=== PATIENT | female | born 1950 | race Caucasian/White ===

== ENCOUNTER 2017-11-21 21:30 | Emergency (ER) | payer MEDICARE ==
[2017-11-21 23:00] LABS: Basophils % (Auto) 0.5 % (0.0-1.8); Eosinophils # (Auto) 0.2 K/mm3 (0.0-0.4); Eosinophils % (Auto) 2.6 % (0.0-4.3); Hematocrit 40.3 % (30.3-42.9); Hemoglobin 13.1 gm/dl (10.1-14.3); Lymphocytes # (Auto) 1.8 K/mm3 (1.2-5.4); Lymphocytes % (Auto) 21.6 % (13.4-35.0); Mean Corpuscular HGB Conc 33 % (30-34); Mean Corpuscular Hemoglobin 31 pg (28-32); Mean Corpuscular Volume 96 fl (79-97); Monocytes % (Auto) 11.8 % (0.0-7.3); Platelet Count 179 K/mm3 (140-440); Red Blood Count 4.19 M/mm3 (3.65-5.03); Red Cell Distribution Width 13.3 % (13.2-15.2)
[2017-11-21 23:36] LABS: BUN/Creatinine Ratio 13; Blood Urea Nitrogen 12 mg/dL (7-17); Calcium 9.2 mg/dL (8.4-10.2); Hemolysis Index 2
[2017-11-21] MEDS ORDERED: MORPHINE IV ONE (23:55)
[2017-11-21] MEDS ORDERED: ZOFRAN IV ONE (23:55)
[2017-11-21] MEDS ORDERED: NITRO-BID 2% TP ONE (23:55)
[2017-11-22] MEDS ORDERED: ASPIRIN PO ONE (00:04)
--- NOTE | 2017-11-22 00:04 | Emergency Department Report ---
HPI - General Chief Complaint: Chest Pain Time Seen by Provider: 11/21/17 23:42 - HPI HPI: Room 17 The patient is a 66-year-old female presented with a chief complaint of chest heaviness. The patient states yesterday she began developing pain in the left upper arm is dull and constant in nature. The patient states she then developed intermittent chest heaviness. The patient states she took her inhaler but it did not help. Patient denies shortness of breath, nausea/ vomiting or diaphoresis with chest heaviness. The patient currently does her heaviness a score of 7/10. The patient states her last stress occurred approximately one year ago but she has never had a cardiac catheterization Location: [See above] Duration: [See above] Quality: Heaviness Severity: 7/10 Modifying factors: [see above] Context: [see above] Mode of transportation: [not driving] ED Past Medical Hx - Past Medical History Hx Hypertension: Yes Hx COPD: Yes - Surgical History Hx Cholecystectomy: Yes Hx Appendectomy: Yes Additional Surgical History: hysterectomy - Family History Family history: no significant - Social History Smoking Status: Never Smoker Substance Use Type: None (denies illicit drug use), Alcohol (frequently) - Medications Home Medications: Home Medications Medication Instructions Recorded Confirmed Last Taken Type Lisinopril [Zestril] 40 mg PO DAILY 07/26/16 07/26/16 Unknown History Simvastatin [Zocor TAB] 40 mg PO QHS 07/26/16 07/26/16 Unknown History Tiotropium [Spiriva] 18 mcg IH QDAY 07/26/16 07/26/16 Unknown History metFORMIN [Glucophage] 500 mg PO QDAY 07/26/16 07/26/16 Unknown History Albuterol Sulfate [Ventolin HFA] 2 puff IH Q4H PRN #1 pump 07/28/16 Unknown Rx Hydralazine HCl [Apresoline TAB] 50 mg PO Q8HR #90 tab 07/28/16 Unknown Rx Prednisone [predniSONE 5 mg (6-Day 5 mg PO .TAPER #1 tab.ds.pk 07/28/16 Unknown Rx Pack, 21 Tabs)] levoFLOXacin [Levaquin] 750 mg PO QDAY #5 tablet 07/28/16 Unknown Rx ED Review of Systems ROS: Stated complaint: CHEST PAIN Other details as noted in HPI Constitutional: denies: diaphoresis Eyes: denies: eye pain ENT: denies: throat pain Respiratory: denies: shortness of breath Cardiovascular: chest pain Endocrine: no symptoms reported Gastrointestinal: denies: nausea, vomiting Genitourinary: denies: dysuria Musculoskeletal: myalgia Neurological: denies: headache Physical Exam - Physical Exam Vital Signs: Vital Signs 11/21/17 22:14 Temperature 98.6 F Pulse Rate 88 Respiratory 16 Rate Blood Pressure 172/78 [Left] O2 Sat by Pulse 99 Oximetry Physical Exam: GENERAL: The patient is well-developed well-nourished []. [] HEENT: Normocephalic. Atraumatic. Extraocular motions are intact. Patient has moist mucous membranes. NECK: Supple. Trachea midline CHEST/LUNGS: Clear to auscultation. There is no respiratory distress noted. HEART/CARDIOVASCULAR: Regular. There is no tachycardia. There is no gallop rub or murmur. ABDOMEN: Abdomen is soft, nontender. Patient has normal bowel sounds. There is no abdominal distention. SKIN: There is no rash. There is no diaphoresis. NEURO: The patient is awake, alert, and oriented. The patient is cooperative. The patient has normal speech MUSCULOSKELETAL: There is no evidence of acute injury. ED Course Vital Signs 11/21/17 22:14 Temperature 98.6 F Pulse Rate 88 Respiratory 16 Rate Blood Pressure 172/78 [Left] O2 Sat by Pulse 99 Oximetry ED Medical Decision Making - Lab Data Result diagrams: 11/21/17 22:48 11/21/17 22:48 Laboratory Tests 11/21/17 11/21/17 22:48 22:48 WBC 8.3 RBC 4.19 Hgb 13.1 Hct 40.3 MCV 96 MCH 31 MCHC 33 RDW 13.3 Plt Count 179 Lymph % (Auto) 21.6 [place] % (Auto) 11.8 H Eos % (Auto) 2.6 Baso % (Auto) 0.5 Lymph # 1.8 Hernando # 1.0 H Eos # 0.2 Baso # 0.0 Seg Neutrophils % 63.5 Seg Neutrophils # 5.3 Sodium 139 Potassium 4.8 Chloride 103.5 Carbon Dioxide 27 Anion Gap 13 BUN 12 Creatinine 0.9 Estimated GFR > 60 BUN/Creatinine Ratio 13 Glucose 128 H Calcium 9.2 Troponin T < 0.010 - EKG Data -: EKG Interpreted by Me EKG shows normal: sinus rhythm Rate: normal - EKG Data When compared to previous EKG there are: no significant change Interpretation: nonspecific ST-T wave darrin (T-wave inversion in lead V2) - Radiology Data Radiology results: image reviewed (chest x-ray) interpreted by me: Chest x-ray-no focal infiltrates, no pneumothorax - Differential Diagnosis ACS, pericarditis, GERD Critical care attestation.: If time is entered above; I have spent that time in minutes in the direct care of this critically ill patient, excluding procedure time. ED Disposition Clinical Impression: Chest heaviness Disposition: OP ADMIT IP TO THIS HOSP Is pt being admited?: Yes Does the pt Need Aspirin: Yes Condition: Fair Referrals: PRIMARY CARE,MD [Primary Care Provider] - 3-5 Days Time of Disposition: 00:57 (hospitalist paged (Dr Zavala))
--- NOTE | 2017-11-22 01:02 | XRay Report ---
FINAL REPORT EXAM: XR CHEST 1V AP HISTORY: chest pain COMPARISON: Chest CT from July 2016. FINDINGS: Frontal view(s) of the chest obtained. Stable mild cardiac enlargement. Shallow inspiration.. No gross consolidation or effusion. No pneumothorax. IMPRESSION: No grossly acute findings. Stable mild cardiac enlargement.
[2017-11-22 02:38] VITALS: BP 172/78
== END 2017-11-22 02:37 | disposition admitted as inpatient to this hospital (09) ==
LOC: ED 21:30
DX: R07.89 Other chest pain (principal); I10 Essential (primary) hypertension; J44.9 Chronic obstructive pulmonary disease, unspecified; Z90.49 Acquired absence of other specified parts of digestive tract; Z90.89 Acquired absence of other organs; Z90.710 Acquired absence of both cervix and uterus
CPT/HCPCS: 36415; 71045; 80048; 84484; 85025; 93005; 93010; 96374; 96375; 99285; J2270; J2405

== ENCOUNTER 2020-10-23 16:02 | Inpatient (IN) | payer MEDICARE ==
--- NOTE | 2020-10-23 16:22 | Emergency Department Report ---
ED Shortness of Breath HPI - General Chief Complaint: Dyspnea/Respdistress Stated Complaint: AUNDREA Time Seen by Provider: 10/23/20 16:14 - History of Present Illness Initial Comments: Patient present by ambulance secondary to difficulty breathing. She had been having trouble breathing and a cough for the last several days. She actually had addressed this with her physician. Her doctor called in a prescription for Zithromax without seeing her without doing any testing. She reported cough and congestion. Cough is producing a yellowish to greenish phlegm. She did report having subjective fevers and worsening shortness of breath. Ultimately, her symptoms did not improve. She got worse today and an ambulance was called. She has no new pedal edema. She has had no new fevers or chills. She has not been vaccinated against coronavirus. She has had no known coronavirus exposure. Patient has difficulty breathing and states that she has used inhalers before. She does not know if she needs another one. She does have a history of COPD. - Related Data Home Medications Medication Instructions Recorded Confirmed Last Taken Lisinopril [Zestril] 40 mg PO DAILY 07/26/16 07/26/16 Unknown Simvastatin (NF) [Zocor TAB] 40 mg PO QHS 07/26/16 07/26/16 Unknown Tiotropium [Spiriva] 18 mcg IH QDAY 07/26/16 07/26/16 Unknown metFORMIN [Glucophage] 500 mg PO QDAY 07/26/16 07/26/16 Unknown Previous Rx's Medication Instructions Recorded Last Taken Type Albuterol Sulfate [Ventolin HFA] 2 puff IH Q4H PRN #1 pump 07/28/16 Unknown Rx Hydralazine HCl [Apresoline TAB] 50 mg PO Q8HR #90 tab 07/28/16 Unknown Rx Prednisone [predniSONE 5 mg (6-Day 5 mg PO .TAPER #1 tab.ds.pk 07/28/16 Unknown Rx Pack, 21 Tabs)] levoFLOXacin [Levaquin] 750 mg PO QDAY #5 tablet 07/28/16 Unknown Rx Allergies Allergy/AdvReac Type Severity Reaction Status Date / Time No Known Allergies Allergy Verified 10/23/20 19:34 ED Review of Systems ROS: Stated complaint: AUNDREA Other details as noted in HPI Comment: All other systems reviewed and negative Constitutional: chills, fever Eyes: denies: vision change ENT: denies: ear pain Respiratory: no symptoms reported, cough Cardiovascular: denies: chest pain Endocrine: denies: increased thirst, increased urine Gastrointestinal: denies: abdominal pain Genitourinary: denies: dysuria Musculoskeletal: denies: back pain Skin: rash (Patient has noticed a rash under both breasts with a purulent drainage.) Neurological: denies: headache Psychiatric: denies: suicidal thoughts Hematological/Lymphatic: denies: easy bruising ED Past Medical Hx - Past Medical History Hx Hypertension: Yes Hx Congestive Heart Failure: No Hx Diabetes: No Hx Asthma: No Hx COPD: Yes - Surgical History Hx Cholecystectomy: Yes Hx Appendectomy: Yes Additional Surgical History: hysterectomy - Family History Family history: lung disease - Social History Smoking Status: Never Smoker Substance Use Type: None (denies illicit drug use), Alcohol (frequently) - Medications Home Medications: Home Medications Medication Instructions Recorded Confirmed Last Taken Type Lisinopril [Zestril] 40 mg PO DAILY 07/26/16 07/26/16 Unknown History Simvastatin (NF) [Zocor TAB] 40 mg PO QHS 07/26/16 07/26/16 Unknown History Tiotropium [Spiriva] 18 mcg IH QDAY 07/26/16 07/26/16 Unknown History metFORMIN [Glucophage] 500 mg PO QDAY 07/26/16 07/26/16 Unknown History Albuterol Sulfate [Ventolin HFA] 2 puff IH Q4H PRN #1 pump 07/28/16 Unknown Rx Hydralazine HCl [Apresoline TAB] 50 mg PO Q8HR #90 tab 07/28/16 Unknown Rx Prednisone [predniSONE 5 mg (6-Day 5 mg PO .TAPER #1 tab.ds.pk 07/28/16 Unknown Rx Pack, 21 Tabs)] levoFLOXacin [Levaquin] 750 mg PO QDAY #5 tablet 07/28/16 Unknown Rx ED Physical Exam - General General appearance: alert, in distress - Head Head exam: Present: atraumatic, normocephalic - Eye Eye exam: Present: normal appearance, PERRL, EOMI - ENT ENT exam: Present: normal exam, normal orophraynx - Neck Neck exam: Present: full ROM - Respiratory Respiratory exam: Present: respiratory distress, decreased breath sounds - Cardiovascular Cardiovascular Exam: Present: normal rhythm, tachycardia - GI/Abdominal GI/Abdominal exam: Present: soft. Absent: tenderness (Obese) - Extremities Exam Extremities exam: Present: pedal edema (2+ bilateral). Absent: tenderness - Back Exam Back exam: Absent: CVA tenderness (R), CVA tenderness (L) - Neurological Exam Neurological exam: Present: alert, oriented X3, reflexes normal - Psychiatric Psychiatric exam: Present: normal affect, normal mood - Skin Skin exam: Present: warm, dry (Patient has evidence of cutaneous candidiasis under both breasts.) ED Course Vital Signs 10/23/20 10/23/20 10/23/20 16:20 16:28 16:38 Temperature 98.2 F 98.2 F Pulse Rate Pulse Rate [ 94 H Anterior Bilateral Throughout] Respiratory Rate Respiratory 26 H Rate [Anterior Bilateral Throughout] Blood Pressure Blood Pressure 196/82 [Left] O2 Sat by Pulse 96 Oximetry 10/23/20 10/23/20 10/23/20 17:11 17:34 17:36 Temperature Pulse Rate 88 93 H 91 H Pulse Rate [ Anterior Bilateral Throughout] Respiratory 34 H 41 H 40 H Rate Respiratory Rate [Anterior Bilateral Throughout] Blood Pressure Blood Pressure [Left] O2 Sat by Pulse 97 97 97 Oximetry 10/23/20 10/23/20 10/23/20 17:38 17:40 17:42 Temperature Pulse Rate 88 88 88 Pulse Rate [ Anterior Bilateral Throughout] Respiratory 35 H 31 H 30 H Rate Respiratory Rate [Anterior Bilateral Throughout] Blood Pressure Blood Pressure [Left] O2 Sat by Pulse 97 99 98 Oximetry 10/23/20 10/23/20 10/23/20 17:44 17:46 17:48 Temperature Pulse Rate 88 87 93 H Pulse Rate [ Anterior Bilateral Throughout] Respiratory 34 H 33 H 39 H Rate Respiratory Rate [Anterior Bilateral Throughout] Blood Pressure Blood Pressure [Left] O2 Sat by Pulse 99 99 98 Oximetry 10/23/20 10/23/20 10/23/20 17:50 17:52 17:54 Temperature Pulse Rate 89 106 H 89 Pulse Rate [ Anterior Bilateral Throughout] Respiratory 33 H 30 H 38 H Rate Respiratory Rate [Anterior Bilateral Throughout] Blood Pressure Blood Pressure [Left] O2 Sat by Pulse 98 97 97 Oximetry 10/23/20 10/23/20 10/23/20 17:56 17:58 18:00 Temperature Pulse Rate 91 H 88 99 H Pulse Rate [ Anterior Bilateral Throughout] Respiratory 38 H 40 H 37 H Rate Respiratory Rate [Anterior Bilateral Throughout] Blood Pressure Blood Pressure [Left] O2 Sat by Pulse 98 98 92 Oximetry 10/23/20 10/23/20 10/23/20 18:02 18:04 18:06 Temperature Pulse Rate 98 H 93 H 91 H Pulse Rate [ Anterior Bilateral Throughout] Respiratory 14 28 H 38 H Rate Respiratory Rate [Anterior Bilateral Throughout] Blood Pressure Blood Pressure [Left] O2 Sat by Pulse 82 L 95 97 Oximetry 10/23/20 10/23/20 10/23/20 18:08 18:10 18:12 Temperature Pulse Rate 89 93 H 89 Pulse Rate [ Anterior Bilateral Throughout] Respiratory 37 H 43 H 32 H Rate Respiratory Rate [Anterior Bilateral Throughout] Blood Pressure Blood Pressure [Left] O2 Sat by Pulse 98 94 98 Oximetry 10/23/20 10/23/20 10/23/20 18:14 18:16 18:18 Temperature Pulse Rate 90 90 90 Pulse Rate [ Anterior Bilateral Throughout] Respiratory 31 H 32 H 35 H Rate Respiratory Rate [Anterior Bilateral Throughout] Blood Pressure Blood Pressure [Left] O2 Sat by Pulse 97 97 98 Oximetry 10/23/20 10/23/20 10/23/20 18:20 18:22 18:24 Temperature Pulse Rate 88 87 87 Pulse Rate [ Anterior Bilateral Throughout] Respiratory 33 H 34 H 34 H Rate Respiratory Rate [Anterior Bilateral Throughout] Blood Pressure Blood Pressure [Left] O2 Sat by Pulse 97 98 97 Oximetry 10/23/20 10/23/20 10/23/20 18:26 18:28 18:30 Temperature Pulse Rate 91 H 90 102 H Pulse Rate [ Anterior Bilateral Throughout] Respiratory 33 H 21 29 H Rate Respiratory Rate [Anterior Bilateral Throughout] Blood Pressure Blood Pressure [Left] O2 Sat by Pulse 97 79 L 80 L Oximetry 10/23/20 10/23/20 10/23/20 18:32 18:34 18:36 Temperature Pulse Rate 104 H 117 H 93 H Pulse Rate [ Anterior Bilateral Throughout] Respiratory 20 17 21 Rate Respiratory Rate [Anterior Bilateral Throughout] Blood Pressure Blood Pressure [Left] O2 Sat by Pulse 79 L 70 L 85 Oximetry 10/23/20 10/23/20 10/23/20 18:38 18:40 18:42 Temperature Pulse Rate 91 H 87 118 H Pulse Rate [ Anterior Bilateral Throughout] Respiratory 27 H 38 H 34 H Rate Respiratory Rate [Anterior Bilateral Throughout] Blood Pressure Blood Pressure [Left] O2 Sat by Pulse 89 90 83 L Oximetry 10/23/20 10/23/20 10/23/20 18:44 18:46 18:48 Temperature Pulse Rate 90 91 H 92 H Pulse Rate [ Anterior Bilateral Throughout] Respiratory 25 H 21 14 Rate Respiratory Rate [Anterior Bilateral Throughout] Blood Pressure Blood Pressure [Left] O2 Sat by Pulse 90 89 90 Oximetry 10/23/20 10/23/20 10/23/20 18:50 18:52 18:54 Temperature Pulse Rate 93 H 94 H 92 H Pulse Rate [ Anterior Bilateral Throughout] Respiratory 14 20 42 H Rate Respiratory Rate [Anterior Bilateral Throughout] Blood Pressure Blood Pressure [Left] O2 Sat by Pulse 92 94 89 Oximetry 10/23/20 10/23/20 10/23/20 18:56 18:58 19:00 Temperature Pulse Rate 90 90 90 Pulse Rate [ Anterior Bilateral Throughout] Respiratory 34 H 29 H 21 Rate Respiratory Rate [Anterior Bilateral Throughout] Blood Pressure Blood Pressure [Left] O2 Sat by Pulse 93 93 91 Oximetry 10/23/20 10/23/20 10/23/20 19:02 19:04 19:06 Temperature Pulse Rate 93 H 98 H 95 H Pulse Rate [ Anterior Bilateral Throughout] Respiratory 29 H 29 H 22 Rate Respiratory Rate [Anterior Bilateral Throughout] Blood Pressure Blood Pressure [Left] O2 Sat by Pulse 90 91 92 Oximetry 10/23/20 10/23/20 10/23/20 19:07 19:08 19:10 Temperature Pulse Rate 93 H 92 H 95 H Pulse Rate [ Anterior Bilateral Throughout] Respiratory 36 H 31 H 29 H Rate Respiratory Rate [Anterior Bilateral Throughout] Blood Pressure 178/62 168/64 175/76 Blood Pressure [Left] O2 Sat by Pulse 89 90 87 Oximetry - Reevaluation(s) Reevaluation #1: 10/23/20 16:22 EMS was met upon arrival. Patient was placed on our monitor. Labs and DuoNeb were ordered. X-ray was ordered. Coronavirus test was ordered. Patient has not been vaccinated. Reevaluation #2: 10/23/20 17:06 Chest x-ray was noted. Furosemide was ordered. Labs are pending. Reevaluation #3: 10/23/20 19:51 Labs have been noted. The hospitalist has been called back for the admission. ED Medical Decision Making - Lab Data Result diagrams: 10/23/20 17:31 10/23/20 17:31 - EKG Data -: EKG Interpreted by Me EKG shows normal: sinus rhythm, intervals, QRS complexes Rate: normal - EKG Data When compared to previous EKG there are: no significant change Interpretation: no acute changes 10/23/20 16:27 Artifact was noted. - Radiology Data Radiology results: report reviewed, image reviewed - Medical Decision Making Patient presented secondary to difficulty breathing. She was hypoxic. She clinically had evidence of congestive heart failure with dependent edema, crackles, and radiographic findings consistent with congestive heart failure. Patient was diuresed. There was no evidence of troponin leak. She did not have fever or leukocytosis. Coronavirus test was still sent. It is conceivable that it would be positive, although the patient has no known exposure. She failed to tolerate BiPAP. She would only tolerate a Venturi mask. We have done our best to diurese her, bronchodilator, and titrate her oxygen. She still refuses BiPAP. I do not believe she requires intubation at this time. Critical Care Time: Yes Critical care attestation.: If time is entered above; I have spent that time in minutes in the direct care o f this critically ill patient, excluding procedure time. Critical care time is based on hypoxia, respiratory failure, need for ongoing ventilatory support including BiPAP which the patient refuses and numerous conversations. ED Disposition Clinical Impression: CHF exacerbation, Hypoxia Disposition: 02 [facility]ORT TERM [facility]OS[facility] Is pt being admited?: Yes Does the pt Need Aspirin: Yes Condition: Serious
[2020-10-23] MEDS ORDERED: IPRATROPIUM/ALBUTEROL SULFATE 3 ML AMPUL.NEB IH ONE ×2 (16:32→16:34)
--- NOTE | 2020-10-23 17:04 | XRay Report ---
CHEST 1 VIEW 10/23/2020 4:52 PM INDICATION / CLINICAL INFORMATION: shortness of breath. COMPARISON: One view of the chest from 11/21/2017. FINDINGS: SUPPORT DEVICES: None. HEART / MEDIASTINUM: There is moderate enlargement of the cardiac silhouette without other significan t abnormalities. LUNGS / PLEURA: Benjamin bilateral interstitial opacities are present with air space opacities noted cecily ng the lung bases. No significant pleural effusion or pneumothorax. ADDITIONAL FINDINGS: The bones are unchanged. IMPRESSION: Suspected CHF exacerbation. Please correlate with the clinical findings. Signer Name: Jani Benson MD Signed: 10/23/2020 4:59 PM Workstation Name: [id number]
[2020-10-23] MEDS ORDERED: FUROSEMIDE 40 MG/4 ML INJ IV ONE (17:05)
[2020-10-23 18:08] LABS: Hemoglobin 13.4 gm/dl (10.1-14.3); Mean Corpuscular HGB Conc 33 % (30-34); Mean Corpuscular Volume 97 fl (79-97); Platelet Count 197 K/mm3 (140-440); Red Blood Count 4.24 M/mm3 (3.65-5.03); Red Cell Distribution Width 13.3 % (13.2-15.2)
--- NOTE | 2020-10-23 19:32 | History and Physical Report ---
History of Present Illness Chief complaint: I am having trouble breathing History of present illness: 69 YO Female with HTN, DM, COPD, Obesity Hypoventilation Syndrome presents to ED for evaluation. Patient reports "I am having trouble breathing". Patient states that she has experienced shortness of breath, productive cough with yellowish to greenish sputum, decreased exercise tolerance, fatigue, malaise, dyspnea on exertion, dyspnea at rest over the past 2 weeks with persistent and worsening symptoms over the same timeframe. Patient also acknowledges bilateral lower extremity edema, diminished sense of taste, as well as diminished sense of smell. Patient is not vaccinated against coronavirus. The patient was treated with outpatient oral antibiotic therapy as well as with increased use of bronchodilator therapy without improvement in symptoms. Patient is uncertain of coronavirus exposure. EMS was notified and upon arrival the patient was found to be in distress and subsequently transported to [facility] for further care and evaluation of the aforementioned symptoms. The patient was seen and evaluated in the emergency department. All lab and imaging studies reviewed. The patient was found to have a pulse oximetry of 79% on room air which is consistent with acute hypoxemic respiratory failure. The patient was found to have a respiratory rate in the 40s. The patient was using accessory muscles to breathe. Chest x-ray revealed bilateral pneumonia. Patient also found to have clinical symptoms consistent with CHF decompensation. The patient was admitted to medical floor and initiated on pneumonia protocol, CHF protocol, as well as coronavirus protocol. Patient denies fever, chest pain, palpitations, skin rash, recent ill contacts. Prior admission on 07/26/2016 reviewed. All medication listed at time of admission has been reconciled. Advanced care planning conducted in ED. Past History Past Medical History: COPD, diabetes, hypertension, other (See HPI) Past Surgical History: appendectomy, cholecystectomy, hysterectomy Social history: single. denies: smoking, alcohol abuse, prescription drug abuse Family history: diabetes, hypertension Medications and Allergies Allergies Allergy/AdvReac Type Severity Reaction Status Date / Time No Known Allergies Allergy Verified 10/23/20 19:34 Home Medications Medication Instructions Recorded Confirmed Last Taken Type Lisinopril [Zestril] 40 mg PO DAILY 07/26/16 07/26/16 Unknown History Simvastatin (NF) [Zocor TAB] 40 mg PO QHS 07/26/16 07/26/16 Unknown History Tiotropium [Spiriva] 18 mcg IH QDAY 07/26/16 07/26/16 Unknown History metFORMIN [Glucophage] 500 mg PO QDAY 07/26/16 07/26/16 Unknown History Albuterol Sulfate [Ventolin HFA] 2 puff IH Q4H PRN #1 pump 07/28/16 Unknown Rx Hydralazine HCl [Apresoline TAB] 50 mg PO Q8HR #90 tab 07/28/16 Unknown Rx Prednisone [predniSONE 5 mg (6-Day 5 mg PO .TAPER #1 tab.ds.pk 07/28/16 Unknown Rx Pack, 21 Tabs)] levoFLOXacin [Levaquin] 750 mg PO QDAY #5 tablet 07/28/16 Unknown Rx Review of Systems Constitutional: fatigue, weakness, malaise Ears, nose, mouth and throat: other (Diminished sense of smell, diminished sense of taste) Breasts: no change in shape, no swelling, no mass Cardiovascular: orthopnea, shortness of breath, dyspnea on exertion, paroxysmal nocturnal dyspnea, high blood pressure, decreased exercise tolerance, no chest pain Respiratory: cough, cough with sputum, shortness of breath, dyspnea on exertion Gastrointestinal: no nausea, no vomiting, no diarrhea, no constipation Rectal: no pain, no incontinence, no bleeding Musculoskeletal: no neck stiffness, no shooting arm pain, no arm numbness/tingling, no shooting leg pain Integumentary: no rash, no pruritis, no redness, no jaundice, no boils Neurological: no head injury, no paralysis, no weakness, no parathesias, no tingling, no syncope, no ataxia Psychiatric: no anxiety, no change in sleep habits, no change in appetite, no suicidal ideation Endocrine: no cold intolerance, no polyphagia, no polydipsia, no nocturia, no excessive sweating Hematologic/Lymphatic: no easy bruising Allergic/Immunologic: no allergic rhinitis, no wheezing, no persistent infections Exam - Constitutional Vitals: Temp Pulse Resp BP Pulse Ox 98.2 F 95 H 29 H 175/76 87 10/23/20 16:20 10/23/20 19:10 10/23/20 19:10 10/23/20 19:10 10/23/20 19:10 General appearance: Present: mild distress, obese - EENT Eyes: Present: PERRL ENT: hearing intact, clear oral mucosa - Neck Neck: Present: supple, normal ROM - Respiratory Respiratory effort: normal, labored, accessory muscle use Respiratory: bilateral: diminished, rhonchi - Cardiovascular Heart Sounds: Present: S1 & S2. Absent: rub, click - Extremities Extremities: pulses symmetrical Extremity abnormal: edema Peripheral Pulses: within normal limits - Abdominal General gastrointestinal: Present: soft, non-tender, non-distended, normal bowel sounds Female genitourinary: Present: normal - Integumentary Integumentary: Present: clear, warm, dry - Musculoskeletal Musculoskeletal: generalized weakness - Psychiatric Psychiatric: appropriate mood/affect, intact judgment & insight - Neurologic Neurologic: CNII-XII intact, moves all extremities Results - Labs CBC & Chem 7: 10/23/20 17:31 10/23/20 17:31 Assessment and Plan - Patient Problems (1) Acute hypoxemic respiratory failure Status: Acute Plan to address problem: Chest x-ray, supplemental oxygen, pulse oximetry, nebulizer therapy, noninvasive positive pressure ventilation as clinically indicated, arterial blood gas. (2) CHF (congestive heart failure) Status: Acute Qualifiers: Heart failure type: systolic Heart failure chronicity: acute Qualified Code(s): I50.21 - Acute systolic (congestive) heart failure Plan to address problem: Strict I's/O, monitor urine output every shift, daily weight, afterload reduction, blood pressure control, thyroid panel, magnesium level, echocardiogram ordered and is pending at time of admission. (3) Obesity hypoventilation syndrome Status: Acute Plan to address problem: Balanced diet, increase physical activity at discharge, outpatient pulmonary follow-up for sleep study, outpatient bariatric surgery follow-up. (4) Pneumonia Status: Acute Plan to address problem: Pneumonia protocol: Chest x-ray, CBC, CMP, supplemental oxygen, pulse oximetry, IV antibiotic therapy, blood culture. (5) Suspected 2019 novel coronavirus infection Status: Acute Plan to address problem: Coronavirus protocol: IV antibiotic therapy, IV steroid therapy, supplemental oxygen, pulse oximetry, nebulizer therapy, prone positioning while in bed, noninvasive positive pressure ventilation as clinically indicated, prophylactic anticoagulation. (6) Hypertension Status: Acute Qualifiers: Hypertension type: primary hypertension Qualified Code(s): I10 - Essential (primary) hypertension Plan to address problem: Monitor blood pressure every shift, resume prehospital antihypertensive therapy, blood pressure checks per routine, (7) Diabetes Status: Acute Plan to address problem: Consistent carbohydrate diet, Accu-Chek, insulin protocol, hypoglycemia protocol (8) DVT prophylaxis Status: Acute Plan to address problem: SCD to bilateral lower extremities while in bed, prophylactic anticoagulation (9) Advance care planning Status: Acute Plan to address problem: Disease education conducted, care plan discussed, diagnosis discussed, prognosis discussed, patient is full code, patient knowledges understanding and agreement with care plan, +30 minutes.
[2020-10-23 19:49] LABS: BUN/Creatinine Ratio 18; Blood Urea Nitrogen 14 mg/dL (7-17); Hemolysis Index 8
[2020-10-23] MEDS ORDERED: ALBUTEROL 2.5 MG/3 ML NEBU IH PRN (20:27)
[2020-10-23] MEDS ORDERED: HYDROmorphone 1 MG/1 ML INJ IV PRN (20:27)
[2020-10-23] MEDS ORDERED: ONDANSETRON 4 MG/2 ML INJ IV PRN (20:27)
[2020-10-23] MEDS: cefTRIAXone/NS 2 GM/100 ML 2 GM/100 ML BAG IV SCH (21:15)
[2020-10-23 21:47] LABS: C-Reactive Protein 11.5 mg/dL (0.00-1.30); C-Reactive Protein 11.7 mg/dL (0.00-1.30)
[2020-10-23] MEDS: ASCORBIC ACID 500 MG TAB PO SCH (22:21)
[2020-10-23] MEDS: ZINC SULFATE 220 MG CAP PO SCH (22:22)
[2020-10-23] MEDS: HEPARIN 5,000 UNIT/1 ML VIAL SUB-Q SCH (22:23)
[2020-10-23] MEDS: PRAVASTATIN 80 MG TAB PO SCH (22:25)
[2020-10-23] MEDS: methylPREDNISolone Sod Succinate 40 MG/1 ML INJ IV SCH (22:26)
[2020-10-23] MEDS: hydrALAZINE 25 MG TAB PO SCH (22:26)
[2020-10-23 23:37] LABS: Free T4 (Free Thyroxine) 1.17 ng/dL (0.76-1.46)
[2020-10-24] MEDS: methylPREDNISolone Sod Succinate 40 MG/1 ML INJ IV SCH ×3 (06:10→23:23)
[2020-10-24] MEDS: hydrALAZINE 25 MG TAB PO SCH ×2 (06:15→13:31)
[2020-10-24] MEDS: FUROSEMIDE 20 MG/2 ML INJ IV SCH ×2 (06:15→21:14)
[2020-10-24 08:55] LABS: Basophils % (Auto) 0.1 % (0.0-1.8); Hematocrit 40.1 % (30.3-42.9); Hemoglobin 13.8 gm/dl (10.1-14.3); Lymphocytes # (Auto) 0.6 K/mm3 (1.2-5.4); Lymphocytes % (Auto) 9.9 % (13.4-35.0); Mean Corpuscular HGB Conc 35 % (30-34); Mean Corpuscular Volume 94 fl (79-97); Monocytes # (Auto) 0.5 K/mm3 (0.0-0.8); Monocytes % (Auto) 7.9 % (0.0-7.3); Platelet Count 205 K/mm3 (140-440); Red Blood Count 4.26 M/mm3 (3.65-5.03); Red Cell Distribution Width 13.2 % (13.2-15.2)
[2020-10-24 08:58] LABS: BUN/Creatinine Ratio 21; Blood Urea Nitrogen 17 mg/dL (7-17); Calcium 8.9 mg/dL (8.4-10.2); Hemolysis Index 17
[2020-10-24] MEDS: HEPARIN 5,000 UNIT/1 ML VIAL SUB-Q SCH ×2 (13:21→23:23)
[2020-10-24] MEDS: CHOLECALCIFEROL (VIT D3) 1000 UNIT (25 mcg) TAB PO SCH (13:22)
[2020-10-24] MEDS: cefTRIAXone/NS 2 GM/100 ML 2 GM/100 ML BAG IV SCH (13:22)
[2020-10-24] MEDS: ZINC SULFATE 220 MG CAP PO SCH ×2 (13:22→23:23)
[2020-10-24] MEDS: ASCORBIC ACID 500 MG TAB PO SCH ×2 (13:22→23:23)
[2020-10-24] MEDS: TIOTROPIUM 18 MCG CAP INHALATION IH SCH (13:53)
[2020-10-24] MEDS: LISINOPRIL 40 MG TAB PO SCH (13:53)
--- NOTE | 2020-10-24 19:00 | Consultation ---
History of Present Illness Consult date: 10/24/20 Requesting physician: WAQAS SANCHEZ Consult reason: congestive heart failure History of present illness: Pt is a 69-year-old female, previously unknown to our practice, who presented with complaints of progressively worsening fatigue, SOB, and a cough productive of yellow-green sputum x 2 weeks. Pt also reports decreased sense of smell and taste. She was found to be COVID-positive, with radiographic evidence of PNA. BNP WNL. No prior cardiac workup available for review. Past History Past Medical History: COPD, diabetes, hypertension Past Surgical History: appendectomy, cholecystectomy, hysterectomy. denies: CABG, PTCA Social history: denies: smoking, alcohol abuse Family history: diabetes, hypertension Medications and Allergies Allergies Allergy/AdvReac Type Severity Reaction Status Date / Time No Known Allergies Allergy Verified 10/23/20 19:34 Home Medications Medication Instructions Recorded Confirmed Last Taken Type Lisinopril [Zestril] 40 mg PO DAILY 07/26/16 07/26/16 Unknown History Simvastatin (NF) [Zocor TAB] 40 mg PO QHS 07/26/16 07/26/16 Unknown History Tiotropium [Spiriva] 18 mcg IH QDAY 07/26/16 07/26/16 Unknown History metFORMIN [Glucophage] 500 mg PO QDAY 07/26/16 07/26/16 Unknown History Albuterol Sulfate [Ventolin HFA] 2 puff IH Q4H PRN #1 pump 07/28/16 Unknown Rx Hydralazine HCl [Apresoline TAB] 50 mg PO Q8HR #90 tab 07/28/16 Unknown Rx Prednisone [predniSONE 5 mg (6-Day 5 mg PO .TAPER #1 tab.ds.pk 07/28/16 Unknown Rx Pack, 21 Tabs)] levoFLOXacin [Levaquin] 750 mg PO QDAY #5 tablet 07/28/16 Unknown Rx Active Meds: Active Medications Acetaminophen (Acetaminophen 325 Mg Tab) 650 mg PO Q4H PRN PRN Reason: Pain MILD(1-3)/Fever >100.5/KAUFMAN Albuterol (Albuterol 2.5 Mg/3 Ml Nebu) 2.5 mg IH Q4HRT PRN PRN Reason: Shortness Of Breath Amlodipine Besylate (Amlodipine 5 Mg Tab) 5 mg PO QDAY GLENROY Ascorbic Acid (Ascorbic Acid 500 Mg Tab) 500 mg PO BID [facility] Last Admin: 10/24/20 13:22 Dose: 500 mg Documented by: Cholecalciferol (Cholecalciferol (Vit D3) 1000 Unit (25 Mcg) Tab) 1,000 unit PO QDAY [facility] Last Admin: 10/24/20 13:22 Dose: 1,000 unit Documented by: Furosemide (Furosemide 20 Mg/2 Ml Inj) 20 mg IV BID@0600,1800 [facility] Last Admin: 10/24/20 06:15 Dose: 20 mg Documented by: Heparin Sodium (Porcine) (Heparin 5,000 Unit/1 Ml Vial) 5,000 unit SUB-Q Q12HR [facility] Last Admin: 10/24/20 13:21 Dose: 5,000 unit Documented by: Hydralazine HCl (Hydralazine 25 Mg Tab) 50 mg PO Q8HR [facility] Last Admin: 10/24/20 13:31 Dose: 50 mg Documented by: Hydromorphone HCl (Hydromorphone 1 Mg/1 Ml Inj) 0.5 mg IV Q12H PRN PRN Reason: Pain , Severe (7-10) Ceftriaxone Sodium (Rocephin/Ns 2 Gm/100 Ml) 2 gm in 100 mls @ 200 mls/hr IV Q24HR [facility]; Protocol Last Admin: 10/24/20 13:22 Dose: 200 mls/hr Documented by: Lisinopril (Lisinopril 40 Mg Tab) 40 mg PO DAILY [facility] Last Admin: 10/24/20 13:53 Dose: 40 mg Documented by: Methylprednisolone Sodium Succinate (Methylprednisolone Sod Succinate 40 Mg/1 Ml Inj) 40 mg IV Q8HR [facility] Last Admin: 10/24/20 13:31 Dose: 40 mg Documented by: Ondansetron HCl (Ondansetron 4 Mg/2 Ml Inj) 4 mg IV Q8H PRN PRN Reason: Nausea And Vomiting Oxycodone/Acetaminophen (Oxycodone /Acetaminophen 5-325mg Tab) 1 tab PO Q12H PRN PRN Reason: Pain, Moderate (4-6) Pravastatin Sodium (Pravastatin 80 Mg Tab) 80 mg PO QHS [facility] Last Admin: 10/23/20 22:25 Dose: 80 mg Documented by: Sodium Chloride (Sodium Chloride 0.9% 10 Ml Flush Syringe) 10 ml IV BID [facility] Last Admin: 10/24/20 13:22 Dose: 10 ml Documented by: Sodium Chloride (Sodium Chloride 0.9% 10 Ml Flush Syringe) 10 ml IV PRN PRN PRN Reason: LINE FLUSH Tiotropium [place] (Tiotropium 18 Mcg Cap Inhalation) 1 puff IH QDAY [facility] Last Admin: 10/24/20 13:53 Dose: 1 puff Documented by: Zinc Sulfate (Zinc Sulfate 220 Mg Cap) 220 mg PO BID [facility] Last Admin: 10/24/20 13:22 Dose: 220 mg Documented by: Review of Systems Constitutional: no fever, no chills Cardiovascular: edema, shortness of breath, dyspnea on exertion, no chest pain, no orthopnea, no palpitations, no syncope Respiratory: cough with sputum, shortness of breath, dyspnea on exertion Gastrointestinal: no abdominal pain, no nausea, no vomiting Genitourinary Female: no pelvic pain, no flank pain, no dysuria Musculoskeletal: no neck stiffness, no neck pain Integumentary: no rash, no wounds Neurological: no head injury, no paralysis, no parathesias, no numbness, no tingling, no seizures, no syncope, no vertigo, no headaches Endocrine: no cold intolerance, no heat intolerance Hematologic/Lymphatic: no easy bruising, no easy bleeding Allergic/Immunologic: no anaphylaxis Physical Examination Last Vital Signs Temp 98.2 F 10/23/20 16:28 Pulse 82 10/24/20 10:01 Resp 28 H 10/24/20 10:01 BP 179/87 10/24/20 10:01 Pulse Ox 92 10/24/20 10:01 General appearance: no acute distress HEENT: Positive: Normocephaly Neck: Positive: neck supple, trachea midline Cardiac: Positive: Reg Rate and Rhythm Lungs: Positive: Rhonchi Neuro: Positive: Grossly Intact Abdomen: Positive: Soft. Negative: Tender Extremities: Present: edema (pedal) Results 10/24/20 08:07 10/24/20 08:07 Cardiac Enzymes 10/23/20 10/23/20 Range/Units 20:38 20:38 Lactate Dehydrogenase 606 H 643 H (91-180) units/L CBC 10/24/20 Range/Units 08:07 WBC 5.8 (4.5-11.0) K/mm3 RBC 4.26 (3.65-5.03) M/mm3 Hgb 13.8 (10.1-14.3) gm/dl Hct 40.1 (30.3-42.9) % Plt Count 205 (140-440) K/mm3 Lymph # (Auto) 0.6 L (1.2-5.4) K/mm3 [place] # (Auto) 0.5 (0.0-0.8) K/mm3 Eos # (Auto) 0.0 (0.0-0.4) K/mm3 Baso # (Auto) 0.0 (0.0-0.1) K/mm3 Comprehensive Metabolic Panel 10/23/20 10/24/20 Range/Units 17:31 08:07 Sodium 136 L 137 (137-145) mmol/L Potassium 3.8 4.9 D (3.6-5.0) mmol/L Chloride 98.9 100.2 (98-107) mmol/L Carbon Dioxide 23 24 (22-30) mmol/L BUN 14 17 (7-17) mg/dL Creatinine 0.8 0.8 (0.6-1.2) mg/dL Glucose 149 H 173 H (65-100) mg/dL Calcium 9.0 8.9 (8.4-10.2) mg/dL - Imaging and Cardiology Echo: pending Assessment and Plan Echo pending. Ok to continue gentle IV diuresis for now, though suspicion for HF is low. Consider confirmatory testing of PE vs DVT given elevated D-dimer and COVID- positive status. Will optimize antihypertensive regimen. Add Amlodipine 5mg daily. May increase as needed. Pt seen in conjunction with Dr. Manning, who agrees with the assessment and plan of care. - Patient Problems (1) Acute respiratory failure Current Visit: Yes Status: Acute (2) Pneumonia due to COVID-19 virus Current Visit: Yes Status: Acute (3) COPD (chronic obstructive pulmonary disease) Current Visit: Yes Status: Chronic (4) Hypertension Current Visit: Yes Status: Chronic Qualifiers: Hypertension type: primary hypertension Qualified Code(s): I10 - Essential (primary) hypertension (5) Diabetes mellitus Current Visit: Yes Status: Chronic (6) GERD (gastroesophageal reflux disease) Current Visit: Yes Status: Chronic (7) Obesity hypoventilation syndrome Current Visit: Yes Status: Chronic
[2020-10-24] MEDS: amLODIPine 5 MG TAB PO SCH (21:14)
[2020-10-25] MEDS: hydrALAZINE 25 MG TAB PO SCH ×4 (02:55→21:59)
[2020-10-25] MEDS: PRAVASTATIN 80 MG TAB PO SCH ×2 (02:55→22:00)
[2020-10-25] MEDS ORDERED: hydrALAZINE 20 MG/1 ML INJ IV PRN (05:04)
[2020-10-25] MEDS: FUROSEMIDE 20 MG/2 ML INJ IV SCH ×2 (07:10→17:38)
[2020-10-25] MEDS: methylPREDNISolone Sod Succinate 40 MG/1 ML INJ IV SCH ×3 (07:10→22:00)
[2020-10-25] MEDS: ZINC SULFATE 220 MG CAP PO SCH ×2 (10:00→22:00)
[2020-10-25] MEDS: amLODIPine 5 MG TAB PO SCH (10:00)
[2020-10-25] MEDS: CHOLECALCIFEROL (VIT D3) 1000 UNIT (25 mcg) TAB PO SCH (10:00)
[2020-10-25] MEDS: cefTRIAXone/NS 2 GM/100 ML 2 GM/100 ML BAG IV SCH (10:00)
[2020-10-25] MEDS: ASCORBIC ACID 500 MG TAB PO SCH ×2 (10:00→22:00)
[2020-10-25] MEDS: LISINOPRIL 40 MG TAB PO SCH (10:00)
[2020-10-25] MEDS: HEPARIN 5,000 UNIT/1 ML VIAL SUB-Q SCH ×2 (10:01→22:00)
--- NOTE | 2020-10-25 12:07 | Progress Note ---
Assessment and Plan - Patient Problems (1) Acute hypoxemic respiratory failure Current Visit: No Status: Acute Plan to address problem: Chest x-ray, supplemental oxygen, pulse oximetry, nebulizer therapy, noninvasive positive pressure ventilation as clinically indicated, arterial blood gas. (2) CHF (congestive heart failure) Current Visit: No Status: Acute Qualifiers: Heart failure type: systolic Heart failure chronicity: acute Qualified Code(s): I50.21 - Acute systolic (congestive) heart failure Plan to address problem: Strict I's/O, monitor urine output every shift, daily weight, afterload reduction, blood pressure control, thyroid panel, magnesium level, echo cardiogram ordered and is pending at time of admission. (3) Obesity hypoventilation syndrome Current Visit: Yes Status: Chronic Plan to address problem: Balanced diet, increase physical activity at discharge, outpatient pulmonary follow-up for sleep study, outpatient bariatric surgery follow-up. (4) Pneumonia Current Visit: No Status: Acute Plan to address problem: Pneumonia protocol: Chest x-ray, CBC, CMP, supplemental oxygen, pulse oximetry, IV antibiotic therapy, blood culture. (5) Suspected 2019 novel coronavirus infection Current Visit: No Status: Acute Plan to address problem: Coronavirus protocol: IV antibiotic therapy, IV steroid therapy, supplemental oxygen, pulse oximetry, nebulizer therapy, prone positioning while in bed, noninvasive positive pressure ventilation as clinically indicated, prophylactic anticoagulation. (6) Hypertension Current Visit: Yes Status: Chronic Qualifiers: Hypertension type: primary hypertension Qualified Code(s): I10 - Essential (primary) hypertension Plan to address problem: Monitor blood pressure every shift, resume prehospital antihypertensive therapy, blood pressure checks per routine, (7) Diabetes Current Visit: No Status: Acute Plan to address problem: Consistent carbohydrate diet, Accu-Chek, insulin protocol, hypoglycemia protocol (8) DVT prophylaxis Current Visit: No Status: Acute Plan to address problem: SCD to bilateral lower extremities while in bed, prophylactic anticoagulation (9) Advance care planning Current Visit: No Status: Acute Plan to address problem: Disease education conducted, care plan discussed, diagnosis discussed, prognosis discussed, patient is full code, patient knowledges understanding and agreement with care plan, +30 minutes. History Interval history: 69 YO Female HD #2 with Acute Hypoxemic Respiratory Failure, Pneumonia secondary to Coronavirus Infection, CHF, HTN, DM. No reported nursing events. Patient convalesced well overnight. No acute improvement in overall patient symptoms. Patient denies pain. Hospitalist Physical - Constitutional Vitals: Temp Pulse Resp BP Pulse Ox 97.7 F 98 H 22 146/69 91 10/24/20 21:31 10/25/20 10:00 10/25/20 06:01 10/25/20 10:00 10/25/20 08:15 General appearance: Present: no acute distress, obese - EENT Eyes: Present: PERRL, EOM intact - Neck Neck: Present: supple - Respiratory Respiratory effort: labored Respiratory: bilateral: diminished, rhonchi - Cardiovascular Rhythm: regular Heart Sounds: Present: S1 & S2 - Extremities Extremities: no ischemia Extremity abnormal: edema Peripheral Pulses: within normal limits - Abdominal General gastrointestinal: soft, non-tender, non-distended - Integumentary Integumentary: Present: clear, dry - Psychiatric Psychiatric: appropriate mood/affect, cooperative - Neurologic Neurologic: CNII-XII intact HEART Score - HEART Score Troponin: Troponin T < 0.010 ng/mL (0.00-0.029) 10/23/20 17:31 Results - Labs CBC & Chem 7: 10/24/20 08:07 10/24/20 08:07 Labs: Laboratory Last Values WBC 5.8 K/mm3 (4.5-11.0) 10/24/20 08:07 RBC 4.26 M/mm3 (3.65-5.03) 10/24/20 08:07 Hgb 13.8 gm/dl (10.1-14.3) 10/24/20 08:07 Hct 40.1 % (30.3-42.9) 10/24/20 08:07 MCV 94 fl (79-97) 10/24/20 08:07 MCH 33 pg (28-32) H 10/24/20 08:07 MCHC 35 % (30-34) H 10/24/20 08:07 RDW 13.2 % (13.2-15.2) 10/24/20 08:07 Plt Count 205 K/mm3 (140-440) 10/24/20 08:07 Lymph % (Auto) 9.9 % (13.4-35.0) L 10/24/20 08:07 [place] % (Auto) 7.9 % (0.0-7.3) H 10/24/20 08:07 Eos % (Auto) 0.0 % (0.0-4.3) 10/24/20 08:07 Baso % (Auto) 0.1 % (0.0-1.8) 10/24/20 08:07 Lymph # (Auto) 0.6 K/mm3 (1.2-5.4) L 10/24/20 08:07 [place] # (Auto) 0.5 K/mm3 (0.0-0.8) 10/24/20 08:07 Eos # (Auto) 0.0 K/mm3 (0.0-0.4) 10/24/20 08:07 Baso # (Auto) 0.0 K/mm3 (0.0-0.1) 10/24/20 08:07 Seg Neutrophils % 82.1 % (40.0-70.0) H 10/24/20 08:07 Seg Neutrophils # 4.7 K/mm3 (1.8-7.7) 10/24/20 08:07 D-Dimer 919.44 ng/mlDDU (0-234) H 10/23/20 20:38 Sodium 137 mmol/L (137-145) 10/24/20 08:07 Potassium 4.9 mmol/L (3.6-5.0) D 10/24/20 08:07 Chloride 100.2 mmol/L (98-107) 10/24/20 08:07 Carbon Dioxide 24 mmol/L (22-30) 10/24/20 08:07 Anion Gap 18 mmol/L 10/24/20 08:07 BUN 17 mg/dL (7-17) 10/24/20 08:07 Creatinine 0.8 mg/dL (0.6-1.2) 10/24/20 08:07 Estimated GFR > 60 ml/min 10/24/20 08:07 BUN/Creatinine Ratio 21 % 10/24/20 08:07 Glucose 173 mg/dL (65-100) H 10/24/20 08:07 Calcium 8.9 mg/dL (8.4-10.2) 10/24/20 08:07 Magnesium 1.80 mg/dL (1.7-2.3) 10/23/20 20:38 Lactate Dehydrogenase 606 units/L (91-180) H 10/23/20 20:38 Lactate Dehydrogenase 643 units/L (91-180) H 10/23/20 20:38 Troponin T < 0.010 ng/mL (0.00-0.029) 10/23/20 17:31 C-Reactive Protein 11.50 mg/dL (0.00-1.30) H 10/23/20 20:38 C-Reactive Protein 11.70 mg/dL (0.00-1.30) H 10/23/20 20:38 NT-Pro-B Natriuret Pep 162.0 pg/mL (0-900) 10/23/20 17:31 Procalcitonin 0.32 ng/mL (<0.15) 10/23/20 20:38 TSH 2.010 mlU/mL (0.270-4.200) 10/23/20 20:38 Free T4 1.17 ng/dL (0.76-1.46) 10/23/20 20:38 Coronavirus (PCR) Positive (Negative) A 10/24/20 08:00 Active Medications - Current Medications Current Medications: Generic Name Dose Route Start Last Admin Trade Name Freq PRN Reason Stop Dose Admin Acetaminophen 650 mg 10/23/20 20:27 Acetaminophen 325 Mg Tab PO Q4H PRN Pain MILD(1-3)/Fever >100.5/KAUFMAN Albuterol 2.5 mg 10/23/20 20:27 Albuterol 2.5 Mg/3 Ml Nebu IH Q4HRT PRN Shortness Of Breath Amlodipine Besylate 5 mg 10/24/20 16:00 10/25/20 10:00 Amlodipine 5 Mg Tab PO 5 mg QDAY GLENROY Administration Ascorbic Acid 500 mg 10/23/20 22:00 10/25/20 10:00 Ascorbic Acid 500 Mg Tab PO 500 mg BID GLENROY Administration Cholecalciferol 1,000 unit 10/24/20 10:00 10/25/20 10:00 Cholecalciferol (Vit D3) 1000 Unit (25 Mcg) Tab PO 1,000 unit QDAY GLENROY Administration Furosemide 20 mg 10/24/20 06:00 10/25/20 07:10 Furosemide 20 Mg/2 Ml Inj IV 20 mg BID@0600,1800 GLENROY Administration Heparin Sodium (Porcine) 5,000 unit 10/23/20 22:00 10/25/20 10:01 Heparin 5,000 Unit/1 Ml Vial SUB-Q 5,000 unit Q12HR GLENROY Administration Hydralazine HCl 50 mg 10/23/20 22:00 10/25/20 07:09 Hydralazine 25 Mg Tab PO Not Given Q8HR GLENROY Hydralazine HCl 10 mg 10/25/20 05:04 10/25/20 05:10 Hydralazine 20 Mg/1 Ml Inj IV 10/27/20 05:03 10 mg Q4HR PRN Administration Elevated BP Hydromorphone HCl 0.5 mg 10/23/20 20:27 Hydromorphone 1 Mg/1 Ml Inj IV Q12H PRN Pain , Severe (7-10) Ceftriaxone Sodium 2 gm in 100 mls @ 200 mls/hr 10/23/20 21:00 10/25/20 10:00 Rocephin/Ns 2 Gm/100 Ml IV 200 mls/hr Q24HR GLENROY Administration Protocol Lisinopril 40 mg 10/24/20 10:00 10/25/20 10:00 Lisinopril 40 Mg Tab PO 40 mg DAILY GLENROY Administration Methylprednisolone Sodium Succinate 40 mg 10/23/20 22:00 10/25/20 07:10 Methylprednisolone Sod Succinate 40 Mg/1 Ml Inj IV 40 mg Q8HR GLENROY Administration Ondansetron HCl 4 mg 10/23/20 20:27 Ondansetron 4 Mg/2 Ml Inj IV Q8H PRN Nausea And Vomiting Oxycodone/Acetaminophen 1 tab 10/23/20 20:27 Oxycodone /Acetaminophen 5-325mg Tab PO Q12H PRN Pain, Moderate (4-6) Pravastatin Sodium 80 mg 10/23/20 22:00 10/25/20 02:55 Pravastatin 80 Mg Tab PO Not Given QHS GLENROY Sodium Chloride 10 ml 10/23/20 22:00 10/25/20 10:00 Sodium Chloride 0.9% 10 Ml Flush Syringe IV 10 ml BID GLENROY Administration Sodium Chloride 10 ml 10/23/20 20:27 Sodium Chloride 0.9% 10 Ml Flush Syringe IV PRN PRN LINE FLUSH Tiotropium [place] 1 puff 10/24/20 10:00 10/24/20 13:53 Tiotropium 18 Mcg Cap Inhalation IH 1 puff QDAY GLENROY Administration Zinc Sulfate 220 mg 10/23/20 22:00 10/25/20 10:00 Zinc Sulfate 220 Mg Cap PO 220 mg BID GLENROY Administration
[2020-10-25] MEDS: TIOTROPIUM 18 MCG CAP INHALATION IH SCH (16:36)
[2020-10-25] MEDS ORDERED: amLODIPine 5 MG TAB PO ONE (17:00)
--- NOTE | 2020-10-25 19:07 | Progress Note ---
Assessment and Plan Echo reviewed - EF 65-70%, mild diastolic dysfxn. Consider confirmatory testing of PE vs DVT given elevated D-dimer and COVID- positive status. Will optimize antihypertensive regimen. Increase Amlodipine to 10mg daily. May titrate up PO Hydralazine as needed. Pt seen in conjunction with Dr. Manning, who agrees with the assessment and plan of care. - Patient Problems (1) Acute respiratory failure Current Visit: Yes Status: Acute (2) Pneumonia due to COVID-19 virus Current Visit: Yes Status: Acute (3) COPD (chronic obstructive pulmonary disease) Current Visit: Yes Status: Chronic (4) Hypertension Current Visit: Yes Status: Chronic Qualifiers: Hypertension type: primary hypertension Qualified Code(s): I10 - Essential (primary) hypertension (5) Diabetes mellitus Current Visit: Yes Status: Chronic (6) GERD (gastroesophageal reflux disease) Current Visit: Yes Status: Chronic (7) Obesity hypoventilation syndrome Current Visit: Yes Status: Chronic Subjective Date of service: 10/25/20 Principal diagnosis: COVID-19 PNA Interval history: No acute events overnight. Remains on 15L O2. No tele data available for review. Objective Last Vital Signs Temp 98.5 F 10/25/20 16:21 Pulse 96 H 10/25/20 16:35 Resp 26 H 10/25/20 16:21 BP 190/79 10/25/20 16:35 Pulse Ox 80 L 10/25/20 16:21 - Imaging and Cardiology EKG: report reviewed, image reviewed Echo: report reviewed - EKG Sinus rhythms and dysrhythmias: sinus rhythm
--- NOTE | 2020-10-25 19:35 | Progress Note ---
Assessment and Plan - Patient Problems (1) Acute hypoxemic respiratory failure Current Visit: No Status: Acute Plan to address problem: Chest x-ray, supplemental oxygen, pulse oximetry, nebulizer therapy, noninvasive positive pressure ventilation as clinically indicated, pulmonary toilet, incentive spirometry, out of bed to chair twice daily and as needed (2) CHF (congestive heart failure) Current Visit: No Status: Acute Qualifiers: Heart failure type: systolic Heart failure chronicity: acute Qualified Code(s): I50.21 - Acute systolic (congestive) heart failure Plan to address problem: Strict I's/O, monitor urine output every shift, daily weight, afterload reduc tion, blood pressure control, thyroid panel, magnesium level, echocardiogram ordered and is pending at time of admission. (3) Obesity hypoventilation syndrome Current Visit: Yes Status: Chronic Plan to address problem: Balanced diet, increase physical activity at discharge, outpatient pulmonary follow-up for sleep study, outpatient bariatric surgery follow-up. (4) Pneumonia Current Visit: No Status: Acute Plan to address problem: Pneumonia protocol: Chest x-ray, CBC, CMP, supplemental oxygen, pulse oximetry, IV antibiotic therapy, blood culture. (5) Suspected 2019 novel coronavirus infection Current Visit: No Status: Acute Plan to address problem: Coronavirus protocol: IV antibiotic therapy, IV steroid therapy, supplemental oxygen, pulse oximetry, nebulizer therapy, prone positioning while in bed, non invasive positive pressure ventilation as clinically indicated, prophylactic anticoagulation. (6) Hypertension Current Visit: Yes Status: Chronic Qualifiers: Hypertension type: primary hypertension Qualified Code(s): I10 - Essential (primary) hypertension Plan to address problem: Monitor blood pressure every shift, resume prehospital antihypertensive therapy, blood pressure checks per routine, (7) Diabetes Current Visit: No Status: Acute Plan to address problem: Consistent carbohydrate diet, Accu-Chek, insulin protocol, hypoglycemia protocol (8) DVT prophylaxis Current Visit: No Status: Acute Plan to address problem: SCD to bilateral lower extremities while in bed, prophylactic anticoagulation (9) Advance care planning Current Visit: No Status: Acute Plan to address problem: Disease education conducted, care plan discussed, diagnosis discussed, prognosis discussed, patient is full code, patient knowledges understanding and agreement with care plan, +30 minutes. History Interval history: 69 YO Female HD #3 with Acute Hypoxemic Respiratory Failure, Pneumonia secondary to Coronavirus Infection, CHF, HTN, DM. No reported nursing events. Patient convalesced well overnight. No acute improvement in overall patient symptoms. Patient denies pain. Patient acknowledges continued shortness of breath. Hospitalist Physical - Constitutional Vitals: Temp Pulse Resp BP Pulse Ox 98.5 F 96 H 26 H 190/79 80 L 10/25/20 16:21 10/25/20 16:35 10/25/20 16:21 10/25/20 16:35 10/25/20 16:21 General appearance: Present: no acute distress, obese - EENT Eyes: Present: PERRL, EOM intact - Neck Neck: Present: supple - Respiratory Respiratory effort: labored Respiratory: bilateral: diminished - Cardiovascular Rhythm: regular Heart Sounds: Present: S1 & S2 - Extremities Extremities: no ischemia Peripheral Pulses: within normal limits - Abdominal General gastrointestinal: soft, non-tender, non-distended - Integumentary Integumentary: Present: clear, dry - Psychiatric Psychiatric: appropriate mood/affect, cooperative - Neurologic Neurologic: CNII-XII intact HEART Score - HEART Score Troponin: Troponin T < 0.010 ng/mL (0.00-0.029) 10/23/20 17:31 Results - Labs CBC & Chem 7: 10/24/20 08:07 10/24/20 08:07 Labs: Laboratory Last Values WBC 5.8 K/mm3 (4.5-11.0) 10/24/20 08:07 RBC 4.26 M/mm3 (3.65-5.03) 10/24/20 08:07 Hgb 13.8 gm/dl (10.1-14.3) 10/24/20 08:07 Hct 40.1 % (30.3-42.9) 10/24/20 08:07 MCV 94 fl (79-97) 10/24/20 08:07 MCH 33 pg (28-32) H 10/24/20 08:07 MCHC 35 % (30-34) H 10/24/20 08:07 RDW 13.2 % (13.2-15.2) 10/24/20 08:07 Plt Count 205 K/mm3 (140-440) 10/24/20 08:07 Lymph % (Auto) 9.9 % (13.4-35.0) L 10/24/20 08:07 [place] % (Auto) 7.9 % (0.0-7.3) H 10/24/20 08:07 Eos % (Auto) 0.0 % (0.0-4.3) 10/24/20 08:07 Baso % (Auto) 0.1 % (0.0-1.8) 10/24/20 08:07 Lymph # (Auto) 0.6 K/mm3 (1.2-5.4) L 10/24/20 08:07 [place] # (Auto) 0.5 K/mm3 (0.0-0.8) 10/24/20 08:07 Eos # (Auto) 0.0 K/mm3 (0.0-0.4) 10/24/20 08:07 Baso # (Auto) 0.0 K/mm3 (0.0-0.1) 10/24/20 08:07 Seg Neutrophils % 82.1 % (40.0-70.0) H 10/24/20 08:07 Seg Neutrophils # 4.7 K/mm3 (1.8-7.7) 10/24/20 08:07 D-Dimer 919.44 ng/mlDDU (0-234) H 10/23/20 20:38 Sodium 137 mmol/L (137-145) 10/24/20 08:07 Potassium 4.9 mmol/L (3.6-5.0) D 10/24/20 08:07 Chloride 100.2 mmol/L (98-107) 10/24/20 08:07 Carbon Dioxide 24 mmol/L (22-30) 10/24/20 08:07 Anion Gap 18 mmol/L 10/24/20 08:07 BUN 17 mg/dL (7-17) 10/24/20 08:07 Creatinine 0.8 mg/dL (0.6-1.2) 10/24/20 08:07 Estimated GFR > 60 ml/min 10/24/20 08:07 BUN/Creatinine Ratio 21 % 10/24/20 08:07 Glucose 173 mg/dL (65-100) H 10/24/20 08:07 POC Glucose 180 mg/dL (70-105) H 10/25/20 16:13 Calcium 8.9 mg/dL (8.4-10.2) 10/24/20 08:07 Magnesium 1.80 mg/dL (1.7-2.3) 10/23/20 20:38 Lactate Dehydrogenase 606 units/L (91-180) H 10/23/20 20:38 Lactate Dehydrogenase 643 units/L (91-180) H 10/23/20 20:38 Troponin T < 0.010 ng/mL (0.00-0.029) 10/23/20 17:31 C-Reactive Protein 11.50 mg/dL (0.00-1.30) H 10/23/20 20:38 C-Reactive Protein 11.70 mg/dL (0.00-1.30) H 10/23/20 20:38 NT-Pro-B Natriuret Pep 162.0 pg/mL (0-900) 10/23/20 17:31 Procalcitonin 0.32 ng/mL (<0.15) 10/23/20 20:38 TSH 2.010 mlU/mL (0.270-4.200) 10/23/20 20:38 Free T4 1.17 ng/dL (0.76-1.46) 10/23/20 20:38 Coronavirus (PCR) Positive (Negative) A 10/24/20 08:00 [place]/IV: Voiding Method External Female Catheter Active Medications - Current Medications Current Medications: Generic Name Dose Route Start Last Admin Trade Name Freq PRN Reason Stop Dose Admin Acetaminophen 650 mg 10/23/20 20:27 Acetaminophen 325 Mg Tab PO Q4H PRN Pain MILD(1-3)/Fever >100.5/KAUFMAN Albuterol 2.5 mg 10/23/20 20:27 Albuterol 2.5 Mg/3 Ml Nebu IH Q4HRT PRN Shortness Of Breath Amlodipine Besylate 10 mg 10/26/20 10:00 Amlodipine 10 Mg Tab PO QDAY GLENROY Ascorbic Acid 500 mg 10/23/20 22:00 10/25/20 10:00 Ascorbic Acid 500 Mg Tab PO 500 mg BID GLENROY Administration Cholecalciferol 1,000 unit 10/24/20 10:00 10/25/20 10:00 Cholecalciferol (Vit D3) 1000 Unit (25 Mcg) Tab PO 1,000 unit QDAY GLENROY Administration Furosemide 20 mg 10/24/20 06:00 10/25/20 17:38 Furosemide 20 Mg/2 Ml Inj IV 20 mg BID@0600,1800 GLENROY Administration Heparin Sodium (Porcine) 5,000 unit 10/23/20 22:00 10/25/20 10:01 Heparin 5,000 Unit/1 Ml Vial SUB-Q 5,000 unit Q12HR GLENROY Administration Hydralazine HCl 50 mg 10/23/20 22:00 10/25/20 15:04 Hydralazine 25 Mg Tab PO 50 mg Q8HR GLENROY Administration Hydralazine HCl 10 mg 10/25/20 05:04 10/25/20 05:10 Hydralazine 20 Mg/1 Ml Inj IV 10/27/20 05:03 10 mg Q4HR PRN Administration Elevated BP Hydromorphone HCl 0.5 mg 10/23/20 20:27 Hydromorphone 1 Mg/1 Ml Inj IV Q12H PRN Pain , Severe (7-10) Ceftriaxone Sodium 2 gm in 100 mls @ 200 mls/hr 10/23/20 21:00 10/25/20 12:45 Rocephin/Ns 2 Gm/100 Ml IV Infused Q24HR [facility] Infusion Protocol Lisinopril 40 mg 10/24/20 10:00 10/25/20 10:00 Lisinopril 40 Mg Tab PO 40 mg DAILY [facility] Administration Methylprednisolone Sodium Succinate 40 mg 10/23/20 22:00 10/25/20 15:04 Methylprednisolone Sod Succinate 40 Mg/1 Ml Inj IV 40 mg Q8HR GLENROY Administration Ondansetron HCl 4 mg 10/23/20 20:27 Ondansetron 4 Mg/2 Ml Inj IV Q8H PRN Nausea And Vomiting Oxycodone/Acetaminophen 1 tab 10/23/20 20:27 Oxycodone /Acetaminophen 5-325mg Tab PO Q12H PRN Pain, Moderate (4-6) Pravastatin Sodium 80 mg 10/23/20 22:00 10/25/20 02:55 Pravastatin 80 Mg Tab PO Not Given QHS GLENROY Sodium Chloride 10 ml 10/23/20 22:00 10/25/20 10:00 Sodium Chloride 0.9% 10 Ml Flush Syringe IV 10 ml BID GLENROY Administration Sodium Chloride 10 ml 10/23/20 20:27 Sodium Chloride 0.9% 10 Ml Flush Syringe IV PRN PRN LINE FLUSH Tiotropium [place] 1 puff 10/24/20 10:00 10/25/20 16:36 Tiotropium 18 Mcg Cap Inhalation IH Not Given QDAY GLENROY Zinc Sulfate 220 mg 10/23/20 22:00 10/25/20 10:00 Zinc Sulfate 220 Mg Cap PO 220 mg BID GLENROY Administration
[2020-10-26] MEDS: ACETAMINOPHEN 325 MG TAB PO PRN (04:54)
[2020-10-26] MEDS ORDERED: ALPRAZolam 0.25 MG TAB PO ONE (05:21)
[2020-10-26] MEDS: methylPREDNISolone Sod Succinate 40 MG/1 ML INJ IV SCH (05:47)
[2020-10-26] MEDS: FUROSEMIDE 20 MG/2 ML INJ IV SCH (05:47)
[2020-10-26] MEDS: hydrALAZINE 25 MG TAB PO SCH ×3 (05:47→21:58)
[2020-10-26] MEDS: HEPARIN 5,000 UNIT/1 ML VIAL SUB-Q SCH ×2 (09:29→21:57)
[2020-10-26] MEDS: ASCORBIC ACID 500 MG TAB PO SCH ×2 (09:30→21:57)
[2020-10-26] MEDS: amLODIPine 10 MG TAB PO SCH (09:30)
[2020-10-26] MEDS: CHOLECALCIFEROL (VIT D3) 1000 UNIT (25 mcg) TAB PO SCH (09:30)
[2020-10-26] MEDS: LISINOPRIL 40 MG TAB PO SCH (09:30)
[2020-10-26] MEDS: ZINC SULFATE 220 MG CAP PO SCH ×2 (09:30→21:57)
[2020-10-26] MEDS: cefTRIAXone/NS 2 GM/100 ML 2 GM/100 ML BAG IV SCH (09:31)
[2020-10-26] MEDS: TIOTROPIUM 18 MCG CAP INHALATION IH SCH (10:31)
[2020-10-26] MEDS ORDERED: FUROSEMIDE 40 MG/4 ML INJ IV ONE (10:39)
--- NOTE | 2020-10-26 10:41 | Consultation ---
History of Present Illness Consult date: 10/26/20 Requesting physician: WAQAS SANCHEZ Reason for consult: hypoxemia, other (COVID) History of present illness: 69 y/o female admitted 3 days ago with Acute Respiratory failure, found to be COVID positive. Patient is not vaccinated. Past History Past Medical History: COPD, diabetes, hypertension Past Surgical History: appendectomy, cholecystectomy, hysterectomy. denies: CABG, PTCA Social history: denies: smoking, alcohol abuse Family history: diabetes, hypertension Medications and Allergies Allergies Allergy/AdvReac Type Severity Reaction Status Date / Time No Known Allergies Allergy Verified 10/23/20 19:34 Home Medications Medication Instructions Recorded Confirmed Last Taken Type Lisinopril [Zestril] 40 mg PO DAILY 07/26/16 10/26/20 Unknown History Simvastatin (NF) [Zocor TAB] 40 mg PO QHS 07/26/16 10/26/20 Unknown History Tiotropium [Spiriva] 18 mcg IH QDAY 07/26/16 10/26/20 Unknown History metFORMIN [Glucophage] 500 mg PO QDAY 07/26/16 10/26/20 Unknown History Albuterol Sulfate [Ventolin HFA] 2 puff IH Q4H PRN #1 pump 07/28/16 10/26/20 Unknown Rx Hydralazine HCl [Apresoline TAB] 50 mg PO Q8HR #90 tab 07/28/16 10/26/20 Unknown Rx Prednisone [predniSONE 5 mg (6-Day 5 mg PO .TAPER #1 tab.ds.pk 07/28/16 10/26/20 Unknown Rx Pack, 21 Tabs)] levoFLOXacin [Levaquin] 750 mg PO QDAY #5 tablet 07/28/16 10/26/20 Unknown Rx Active Meds: Active Medications Acetaminophen (Acetaminophen 325 Mg Tab) 650 mg PO Q4H PRN PRN Reason: Pain MILD(1-3)/Fever >100.5/KAUFMAN Last Admin: 10/26/20 04:54 Dose: 650 mg Documented by: Albuterol (Albuterol 2.5 Mg/3 Ml Nebu) 2.5 mg IH Q4HRT PRN PRN Reason: Shortness Of Breath Amlodipine Besylate (Amlodipine 10 Mg Tab) 10 mg PO QDAY GLENROY Last Admin: 10/26/20 09:30 Dose: 10 mg Documented by: Ascorbic Acid (Ascorbic Acid 500 Mg Tab) 500 mg PO BID [facility] Last Admin: 10/26/20 09:30 Dose: 500 mg Documented by: Cholecalciferol (Cholecalciferol (Vit D3) 1000 Unit (25 Mcg) Tab) 1,000 unit PO QDAY [facility] Last Admin: 10/26/20 09:30 Dose: 1,000 unit Documented by: Furosemide (Furosemide 20 Mg/2 Ml Inj) 20 mg IV BID@0600,1800 [facility] Last Admin: 10/26/20 05:47 Dose: 20 mg Documented by: Heparin Sodium (Porcine) (Heparin 5,000 Unit/1 Ml Vial) 5,000 unit SUB-Q Q12HR [facility] Last Admin: 10/26/20 09:29 Dose: 5,000 unit Documented by: Hydralazine HCl (Hydralazine 25 Mg Tab) 50 mg PO Q8HR [facility] Last Admin: 10/26/20 05:47 Dose: 50 mg Documented by: Hydralazine HCl (Hydralazine 20 Mg/1 Ml Inj) 10 mg IV Q4HR PRN PRN Reason: Elevated BP Stop: 10/27/20 05:03 Last Admin: 10/25/20 05:10 Dose: 10 mg Documented by: Hydromorphone HCl (Hydromorphone 1 Mg/1 Ml Inj) 0.5 mg IV Q12H PRN PRN Reason: Pain , Severe (7-10) Ceftriaxone Sodium (Rocephin/Ns 2 Gm/100 Ml) 2 gm in 100 mls @ 200 mls/hr IV Q24HR [facility]; Protocol Last Admin: 10/26/20 09:31 Dose: 200 mls/hr Documented by: Lisinopril (Lisinopril 40 Mg Tab) 40 mg PO DAILY [facility] Last Admin: 10/26/20 09:30 Dose: 40 mg Documented by: Methylprednisolone Sodium Succinate (Methylprednisolone Sod Succinate 40 Mg/1 Ml Inj) 125 mg IV Q8HR [facility] Ondansetron HCl (Ondansetron 4 Mg/2 Ml Inj) 4 mg IV Q8H PRN PRN Reason: Nausea And Vomiting Oxycodone/Acetaminophen (Oxycodone /Acetaminophen 5-325mg Tab) 1 tab PO Q12H PRN PRN Reason: Pain, Moderate (4-6) Pravastatin Sodium (Pravastatin 80 Mg Tab) 80 mg PO QHS [facility] Last Admin: 10/25/20 22:00 Dose: 80 mg Documented by: Sodium Chloride (Sodium Chloride 0.9% 10 Ml Flush Syringe) 10 ml IV BID [facility] Last Admin: 10/26/20 09:31 Dose: 10 ml Documented by: Sodium Chloride (Sodium Chloride 0.9% 10 Ml Flush Syringe) 10 ml IV PRN PRN PRN Reason: LINE FLUSH Tiotropium [place] (Tiotropium 18 Mcg Cap Inhalation) 1 puff IH QDAY [facility] Last Admin: 10/26/20 10:31 Dose: Not Given Documented by: Zinc Sulfate (Zinc Sulfate 220 Mg Cap) 220 mg PO BID [facility] Last Admin: 10/26/20 09:30 Dose: 220 mg Documented by: Physical Examination Vital signs: Vital Signs Temp BP Pulse Ox 98.2 F 196/82 96 10/23/20 16:20 10/23/20 16:20 10/23/20 16:20 Results - Laboratory Findings CBC and BMP: 10/24/20 08:07 10/24/20 08:07 PT/INR, D-dimer D-Dimer 919.44 ng/mlDDU (0-234) H 10/23/20 20:38 Abnormal lab findings: Abnormal Labs 10/23/20 10/23/20 10/23/20 17:31 20:38 20:38 MCH MCHC Lymph % (Auto) [place] % (Auto) Lymph # (Auto) Seg Neutrophils % D-Dimer 919.44 H Sodium 136 L Glucose 149 H POC Glucose Lactate Dehydrogenase 606 H C-Reactive Protein 11.50 H Coronavirus (PCR) 10/23/20 10/24/20 10/24/20 20:38 08:00 08:07 MCH 33 H MCHC 35 H Lymph % (Auto) 9.9 L [place] % (Auto) 7.9 H Lymph # (Auto) 0.6 L Seg Neutrophils % 82.1 H D-Dimer Sodium Glucose POC Glucose Lactate Dehydrogenase 643 H C-Reactive Protein 11.70 H Coronavirus (PCR) Positive A 10/24/20 10/25/20 08:07 16:13 MCH MCHC Lymph % (Auto) [place] % (Auto) Lymph # (Auto) Seg Neutrophils % D-Dimer Sodium Glucose 173 H POC Glucose 180 H Lactate Dehydrogenase C-Reactive Protein Coronavirus (PCR) - Diagnostic Findings Chest x-ray: image reviewed Assessment and Plan 69 y/o, obese female with acute respiratory failure secondary to COVID pneumonia. 1. Increased steroids to 125 TID 2. Increased lasix to 40 BID 3. Prone as tolerated and for as long as possible 4. Monitor fluid balance 5. BP control 6. Guarded prognosis given COVID and obesity with worsening respiratory failure.
[2020-10-26] MEDS: FUROSEMIDE 40 MG/4 ML INJ IV SCH ×2 (11:05→17:13)
[2020-10-26] MEDS: methylPREDNISolone Sod Succinate 125 MG/2 ML INJ IV SCH ×2 (14:01→21:58)
--- NOTE | 2020-10-26 14:10 | Electrocardiograph Report ---
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
--- NOTE | 2020-10-26 14:22 | Electrocardiograph Report ---
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
--- NOTE | 2020-10-26 16:17 | Progress Note ---
Assessment and Plan Echo reviewed - EF 65-70%, mild diastolic dysfxn. BP has improved on current regimen. May increase PO Hydralazine as needed. Consider confirmatory testing of PE vs DVT given elevated D-dimer and COVID- positive status. Otherwise continue present mgmt of COVID-19 infection as per Primary teams. Nothing further to add from a Cardiology standpoint at this time. Will see on an as-needed basis. Pt seen in conjunction with Dr. Manning, who agrees with the assessment and plan of care. - Patient Problems (1) Acute respiratory failure Current Visit: Yes Status: Acute (2) Pneumonia due to COVID-19 virus Current Visit: Yes Status: Acute (3) COPD (chronic obstructive pulmonary disease) Current Visit: Yes Status: Chronic (4) Hypertension Current Visit: Yes Status: Chronic Qualifiers: Hypertension type: primary hypertension Qualified Code(s): I10 - Essential (primary) hypertension (5) Diabetes mellitus Current Visit: Yes Status: Chronic (6) GERD (gastroesophageal reflux disease) Current Visit: Yes Status: Chronic (7) Obesity hypoventilation syndrome Current Visit: Yes Status: Chronic Subjective Date of service: 10/26/20 Principal diagnosis: COVID-19 PNA Interval history: No acute events overnight. On HFNC. Tele reviewed - SR 80s, no events. Objective Last Vital Signs Temp 98.3 F 10/26/20 11:56 Pulse 98 H 10/26/20 11:56 Resp 26 H 10/26/20 11:56 BP 158/78 10/26/20 11:56 Pulse Ox 91 10/26/20 11:56 - Imaging and Cardiology EKG: report reviewed, image reviewed Echo: report reviewed - Telemetry EKG Rhythm: Sinus Rhythm - EKG Sinus rhythms and dysrhythmias: sinus rhythm - Allied health notes Allied health notes reviewed: nursing
[2020-10-26] MEDS: PRAVASTATIN 80 MG TAB PO SCH (21:57)
[2020-10-27] MEDS: methylPREDNISolone Sod Succinate 125 MG/2 ML INJ IV SCH ×3 (06:01→22:37)
[2020-10-27] MEDS: hydrALAZINE 25 MG TAB PO SCH ×3 (06:01→22:36)
[2020-10-27] MEDS: FUROSEMIDE 40 MG/4 ML INJ IV SCH ×2 (06:02→17:38)
--- NOTE | 2020-10-27 08:31 | Progress Note ---
Assessment and Plan 69 y/o, obese female with acute respiratory failure secondary to COVID pneumonia. 10/27/20: Continue current plan from below. Guarded prognosis given COVID and obesity. Monitor renal function. 1. Increased steroids to 125 TID 2. Increased lasix to 40 BID 3. Prone as tolerated and for as long as possible 4. Monitor fluid balance 5. BP control 6. Guarded prognosis given COVID and obesity with worsening respiratory failure. Subjective Date of service: 10/27/20 Principal diagnosis: COVID-19 PNA Interval history: No changes clinically. Objective Vital Signs - 12hr 10/26/20 10/26/20 10/26/20 21:35 21:58 22:00 Temperature 98.0 F Pulse Rate 95 H 95 H Respiratory 20 Rate Blood Pressure 139/71 139/71 Blood Pressure [Left] O2 Sat by Pulse 78 L 92 Oximetry 10/27/20 10/27/20 10/27/20 03:02 06:00 06:01 Temperature 97.7 F Pulse Rate 93 H 90 Respiratory 20 Rate Blood Pressure 153/73 Blood Pressure 153/73 [Left] O2 Sat by Pulse 93 90 Oximetry 10/27/20 08:06 Temperature Pulse Rate Respiratory Rate Blood Pressure Blood Pressure [Left] O2 Sat by Pulse 92 Oximetry CBC and BMP: 10/24/20 08:07 10/24/20 08:07 ABG, PT/INR, D-dimer: PT/INR, D-dimer D-Dimer 919.44 ng/mlDDU (0-234) H 10/23/20 20:38 Abnormal lab findings: Abnormal Labs 10/23/20 10/23/20 10/23/20 17:31 20:38 20:38 MCH MCHC Lymph % (Auto) [place] % (Auto) Lymph # (Auto) Seg Neutrophils % D-Dimer 919.44 H Sodium 136 L Glucose 149 H POC Glucose Lactate Dehydrogenase 606 H C-Reactive Protein 11.50 H Coronavirus (PCR) 10/23/20 10/24/20 10/24/20 20:38 08:00 08:07 MCH 33 H MCHC 35 H Lymph % (Auto) 9.9 L [place] % (Auto) 7.9 H Lymph # (Auto) 0.6 L Seg Neutrophils % 82.1 H D-Dimer Sodium Glucose POC Glucose Lactate Dehydrogenase 643 H C-Reactive Protein 11.70 H Coronavirus (PCR) Positive A 10/24/20 10/25/20 10/26/20 08:07 16:13 21:32 MCH MCHC Lymph % (Auto) [place] % (Auto) Lymph # (Auto) Seg Neutrophils % D-Dimer Sodium Glucose 173 H POC Glucose 180 H 213 H Lactate Dehydrogenase C-Reactive Protein Coronavirus (PCR) 10/27/20 07:54 MCH MCHC Lymph % (Auto) [place] % (Auto) Lymph # (Auto) Seg Neutrophils % D-Dimer Sodium Glucose POC Glucose 305 H Lactate Dehydrogenase C-Reactive Protein Coronavirus (PCR) Allied health notes reviewed: nursing
[2020-10-27] MEDS: ZINC SULFATE 220 MG CAP PO SCH ×2 (09:23→22:37)
[2020-10-27] MEDS: ASCORBIC ACID 500 MG TAB PO SCH ×2 (09:23→22:37)
[2020-10-27] MEDS: LISINOPRIL 40 MG TAB PO SCH (09:23)
[2020-10-27] MEDS: amLODIPine 10 MG TAB PO SCH (09:23)
[2020-10-27] MEDS: cefTRIAXone/NS 2 GM/100 ML 2 GM/100 ML BAG IV SCH (09:24)
[2020-10-27] MEDS: CHOLECALCIFEROL (VIT D3) 1000 UNIT (25 mcg) TAB PO SCH (09:24)
[2020-10-27] MEDS: HEPARIN 5,000 UNIT/1 ML VIAL SUB-Q SCH ×2 (09:24→22:38)
--- NOTE | 2020-10-27 11:01 | Consultation ---
History of Present Illness - Reason for Consult Consult date: 10/27/20 - History of Present Illness 69-year-old female past medical history hypertension, diabetes, COPD, morbid obesity presented to hospital complaining shortness of breath. She also notes associated productive cough, fatigue, dyspnea. This began approximately 2 weeks prior to admission has been worsening since onset. She is on vaccinated against Covid. She was initially given outpatient antibiotics and increased broncho dilators, but this did not relieve her symptoms. He is known to be hypoxic on admission. Afebrile with a white count of 5.8.. Normal renal function. Procalcitonin 0.32, elevated inflammatory markers. Currently on high flow nasal cannula. She is currently receiving ceftriaxone, methylprednisolone. Imaging personally reviewed: Chest x-ray: CHF exacerbation versus pneumonia. Review of systems: Deferred to reduce to the risk of transmission of COVID-19 Past History Past Medical History: COPD, diabetes, hypertension Past Surgical History: appendectomy, cholecystectomy, hysterectomy. denies: CABG, PTCA Social history: denies: smoking, alcohol abuse Family history: diabetes, hypertension Medications and Allergies Allergies Allergy/AdvReac Type Severity Reaction Status Date / Time No Known Allergies Allergy Verified 10/23/20 19:34 Home Medications Medication Instructions Recorded Confirmed Last Taken Type Lisinopril [Zestril] 40 mg PO DAILY 07/26/16 10/26/20 Unknown History Simvastatin (NF) [Zocor TAB] 40 mg PO QHS 07/26/16 10/26/20 Unknown History Tiotropium [Spiriva] 18 mcg IH QDAY 07/26/16 10/26/20 Unknown History metFORMIN [Glucophage] 500 mg PO QDAY 07/26/16 10/26/20 Unknown History Albuterol Sulfate [Ventolin HFA] 2 puff IH Q4H PRN #1 pump 07/28/16 10/26/20 Unknown Rx Hydralazine HCl [Apresoline TAB] 50 mg PO Q8HR #90 tab 07/28/16 10/26/20 Unknown Rx Prednisone [predniSONE 5 mg (6-Day 5 mg PO .TAPER #1 tab.ds.pk 07/28/16 10/26/20 Unknown Rx Pack, 21 Tabs)] levoFLOXacin [Levaquin] 750 mg PO QDAY #5 tablet 07/28/16 10/26/20 Unknown Rx Active Meds: Active Medications Acetaminophen (Acetaminophen 325 Mg Tab) 650 mg PO Q4H PRN PRN Reason: Pain MILD(1-3)/Fever >100.5/KAUFMAN Last Admin: 10/26/20 04:54 Dose: 650 mg Documented by: Albuterol (Albuterol 2.5 Mg/3 Ml Nebu) 2.5 mg IH Q4HRT PRN PRN Reason: Shortness Of Breath Amlodipine Besylate (Amlodipine 10 Mg Tab) 10 mg PO QDAY [facility] Last Admin: 10/27/20 09:23 Dose: 10 mg Documented by: Ascorbic Acid (Ascorbic Acid 500 Mg Tab) 500 mg PO BID [facility] Last Admin: 10/27/20 09:23 Dose: 500 mg Documented by: Cholecalciferol (Cholecalciferol (Vit D3) 1000 Unit (25 Mcg) Tab) 1,000 unit PO QDAY [facility] Last Admin: 10/27/20 09:24 Dose: 1,000 unit Documented by: Furosemide (Furosemide 40 Mg/4 Ml Inj) 40 mg IV 0600,1800 [facility] Last Admin: 10/27/20 06:02 Dose: 40 mg Documented by: Heparin Sodium (Porcine) (Heparin 5,000 Unit/1 Ml Vial) 5,000 unit SUB-Q Q12HR [facility] Last Admin: 10/27/20 09:24 Dose: 5,000 unit Documented by: Hydralazine HCl (Hydralazine 25 Mg Tab) 50 mg PO Q8HR [facility] Last Admin: 10/27/20 06:01 Dose: 50 mg Documented by: Hydromorphone HCl (Hydromorphone 1 Mg/1 Ml Inj) 0.5 mg IV Q12H PRN PRN Reason: Pain , Severe (7-10) Ceftriaxone Sodium (Rocephin/Ns 2 Gm/100 Ml) 2 gm in 100 mls @ 200 mls/hr IV Q24HR [facility]; Protocol Stop: 10/28/20 20:59 Last Admin: 10/27/20 09:24 Dose: 200 mls/hr Documented by: Lisinopril (Lisinopril 40 Mg Tab) 40 mg PO DAILY [facility] Last Admin: 10/27/20 09:23 Dose: 40 mg Documented by: Methylprednisolone Sodium Succinate (Methylprednisolone Sod Succinate 125 Mg/2 Ml Inj) 125 mg IV Q8HR [facility] Last Admin: 10/27/20 06:01 Dose: 125 mg Documented by: Ondansetron HCl (Ondansetron 4 Mg/2 Ml Inj) 4 mg IV Q8H PRN PRN Reason: Nausea And Vomiting Oxycodone/Acetaminophen (Oxycodone /Acetaminophen 5-325mg Tab) 1 tab PO Q12H PRN PRN Reason: Pain, Moderate (4-6) Pravastatin Sodium (Pravastatin 80 Mg Tab) 80 mg PO QHS [facility] Last Admin: 10/26/20 21:57 Dose: 80 mg Documented by: Sodium Chloride (Sodium Chloride 0.9% 10 Ml Flush Syringe) 10 ml IV BID [facility] Last Admin: 10/27/20 09:24 Dose: 10 ml Documented by: Sodium Chloride (Sodium Chloride 0.9% 10 Ml Flush Syringe) 10 ml IV PRN PRN PRN Reason: LINE FLUSH Tiotropium [place] (Tiotropium 18 Mcg Cap Inhalation) 1 puff IH QDAY [facility] Last Admin: 10/26/20 10:31 Dose: Not Given Documented by: Zinc Sulfate (Zinc Sulfate 220 Mg Cap) 220 mg PO BID [facility] Last Admin: 10/27/20 09:23 Dose: 220 mg Documented by: Physical Examination - Physical Exam Narrative exam: Physical exam deferred to reduce risk of transmission of COVID-19. Please refer to primary team's note. - Constitutional Vitals: Vital Signs Temp Pulse Resp BP Pulse Ox 97.7 F 90 20 153/73 92 10/27/20 06:00 10/27/20 06:01 10/27/20 06:00 10/27/20 06:01 10/27/20 08:06 Temperature -Last 24 Hours Temperature 97.7 F Temperature 98.0 F Temperature 98.2 F Temperature 98.3 F Results - Labs CBC & Chem 7: 10/24/20 08:07 10/24/20 08:07 Labs: Abnormal lab results 10/26/20 10/27/20 Range/Units 21:32 07:54 POC Glucose 213 H 305 H (70-105) mg/dL Assessment and Plan Cultures: Covid PCR: Positive A/P: 69-year-old female past medical history hypertension, diabetes, COPD, morbid obesity admitted with COVID #COVID-19 pneumonia: Patient presented with a week of symptoms, chest x-ray with diffuse bilateral infiltrates, admission O2 sats 79% on room air. Inflammatory markers elevated #Acute hypoxemic respiratory failure: Likely secondary to COVID-19 infection. Currently on HFNC #CHF exacerbation #morbid obesity #DM2 Recs: -Steroids per pulmonary, recommend at least 10 days. -Started remdesivir, D1 of 5. Monitor liver function -Obtain q48-72h inflammatory markers - ferritin, Ddimer, CRP, LDH -Complete 5 days ceftriaxone -Anticoagulation per hospital protocol -Proning as able Thank you for the consult, we will continue to follow. Jose E Mccatrhy MD [facility] ([facility] O: [phone] F: [phone]
[2020-10-27] MEDS: INSULIN LISPRO 100 UNIT/ML SUB-Q SCH ×3 (11:30→22:41)
[2020-10-27] MEDS ORDERED: REMDESIVIR 200 MG in SODIUM CHLORIDE 0.9% 250ML 250 ML IV ONE (13:00)
[2020-10-27] MEDS: SODIUM CHLORIDE 0.9% 50 ML IVPB IV SCH (13:46)
[2020-10-27 14:41] LABS: Alanine Aminotransferase 170 units/L (7-56); Albumin 3.4 g/dL (3.9-5); BUN/Creatinine Ratio 42; Blood Urea Nitrogen 38 mg/dL (7-17); Calcium 9.6 mg/dL (8.4-10.2); Hemolysis Index 5
[2020-10-27] MEDS: TIOTROPIUM 18 MCG CAP INHALATION IH SCH (15:07)
[2020-10-27] MEDS: PRAVASTATIN 80 MG TAB PO SCH (22:36)
[2020-10-28] MEDS: methylPREDNISolone Sod Succinate 125 MG/2 ML INJ IV SCH ×3 (05:44→21:46)
[2020-10-28] MEDS: FUROSEMIDE 40 MG/4 ML INJ IV SCH ×2 (05:44→18:10)
[2020-10-28] MEDS: hydrALAZINE 25 MG TAB PO SCH ×3 (05:45→21:50)
[2020-10-28] MEDS: INSULIN LISPRO 100 UNIT/ML SUB-Q SCH ×4 (08:18→21:51)
[2020-10-28 08:46] LABS: Alanine Aminotransferase 182 units/L (7-56); Albumin 3.7 g/dL (3.9-5); BUN/Creatinine Ratio 46; Blood Urea Nitrogen 41 mg/dL (7-17); Calcium 9.6 mg/dL (8.4-10.2); Hemolysis Index 61
[2020-10-28] MEDS: amLODIPine 10 MG TAB PO SCH (09:29)
[2020-10-28] MEDS: LISINOPRIL 40 MG TAB PO SCH (09:29)
[2020-10-28] MEDS: CHOLECALCIFEROL (VIT D3) 1000 UNIT (25 mcg) TAB PO SCH (09:29)
[2020-10-28] MEDS: HEPARIN 5,000 UNIT/1 ML VIAL SUB-Q SCH ×2 (09:29→21:53)
[2020-10-28] MEDS: ASCORBIC ACID 500 MG TAB PO SCH ×2 (09:29→21:50)
[2020-10-28] MEDS: ZINC SULFATE 220 MG CAP PO SCH ×2 (09:29→21:58)
[2020-10-28] MEDS: cefTRIAXone/NS 2 GM/100 ML 2 GM/100 ML BAG IV SCH (09:29)
--- NOTE | 2020-10-28 11:57 | Progress Note ---
Assessment and Plan - Patient Problems (1) Acute hypoxemic respiratory failure Current Visit: No Status: Acute Plan to address problem: Chest x-ray, supplemental oxygen, pulse oximetry, nebulizer therapy, noninvasive positive pressure ventilation as clinically indicated, pulmonary toilet, incentive spirometry, out of bed to chair twice daily and as needed (2) CHF (congestive heart failure) Current Visit: No Status: Acute Qualifiers: Heart failure type: systolic Heart failure chronicity: acute Qualified Code(s): I50.21 - Acute systolic (congestive) heart failure Plan to address problem: Strict I's/O, monitor urine output every shift, daily weight, afterload reduc tion, blood pressure control, thyroid panel, magnesium level, echocardiogram ordered and is pending at time of admission. (3) Obesity hypoventilation syndrome Current Visit: Yes Status: Chronic Plan to address problem: Balanced diet, increase physical activity at discharge, outpatient pulmonary follow-up for sleep study, outpatient bariatric surgery follow-up. (4) Pneumonia Current Visit: No Status: Acute Plan to address problem: Pneumonia protocol: Chest x-ray, CBC, CMP, supplemental oxygen, pulse oximetry, IV antibiotic therapy, blood culture. (5) Suspected 2019 novel coronavirus infection Current Visit: No Status: Acute Plan to address problem: Coronavirus protocol: IV antibiotic therapy, IV steroid therapy, supplemental oxygen, pulse oximetry, nebulizer therapy, prone positioning while in bed, non invasive positive pressure ventilation as clinically indicated, prophylactic anticoagulation. (6) Hypertension Current Visit: Yes Status: Chronic Qualifiers: Hypertension type: primary hypertension Qualified Code(s): I10 - Essential (primary) hypertension Plan to address problem: Monitor blood pressure every shift, resume prehospital antihypertensive therapy, blood pressure checks per routine, (7) Diabetes Current Visit: No Status: Acute Plan to address problem: Consistent carbohydrate diet, Accu-Chek, insulin protocol, hypoglycemia protocol (8) DVT prophylaxis Current Visit: No Status: Acute Plan to address problem: SCD to bilateral lower extremities while in bed, prophylactic anticoagulation (9) Advance care planning Current Visit: No Status: Acute Plan to address problem: Disease education conducted, care plan discussed, diagnosis discussed, prognosis discussed, patient is full code, patient knowledges understanding and agreement with care plan, +30 minutes. History Interval history: 69 YO Female HD #4 with Acute Hypoxemic Respiratory Failure, Pneumonia secondary to Coronavirus Infection, CHF, HTN, DM. No reported nursing events. Patient convalesced well overnight. No acute improvement in overall patient symptoms. Patient denies pain. Patient acknowledges continued shortness of breath. Hospitalist Physical - Constitutional Vitals: Temp Pulse Resp BP Pulse Ox 98.7 F 84 20 142/76 91 10/28/20 04:27 10/28/20 09:29 10/28/20 04:27 10/28/20 09:29 10/28/20 08:31 General appearance: Present: no acute distress, obese - EENT Eyes: Present: PERRL ENT: hearing intact - Neck Neck: Present: supple - Respiratory Respiratory effort: labored Respiratory: bilateral: diminished, rhonchi - Cardiovascular Rhythm: regular Heart Sounds: Present: S1 & S2 - Extremities Extremity abnormal: edema Peripheral Pulses: within normal limits - Abdominal General gastrointestinal: soft, non-tender, non-distended - Integumentary Integumentary: Present: clear, erythema - Psychiatric Psychiatric: appropriate mood/affect, cooperative - Neurologic Neurologic: CNII-XII intact HEART Score - HEART Score Troponin: Troponin T < 0.010 ng/mL (0.00-0.029) 10/23/20 17:31 Results - Labs CBC & Chem 7: 10/24/20 08:07 10/28/20 07:24 Labs: Laboratory Last Values WBC 5.8 K/mm3 (4.5-11.0) 10/24/20 08:07 RBC 4.26 M/mm3 (3.65-5.03) 10/24/20 08:07 Hgb 13.8 gm/dl (10.1-14.3) 10/24/20 08:07 Hct 40.1 % (30.3-42.9) 10/24/20 08:07 MCV 94 fl (79-97) 10/24/20 08:07 MCH 33 pg (28-32) H 10/24/20 08:07 MCHC 35 % (30-34) H 10/24/20 08:07 RDW 13.2 % (13.2-15.2) 10/24/20 08:07 Plt Count 205 K/mm3 (140-440) 10/24/20 08:07 Lymph % (Auto) 9.9 % (13.4-35.0) L 10/24/20 08:07 [place] % (Auto) 7.9 % (0.0-7.3) H 10/24/20 08:07 Eos % (Auto) 0.0 % (0.0-4.3) 10/24/20 08:07 Baso % (Auto) 0.1 % (0.0-1.8) 10/24/20 08:07 Lymph # (Auto) 0.6 K/mm3 (1.2-5.4) L 10/24/20 08:07 [place] # (Auto) 0.5 K/mm3 (0.0-0.8) 10/24/20 08:07 Eos # (Auto) 0.0 K/mm3 (0.0-0.4) 10/24/20 08:07 Baso # (Auto) 0.0 K/mm3 (0.0-0.1) 10/24/20 08:07 Seg Neutrophils % 82.1 % (40.0-70.0) H 10/24/20 08:07 Seg Neutrophils # 4.7 K/mm3 (1.8-7.7) 10/24/20 08:07 D-Dimer 919.44 ng/mlDDU (0-234) H 10/23/20 20:38 Sodium 142 mmol/L (137-145) 10/28/20 07:24 Potassium 4.2 mmol/L (3.6-5.0) D 10/28/20 07:24 Chloride 99.8 mmol/L (98-107) 10/28/20 07:24 Carbon Dioxide 28 mmol/L (22-30) 10/28/20 07:24 Anion Gap 18 mmol/L 10/28/20 07:24 BUN 41 mg/dL (7-17) H 10/28/20 07:24 Creatinine 0.9 mg/dL (0.6-1.2) 10/28/20 07:24 Estimated GFR > 60 ml/min 10/28/20 07:24 BUN/Creatinine Ratio 46 % 10/28/20 07:24 Glucose 217 mg/dL (65-100) H 10/28/20 07:24 POC Glucose 207 mg/dL (70-105) H 10/28/20 07:40 Calcium 9.6 mg/dL (8.4-10.2) 10/28/20 07:24 Magnesium 1.80 mg/dL (1.7-2.3) 10/23/20 20:38 Total Bilirubin 0.60 mg/dL (0.1-1.2) 10/28/20 07:24 AST 116 units/L (5-40) H 10/28/20 07:24 ALT 182 units/L (7-56) H 10/28/20 07:24 Alkaline Phosphatase 72 units/L (35-129) 10/28/20 07:24 Lactate Dehydrogenase 606 units/L (91-180) H 10/23/20 20:38 Lactate Dehydrogenase 643 units/L (91-180) H 10/23/20 20:38 Troponin T < 0.010 ng/mL (0.00-0.029) 10/23/20 17:31 C-Reactive Protein 11.50 mg/dL (0.00-1.30) H 10/23/20 20:38 C-Reactive Protein 11.70 mg/dL (0.00-1.30) H 10/23/20 20:38 NT-Pro-B Natriuret Pep 162.0 pg/mL (0-900) 10/23/20 17:31 Total Protein 7.5 g/dL (6.3-8.2) 10/28/20 07:24 Albumin 3.7 g/dL (3.9-5) L 10/28/20 07:24 Albumin/Globulin Ratio 1.0 % 10/28/20 07:24 Procalcitonin 0.32 ng/mL (<0.15) 10/23/20 20:38 TSH 2.010 mlU/mL (0.270-4.200) 10/23/20 20:38 Free T4 1.17 ng/dL (0.76-1.46) 10/23/20 20:38 Coronavirus (PCR) Positive (Negative) A 10/24/20 08:00 [place]/IV: Voiding Method External Female Catheter Active Medications - Current Medications Current Medications: Generic Name Dose Route Start Last Admin Trade Name Freq PRN Reason Stop Dose Admin Acetaminophen 650 mg 10/23/20 20:27 10/26/20 04:54 Acetaminophen 325 Mg Tab PO 650 mg Q4H PRN Administration Pain MILD(1-3)/Fever >100.5/KAUFMAN Albuterol 2.5 mg 10/23/20 20:27 Albuterol 2.5 Mg/3 Ml Nebu IH Q4HRT PRN Shortness Of Breath Amlodipine Besylate 10 mg 10/26/20 10:00 10/28/20 09:29 Amlodipine 10 Mg Tab PO 10 mg QDAY GLENROY Administration Ascorbic Acid 500 mg 10/23/20 22:00 10/28/20 09:29 Ascorbic Acid 500 Mg Tab PO 500 mg BID GLENROY Administration Cholecalciferol 1,000 unit 10/24/20 10:00 10/28/20 09:29 Cholecalciferol (Vit D3) 1000 Unit (25 Mcg) Tab PO 1,000 unit QDAY [facility]ENROY Administration Furosemide 40 mg 10/26/20 11:00 10/28/20 05:44 Furosemide 40 Mg/4 Ml Inj IV 40 mg 0600,1800 GLENROY Administration Heparin Sodium (Porcine) 5,000 unit 10/23/20 22:00 10/28/20 09:29 Heparin 5,000 Unit/1 Ml Vial SUB-Q 5,000 unit Q12HR GLENROY Administration Hydralazine HCl 50 mg 10/23/20 22:00 10/28/20 05:45 Hydralazine 25 Mg Tab PO 50 mg Q8HR [facility]ENROY Administration Hydromorphone HCl 0.5 mg 10/23/20 20:27 Hydromorphone 1 Mg/1 Ml Inj IV Q12H PRN Pain , Severe (7-10) Ceftriaxone Sodium 2 gm in 100 mls @ 200 mls/hr 10/23/20 21:00 10/28/20 09:29 Rocephin/Ns 2 Gm/100 Ml IV 10/28/20 20:59 200 mls/hr Q24HR GLENROY Administration Protocol REMDESIVIR 100 mg/ Sodium 250 mls @ 500 mls/hr 10/28/20 21:00 Chloride IV 10/31/20 21:29 Q24HR@2100 GLENROY Insulin Human Lispro 0 unit 10/27/20 11:30 10/28/20 08:18 Insulin Lispro 100 Unit/Ml SUB-Q 4 unit ACHS GLENROY Administration Protocol Lisinopril 40 mg 10/24/20 10:00 10/28/20 09:29 Lisinopril 40 Mg Tab PO 40 mg DAILY [facility]ENROY Administration Methylprednisolone Sodium Succinate 125 mg 10/26/20 14:00 10/28/20 05:44 Methylprednisolone Sod Succinate 125 Mg/2 Ml Inj IV 125 mg Q8HR [facility]Y Administration Ondansetron HCl 4 mg 10/23/20 20:27 Ondansetron 4 Mg/2 Ml Inj IV Q8H PRN Nausea And Vomiting Oxycodone/Acetaminophen 1 tab 10/23/20 20:27 Oxycodone /Acetaminophen 5-325mg Tab PO Q12H PRN Pain, Moderate (4-6) Pravastatin Sodium 80 mg 10/23/20 22:00 10/27/20 22:36 Pravastatin 80 Mg Tab PO 80 mg QHS [facility]ENROY Administration Sodium Chloride 10 ml 10/23/20 22:00 10/28/20 09:29 Sodium Chloride 0.9% 10 Ml Flush Syringe IV 10 ml BID [facility]Y Administration Sodium Chloride 10 ml 10/23/20 20:27 Sodium Chloride 0.9% 10 Ml Flush Syringe IV PRN PRN LINE FLUSH Sodium Chloride 50 ml 10/27/20 13:00 10/27/20 13:46 Sodium Chloride 0.9% 50 Ml Ivpb IV 10/31/20 21:01 50 ml Q24HR@2100 GLENROY Administration Tiotropium [place] 1 puff 10/24/20 10:00 10/27/20 15:07 Tiotropium 18 Mcg Cap Inhalation IH Not Given QDAY [facility]ENROY Zinc Sulfate 220 mg 10/23/20 22:00 10/28/20 09:29 Zinc Sulfate 220 Mg Cap PO 220 mg BID GLENROY Administration Nutrition/Malnutrition Assess - Dietary Evaluation Nutrition/Malnutrition Findings: Nutrition Notes Start: 10/26/20 1 1:03 Freq: Status: Active Protocol: Document 10/26/20 11:03 CW (Rec: 10/26/20 11:13 CW [id number]) Nutrition Notes Need for Assessment generated from: MD Order,product safety tester,Education Initial or Follow up Assessment Current Diagnosis Diabetes,Hypertension,Heart Failure Other Pertinent Diagnosis Covid 19, GERD, pnue Current Diet Cardiac Consistent Carbohydrate diet Labs/Tests BG 173 Pertinent Medications Solumedrol Lasix Height 5 ft 6 in Weight 145.3 kg Jadwin Body Weight (kg) 59.09 BMI 51.7 Weight Status Morbidly Obese Subjective/Other Information RN consult for new onset DM. No hgbA1c available at this time. Elevated BG may be related to solumderol rx. Pt unavailable by phone x 2. MD order for ONS. PO itnake is approximately 25 - 50% of meals. RN screen for skin risk . Ruddy score of 15. No open wound present. Trauma Absent Food Allergy No Current % PO Poor (25-49%) Minimum of two criteria No physical signs of malnutrition #1 Nutrition Diagnosis Inadequate energy intake Etiology acute illness As Evidenced by Signs and Symptoms loss of appetite; PO intake of 25 - 50% of meals provided Is patient on ventilator? No Is Patient Ambulatory and/or Out of Bed No REE-([facility]-confined to bed) 2392.680 Kcal/Kg value to use for calculation 12 Approximate Energy Requirements Using 1744 kcal/Kg Calculation Used for Recommendations Kcal/kg Additional Notes protein needs:59 - 71g (1 - 1. 2g/kgIBW) fluid needs: 1 ml/kcal Nutrition Intervention Change Diet Order: [place] current diet as ordered Add Supplement/Snack (indicate name/kcal Glucerna BID /protein ) Provides kCal: 440 Provides Protein (gm) 20 Goal #1 Meet at least 70% of kcal adn protein needs via PO Anticipated Discharge Needs: Cardiac Consistent Carbohydrate diet Follow-Up By: 10/28/20 Additional Comments F/U ONS tolerance
--- NOTE | 2020-10-28 13:34 | Progress Note ---
Assessment and Plan Cultures: Covid PCR: Positive A/P: 69-year-old female past medical history hypertension, diabetes, COPD, morbid obesity admitted with COVID #COVID-19 pneumonia: Patient presented with a week of symptoms, chest x-ray with diffuse bilateral infiltrates, admission O2 sats 79% on room air. Inflammatory markers elevated #Acute hypoxemic respiratory failure: Likely secondary to COVID-19 infection. Currently on HFNC #CHF exacerbation #morbid obesity #DM2 Recs: -Steroids per pulmonary, recommend at least 10 days. -Started remdesivir, D2 of 5. Monitor liver function -Obtain q48-72h inflammatory markers - ferritin, Ddimer, CRP, LDH -Complete 5 days ceftriaxone -Anticoagulation per hospital protocol -Proning as able Thank you for the consult, we will continue to follow. Jose E Mccarthy MD [facility] ([facility] O: [phone] F: [phone] Subjective Date of service: 10/28/20 Principal diagnosis: COVID-19 PNA Interval history: Afebrile, currently on NRB. Objective - Exam Narrative Exam: Physical exam deferred to reduce risk of transmission of COVID-19. Please refer to primary team's note. - Constitutional Vitals: Vital Signs Temp Pulse Resp BP Pulse Ox 98.6 F 93 H 20 130/50 94 10/28/20 11:56 10/28/20 11:56 10/28/20 11:56 10/28/20 11:56 10/28/20 12:17 Temperature -Last 24 Hours Temperature 98.6 F Temperature 98.7 F Temperature 98.2 F Temperature 98.0 F - Labs CBC & Chem 7: 10/24/20 08:07 10/28/20 07:24 Labs: Abnormal lab results 10/27/20 10/27/20 10/27/20 Range/Units 13:47 15:49 21:36 Potassium 3.3 L D (3.6-5.0) mmol/L BUN 38 H (7-17) mg/dL Glucose 262 H (65-100) mg/dL POC Glucose 228 H 241 H (70-105) mg/dL AST 155 H (5-40) units/L ALT 170 H (7-56) units/L Albumin 3.4 L (3.9-5) g/dL 10/28/20 10/28/20 Range/Units 07:24 07:40 Potassium (3.6-5.0) mmol/L BUN 41 H (7-17) mg/dL Glucose 217 H (65-100) mg/dL POC Glucose 207 H (70-105) mg/dL AST 116 H (5-40) units/L ALT 182 H (7-56) units/L Albumin 3.7 L (3.9-5) g/dL
[2020-10-28] MEDS: TIOTROPIUM 18 MCG CAP INHALATION IH SCH (15:59)
--- NOTE | 2020-10-28 16:21 | Progress Note ---
Assessment and Plan 69 y/o, obese female with acute respiratory failure secondary to COVID pneumonia. 10/28/20: Continue current care. Monitor renal function and continue BID lasix. Need strict I/O 10/27/20: Continue current plan from below. Guarded prognosis given COVID and obesity. Monitor renal function. 1. Increased steroids to 125 TID 2. Increased lasix to 40 BID 3. Prone as tolerated and for as long as possible 4. Monitor fluid balance 5. BP control 6. Guarded prognosis given COVID and obesity with worsening respiratory failure. Subjective Date of service: 10/28/20 Principal diagnosis: COVID-19 PNA Interval history: No acute events. Objective Vital Signs - 12hr 10/28/20 10/28/20 10/28/20 04:27 05:45 08:31 Temperature 98.7 F Pulse Rate 84 84 Respiratory 20 Rate Blood Pressure 142/76 142/76 O2 Sat by Pulse 92 91 Oximetry 10/28/20 10/28/20 10/28/20 09:29 10:00 11:56 Temperature 98.6 F Pulse Rate 84 93 H Respiratory 20 Rate Blood Pressure 142/76 130/50 O2 Sat by Pulse 94 92 Oximetry 10/28/20 10/28/20 12:17 16:01 Temperature Pulse Rate 93 H Respiratory Rate Blood Pressure 130/50 O2 Sat by Pulse 94 Oximetry CBC and BMP: 10/24/20 08:07 10/28/20 07:24 ABG, PT/INR, D-dimer: PT/INR, D-dimer D-Dimer 919.44 ng/mlDDU (0-234) H 10/23/20 20:38 Abnormal lab findings: Abnormal Labs 10/23/20 10/23/20 10/23/20 17:31 20:38 20:38 MCH MCHC Lymph % (Auto) [place] % (Auto) Lymph # (Auto) Seg Neutrophils % D-Dimer 919.44 H Sodium 136 L Potassium BUN Glucose 149 H POC Glucose AST ALT Lactate Dehydrogenase 606 H C-Reactive Protein 11.50 H Albumin Coronavirus (PCR) 10/23/20 10/24/20 10/24/20 20:38 08:00 08:07 MCH 33 H MCHC 35 H Lymph % (Auto) 9.9 L [place] % (Auto) 7.9 H Lymph # (Auto) 0.6 L Seg Neutrophils % 82.1 H D-Dimer Sodium Potassium BUN Glucose POC Glucose AST ALT Lactate Dehydrogenase 643 H C-Reactive Protein 11.70 H Albumin Coronavirus (PCR) Positive A 10/24/20 10/25/20 10/26/20 08:07 16:13 21:32 MCH MCHC Lymph % (Auto) [place] % (Auto) Lymph # (Auto) Seg Neutrophils % D-Dimer Sodium Potassium BUN Glucose 173 H POC Glucose 180 H 213 H AST ALT Lactate Dehydrogenase C-Reactive Protein Albumin Coronavirus (PCR) 10/27/20 10/27/20 10/27/20 07:54 11:56 13:47 MCH MCHC Lymph % (Auto) [place] % (Auto) Lymph # (Auto) Seg Neutrophils % D-Dimer Sodium Potassium 3.3 L D BUN 38 H Glucose 262 H POC Glucose 305 H 289 H AST 155 H ALT 170 H Lactate Dehydrogenase C-Reactive Protein Albumin 3.4 L Coronavirus (PCR) 10/27/20 10/27/20 10/28/20 15:49 21:36 07:24 MCH MCHC Lymph % (Auto) [place] % (Auto) Lymph # (Auto) Seg Neutrophils % D-Dimer Sodium Potassium BUN 41 H Glucose 217 H POC Glucose 228 H 241 H AST 116 H ALT 182 H Lactate Dehydrogenase C-Reactive Protein Albumin 3.7 L Coronavirus (PCR) 10/28/20 10/28/20 07:40 16:08 MCH MCHC Lymph % (Auto) [place] % (Auto) Lymph # (Auto) Seg Neutrophils % D-Dimer Sodium Potassium BUN Glucose POC Glucose 207 H 227 H AST ALT Lactate Dehydrogenase C-Reactive Protein Albumin Coronavirus (PCR) Allied health notes reviewed: nursing
--- NOTE | 2020-10-28 17:34 | Progress Note ---
Assessment and Plan - Patient Problems (1) Acute hypoxemic respiratory failure Current Visit: No Status: Acute Plan to address problem: Chest x-ray, supplemental oxygen, pulse oximetry, nebulizer therapy, noninvasive positive pressure ventilation as clinically indicated, pulmonary toilet, incentive spirometry, out of bed to chair twice daily and as needed (2) CHF (congestive heart failure) Current Visit: No Status: Acute Qualifiers: Heart failure type: systolic Heart failure chronicity: acute Qualified Code(s): I50.21 - Acute systolic (congestive) heart failure Plan to address problem: Strict I's/O, monitor urine output every shift, daily weight, afterload reduc tion, blood pressure control, thyroid panel, magnesium level, echocardiogram ordered and is pending at time of admission. (3) Obesity hypoventilation syndrome Current Visit: Yes Status: Chronic Plan to address problem: Balanced diet, increase physical activity at discharge, outpatient pulmonary follow-up for sleep study, outpatient bariatric surgery follow-up. (4) Pneumonia Current Visit: No Status: Acute Plan to address problem: Pneumonia protocol: Chest x-ray, CBC, CMP, supplemental oxygen, pulse oximetry, IV antibiotic therapy, blood culture. (5) Suspected 2019 novel coronavirus infection Current Visit: No Status: Acute Plan to address problem: Coronavirus protocol: IV antibiotic therapy, IV steroid therapy, supplemental oxygen, pulse oximetry, nebulizer therapy, prone positioning while in bed, non invasive positive pressure ventilation as clinically indicated, prophylactic anticoagulation. (6) Hypertension Current Visit: Yes Status: Chronic Qualifiers: Hypertension type: primary hypertension Qualified Code(s): I10 - Essential (primary) hypertension Plan to address problem: Monitor blood pressure every shift, resume prehospital antihypertensive therapy, blood pressure checks per routine, (7) Diabetes Current Visit: No Status: Acute Plan to address problem: Consistent carbohydrate diet, Accu-Chek, insulin protocol, hypoglycemia protocol (8) DVT prophylaxis Current Visit: No Status: Acute Plan to address problem: SCD to bilateral lower extremities while in bed, prophylactic anticoagulation (9) Advance care planning Current Visit: No Status: Acute Plan to address problem: Disease education conducted, care plan discussed, diagnosis discussed, prognosis discussed, patient is full code, patient knowledges understanding and agreement with care plan, +30 minutes. History Interval history: 69 YO Female with Acute Hypoxemic Respiratory Failure, Pneumonia secondary to Coronavirus Infection, CHF, HTN, DM. No reported nursing events. Patient convalesced well overnight. No acute improvement in overall patient symptoms. Patient denies pain. Patient acknowledges continued shortness of breath on HFNC . Hospitalist Physical - Constitutional Vitals: Temp Pulse Resp BP Pulse Ox 98.6 F 93 H 20 130/50 94 10/28/20 11:56 10/28/20 16:01 10/28/20 11:56 10/28/20 16:01 10/28/20 12:17 General appearance: Present: no acute distress, obese - EENT Eyes: Present: PERRL, EOM intact - Neck Neck: Present: supple HEART Score - HEART Score Troponin: Troponin T < 0.010 ng/mL (0.00-0.029) 10/23/20 17:31 Results - Labs CBC & Chem 7: 10/24/20 08:07 10/30/20 07:46 Labs: Laboratory Last Values WBC 5.8 K/mm3 (4.5-11.0) 10/24/20 08:07 RBC 4.26 M/mm3 (3.65-5.03) 10/24/20 08:07 Hgb 13.8 gm/dl (10.1-14.3) 10/24/20 08:07 Hct 40.1 % (30.3-42.9) 10/24/20 08:07 MCV 94 fl (79-97) 10/24/20 08:07 MCH 33 pg (28-32) H 10/24/20 08:07 MCHC 35 % (30-34) H 10/24/20 08:07 RDW 13.2 % (13.2-15.2) 10/24/20 08:07 Plt Count 205 K/mm3 (140-440) 10/24/20 08:07 Lymph % (Auto) 9.9 % (13.4-35.0) L 10/24/20 08:07 [place] % (Auto) 7.9 % (0.0-7.3) H 10/24/20 08:07 Eos % (Auto) 0.0 % (0.0-4.3) 10/24/20 08:07 Baso % (Auto) 0.1 % (0.0-1.8) 10/24/20 08:07 Lymph # (Auto) 0.6 K/mm3 (1.2-5.4) L 10/24/20 08:07 [place] # (Auto) 0.5 K/mm3 (0.0-0.8) 10/24/20 08:07 Eos # (Auto) 0.0 K/mm3 (0.0-0.4) 10/24/20 08:07 Baso # (Auto) 0.0 K/mm3 (0.0-0.1) 10/24/20 08:07 Seg Neutrophils % 82.1 % (40.0-70.0) H 10/24/20 08:07 Seg Neutrophils # 4.7 K/mm3 (1.8-7.7) 10/24/20 08:07 D-Dimer 919.44 ng/mlDDU (0-234) H 10/23/20 20:38 Sodium 142 mmol/L (137-145) 10/28/20 07:24 Potassium 4.2 mmol/L (3.6-5.0) D 10/28/20 07:24 Chloride 99.8 mmol/L (98-107) 10/28/20 07:24 Carbon Dioxide 28 mmol/L (22-30) 10/28/20 07:24 Anion Gap 18 mmol/L 10/28/20 07:24 BUN 41 mg/dL (7-17) H 10/28/20 07:24 Creatinine 0.9 mg/dL (0.6-1.2) 10/28/20 07:24 Estimated GFR > 60 ml/min 10/28/20 07:24 BUN/Creatinine Ratio 46 % 10/28/20 07:24 Glucose 217 mg/dL (65-100) H 10/28/20 07:24 POC Glucose 227 mg/dL (70-105) H 10/28/20 16:08 Calcium 9.6 mg/dL (8.4-10.2) 10/28/20 07:24 Magnesium 1.80 mg/dL (1.7-2.3) 10/23/20 20:38 Total Bilirubin 0.60 mg/dL (0.1-1.2) 10/28/20 07:24 AST 116 units/L (5-40) H 10/28/20 07:24 ALT 182 units/L (7-56) H 10/28/20 07:24 Alkaline Phosphatase 72 units/L (35-129) 10/28/20 07:24 Lactate Dehydrogenase 606 units/L (91-180) H 10/23/20 20:38 Lactate Dehydrogenase 643 units/L (91-180) H 10/23/20 20:38 Troponin T < 0.010 ng/mL (0.00-0.029) 10/23/20 17:31 C-Reactive Protein 11.50 mg/dL (0.00-1.30) H 10/23/20 20:38 C-Reactive Protein 11.70 mg/dL (0.00-1.30) H 10/23/20 20:38 NT-Pro-B Natriuret Pep 162.0 pg/mL (0-900) 10/23/20 17:31 Total Protein 7.5 g/dL (6.3-8.2) 10/28/20 07:24 Albumin 3.7 g/dL (3.9-5) L 10/28/20 07:24 Albumin/Globulin Ratio 1.0 % 10/28/20 07:24 Procalcitonin 0.32 ng/mL (<0.15) 10/23/20 20:38 TSH 2.010 mlU/mL (0.270-4.200) 10/23/20 20:38 Free T4 1.17 ng/dL (0.76-1.46) 10/23/20 20:38 Coronavirus (PCR) Positive (Negative) A 10/24/20 08:00 [place]/IV: Voiding Method External Female Catheter Active Medications - Current Medications Current Medications: Generic Name Dose Route Start Last Admin Trade Name Freq PRN Reason Stop Dose Admin Acetaminophen 650 mg 10/23/20 20:27 10/26/20 04:54 Acetaminophen 325 Mg Tab PO 650 mg Q4H PRN Administration Pain MILD(1-3)/Fever >100.5/KAUFMAN Albuterol 2.5 mg 10/23/20 20:27 Albuterol 2.5 Mg/3 Ml Nebu IH Q4HRT PRN Shortness Of Breath Amlodipine Besylate 10 mg 10/26/20 10:00 10/28/20 09:29 Amlodipine 10 Mg Tab PO 10 mg QDAY GLENROY Administration Ascorbic Acid 500 mg 10/23/20 22:00 10/28/20 09:29 Ascorbic Acid 500 Mg Tab PO 500 mg BID GLENROY Administration Cholecalciferol 1,000 unit 10/24/20 10:00 10/28/20 09:29 Cholecalciferol (Vit D3) 1000 Unit (25 Mcg) Tab PO 1,000 unit QDAY GLENROY Administration Furosemide 40 mg 10/26/20 11:00 10/28/20 05:44 Furosemide 40 Mg/4 Ml Inj IV 40 mg 0600,1800 GLENROY Administration Heparin Sodium (Porcine) 5,000 unit 10/23/20 22:00 10/28/20 09:29 Heparin 5,000 Unit/1 Ml Vial SUB-Q 5,000 unit Q12HR GLENROY Administration Hydralazine HCl 50 mg 10/23/20 22:00 10/28/20 16:01 Hydralazine 25 Mg Tab PO 50 mg Q8HR GLENROY Administration Hydromorphone HCl 0.5 mg 10/23/20 20:27 Hydromorphone 1 Mg/1 Ml Inj IV Q12H PRN Pain , Severe (7-10) Ceftriaxone Sodium 2 gm in 100 mls @ 200 mls/hr 10/23/20 21:00 10/28/20 15:59 Rocephin/Ns 2 Gm/100 Ml IV 10/28/20 20:59 Infused Q24HR [facility] Infusion Protocol REMDESIVIR 100 mg/ Sodium 250 mls @ 500 mls/hr 10/28/20 21:00 Chloride IV 10/31/20 21:29 Q24HR@2100 [facility] Insulin Human Lispro 0 unit 10/27/20 11:30 10/28/20 17:09 Insulin Lispro 100 Unit/Ml SUB-Q 4 unit ACHS [facility] Administration Protocol Lisinopril 40 mg 10/24/20 10:00 10/28/20 09:29 Lisinopril 40 Mg Tab PO 40 mg DAILY GLENROY Administration Methylprednisolone Sodium Succinate 125 mg 10/26/20 14:00 10/28/20 16:01 Methylprednisolone Sod Succinate 125 Mg/2 Ml Inj IV 125 mg Q8HR [facility] Administration Ondansetron HCl 4 mg 10/23/20 20:27 Ondansetron 4 Mg/2 Ml Inj IV Q8H PRN Nausea And Vomiting Oxycodone/Acetaminophen 1 tab 10/23/20 20:27 Oxycodone /Acetaminophen 5-325mg Tab PO Q12H PRN Pain, Moderate (4-6) Pravastatin Sodium 80 mg 10/23/20 22:00 10/27/20 22:36 Pravastatin 80 Mg Tab PO 80 mg QHS GLENROY Administration Sodium Chloride 10 ml 10/23/20 22:00 10/28/20 09:29 Sodium Chloride 0.9% 10 Ml Flush Syringe IV 10 ml BID GLENROY Administration Sodium Chloride 10 ml 10/23/20 20:27 Sodium Chloride 0.9% 10 Ml Flush Syringe IV PRN PRN LINE FLUSH Sodium Chloride 50 ml 10/27/20 13:00 10/27/20 13:46 Sodium Chloride 0.9% 50 Ml Ivpb IV 10/31/20 21:01 50 ml Q24HR@2100 GL[facility] Administration Tiotropium [place] 1 puff 10/24/20 10:00 10/28/20 15:59 Tiotropium 18 Mcg Cap Inhalation IH Not Given QDAY GLENROY Zinc Sulfate 220 mg 10/23/20 22:00 10/28/20 09:29 Zinc Sulfate 220 Mg Cap PO 220 mg BID GLENROY Administration Nutrition/Malnutrition Assess - Dietary Evaluation Nutrition/Malnutrition Findings: Nutrition Notes Start: 10/26/20 11:03 Freq: Status: Active Protocol: Document 10/28/20 12:06 (Rec: 10/28/20 12:10 [id number]) Nutrition Notes Initial or Follow up Reassessment Current Diagnosis Diabetes,Hypertension,Heart Failure Other Pertinent Diagnosis Covid 19, GERD, pnue Current Diet Cardiac Consistent Carbohydrate diet Labs/Tests BG 217 Pertinent Medications Solumedrol Lasix Height 5 ft 6 in Weight 145.3 kg [place] Body Weight (kg) 59.09 BMI 51.7 Weight Status Morbidly Obese Subjective/Other Information Unable to speak with pt. Per tech, pt ate 100% of breakfast this AM. Per chart, pt eating an average of 58% of meals in last two days. Percent of energy/protein needs met: 51%/84% Burn Absent Trauma Absent Food Allergy No Current % PO Fair (50-74%) Minimum of two criteria No physical signs of malnutrition #1 Nutrition Diagnosis Inadequate energy intake As Evidenced by Signs and Symptoms pt eating an average of 58% of meals Diagnosis Progress(for reassessment Improved documentation) Is patient on ventilator? No Is Patient Ambulatory and/or Out of Bed No REE-(Crescent-St. Jeor-confined to bed) 2392.680 Kcal/Kg value to use for calculation 12 Approximate Energy Requirements Using 1744 kcal/Kg Calculation Used for Recommendations Kcal/kg Additional Notes protein needs:59 - 71g (1 - 1. 2g/kgIBW) fluid needs: 1 ml/kcal Nutrition Intervention Change Diet Order: [place] current diet as ordered Add Supplement/Snack (indicate name/kcal Glucerna BID /protein ) Provides kCal: 440 Provides Protein (gm) 20 Goal #1 Meet at least 75% of kcal and protein needs via PO Anticipated Discharge Needs: Cardiac Consistent Carbohydrate diet Follow-Up By: 10/30/20 Additional Comments F/U ONS tolerance
[2020-10-28] MEDS: REMDESIVIR 100 MG in SODIUM CHLORIDE 0.9% 250ML 250 ML IV SCH (21:46)
[2020-10-28] MEDS: SODIUM CHLORIDE 0.9% 50 ML IVPB IV SCH (21:46)
[2020-10-28] MEDS: PRAVASTATIN 80 MG TAB PO SCH (21:49)
[2020-10-29] MEDS: FUROSEMIDE 40 MG/4 ML INJ IV SCH ×2 (05:52→17:14)
[2020-10-29] MEDS: methylPREDNISolone Sod Succinate 125 MG/2 ML INJ IV SCH ×3 (05:52→21:24)
[2020-10-29] MEDS: hydrALAZINE 25 MG TAB PO SCH ×3 (06:48→22:58)
[2020-10-29 06:52] LABS: Albumin 3.1 g/dL (3.9-5); Calcium 8.9 mg/dL (8.4-10.2)
[2020-10-29] MEDS: INSULIN LISPRO 100 UNIT/ML SUB-Q SCH ×4 (08:40→23:00)
[2020-10-29] MEDS: HEPARIN 5,000 UNIT/1 ML VIAL SUB-Q SCH ×2 (11:25→21:23)
[2020-10-29] MEDS: amLODIPine 10 MG TAB PO SCH (11:25)
[2020-10-29] MEDS: ZINC SULFATE 220 MG CAP PO SCH ×2 (11:25→21:25)
[2020-10-29] MEDS: CHOLECALCIFEROL (VIT D3) 1000 UNIT (25 mcg) TAB PO SCH (11:25)
[2020-10-29] MEDS: LISINOPRIL 40 MG TAB PO SCH (11:25)
[2020-10-29] MEDS: ASCORBIC ACID 500 MG TAB PO SCH ×2 (11:26→21:02)
[2020-10-29] MEDS ORDERED: TOCILIZUMAB 800 MG in SODIUM CHLORIDE 0.9% 100 ML IV ONE (12:56)
--- NOTE | 2020-10-29 12:56 | Progress Note ---
Assessment and Plan Cultures: Covid PCR: Positive A/P: 69-year-old female past medical history hypertension, diabetes, COPD, morbid obesity admitted with COVID #COVID-19 pneumonia: Patient presented with a week of symptoms, chest x-ray with diffuse bilateral infiltrates, admission O2 sats 79% on room air. Inflammatory markers elevated #Acute hypoxemic respiratory failure: Likely secondary to COVID-19 infection. Currently on HFNC 40L #CHF exacerbation #morbid obesity #DM2 Recs: -Steroids per pulmonary, recommend at least 10 days. -Started remdesivir, D3 of 5. Monitor liver function -Obtain q48-72h inflammatory markers - ferritin, Ddimer, CRP, LDH -Complete 5 days ceftriaxone -Anticoagulation per hospital protocol -Proning as able -Given worsening HFNC requirements and high CRp ordered Actemra if available. Thank you for the consult, we will continue to follow. Jose E Mccarthy MD [facility] ([facility] O: [phone] F: [phone] Subjective Date of service: 10/29/20 Principal diagnosis: COVID-19 PNA Interval history: Afebrile, no acute change. Currently on high flow nasal cannula. Objective - Exam Narrative Exam: Physical exam deferred to reduce risk of transmission of COVID-19. Please refer to primary team's note. - Constitutional Vitals: Vital Signs Temp Pulse Resp BP Pulse Ox 97.8 F 89 22 142/69 91 10/29/20 11:11 10/29/20 11:11 10/29/20 11:11 10/29/20 11:11 10/29/20 11:11 Temperature -Last 24 Hours Temperature 97.8 F Temperature 97.5 F Temperature 98.4 F Temperature 98.4 F - Labs CBC & Chem 7: 10/24/20 08:07 10/29/20 05:12 Labs: Abnormal lab results 10/28/20 10/28/20 10/29/20 Range/Units 16:08 21:21 05:12 BUN 47 H (7-17) mg/dL Glucose 247 H (65-100) mg/dL POC Glucose 227 H 354 H (70-105) mg/dL AST 102 H (5-40) units/L ALT 183 H (7-56) units/L Albumin 3.1 L (3.9-5) g/dL 10/29/20 10/29/20 Range/Units 07:47 12:19 BUN (7-17) mg/dL Glucose (65-100) mg/dL POC Glucose 268 H 383 H (70-105) mg/dL AST (5-40) units/L ALT (7-56) units/L Albumin (3.9-5) g/dL
[2020-10-29] MEDS ORDERED: TOCILIZUMAB 810 MG in SODIUM CHLORIDE 0.9% 100 ML IV ONE (15:00)
[2020-10-29] MEDS: TIOTROPIUM 18 MCG CAP INHALATION IH SCH (15:36)
--- NOTE | 2020-10-29 15:55 | Progress Note ---
Assessment and Plan 69 y/o, obese female with acute respiratory failure secondary to COVID pneumonia. 10/29/20: COntinue lasix but I/O are not accurate. May need to increase dosing. Wean FiO2 as tolerated. Guarded prognosis. 10/28/20: Continue current care. Monitor renal function and continue BID lasix. Need strict I/O 10/27/20: Continue current plan from below. Guarded prognosis given COVID and obesity. Monitor renal function. 1. Increased steroids to 125 TID 2. Increased lasix to 40 BID 3. Prone as tolerated and for as long as possible 4. Monitor fluid balance 5. BP control 6. Guarded prognosis given COVID and obesity with worsening respiratory failure. Subjective Date of service: 10/29/20 Principal diagnosis: COVID-19 PNA Interval history: No acute events. Only on HFNC now. Objective Vital Signs - 12hr 10/29/20 10/29/20 10/29/20 06:48 06:50 08:50 Temperature 97.5 F L Pulse Rate 77 77 Respiratory 18 Rate Blood Pressure 144/69 Blood Pressure 144/69 [Left] O2 Sat by Pulse 96 94 Oximetry 10/29/20 10/29/20 10/29/20 09:25 10:47 11:11 Temperature 97.8 F Pulse Rate 89 Respiratory 22 Rate Blood Pressure 142/69 Blood Pressure [Left] O2 Sat by Pulse 91 97 91 Oximetry 10/29/20 14:44 Temperature Pulse Rate 89 Respiratory Rate Blood Pressure 142/69 Blood Pressure [Left] O2 Sat by Pulse Oximetry CBC and BMP: 10/24/20 08:07 10/29/20 05:12 ABG, PT/INR, D-dimer: PT/INR, D-dimer D-Dimer 919.44 ng/mlDDU (0-234) H 10/23/20 20:38 Abnormal lab findings: Abnormal Labs 10/23/20 10/23/20 10/23/20 17:31 20:38 20:38 MCH MCHC Lymph % (Auto) [place] % (Auto) Lymph # (Auto) Seg Neutrophils % D-Dimer 919.44 H Sodium 136 L Potassium BUN Glucose 149 H POC Glucose AST ALT Lactate Dehydrogenase 606 H C-Reactive Protein 11.50 H Albumin Coronavirus (PCR) 10/23/20 10/24/20 10/24/20 20:38 08:00 08:07 MCH 33 H MCHC 35 H Lymph % (Auto) 9.9 L [place] % (Auto) 7.9 H Lymph # (Auto) 0.6 L Seg Neutrophils % 82.1 H D-Dimer Sodium Potassium BUN Glucose POC Glucose AST ALT Lactate Dehydrogenase 643 H C-Reactive Protein 11.70 H Albumin Coronavirus (PCR) Positive A 10/24/20 10/25/20 10/26/20 08:07 16:13 21:32 MCH MCHC Lymph % (Auto) [place] % (Auto) Lymph # (Auto) Seg Neutrophils % D-Dimer Sodium Potassium BUN Glucose 173 H POC Glucose 180 H 213 H AST ALT Lactate Dehydrogenase C-Reactive Protein Albumin Coronavirus (PCR) 10/27/20 10/27/20 10/27/20 07:54 11:56 13:47 MCH MCHC Lymph % (Auto) [place] % (Auto) Lymph # (Auto) Seg Neutrophils % D-Dimer Sodium Potassium 3.3 L D BUN 38 H Glucose 262 H POC Glucose 305 H 289 H AST 155 H ALT 170 H Lactate Dehydrogenase C-Reactive Protein Albumin 3.4 L Coronavirus (PCR) 10/27/20 10/27/20 10/28/20 15:49 21:36 07:24 MCH MCHC Lymph % (Auto) [place] % (Auto) Lymph # (Auto) Seg Neutrophils % D-Dimer Sodium Potassium BUN 41 H Glucose 217 H POC Glucose 228 H 241 H AST 116 H ALT 182 H Lactate Dehydrogenase C-Reactive Protein Albumin 3.7 L Coronavirus (PCR) 10/28/20 10/28/20 10/28/20 07:40 16:08 21:21 MCH MCHC Lymph % (Auto) [place] % (Auto) Lymph # (Auto) Seg Neutrophils % D-Dimer Sodium Potassium BUN Glucose POC Glucose 207 H 227 H 354 H AST ALT Lactate Dehydrogenase C-Reactive Protein Albumin Coronavirus (PCR) 10/29/20 10/29/20 10/29/20 05:12 07:47 12:19 MCH MCHC Lymph % (Auto) [place] % (Auto) Lymph # (Auto) Seg Neutrophils % D-Dimer Sodium Potassium BUN 47 H Glucose 247 H POC Glucose 268 H 383 H AST 102 H ALT 183 H Lactate Dehydrogenase C-Reactive Protein Albumin 3.1 L Coronavirus (PCR) Allied health notes reviewed: nursing
[2020-10-29] MEDS: REMDESIVIR 100 MG in SODIUM CHLORIDE 0.9% 250ML 250 ML IV SCH (20:56)
[2020-10-29] MEDS: SODIUM CHLORIDE 0.9% 50 ML IVPB IV SCH (20:57)
[2020-10-29] MEDS: PRAVASTATIN 80 MG TAB PO SCH (21:02)
[2020-10-30] MEDS: methylPREDNISolone Sod Succinate 125 MG/2 ML INJ IV SCH ×3 (05:11→21:43)
[2020-10-30] MEDS: FUROSEMIDE 40 MG/4 ML INJ IV SCH ×2 (05:11→17:46)
[2020-10-30] MEDS: hydrALAZINE 25 MG TAB PO SCH ×3 (05:11→21:43)
[2020-10-30 08:40] LABS: Alanine Aminotransferase 164 units/L (7-56); Albumin 3.2 g/dL (3.9-5); BUN/Creatinine Ratio 56; Blood Urea Nitrogen 50 mg/dL (7-17); Calcium 9.2 mg/dL (8.4-10.2); Hemolysis Index 11
[2020-10-30] MEDS: INSULIN LISPRO 100 UNIT/ML SUB-Q SCH ×4 (08:43→21:48)
[2020-10-30] MEDS: amLODIPine 10 MG TAB PO SCH (09:29)
[2020-10-30] MEDS: ASCORBIC ACID 500 MG TAB PO SCH ×2 (09:29→21:43)
[2020-10-30] MEDS: LISINOPRIL 40 MG TAB PO SCH (09:30)
[2020-10-30] MEDS: HEPARIN 5,000 UNIT/1 ML VIAL SUB-Q SCH ×2 (09:30→21:43)
[2020-10-30] MEDS: CHOLECALCIFEROL (VIT D3) 1000 UNIT (25 mcg) TAB PO SCH (09:30)
[2020-10-30] MEDS: ZINC SULFATE 220 MG CAP PO SCH ×2 (09:30→21:50)
[2020-10-30] MEDS: TIOTROPIUM 18 MCG CAP INHALATION IH SCH (10:05)
--- NOTE | 2020-10-30 11:56 | Progress Note ---
Assessment and Plan Cultures: Covid PCR: Positive A/P: 69-year-old female past medical history hypertension, diabetes, COPD, morbid obesity admitted with COVID #COVID-19 pneumonia: Patient presented with a week of symptoms, chest x-ray with diffuse bilateral infiltrates, admission O2 sats 79% on room air. Inflammatory markers elevated #Acute hypoxemic respiratory failure: Likely secondary to COVID-19 infection. Currently on HFNC 40L #CHF exacerbation #morbid obesity #DM2 Recs: -Steroids per pulmonary, recommend at least 10 days. -Started remdesivir, D4 of 5. Monitor liver function -Obtain q48-72h inflammatory markers - ferritin, Ddimer, CRP, LDH -Completed 5 days ceftriaxone -Anticoagulation per hospital protocol -Proning as able -Actemra 10/29/2020 Thank you for the consult, we will continue to follow. Dr. Shepard covering this weekend. Jose E Mccarthy MD [facility] ([facility]) O: [phone] F: [phone] Subjective Date of service: 10/30/20 Principal diagnosis: COVID-19 PNA Interval history: Afebrile, no acute change. Currently on high flow nasal cannula. Objective - Exam Narrative Exam: Physical exam deferred to reduce risk of transmission of COVID-19. Please refer to primary team's note. - Constitutional Vitals: Vital Signs Temp Pulse Resp BP Pulse Ox 97.7 F 81 20 144/51 93 10/30/20 05:01 10/30/20 09:30 10/30/20 05:01 10/30/20 09:30 10/30/20 09:05 Temperature -Last 24 Hours Temperature 97.7 F Temperature 97.5 F Temperature 98.4 F - Labs CBC & Chem 7: 10/24/20 08:07 10/30/20 07:46 Labs: Abnormal lab results 10/29/20 10/29/20 10/29/20 Range/Units 12:19 16:34 22:07 D-Dimer (0-234) ng/mlDDU BUN (7-17) mg/dL Glucose (65-100) mg/dL POC Glucose 383 H 324 H 276 H (70-105) mg/dL Ferritin (10.0-200.0) ng/mL AST (5-40) units/L ALT (7-56) units/L Lactate Dehydrogenase (91-180) units/L Albumin (3.9-5) g/dL 10/30/20 10/30/20 10/30/20 Range/Units 07:46 07:46 07:46 D-Dimer 504.53 H (0-234) ng/mlDDU BUN 50 H (7-17) mg/dL Glucose 287 H (65-100) mg/dL POC Glucose (70-105) mg/dL Ferritin 1470.0 H (10.0-200.0) ng/mL AST 71 H (5-40) units/L ALT 164 H (7-56) units/L Lactate Dehydrogenase 392 H (91-180) units/L Albumin 3.2 L (3.9-5) g/dL 10/30/20 Range/Units 08:07 D-Dimer (0-234) ng/mlDDU BUN (7-17) mg/dL Glucose (65-100) mg/dL POC Glucose 267 H (70-105) mg/dL Ferritin (10.0-200.0) ng/mL AST (5-40) units/L ALT (7-56) units/L Lactate Dehydrogenase (91-180) units/L Albumin (3.9-5) g/dL
--- NOTE | 2020-10-30 13:28 | Progress Note ---
Assessment and Plan 69 y/o, obese female with acute respiratory failure secondary to COVID pneumonia. 10/30/20: No lasix. Prognosis remains guarded. 10/29/20: Continue lasix but I/O are not accurate. May need to increase dosing. Wean FiO2 as tolerated. Guarded prognosis. 10/28/20: Continue current care. Monitor renal function and continue BID lasix. Need strict I/O 10/27/20: Continue current plan from below. Guarded prognosis given COVID and obesity. Monitor renal function. 1. Increased steroids to 125 TID 2. Increased lasix to 40 BID 3. Prone as tolerated and for as long as possible 4. Monitor fluid balance 5. BP control 6. Guarded prognosis given COVID and obesity with worsening respiratory failure. Subjective Date of service: 10/30/20 Principal diagnosis: COVID-19 PNA Interval history: No new changes. Clinically unchanged. Objective Vital Signs - 12hr 10/30/20 10/30/20 10/30/20 04:00 05:01 05:11 Temperature 97.7 F Pulse Rate 81 81 Respiratory 20 Rate Blood Pressure 144/51 144/51 O2 Sat by Pulse 88 93 Oximetry 10/30/20 10/30/20 10/30/20 09:05 09:29 09:30 Temperature Pulse Rate 81 81 Respiratory Rate Blood Pressure 144/51 144/51 O2 Sat by Pulse 93 Oximetry 10/30/20 10:00 Temperature Pulse Rate Respiratory Rate Blood Pressure O2 Sat by Pulse 90 Oximetry CBC and BMP: 10/24/20 08:07 10/30/20 07:46 ABG, PT/INR, D-dimer: PT/INR, D-dimer D-Dimer 504.53 ng/mlDDU (0-234) H 10/30/20 07:46 Abnormal lab findings: Abnormal Labs 10/23/20 10/23/20 10/23/20 17:31 20:38 20:38 MCH MCHC Lymph % (Auto) [place] % (Auto) Lymph # (Auto) Seg Neutrophils % D-Dimer 919.44 H Sodium 136 L Potassium BUN Glucose 149 H POC Glucose Ferritin AST ALT Lactate Dehydrogenase 606 H C-Reactive Protein 11.50 H Albumin Coronavirus (PCR) 10/23/20 10/24/20 10/24/20 20:38 08:00 08:07 MCH 33 H MCHC 35 H Lymph % (Auto) 9.9 L [place] % (Auto) 7.9 H Lymph # (Auto) 0.6 L Seg Neutrophils % 82.1 H D-Dimer Sodium Potassium BUN Glucose POC Glucose Ferritin AST ALT Lactate Dehydrogenase 643 H C-Reactive Protein 11.70 H Albumin Coronavirus (PCR) Positive A 10/24/20 10/25/20 10/26/20 08:07 16:13 21:32 MCH MCHC Lymph % (Auto) [place] % (Auto) Lymph # (Auto) Seg Neutrophils % D-Dimer Sodium Potassium BUN Glucose 173 H POC Glucose 180 H 213 H Ferritin AST ALT Lactate Dehydrogenase C-Reactive Protein Albumin Coronavirus (PCR) 10/27/20 10/27/20 10/27/20 07:54 11:56 13:47 MCH MCHC Lymph % (Auto) [place] % (Auto) Lymph # (Auto) Seg Neutrophils % D-Dimer Sodium Potassium 3.3 L D BUN 38 H Glucose 262 H POC Glucose 305 H 289 H Ferritin AST 155 H ALT 170 H Lactate Dehydrogenase C-Reactive Protein Albumin 3.4 L Coronavirus (PCR) 10/27/20 10/27/20 10/28/20 15:49 21:36 07:24 MCH MCHC Lymph % (Auto) [place] % (Auto) Lymph # (Auto) Seg Neutrophils % D-Dimer Sodium Potassium BUN 41 H Glucose 217 H POC Glucose 228 H 241 H Ferritin AST 116 H ALT 182 H Lactate Dehydrogenase C-Reactive Protein Albumin 3.7 L Coronavirus (PCR) 10/28/20 10/28/20 10/28/20 07:40 16:08 21:21 MCH MCHC Lymph % (Auto) [place] % (Auto) Lymph # (Auto) Seg Neutrophils % D-Dimer Sodium Potassium BUN Glucose POC Glucose 207 H 227 H 354 H Ferritin AST ALT Lactate Dehydrogenase C-Reactive Protein Albumin Coronavirus (PCR) 10/29/20 10/29/20 10/29/20 05:12 07:47 12:19 MCH MCHC Lymph % (Auto) [place] % (Auto) Lymph # (Auto) Seg Neutrophils % D-Dimer Sodium Potassium BUN 47 H Glucose 247 H POC Glucose 268 H 383 H Ferritin AST 102 H ALT 183 H Lactate Dehydrogenase C-Reactive Protein Albumin 3.1 L Coronavirus (PCR) 10/29/20 10/29/20 10/30/20 16:34 22:07 07:46 MCH MCHC Lymph % (Auto) [place] % (Auto) Lymph # (Auto) Seg Neutrophils % D-Dimer Sodium Potassium BUN 50 H Glucose 287 H POC Glucose 324 H 276 H Ferritin AST 71 H ALT 164 H Lactate Dehydrogenase 392 H C-Reactive Protein Albumin 3.2 L Coronavirus (PCR) 10/30/20 10/30/20 10/30/20 07:46 07:46 08:07 MCH MCHC Lymph % (Auto) [place] % (Auto) Lymph # (Auto) Seg Neutrophils % D-Dimer 504.53 H Sodium Potassium BUN Glucose POC Glucose 267 H Ferritin 1470.0 H AST ALT Lactate Dehydrogenase C-Reactive Protein Albumin Coronavirus (PCR) 10/30/20 12:39 MCH MCHC Lymph % (Auto) [place] % (Auto) Lymph # (Auto) Seg Neutrophils % D-Dimer Sodium Potassium BUN Glucose POC Glucose 332 H Ferritin AST ALT Lactate Dehydrogenase C-Reactive Protein Albumin Coronavirus (PCR) Allied health notes reviewed: nursing
--- NOTE | 2020-10-30 16:03 | Progress Note ---
Assessment and Plan - Patient Problems (1) Acute hypoxemic respiratory failure Current Visit: No Status: Acute Plan to address problem: Chest x-ray, supplemental oxygen, pulse oximetry, nebulizer therapy, noninvasive positive pressure ventilation as clinically indicated, pulmonary toilet, incentive spirometry, out of bed to chair twice daily and as needed (2) CHF (congestive heart failure) Current Visit: No Status: Acute Qualifiers: Heart failure type: systolic Heart failure chronicity: acute Qualified Code(s): I50.21 - Acute systolic (congestive) heart failure Plan to address problem: Strict I's/O, monitor urine output every shift, daily weight, afterload reduc tion, blood pressure control, thyroid panel, magnesium level, echocardiogram ordered and is pending at time of admission. (3) Obesity hypoventilation syndrome Current Visit: Yes Status: Chronic Plan to address problem: Balanced diet, increase physical activity at discharge, outpatient pulmonary follow-up for sleep study, outpatient bariatric surgery follow-up. (4) Pneumonia Current Visit: No Status: Acute Plan to address problem: Pneumonia protocol: Chest x-ray, CBC, CMP, supplemental oxygen, pulse oximetry, IV antibiotic therapy, blood culture. (5) Suspected 2019 novel coronavirus infection Current Visit: No Status: Acute Plan to address problem: Coronavirus protocol: IV antibiotic therapy, IV steroid therapy, supplemental oxygen, pulse oximetry, nebulizer therapy, prone positioning while in bed, non invasive positive pressure ventilation as clinically indicated, prophylactic anticoagulation. (6) Hypertension Current Visit: Yes Status: Chronic Qualifiers: Hypertension type: primary hypertension Qualified Code(s): I10 - Essential (primary) hypertension Plan to address problem: Monitor blood pressure every shift, resume prehospital antihypertensive therapy, blood pressure checks per routine, (7) Diabetes Current Visit: No Status: Acute Plan to address problem: Consistent carbohydrate diet, Accu-Chek, insulin protocol, hypoglycemia protocol (8) DVT prophylaxis Current Visit: No Status: Acute Plan to address problem: SCD to bilateral lower extremities while in bed, prophylactic anticoagulation (9) Advance care planning Current Visit: No Status: Acute Plan to address problem: Disease education conducted, care plan discussed, diagnosis discussed, prognosis discussed, patient is full code, patient knowledges understanding and agreement with care plan, +30 minutes. History Interval history: 69 YO Female HD #7 with Acute Hypoxemic Respiratory Failure, Pneumonia secondary to Coronavirus Infection, CHF, HTN, DM. No reported nursing events. No acute improvement in overall patient symptoms. Patient denies pain. Patient acknowledges continued shortness of breath on HFNC. Hospitalist Physical - Constitutional Vitals: Temp Pulse Resp BP Pulse Ox 97.7 F 81 20 144/51 90 10/30/20 05:01 10/30/20 13:55 10/30/20 05:01 10/30/20 13:55 10/30/20 10:00 General appearance: Present: no acute distress, obese - EENT Eyes: Present: PERRL - Neck Neck: Present: supple - Respiratory Respiratory effort: labored Respiratory: bilateral: diminished - Cardiovascular Rhythm: regular Heart Sounds: Present: S1 & S2 - Extremities Extremities: no ischemia Peripheral Pulses: within normal limits - Abdominal General gastrointestinal: soft, non-tender, non-distended - Integumentary Integumentary: Present: clear, dry - Psychiatric Psychiatric: cooperative - Neurologic Neurologic: CNII-XII intact HEART Score - HEART Score Troponin: Troponin T < 0.010 ng/mL (0.00-0.029) 10/23/20 17:31 Results - Labs CBC & Chem 7: 10/24/20 08:07 10/30/20 07:46 Labs: Laboratory Last Values WBC 5.8 K/mm3 (4.5-11.0) 10/24/20 08:07 RBC 4.26 M/mm3 (3.65-5.03) 10/24/20 08:07 Hgb 13.8 gm/dl (10.1-14.3) 10/24/20 08:07 Hct 40.1 % (30.3-42.9) 10/24/20 08:07 MCV 94 fl (79-97) 10/24/20 08:07 MCH 33 pg (28-32) H 10/24/20 08:07 MCHC 35 % (30-34) H 10/24/20 08:07 RDW 13.2 % (13.2-15.2) 10/24/20 08:07 Plt Count 205 K/mm3 (140-440) 10/24/20 08:07 Lymph % (Auto) 9.9 % (13.4-35.0) L 10/24/20 08:07 [place] % (Auto) 7.9 % (0.0-7.3) H 10/24/20 08:07 Eos % (Auto) 0.0 % (0.0-4.3) 10/24/20 08:07 Baso % (Auto) 0.1 % (0.0-1.8) 10/24/20 08:07 Lymph # (Auto) 0.6 K/mm3 (1.2-5.4) L 10/24/20 08:07 [place] # (Auto) 0.5 K/mm3 (0.0-0.8) 10/24/20 08:07 Eos # (Auto) 0.0 K/mm3 (0.0-0.4) 10/24/20 08:07 Baso # (Auto) 0.0 K/mm3 (0.0-0.1) 10/24/20 08:07 Seg Neutrophils % 82.1 % (40.0-70.0) H 10/24/20 08:07 Seg Neutrophils # 4.7 K/mm3 (1.8-7.7) 10/24/20 08:07 D-Dimer 504.53 ng/mlDDU (0-234) H 10/30/20 07:46 Sodium 140 mmol/L (137-145) 10/30/20 07:46 Potassium 3.8 mmol/L (3.6-5.0) 10/30/20 07:46 Chloride 99.5 mmol/L (98-107) 10/30/20 07:46 Carbon Dioxide 30 mmol/L (22-30) 10/30/20 07:46 Anion Gap 14 mmol/L 10/30/20 07:46 BUN 50 mg/dL (7-17) H 10/30/20 07:46 Creatinine 0.9 mg/dL (0.6-1.2) 10/30/20 07:46 Estimated GFR > 60 ml/min 10/30/20 07:46 BUN/Creatinine Ratio 56 % 10/30/20 07:46 Glucose 287 mg/dL (65-100) H 10/30/20 07:46 POC Glucose 332 mg/dL (70-105) H 10/30/20 12:39 Calcium 9.2 mg/dL (8.4-10.2) 10/30/20 07:46 Magnesium 1.80 mg/dL (1.7-2.3) 10/23/20 20:38 Ferritin 1470.0 ng/mL (10.0-200.0) H 10/30/20 07:46 Total Bilirubin 0.50 mg/dL (0.1-1.2) 10/30/20 07:46 AST 71 units/L (5-40) H 10/30/20 07:46 ALT 164 units/L (7-56) H 10/30/20 07:46 Alkaline Phosphatase 64 units/L (35-129) 10/30/20 07:46 Lactate Dehydrogenase 392 units/L (91-180) H 10/30/20 07:46 Troponin T < 0.010 ng/mL (0.00-0.029) 10/23/20 17:31 C-Reactive Protein 0.50 mg/dL (0.00-1.30) 10/30/20 07:46 NT-Pro-B Natriuret Pep 162.0 pg/mL (0-900) 10/23/20 17:31 Total Protein 7.0 g/dL (6.3-8.2) 10/30/20 07:46 Albumin 3.2 g/dL (3.9-5) L 10/30/20 07:46 Albumin/Globulin Ratio 0.8 % 10/30/20 07:46 Procalcitonin 0.32 ng/mL (<0.15) 10/23/20 20:38 TSH 2.010 mlU/mL (0.270-4.200) 10/23/20 20:38 Free T4 1.17 ng/dL (0.76-1.46) 10/23/20 20:38 Coronavirus (PCR) Positive (Negative) A 10/24/20 08:00 [place]/IV: Voiding Method External Female Catheter Active Medications - Current Medications Current Medications: Generic Name Dose Route Start Last Admin Trade Name Freq PRN Reason Stop Dose Admin Acetaminophen 650 mg 10/23/20 20:27 10/26/20 04:54 Acetaminophen 325 Mg Tab PO 650 mg Q4H PRN Administration Pain MILD(1-3)/Fever >100.5/KAUFMAN Albuterol 2.5 mg 10/23/20 20:27 Albuterol 2.5 Mg/3 Ml Nebu IH Q4HRT PRN Shortness Of Breath Amlodipine Besylate 10 mg 10/26/20 10:00 10/30/20 09:29 Amlodipine 10 Mg Tab PO 10 mg QDAY GLENROY Administration Ascorbic Acid 500 mg 10/23/20 22:00 10/30/20 09:29 Ascorbic Acid 500 Mg Tab PO 500 mg BID GLENROY Administration Cholecalciferol 1,000 unit 10/24/20 10:00 10/30/20 09:30 Cholecalciferol (Vit D3) 1000 Unit (25 Mcg) Tab PO 1,000 unit QDAY GLENROY Administration Furosemide 40 mg 10/26/20 11:00 10/30/20 05:11 Furosemide 40 Mg/4 Ml Inj IV 40 mg 0600,1800 GLENROY Administration Heparin Sodium (Porcine) 5,000 unit 10/23/20 22:00 10/30/20 09:30 Heparin 5,000 Unit/1 Ml Vial SUB-Q 5,000 unit Q12HR GLENROY Administration Hydralazine HCl 50 mg 10/23/20 22:00 10/30/20 13:55 Hydralazine 25 Mg Tab PO 50 mg Q8HR GLENROY Administration Hydromorphone HCl 0.5 mg 10/23/20 20:27 Hydromorphone 1 Mg/1 Ml Inj IV Q12H PRN Pain , Severe (7-10) REMDESIVIR 100 mg/ Sodium 250 mls @ 500 mls/hr 10/28/20 21:00 10/29/20 20:56 Chloride IV 10/31/20 21:29 500 mls/hr Q24HR@2100 GLENROY Administration Insulin Human Lispro 0 unit 10/27/20 11:30 10/30/20 12:46 Insulin Lispro 100 Unit/Ml SUB-Q 8 unit ACHS GLENROY Administration Protocol Lisinopril 40 mg 10/24/20 10:00 10/30/20 09:30 Lisinopril 40 Mg Tab PO 40 mg DAILY GLENROY Administration Methylprednisolone Sodium Succinate 125 mg 10/26/20 14:00 10/30/20 13:55 Methylprednisolone Sod Succinate 125 Mg/2 Ml Inj IV 125 mg Q8HR GLENROY Administration Ondansetron HCl 4 mg 10/23/20 20:27 Ondansetron 4 Mg/2 Ml Inj IV Q8H PRN Nausea And Vomiting Oxycodone/Acetaminophen 1 tab 10/23/20 20:27 Oxycodone /Acetaminophen 5-325mg Tab PO Q12H PRN Pain, Moderate (4-6) Pravastatin Sodium 80 mg 10/23/20 22:00 10/29/20 21:02 Pravastatin 80 Mg Tab PO 80 mg QHS GLENROY Administration Sodium Chloride 10 ml 10/23/20 22:00 10/30/20 09:30 Sodium Chloride 0.9% 10 Ml Flush Syringe IV 10 ml BID GLENROY Administration Sodium Chloride 10 ml 10/23/20 20:27 Sodium Chloride 0.9% 10 Ml Flush Syringe IV PRN PRN LINE FLUSH Sodium Chloride 50 ml 10/27/20 13:00 10/29/20 20:57 Sodium Chloride 0.9% 50 Ml Ivpb IV 10/31/20 21:01 50 ml Q24HR@2100 GLENROY Administration Tiotropium [place] 1 puff 10/24/20 10:00 10/30/20 10:05 Tiotropium 18 Mcg Cap Inhalation IH Not Given QDAY GLENROY Zinc Sulfate 220 mg 10/23/20 22:00 10/30/20 09:30 Zinc Sulfate 220 Mg Cap PO 220 mg BID GLENROY Administration Nutrition/Malnutrition Assess - Dietary Evaluation Nutrition/Malnutrition Findings: Nutrition Notes Start: 10/26/20 11:03 Freq: Status: Active Protocol: Document 10/30/20 12:52 (Rec: 10/30/20 12:54 [id number]) Nutrition Notes Initial or Follow up Reassessment Current Diagnosis Diabetes,Hypertension,Heart Failure Other Pertinent Diagnosis Covid 19, GERD, pneu Current Diet Cardiac Consistent Carbohydrate diet Labs/Tests BG 267 Pertinent Medications Humalog Height 5 ft 6 in Weight 145.5 g [place] Body Weight (kg) 59.09 BMI 0.0 Weight Status Morbidly Obese Subjective/Other Information Pt reports eating 100% of meals and 100% of ONS daily which she enjoys. Percent of energy/protein needs met: 100%/100% Burn Absent Trauma Absent Current % PO Good (75-100%) Minimum of two criteria No physical signs of malnutrition #1 Nutrition Diagnosis Inadequate energy intake As Evidenced by Signs and Symptoms pt eating 100% of meals Diagnosis Progress(for reassessment Improved documentation) Is patient on ventilator? No Is Patient Ambulatory and/or Out of Bed No REE-([facility]-confined to bed) [phone] Calculation Used for Recommendations 1744 kcal Additional Notes protein needs:59 - 71g (1 - 1. 2g/kgIBW) fluid needs: 1 ml/kcal Nutrition Intervention Change Diet Order: Cotn[place]ue current diet as ordered Add Supplement/Snack (indicate name/kcal Glucerna BID /protein ) Provides kCal: 440 Provides Protein (gm) 20 Goal #1 Meet at least 75% of kcal and protein needs via PO Anticipated Discharge Needs: Cardiac Consistent Carbohydrate diet Follow-Up By: 11/04/20 Additional Comments F/u: stable intakes
[2020-10-30] MEDS: REMDESIVIR 100 MG in SODIUM CHLORIDE 0.9% 250ML 250 ML IV SCH (21:42)
[2020-10-30] MEDS: PRAVASTATIN 80 MG TAB PO SCH (21:43)
[2020-10-30] MEDS: SODIUM CHLORIDE 0.9% 50 ML IVPB IV SCH (21:47)
--- NOTE | 2020-10-31 00:26 | Progress Note ---
Assessment and Plan - Patient Problems (1) Acute hypoxemic respiratory failure Current Visit: No Status: Acute Plan to address problem: Chest x-ray, supplemental oxygen, pulse oximetry, nebulizer therapy, noninvasive positive pressure ventilation as clinically indicated, pulmonary toilet, incentive spirometry, out of bed to chair twice daily and as needed (2) CHF (congestive heart failure) Current Visit: No Status: Acute Qualifiers: Heart failure type: systolic Heart failure chronicity: acute Qualified Code(s): I50.21 - Acute systolic (congestive) heart failure Plan to address problem: Strict I's/O, monitor urine output every shift, daily weight, afterload reduc tion, blood pressure control, thyroid panel, magnesium level, echocardiogram ordered and is pending at time of admission. (3) Obesity hypoventilation syndrome Current Visit: Yes Status: Chronic Plan to address problem: Balanced diet, increase physical activity at discharge, outpatient pulmonary follow-up for sleep study, outpatient bariatric surgery follow-up. (4) Pneumonia Current Visit: No Status: Acute Plan to address problem: Pneumonia protocol: Chest x-ray, CBC, CMP, supplemental oxygen, pulse oximetry, IV antibiotic therapy, blood culture. (5) Suspected 2019 novel coronavirus infection Current Visit: No Status: Acute Plan to address problem: Coronavirus protocol: IV antibiotic therapy, IV steroid therapy, supplemental oxygen, pulse oximetry, nebulizer therapy, prone positioning while in bed, non invasive positive pressure ventilation as clinically indicated, prophylactic anticoagulation. (6) Hypertension Current Visit: Yes Status: Chronic Qualifiers: Hypertension type: primary hypertension Qualified Code(s): I10 - Essential (primary) hypertension Plan to address problem: Monitor blood pressure every shift, resume prehospital antihypertensive therapy, blood pressure checks per routine, (7) Diabetes Current Visit: No Status: Acute Plan to address problem: Consistent carbohydrate diet, Accu-Chek, insulin protocol, hypoglycemia protocol (8) DVT prophylaxis Current Visit: No Status: Acute Plan to address problem: SCD to bilateral lower extremities while in bed, prophylactic anticoagulation (9) Advance care planning Current Visit: No Status: Acute Plan to address problem: Disease education conducted, care plan discussed, diagnosis discussed, prognosis discussed, patient is full code, patient knowledges understanding and agreement with care plan, +30 minutes. History Interval history: 69 YO Female with Acute Hypoxemic Respiratory Failure, Pneumonia secondary to Coronavirus Infection, CHF, HTN, DM. No reported nursing events. Patient convalesced well overnight. No acute improvement in overall patient symptoms. Patient denies pain. Patient acknowledges continued shortness of breath on HFNC . Hospitalist Physical - Constitutional Vitals: Temp Pulse Resp BP Pulse Ox 98.6 F 93 H 24 170/74 90 10/30/20 16:15 10/30/20 16:15 10/30/20 16:15 10/30/20 16:15 10/30/20 22:00 General appearance: Present: no acute distress, obese - EENT Eyes: Present: PERRL ENT: hearing intact - Neck Neck: Present: supple - Respiratory Respiratory effort: labored Respiratory: bilateral: diminished, rhonchi - Cardiovascular Rhythm: regular Heart Sounds: Present: S1 & S2 - Extremities Extremities: no ischemia Peripheral Pulses: within normal limits - Abdominal General gastrointestinal: soft, non-tender, non-distended - Integumentary Integumentary: Present: clear, dry - Psychiatric Psychiatric: cooperative - Neurologic Neurologic: CNII-XII intact HEART Score - HEART Score Troponin: Troponin T < 0.010 ng/mL (0.00-0.029) 10/23/20 17:31 Results - Labs CBC & Chem 7: 10/24/20 08:07 10/30/20 07:46 Labs: Laboratory Last Values WBC 5.8 K/mm3 (4.5-11.0) 10/24/20 08:07 RBC 4.26 M/mm3 (3.65-5.03) 10/24/20 08:07 Hgb 13.8 gm/dl (10.1-14.3) 10/24/20 08:07 Hct 40.1 % (30.3-42.9) 10/24/20 08:07 MCV 94 fl (79-97) 10/24/20 08:07 MCH 33 pg (28-32) H 10/24/20 08:07 MCHC 35 % (30-34) H 10/24/20 08:07 RDW 13.2 % (13.2-15.2) 10/24/20 08:07 Plt Count 205 K/mm3 (140-440) 10/24/20 08:07 Lymph % (Auto) 9.9 % (13.4-35.0) L 10/24/20 08:07 [place] % (Auto) 7.9 % (0.0-7.3) H 10/24/20 08:07 Eos % (Auto) 0.0 % (0.0-4.3) 10/24/20 08:07 Baso % (Auto) 0.1 % (0.0-1.8) 10/24/20 08:07 Lymph # (Auto) 0.6 K/mm3 (1.2-5.4) L 10/24/20 08:07 [place] # (Auto) 0.5 K/mm3 (0.0-0.8) 10/24/20 08:07 Eos # (Auto) 0.0 K/mm3 (0.0-0.4) 10/24/20 08:07 Baso # (Auto) 0.0 K/mm3 (0.0-0.1) 10/24/20 08:07 Seg Neutrophils % 82.1 % (40.0-70.0) H 10/24/20 08:07 Seg Neutrophils # 4.7 K/mm3 (1.8-7.7) 10/24/20 08:07 D-Dimer 504.53 ng/mlDDU (0-234) H 10/30/20 07:46 Sodium 140 mmol/L (137-145) 10/30/20 07:46 Potassium 3.8 mmol/L (3.6-5.0) 10/30/20 07:46 Chloride 99.5 mmol/L (98-107) 10/30/20 07:46 Carbon Dioxide 30 mmol/L (22-30) 10/30/20 07:46 Anion Gap 14 mmol/L 10/30/20 07:46 BUN 50 mg/dL (7-17) H 10/30/20 07:46 Creatinine 0.9 mg/dL (0.6-1.2) 10/30/20 07:46 Estimated GFR > 60 ml/min 10/30/20 07:46 BUN/Creatinine Ratio 56 % 10/30/20 07:46 Glucose 287 mg/dL (65-100) H 10/30/20 07:46 POC Glucose 371 mg/dL (70-105) H 10/30/20 21:42 Calcium 9.2 mg/dL (8.4-10.2) 10/30/20 07:46 Magnesium 1.80 mg/dL (1.7-2.3) 10/23/20 20:38 Ferritin 1470.0 ng/mL (10.0-200.0) H 10/30/20 07:46 Total Bilirubin 0.50 mg/dL (0.1-1.2) 10/30/20 07:46 AST 71 units/L (5-40) H 10/30/20 07:46 ALT 164 units/L (7-56) H 10/30/20 07:46 Alkaline Phosphatase 64 units/L (35-129) 10/30/20 07:46 Lactate Dehydrogenase 392 units/L (91-180) H 10/30/20 07:46 Troponin T < 0.010 ng/mL (0.00-0.029) 10/23/20 17:31 C-Reactive Protein 0.50 mg/dL (0.00-1.30) 10/30/20 07:46 NT-Pro-B Natriuret Pep 162.0 pg/mL (0-900) 10/23/20 17:31 Total Protein 7.0 g/dL (6.3-8.2) 10/30/20 07:46 Albumin 3.2 g/dL (3.9-5) L 10/30/20 07:46 Albumin/Globulin Ratio 0.8 % 10/30/20 07:46 Procalcitonin 0.32 ng/mL (<0.15) 10/23/20 20:38 TSH 2.010 mlU/mL (0.270-4.200) 10/23/20 20:38 Free T4 1.17 ng/dL (0.76-1.46) 10/23/20 20:38 Coronavirus (PCR) Positive (Negative) A 10/24/20 08:00 [place]ral[place]/IV: Voiding Method External Female Catheter Active Medications - Current Medications Current Medications: Generic Name Dose Route Start Last Admin Trade Name Freq PRN Reason Stop Dose Admin Acetaminophen 650 mg 10/23/20 20:27 10/26/20 04:54 Acetaminophen 325 Mg Tab PO 650 mg Q4H PRN Administration Pain MILD(1-3)/Fever >100.5/KAUFMAN Albuterol 2.5 mg 10/23/20 20:27 Albuterol 2.5 Mg/3 Ml Nebu IH Q4HRT PRN Shortness Of Breath Amlodipine Besylate 10 mg 10/26/20 10:00 10/30/20 09:29 Amlodipine 10 Mg Tab PO 10 mg QDAY GLENROY Administration Ascorbic Acid 500 mg 10/23/20 22:00 10/30/20 21:43 Ascorbic Acid 500 Mg Tab PO 500 mg BID GLENROY Administration Cholecalciferol 1,000 unit 10/24/20 10:00 10/30/20 09:30 Cholecalciferol (Vit D3) 1000 Unit (25 Mcg) Tab PO 1,000 unit QDAY GLENROY Administration Furosemide 40 mg 10/26/20 11:00 10/30/20 17:46 Furosemide 40 Mg/4 Ml Inj IV 40 mg 0600,1800 GLENROY Administration Heparin Sodium (Porcine) 5,000 unit 10/23/20 22:00 10/30/20 21:43 Heparin 5,000 Unit/1 Ml Vial SUB-Q 5,000 unit Q12HR GLENROY Administration Hydralazine HCl 50 mg 10/23/20 22:00 10/30/20 21:43 Hydralazine 25 Mg Tab PO 50 mg Q8HR GLENROY Administration Hydromorphone HCl 0.5 mg 10/23/20 20:27 Hydromorphone 1 Mg/1 Ml Inj IV Q12H PRN Pain , Severe (7-10) REMDESIVIR 100 mg/ Sodium 250 mls @ 500 mls/hr 10/28/20 21:00 10/30/20 21:42 Chloride IV 10/31/20 21:29 500 mls/hr Q24HR@2100 GLENROY Administration Insulin Human Lispro 0 unit 10/27/20 11:30 10/30/20 21:48 Insulin Lispro 100 Unit/Ml SUB-Q 6 unit ACHS GLENROY Administration Protocol Lisinopril 40 mg 10/24/20 10:00 10/30/20 09:30 Lisinopril 40 Mg Tab PO 40 mg DAILY GLENROY Administration Methylprednisolone Sodium Succinate 125 mg 10/26/20 14:00 10/30/20 21:43 Methylprednisolone Sod Succinate 125 Mg/2 Ml Inj IV 125 mg Q8HR GLENROY Administration Ondansetron HCl 4 mg 10/23/20 20:27 Ondansetron 4 Mg/2 Ml Inj IV Q8H PRN Nausea And Vomiting Oxycodone/Acetaminophen 1 tab 10/23/20 20:27 Oxycodone /Acetaminophen 5-325mg Tab PO Q12H PRN Pain, Moderate (4-6) Pravastatin Sodium 80 mg 10/23/20 22:00 10/30/20 21:43 Pravastatin 80 Mg Tab PO 80 mg QHS GLENROY Administration Sodium Chloride 10 ml 10/23/20 22:00 10/30/20 21:49 Sodium Chloride 0.9% 10 Ml Flush Syringe IV 10 ml BID GLENROY Administration Sodium Chloride 10 ml 10/23/20 20:27 Sodium Chloride 0.9% 10 Ml Flush Syringe IV PRN PRN LINE FLUSH Sodium Chloride 50 ml 10/27/20 13:00 10/30/20 21:47 Sodium Chloride 0.9% 50 Ml Ivpb IV 10/31/20 21:01 50 ml Q24HR@2100 GLENROY Administration Tiotropium [place] 1 puff 10/24/20 10:00 10/30/20 10:05 Tiotropium 18 Mcg Cap Inhalation IH Not Given QDAY GLENROY Zinc Sulfate 220 mg 10/23/20 22:00 10/30/20 21:50 Zinc Sulfate 220 Mg Cap PO 220 mg BID GLENROY Administration Nutrition/Malnutrition Assess - Dietary Evaluation Nutrition/Malnutrition Findings: Nutrition Notes Start: 10/26/20 11:03 Freq: Status: Active Protocol: Document 10/30/20 12:52 (Rec: 10/30/20 12:54 [id number]) Nutrition Notes Initial or Follow up Reassessment Current Diagnosis Diabetes,Hypertension,Heart Failure Other Pertinent Diagnosis Covid 19, GERD, pneu Current Diet Cardiac Consistent Carbohydrate diet Labs/Tests BG 267 Pertinent Medications Humalog Height 5 ft 6 in Weight 145.5 g [place] Body Weight (kg) 59.09 BMI 0.0 Weight Status Morbidly Obese Subjective/Other Information Pt reports eating 100% of meals and 100% of ONS daily which she enjoys. Percent of energy/protein needs met: 100%/100% Burn Absent Trauma Absent Current % PO Good (75-100%) Minimum of two criteria No physical signs of malnutrition #1 Nutrition Diagnosis Inadequate energy intake As Evidenced by Signs and Symptoms pt eating 100% of meals Diagnosis Progress(for reassessment Improved documentation) Is patient on ventilator? No Is Patient Ambulatory and/or Out of Bed No REE-([facility]-confined to bed) 652.560 Calculation Used for Recommendations 1744 kcal Additional Notes protein needs:59 - 71g (1 - 1. 2g/kgIBW) fluid needs: 1 ml/kcal Nutrition Intervention Change Diet Order: [place] current diet as ordered Add Supplement/Snack (indicate name/kcal Glucerna BID /protein ) Provides kCal: 440 Provides Protein (gm) 20 Goal #1 Meet at least 75% of kcal and protein needs via PO Anticipated Discharge Needs: Cardiac Consistent Carbohydrate diet Follow-Up By: 11/04/20 Additional Comments F/u: stable intakes
[2020-10-31] MEDS: FUROSEMIDE 40 MG/4 ML INJ IV SCH ×2 (06:09→17:43)
[2020-10-31] MEDS: hydrALAZINE 25 MG TAB PO SCH ×3 (06:09→23:04)
[2020-10-31] MEDS: methylPREDNISolone Sod Succinate 125 MG/2 ML INJ IV SCH ×3 (06:09→23:05)
[2020-10-31] MEDS: INSULIN LISPRO 100 UNIT/ML SUB-Q SCH ×4 (09:37→23:07)
[2020-10-31] MEDS: HEPARIN 5,000 UNIT/1 ML VIAL SUB-Q SCH ×2 (09:37→23:06)
[2020-10-31] MEDS: TIOTROPIUM 18 MCG CAP INHALATION IH SCH (09:38)
[2020-10-31] MEDS: amLODIPine 10 MG TAB PO SCH (09:38)
[2020-10-31] MEDS: ZINC SULFATE 220 MG CAP PO SCH ×2 (09:38→23:04)
[2020-10-31] MEDS: ASCORBIC ACID 500 MG TAB PO SCH ×2 (09:38→23:05)
[2020-10-31] MEDS: LISINOPRIL 40 MG TAB PO SCH (09:38)
[2020-10-31] MEDS: CHOLECALCIFEROL (VIT D3) 1000 UNIT (25 mcg) TAB PO SCH (09:38)
--- NOTE | 2020-10-31 12:18 | Progress Note ---
Assessment and Plan 69 y/o, obese female with acute respiratory failure secondary to COVID pneumonia. 10/31/20: Prone if able and for as long as possible. Wean for sats >88%. Continue high dose steroids. 10/30/20: No lasix. Prognosis remains guarded. 10/29/20: Continue lasix but I/O are not accurate. May need to increase dosing. Wean FiO2 as tolerated. Guarded prognosis. 10/28/20: Continue current care. Monitor renal function and continue BID lasix. Need strict I/O 10/27/20: Continue current plan from below. Guarded prognosis given COVID and obesity. Monitor renal function. 1. Increased steroids to 125 TID 2. Increased lasix to 40 BID 3. Prone as tolerated and for as long as possible 4. Monitor fluid balance 5. BP control 6. Guarded prognosis given COVID and obesity with worsening respiratory failure. Subjective Date of service: 10/31/20 Principal diagnosis: COVID-19 PNA Interval history: no acute events. Still on same HFNC settings. Objective Vital Signs - 12hr 10/31/20 10/31/20 10/31/20 01:11 03:27 06:03 Temperature 98.5 F 98.1 F Pulse Rate 94 H 80 Respiratory 22 22 Rate Blood Pressure 145/71 Blood Pressure 152/78 [Left] O2 Sat by Pulse 93 93 90 Oximetry 10/31/20 06:09 Temperature Pulse Rate 80 Respiratory Rate Blood Pressure 145/71 Blood Pressure [Left] O2 Sat by Pulse Oximetry CBC and BMP: 10/24/20 08:07 10/30/20 07:46 ABG, PT/INR, D-dimer: PT/INR, D-dimer D-Dimer 504.53 ng/mlDDU (0-234) H 10/30/20 07:46 Abnormal lab findings: Abnormal Labs 10/23/20 10/23/20 10/23/20 17:31 20:38 20:38 MCH MCHC Lymph % (Auto) [place] % (Auto) Lymph # (Auto) Seg Neutrophils % D-Dimer 919.44 H Sodium 136 L Potassium BUN Glucose 149 H POC Glucose Ferritin AST ALT Lactate Dehydrogenase 606 H C-Reactive Protein 11.50 H Albumin Coronavirus (PCR) 10/23/20 10/24/20 10/24/20 20:38 08:00 08:07 MCH 33 H MCHC 35 H Lymph % (Auto) 9.9 L [place] % (Auto) 7.9 H Lymph # (Auto) 0.6 L Seg Neutrophils % 82.1 H D-Dimer Sodium Potassium BUN Glucose POC Glucose Ferritin AST ALT Lactate Dehydrogenase 643 H C-Reactive Protein 11.70 H Albumin Coronavirus (PCR) Positive A 10/24/20 10/25/20 10/26/20 08:07 16:13 21:32 MCH MCHC Lymph % (Auto) [place] % (Auto) Lymph # (Auto) Seg Neutrophils % D-Dimer Sodium Potassium BUN Glucose 173 H POC Glucose 180 H 213 H Ferritin AST ALT Lactate Dehydrogenase C-Reactive Protein Albumin Coronavirus (PCR) 10/27/20 10/27/20 10/27/20 07:54 11:56 13:47 MCH MCHC Lymph % (Auto) [place] % (Auto) Lymph # (Auto) Seg Neutrophils % D-Dimer Sodium Potassium 3.3 L D BUN 38 H Glucose 262 H POC Glucose 305 H 289 H Ferritin AST 155 H ALT 170 H Lactate Dehydrogenase C-Reactive Protein Albumin 3.4 L Coronavirus (PCR) 10/27/20 10/27/20 10/28/20 15:49 21:36 07:24 MCH MCHC Lymph % (Auto) [place] % (Auto) Lymph # (Auto) Seg Neutrophils % D-Dimer Sodium Potassium BUN 41 H Glucose 217 H POC Glucose 228 H 241 H Ferritin AST 116 H ALT 182 H Lactate Dehydrogenase C-Reactive Protein Albumin 3.7 L Coronavirus (PCR) 10/28/20 10/28/20 10/28/20 07:40 16:08 21:21 MCH MCHC Lymph % (Auto) [place] % (Auto) Lymph # (Auto) Seg Neutrophils % D-Dimer Sodium Potassium BUN Glucose POC Glucose 207 H 227 H 354 H Ferritin AST ALT Lactate Dehydrogenase C-Reactive Protein Albumin Coronavirus (PCR) 10/29/20 10/29/20 10/29/20 05:12 07:47 12:19 MCH MCHC Lymph % (Auto) [place] % (Auto) Lymph # (Auto) Seg Neutrophils % D-Dimer Sodium Potassium BUN 47 H Glucose 247 H POC Glucose 268 H 383 H Ferritin AST 102 H ALT 183 H Lactate Dehydrogenase C-Reactive Protein Albumin 3.1 L Coronavirus (PCR) 10/29/20 10/29/20 10/30/20 16:34 22:07 07:46 MCH MCHC Lymph % (Auto) [place] % (Auto) Lymph # (Auto) Seg Neutrophils % D-Dimer Sodium Potassium BUN 50 H Glucose 287 H POC Glucose 324 H 276 H Ferritin AST 71 H ALT 164 H Lactate Dehydrogenase 392 H C-Reactive Protein Albumin 3.2 L Coronavirus (PCR) 10/30/20 10/30/20 10/30/20 07:46 07:46 08:07 MCH MCHC Lymph % (Auto) [place] % (Auto) Lymph # (Auto) Seg Neutrophils % D-Dimer 504.53 H Sodium Potassium BUN Glucose POC Glucose 267 H Ferritin 1470.0 H AST ALT Lactate Dehydrogenase C-Reactive Protein Albumin Coronavirus (PCR) 10/30/20 10/30/20 10/30/20 12:39 17:14 21:42 MCH MCHC Lymph % (Auto) [place] % (Auto) Lymph # (Auto) Seg Neutrophils % D-Dimer Sodium Potassium BUN Glucose POC Glucose 332 H 301 H 371 H Ferritin AST ALT Lactate Dehydrogenase C-Reactive Protein Albumin Coronavirus (PCR) 10/31/20 10/31/20 07:52 11:42 MCH MCHC Lymph % (Auto) [place] % (Auto) Lymph # (Auto) Seg Neutrophils % D-Dimer Sodium Potassium BUN Glucose POC Glucose 303 H 387 H Ferritin AST ALT Lactate Dehydrogenase C-Reactive Protein Albumin Coronavirus (PCR) Allied health notes reviewed: nursing
--- NOTE | 2020-10-31 16:58 | Progress Note ---
Assessment and Plan -- Acute respiratory failure Due to COVID-19 pneumonia and underlying morbid obesity Supplemental O2 and inhaler as needed -- Pneumonia due to COVID-19 virus Continue empiric steroid, status post remdesivir Supplemental O2 as needed, ID on board -- COPD (chronic obstructive pulmonary disease) Continue empiric steroid, inhalers and supplemental O2 -- Hypertension Monitor BP and adjust meds as needed -- Diabetes mellitus Consistent carb diet, continue SSI -- GERD (gastroesophageal reflux disease) Continue PPI --Morbid obesity Dietary and exercise recommendation as outpatient when clinically more stable and appropriate Daily clinical course: 10/31/20: Remains on high flow O2, continue to monitor inflammatory markers, pulmonary on board. Guarded prognosis. Subjective Date of service: 10/31/20 Principal diagnosis: COVID-19 PNA Interval history: Patient seen and examined. Medical records and medication list reviewed. No acute event overnight noted by the RN. Patient remains on high flow O2, complains of shortness of breath Discussed plan of care at bedside with patient. Objective - Exam Narrative Exam: Limited physical exam due to COVID-19 pandemic to minimize transmission of the disease and to preserve PPE. Vital reviewed and stable. GENERAL: well-developed morbidly obese -Turkish female lying on bed appeared to be in no discomfort. HEENT: Normocephalic. Atraumatic. NECK: Supple. CHEST/LUNGS: breathing on high flow O2 HEART/CARDIOVASCULAR: Heart rate stable on telemetry ABDOMEN: Visibly not distended SKIN: There is no rash NEURO: No focal motor deficit. Follows command. MUSCULOSKELETAL: No joint effusion EXTRIMITY: No swelling, no cyanosis or clubbing. PSYCH: Cooperative. - Constitutional Vitals: Vital Signs - 12hr 10/31/20 10/31/20 10/31/20 06:03 06:09 11:44 Temperature 98.1 F 99.0 F Pulse Rate 80 80 89 Respiratory 22 18 Rate Blood Pressure 145/71 145/71 154/78 O2 Sat by Pulse 90 90 Oximetry 10/31/20 15:41 Temperature Pulse Rate Respiratory Rate Blood Pressure O2 Sat by Pulse 92 Oximetry - Labs CBC & Chem 7: 10/24/20 08:07 10/30/20 07:46 Labs: Abnormal lab results 10/30/20 10/30/20 10/31/20 Range/Units 17:14 21:42 07:52 POC Glucose 301 H 371 H 303 H (70-105) mg/dL 10/31/20 10/31/20 Range/Units 11:42 16:12 POC Glucose 387 H 343 H (70-105) mg/dL HEART Score - HEART Score Troponin: Troponin T < 0.010 ng/mL (0.00-0.029) 10/23/20 17:31
[2020-10-31] MEDS: PRAVASTATIN 80 MG TAB PO SCH (23:05)
[2020-10-31] MEDS: SODIUM CHLORIDE 0.9% 50 ML IVPB IV SCH (23:07)
[2020-10-31] MEDS: REMDESIVIR 100 MG in SODIUM CHLORIDE 0.9% 250ML 250 ML IV SCH (23:07)
[2020-11-01] MEDS: methylPREDNISolone Sod Succinate 125 MG/2 ML INJ IV SCH (06:32)
[2020-11-01] MEDS: FUROSEMIDE 40 MG/4 ML INJ IV SCH ×2 (06:33→17:11)
[2020-11-01] MEDS: hydrALAZINE 25 MG TAB PO SCH ×3 (06:34→21:14)
[2020-11-01] MEDS: INSULIN LISPRO 100 UNIT/ML SUB-Q SCH ×4 (10:00→22:29)
--- NOTE | 2020-11-01 10:16 | Progress Note ---
Assessment and Plan 69 y/o, obese female with acute respiratory failure secondary to COVID pneumonia. 11/01/20: No new recs for today. 10/31/20: Prone if able and for as long as possible. Wean for sats >88%. Continue high dose steroids. 10/30/20: No lasix. Prognosis remains guarded. 10/29/20: Continue lasix but I/O are not accurate. May need to increase dosing. Wean FiO2 as tolerated. Guarded prognosis. 10/28/20: Continue current care. Monitor renal function and continue BID lasix. Need strict I/O 10/27/20: Continue current plan from below. Guarded prognosis given COVID and obesity. Monitor renal function. 1. Increased steroids to 125 TID 2. Increased lasix to 40 BID 3. Prone as tolerated and for as long as possible 4. Monitor fluid balance 5. BP control 6. Guarded prognosis given COVID and obesity with worsening respiratory fa ilure. Subjective Date of service: 11/01/20 Principal diagnosis: COVID-19 PNA Interval history: No acute events. Still the same O2 requirements Objective Vital Signs - 12hr 11/01/20 11/01/20 11/01/20 03:48 05:36 07:36 Temperature 97.6 F Pulse Rate 81 Respiratory 20 Rate Blood Pressure 138/64 O2 Sat by Pulse 93 92 94 Oximetry CBC and BMP: 10/24/20 08:07 10/30/20 07:46 ABG, PT/INR, D-dimer: PT/INR, D-dimer D-Dimer 504.53 ng/mlDDU (0-234) H 10/30/20 07:46 Abnormal lab findings: Abnormal Labs 10/23/20 10/23/20 10/23/20 17:31 20:38 20:38 MCH MCHC Lymph % (Auto) [place] % (Auto) Lymph # (Auto) Seg Neutrophils % D-Dimer 919.44 H Sodium 136 L Potassium BUN Glucose 149 H POC Glucose Ferritin AST ALT Lactate Dehydrogenase 606 H C-Reactive Protein 11.50 H Albumin Coronavirus (PCR) 10/23/20 10/24/20 10/24/20 20:38 08:00 08:07 MCH 33 H MCHC 35 H Lymph % (Auto) 9.9 L [place] % (Auto) 7.9 H Lymph # (Auto) 0.6 L Seg Neutrophils % 82.1 H D-Dimer Sodium Potassium BUN Glucose POC Glucose Ferritin AST ALT Lactate Dehydrogenase 643 H C-Reactive Protein 11.70 H Albumin Coronavirus (PCR) Positive A 10/24/20 10/25/20 10/26/20 08:07 16:13 21:32 MCH MCHC Lymph % (Auto) [place] % (Auto) Lymph # (Auto) Seg Neutrophils % D-Dimer Sodium Potassium BUN Glucose 173 H POC Glucose 180 H 213 H Ferritin AST ALT Lactate Dehydrogenase C-Reactive Protein Albumin Coronavirus (PCR) 10/27/20 10/27/20 10/27/20 07:54 11:56 13:47 MCH MCHC Lymph % (Auto) [place] % (Auto) Lymph # (Auto) Seg Neutrophils % D-Dimer Sodium Potassium 3.3 L D BUN 38 H Glucose 262 H POC Glucose 305 H 289 H Ferritin AST 155 H ALT 170 H Lactate Dehydrogenase C-Reactive Protein Albumin 3.4 L Coronavirus (PCR) 10/27/20 10/27/20 10/28/20 15:49 21:36 07:24 MCH MCHC Lymph % (Auto) [place] % (Auto) Lymph # (Auto) Seg Neutrophils % D-Dimer Sodium Potassium BUN 41 H Glucose 217 H POC Glucose 228 H 241 H Ferritin AST 116 H ALT 182 H Lactate Dehydrogenase C-Reactive Protein Albumin 3.7 L Coronavirus (PCR) 10/28/20 10/28/20 10/28/20 07:40 16:08 21:21 MCH MCHC Lymph % (Auto) [place] % (Auto) Lymph # (Auto) Seg Neutrophils % D-Dimer Sodium Potassium BUN Glucose POC Glucose 207 H 227 H 354 H Ferritin AST ALT Lactate Dehydrogenase C-Reactive Protein Albumin Coronavirus (PCR) 10/29/20 10/29/20 10/29/20 05:12 07:47 12:19 MCH MCHC Lymph % (Auto) [place] % (Auto) Lymph # (Auto) Seg Neutrophils % D-Dimer Sodium Potassium BUN 47 H Glucose 247 H POC Glucose 268 H 383 H Ferritin AST 102 H ALT 183 H Lactate Dehydrogenase C-Reactive Protein Albumin 3.1 L Coronavirus (PCR) 10/29/20 10/29/20 10/30/20 16:34 22:07 07:46 MCH MCHC Lymph % (Auto) [place] % (Auto) Lymph # (Auto) Seg Neutrophils % D-Dimer Sodium Potassium BUN 50 H Glucose 287 H POC Glucose 324 H 276 H Ferritin AST 71 H ALT 164 H Lactate Dehydrogenase 392 H C-Reactive Protein Albumin 3.2 L Coronavirus (PCR) 10/30/20 10/30/20 10/30/20 07:46 07:46 08:07 MCH MCHC Lymph % (Auto) [place] % (Auto) Lymph # (Auto) Seg Neutrophils % D-Dimer 504.53 H Sodium Potassium BUN Glucose POC Glucose 267 H Ferritin 1470.0 H AST ALT Lactate Dehydrogenase C-Reactive Protein Albumin Coronavirus (PCR) 10/30/20 10/30/20 10/30/20 12:39 17:14 21:42 MCH MCHC Lymph % (Auto) [place] % (Auto) Lymph # (Auto) Seg Neutrophils % D-Dimer Sodium Potassium BUN Glucose POC Glucose 332 H 301 H 371 H Ferritin AST ALT Lactate Dehydrogenase C-Reactive Protein Albumin Coronavirus (PCR) 10/31/20 10/31/20 10/31/20 07:52 11:42 16:12 MCH MCHC Lymph % (Auto) [place] % (Auto) Lymph # (Auto) Seg Neutrophils % D-Dimer Sodium Potassium BUN Glucose POC Glucose 303 H 387 H 343 H Ferritin AST ALT Lactate Dehydrogenase C-Reactive Protein Albumin Coronavirus (PCR) 10/31/20 11/01/20 21:35 07:34 MCH MCHC Lymph % (Auto) [place] % (Auto) Lymph # (Auto) Seg Neutrophils % D-Dimer Sodium Potassium BUN Glucose POC Glucose 359 H 325 H Ferritin AST ALT Lactate Dehydrogenase C-Reactive Protein Albumin Coronavirus (PCR) Allied health notes reviewed: nursing
[2020-11-01] MEDS: amLODIPine 10 MG TAB PO SCH (11:08)
[2020-11-01] MEDS: HEPARIN 5,000 UNIT/1 ML VIAL SUB-Q SCH ×2 (11:09→21:14)
[2020-11-01] MEDS: TIOTROPIUM 18 MCG CAP INHALATION IH SCH (11:17)
[2020-11-01] MEDS: CHOLECALCIFEROL (VIT D3) 1000 UNIT (25 mcg) TAB PO SCH (11:18)
[2020-11-01] MEDS: ASCORBIC ACID 500 MG TAB PO SCH ×2 (11:18→21:15)
[2020-11-01] MEDS: LISINOPRIL 40 MG TAB PO SCH (11:19)
[2020-11-01] MEDS: ZINC SULFATE 220 MG CAP PO SCH ×2 (11:20→21:15)
[2020-11-01] MEDS ORDERED: INSULIN GLARGINE 100 UNITS/ML SUB-Q ONE (13:00)
[2020-11-01] MEDS ORDERED: methylPREDNISolone Sod Succinate 125 MG/2 ML INJ IV SCH ×2 (14:00)
[2020-11-01] MEDS: methylPREDNISolone Sod Succinate 40 MG/1 ML INJ IV SCH ×2 (14:02→21:14)
--- NOTE | 2020-11-01 14:34 | Progress Note ---
Assessment and Plan -- Acute respiratory failure Due to COVID-19 pneumonia and underlying morbid obesity Supplemental O2 and inhaler as needed -- Pneumonia due to COVID-19 virus Continue empiric steroid, status post remdesivir Supplemental O2 as needed, ID on board -- COPD (chronic obstructive pulmonary disease) Continue empiric steroid, inhalers and supplemental O2 -- Hypertension Monitor BP and adjust meds as needed -- Diabetes mellitus, uncontrolled Consistent carb diet, continue SSI and Lantus Adjust insulin dose for better glycemic control -- GERD (gastroesophageal reflux disease) Continue PPI --Morbid obesity Dietary and exercise recommendation as outpatient when clinically more stable and appropriate --DVT prophylaxis, Daily clinical course: 10/31/20: Remains on high flow O2, continue to monitor inflammatory markers, pulmonary on board. Guarded prognosis. 11/01/20: Patient remains on 40 L high flow O2. Continue to monitor clinically with supportive care, follow inflammatory markers, blood glucose significantly elevated, will add long-acting insulin. Reduce steroids dose to 40 mg every 8 hours. guarded prognosis. Subjective Date of service: 11/01/20 Principal diagnosis: COVID-19 PNA Interval history: Patient seen and examined. Medical records and medication list reviewed. No acute event overnight noted by the RN. Patient remains on high flow O2, Discussed plan of care at bedside with patient. Objective - Exam Narrative Exam: Limited physical exam due to COVID-19 pandemic to minimize transmission of the disease and to preserve PPE. Vital reviewed and stable. GENERAL: well-developed morbidly obese -Spanish female lying on bed appeared to be in no discomfort. HEENT: Normocephalic. Atraumatic. NECK: Supple. CHEST/LUNGS: breathing on high flow O2 HEART/CARDIOVASCULAR: Heart rate stable on telemetry ABDOMEN: Visibly not distended SKIN: There is no rash NEURO: No focal motor deficit. Follows command. MUSCULOSKELETAL: No joint effusion EXTRIMITY: No swelling, no cyanosis or clubbing. PSYCH: Cooperative. - Constitutional Vitals: Vital Signs - 12hr 11/01/20 11/01/20 11/01/20 03:48 05:36 07:36 Temperature 97.6 F Pulse Rate 81 Respiratory 20 Rate Blood Pressure 138/64 O2 Sat by Pulse 93 92 94 Oximetry 11/01/20 11/01/20 10:00 11:24 Temperature 98.8 F Pulse Rate 89 Respiratory 20 Rate Blood Pressure 136/63 O2 Sat by Pulse 94 90 Oximetry - Labs CBC & Chem 7: 10/24/20 08:07 10/30/20 07:46 Labs: Abnormal lab results 10/31/20 10/31/20 11/01/20 Range/Units 16:12 21:35 07:34 POC Glucose 343 H 359 H 325 H (70-105) mg/dL 11/01/20 Range/Units 11:22 POC Glucose 442 H (70-105) mg/dL HEART Score - HEART Score Troponin: Troponin T < 0.010 ng/mL (0.00-0.029) 10/23/20 17:31
--- NOTE | 2020-11-01 14:43 | Progress Note ---
Assessment and Plan Cultures: Covid PCR: Positive A/P: 69-year-old female past medical history hypertension, diabetes, COPD, morbid obesity admitted with COVID #COVID-19 pneumonia: Patient presented with a week of symptoms, chest x-ray with diffuse bilateral infiltrates, admission O2 sats 79% on room air. Inflammatory markers improving. #Acute hypoxemic respiratory failure: Remains on high flow nasal cannula 40 L, 90% #COPD with exacerbation #Morbid obesity: Associated with worse outcomes. #DM2: Poorly controlled with hyperglycemia. Recommendations: -Steroids per pulmonary, recommend at least 10 days. -Completed remdesivir -Completed Tocilizumab on 10/29/2020 -Completed ceftriaxone -Obtain q48-72h inflammatory markers - ferritin, Ddimer, CRP, LDH -Anticoagulation per hospital protocol -Proning as able will follow MD [facility] ([facility]) Office [phone] Subjective Date of service: 11/01/20 Principal diagnosis: COVID-19 PNA Interval history: Patient remains on high flow nasal cannula, O2 sats over 90%. No fever. No desaturations. Objective - Exam Narrative Exam: Physical exam deferred to minimize COVID-19 transmission during pandemic. - Constitutional Vitals: Vital Signs Temp Pulse Resp BP Pulse Ox 98.8 F 89 20 136/63 90 11/01/20 11:24 11/01/20 11:24 11/01/20 11:24 11/01/20 11:24 11/01/20 11:24 Temperature -Last 24 Hours Temperature 98.8 F Temperature 97.6 F Temperature 98.0 F Temperature 98.8 F - Labs CBC & Chem 7: 10/24/20 08:07 10/30/20 07:46 Labs: Abnormal lab results 10/31/20 10/31/20 11/01/20 Range/Units 16:12 21:35 07:34 POC Glucose 343 H 359 H 325 H (70-105) mg/dL 11/01/20 Range/Units 11:22 POC Glucose 442 H (70-105) mg/dL
[2020-11-01] MEDS: PRAVASTATIN 80 MG TAB PO SCH (21:14)
[2020-11-01] MEDS ORDERED: INSULIN GLARGINE 100 UNITS/ML SUB-Q SCH (22:00)
[2020-11-02] MEDS: FUROSEMIDE 40 MG/4 ML INJ IV SCH ×2 (05:26→18:00)
[2020-11-02] MEDS: methylPREDNISolone Sod Succinate 40 MG/1 ML INJ IV SCH ×3 (05:26→21:48)
[2020-11-02] MEDS: hydrALAZINE 25 MG TAB PO SCH ×3 (05:26→21:45)
[2020-11-02 05:40] LABS: BUN/Creatinine Ratio 60; Basophils % (Auto) 0.2 % (0.0-1.8); Blood Urea Nitrogen 48 mg/dL (7-17); Calcium 8.6 mg/dL (8.4-10.2); Hematocrit 44.1 % (30.3-42.9); Hemoglobin 14.8 gm/dl (10.1-14.3); Hemolysis Index 5; Lymphocytes # (Auto) 0.4 K/mm3 (1.2-5.4); Lymphocytes % (Auto) 3.3 % (13.4-35.0); Mean Corpuscular HGB Conc 34 % (30-34); Mean Corpuscular Volume 95 fl (79-97); Monocytes # (Auto) 1.2 K/mm3 (0.0-0.8); Monocytes % (Auto) 9.3 % (0.0-7.3); Platelet Count 246 K/mm3 (140-440); Red Blood Count 4.67 M/mm3 (3.65-5.03)
[2020-11-02] MEDS: INSULIN LISPRO 100 UNIT/ML SUB-Q SCH ×4 (09:19→21:46)
[2020-11-02] MEDS: HEPARIN 5,000 UNIT/1 ML VIAL SUB-Q SCH ×2 (09:20→21:45)
[2020-11-02] MEDS: CHOLECALCIFEROL (VIT D3) 1000 UNIT (25 mcg) TAB PO SCH (09:21)
[2020-11-02] MEDS: ZINC SULFATE 220 MG CAP PO SCH ×2 (09:21→21:45)
[2020-11-02] MEDS: ASCORBIC ACID 500 MG TAB PO SCH ×2 (09:21→21:45)
[2020-11-02] MEDS: amLODIPine 10 MG TAB PO SCH (09:25)
[2020-11-02] MEDS: LISINOPRIL 40 MG TAB PO SCH (09:25)
[2020-11-02] MEDS: TIOTROPIUM 18 MCG CAP INHALATION IH SCH (12:44)
--- NOTE | 2020-11-02 14:25 | Progress Note ---
Assessment and Plan -- Acute respiratory failure Due to COVID-19 pneumonia and underlying morbid obesity Supplemental O2 and inhaler as needed -- Pneumonia due to COVID-19 virus Continue empiric steroid, status post remdesivir Supplemental O2 as needed, ID on board -- COPD (chronic obstructive pulmonary disease) Continue empiric steroid, inhalers and supplemental O2 -- Hypertension Monitor BP and adjust meds as needed -- Diabetes mellitus, uncontrolled Consistent carb diet, continue SSI and Lantus Adjust insulin dose for better glycemic control -- GERD (gastroesophageal reflux disease) Continue PPI --Morbid obesity Dietary and exercise recommendation as outpatient when clinically more stable and appropriate --DVT prophylaxis, Daily clinical course: 10/31/20: Remains on high flow O2, continue to monitor inflammatory markers, pulmonary on board. Guarded prognosis. 11/01/20: Patient remains on 40 L high flow O2. Continue to monitor clinically with supportive care, follow inflammatory markers, blood glucose significantly elevated, will add long-acting insulin. Reduce steroids dose to 40 mg every 8 hours. guarded prognosis. 11/02/20: Patient on 20 L and 60% FiO2 today. Continue to wean off O2 as tolerated. Follow inflammatory markers Subjective Date of service: 11/02/20 Principal diagnosis: COVID-19 PNA Interval history: Patient seen and examined. Medical records and medication list reviewed. No acute event overnight noted by the RN. Patient remains on high flow O2, Discussed plan of care at bedside with patient. Objective - Exam Narrative Exam: Limited physical exam due to COVID-19 pandemic to minimize transmission of the disease and to preserve PPE. Vital reviewed and stable. GENERAL: well-developed morbidly obese -Mac[place] female lying on bed appeared to be in no discomfort. HEENT: Normocephalic. Atraumatic. NECK: Supple. CHEST/LUNGS: breathing on high flow O2 HEART/CARDIOVASCULAR: Heart rate stable on telemetry ABDOMEN: Visibly not distended SKIN: There is no rash NEURO: No focal motor deficit. Follows command. MUSCULOSKELETAL: No joint effusion EXTRIMITY: No swelling, no cyanosis or clubbing. PSYCH: Cooperative. - Constitutional Vitals: Vital Signs - 12hr 11/02/20 11/02/20 11/02/20 02:49 04:49 05:26 Temperature 98.3 F Pulse Rate 74 74 Respiratory 18 Rate Blood Pressure 142/76 142/76 O2 Sat by Pulse 94 91 Oximetry 11/02/20 11/02/20 11/02/20 09:25 09:48 10:04 Temperature Pulse Rate 74 Respiratory Rate Blood Pressure 142/76 O2 Sat by Pulse 93 91 Oximetry - Labs CBC & Chem 7: 11/02/20 04:38 11/04/20 04:28 Labs: Abnormal lab results 11/01/20 11/01/20 11/02/20 Range/Units 16:30 22:12 04:38 WBC 12.4 H (4.5-11.0) K/mm3 Hgb 14.8 H (10.1-14.3) gm/dl Hct 44.1 H (30.3-42.9) % RDW 13.0 L (13.2-15.2) % Lymph % (Auto) 3.3 L (13.4-35.0) % [place] % (Auto) 9.3 H (0.0-7.3) % Lymph # (Auto) 0.4 L (1.2-5.4) K/mm3 [place] # (Auto) 1.2 H (0.0-0.8) K/mm3 Seg Neutrophils % 87.2 H (40.0-70.0) % Seg Neutrophils # 10.9 H (1.8-7.7) K/mm3 Carbon Dioxide (22-30) mmol/L BUN (7-17) mg/dL Glucose (65-100) mg/dL POC Glucose 378 H 395 H (70-105) mg/dL 11/02/20 11/02/20 11/02/20 Range/Units 04:38 07:40 12:09 WBC (4.5-11.0) K/mm3 Hgb (10.1-14.3) gm/dl Hct (30.3-42.9) % RDW (13.2-15.2) % Lymph % (Auto) (13.4-35.0) % [place] % (Auto) (0.0-7.3) % Lymph # (Auto) (1.2-5.4) K/mm3 [place] # (Auto) (0.0-0.8) K/mm3 Seg Neutrophils % (40.0-70.0) % Seg Neutrophils # (1.8-7.7) K/mm3 Carbon Dioxide 32 H (22-30) mmol/L BUN 48 H (7-17) mg/dL Glucose 304 H (65-100) mg/dL POC Glucose 280 H 422 H (70-105) mg/dL HEART Score - HEART Score Troponin: Troponin T < 0.010 ng/mL (0.00-0.029) 10/23/20 17:31
--- NOTE | 2020-11-02 14:37 | Progress Note ---
Assessment and Plan 69 y/o, obese female with acute respiratory failure secondary to COVID pneumonia. 11/02/20: Continue BID lasix. Wean for sats >88%. currently on solumedrol 40q8, continue this dose for now, but if able to wean further then will wean tiara roids further. prognosis is still guarded. 11/01/20: No new recs for today. 10/31/20: Prone if able and for as long as possible. Wean for sats >88%. Continue high dose steroids. 10/30/20: No lasix. Prognosis remains guarded. 10/29/20: Continue lasix but I/O are not accurate. May need to increase dosing. Wean FiO2 as tolerated. Guarded prognosis. 10/28/20: Continue current care. Monitor renal function and continue BID lasix. Need strict I/O 10/27/20: Continue current plan from below. Guarded prognosis given COVID and obesity. Monitor renal function. 1. Increased steroids to 125 TID 2. Increased lasix to 40 BID 3. Prone as tolerated and for as long as possible 4. Monitor fluid balance 5. BP control 6. Guarded prognosis given COVID and obesity with worsening respiratory f ailure. Subjective Date of service: 11/02/20 Principal diagnosis: COVID-19 PNA Interval history: Weaned to 20 and 60. Decent sats. BP elevated. Objective Vital Signs - 12hr 11/02/20 11/02/20 11/02/20 02:49 04:49 05:26 Temperature 98.3 F Pulse Rate 74 74 Respiratory 18 Rate Blood Pressure 142/76 142/76 O2 Sat by Pulse 94 91 Oximetry 11/02/20 11/02/20 11/02/20 09:25 09:48 10:04 Temperature Pulse Rate 74 Respiratory Rate Blood Pressure 142/76 O2 Sat by Pulse 93 91 Oximetry CBC and BMP: 11/02/20 04:38 11/02/20 04:38 ABG, PT/INR, D-dimer: PT/INR, D-dimer D-Dimer 504.53 ng/mlDDU (0-234) H 10/30/20 07:46 Abnormal lab findings: Abnormal Labs 10/23/20 10/23/20 10/23/20 17:31 20:38 20:38 WBC Hgb Hct MCH MCHC RDW Lymph % (Auto) [place] % (Auto) Lymph # (Auto) [place] # (Auto) Seg Neutrophils % Seg Neutrophils # D-Dimer 919.44 H Sodium 136 L Potassium Carbon Dioxide BUN Glucose 149 H POC Glucose Ferritin AST ALT Lactate Dehydrogenase 606 H C-Reactive Protein 11.50 H Albumin Coronavirus (PCR) 10/23/20 10/24/20 10/24/20 20:38 08:00 08:07 WBC Hgb Hct MCH 33 H MCHC 35 H RDW Lymph % (Auto) 9.9 L [place] % (Auto) 7.9 H Lymph # (Auto) 0.6 L [place] # (Auto) Seg Neutrophils % 82.1 H Seg Neutrophils # D-Dimer Sodium Potassium Carbon Dioxide BUN Glucose POC Glucose Ferritin AST ALT Lactate Dehydrogenase 643 H C-Reactive Protein 11.70 H Albumin Coronavirus (PCR) Positive A 10/24/20 10/25/20 10/26/20 08:07 16:13 21:32 WBC Hgb Hct MCH MCHC RDW Lymph % (Auto) [place] % (Auto) Lymph # (Auto) [place] # (Auto) Seg Neutrophils % Seg Neutrophils # D-Dimer Sodium Potassium Carbon Dioxide BUN Glucose 173 H POC Glucose 180 H 213 H Ferritin AST ALT Lactate Dehydrogenase C-Reactive Protein Albumin Coronavirus (PCR) 10/27/20 10/27/20 10/27/20 07:54 11:56 13:47 WBC Hgb Hct MCH MCHC RDW Lymph % (Auto) [place] % (Auto) Lymph # (Auto) [place] # (Auto) Seg Neutrophils % Seg Neutrophils # D-Dimer Sodium Potassium 3.3 L D Carbon Dioxide BUN 38 H Glucose 262 H POC Glucose 305 H 289 H Ferritin AST 155 H ALT 170 H Lactate Dehydrogenase C-Reactive Protein Albumin 3.4 L Coronavirus (PCR) 10/27/20 10/27/20 10/28/20 15:49 21:36 07:24 WBC Hgb Hct MCH MCHC RDW Lymph % (Auto) [place] % (Auto) Lymph # (Auto) [place] # (Auto) Seg Neutrophils % Seg Neutrophils # D-Dimer Sodium Potassium Carbon Dioxide BUN 41 H Glucose 217 H POC Glucose 228 H 241 H Ferritin AST 116 H ALT 182 H Lactate Dehydrogenase C-Reactive Protein Albumin 3.7 L Coronavirus (PCR) 10/28/20 10/28/20 10/28/20 07:40 16:08 21:21 WBC Hgb Hct MCH MCHC RDW Lymph % (Auto) [place] % (Auto) Lymph # (Auto) [place] # (Auto) Seg Neutrophils % Seg Neutrophils # D-Dimer Sodium Potassium Carbon Dioxide BUN Glucose POC Glucose 207 H 227 H 354 H Ferritin AST ALT Lactate Dehydrogenase C-Reactive Protein Albumin Coronavirus (PCR) 10/29/20 10/29/20 10/29/20 05:12 07:47 12:19 WBC Hgb Hct MCH MCHC RDW Lymph % (Auto) [place] % (Auto) Lymph # (Auto) [place] # (Auto) Seg Neutrophils % Seg Neutrophils # D-Dimer Sodium Potassium Carbon Dioxide BUN 47 H Glucose 247 H POC Glucose 268 H 383 H Ferritin AST 102 H ALT 183 H Lactate Dehydrogenase C-Reactive Protein Albumin 3.1 L Coronavirus (PCR) 10/29/20 10/29/20 10/30/20 16:34 22:07 07:46 WBC Hgb Hct MCH MCHC RDW Lymph % (Auto) [place] % (Auto) Lymph # (Auto) [place] # (Auto) Seg Neutrophils % Seg Neutrophils # D-Dimer Sodium Potassium Carbon Dioxide BUN 50 H Glucose 287 H POC Glucose 324 H 276 H Ferritin AST 71 H ALT 164 H Lactate Dehydrogenase 392 H C-Reactive Protein Albumin 3.2 L Coronavirus (PCR) 10/30/20 10/30/20 10/30/20 07:46 07:46 08:07 WBC Hgb Hct MCH MCHC RDW Lymph % (Auto) [place] % (Auto) Lymph # (Auto) [place] # (Auto) Seg Neutrophils % Seg Neutrophils # D-Dimer 504.53 H Sodium Potassium Carbon Dioxide BUN Glucose POC Glucose 267 H Ferritin 1470.0 H AST ALT Lactate Dehydrogenase C-Reactive Protein Albumin Coronavirus (PCR) 10/30/20 10/30/20 10/30/20 12:39 17:14 21:42 WBC Hgb Hct MCH MCHC RDW Lymph % (Auto) [place] % (Auto) Lymph # (Auto) [place] # (Auto) Seg Neutrophils % Seg Neutrophils # D-Dimer Sodium Potassium Carbon Dioxide BUN Glucose POC Glucose 332 H 301 H 371 H Ferritin AST ALT Lactate Dehydrogenase C-Reactive Protein Albumin Coronavirus (PCR) 10/31/20 10/31/20 10/31/20 07:52 11:42 16:12 WBC Hgb Hct MCH MCHC RDW Lymph % (Auto) [place] % (Auto) Lymph # (Auto) [place] # (Auto) Seg Neutrophils % Seg Neutrophils # D-Dimer Sodium Potassium Carbon Dioxide BUN Glucose POC Glucose 303 H 387 H 343 H Ferritin AST ALT Lactate Dehydrogenase C-Reactive Protein Albumin Coronavirus (PCR) 10/31/20 11/01/20 11/01/20 21:35 07:34 11:22 WBC Hgb Hct MCH MCHC RDW Lymph % (Auto) [place] % (Auto) Lymph # (Auto) [place] # (Auto) Seg Neutrophils % Seg Neutrophils # D-Dimer Sodium Potassium Carbon Dioxide BUN Glucose POC Glucose 359 H 325 H 442 H Ferritin AST ALT Lactate Dehydrogenase C-Reactive Protein Albumin Coronavirus (PCR) 11/01/20 11/01/20 11/02/20 16:30 22:12 04:38 WBC 12.4 H Hgb 14.8 H Hct 44.1 H MCH MCHC RDW 13.0 L Lymph % (Auto) 3.3 L [place] % (Auto) 9.3 H Lymph # (Auto) 0.4 L [place] # (Auto) 1.2 H Seg Neutrophils % 87.2 H Seg Neutrophils # 10.9 H D-Dimer Sodium Potassium Carbon Dioxide BUN Glucose POC Glucose 378 H 395 H Ferritin AST ALT Lactate Dehydrogenase C-Reactive Protein Albumin Coronavirus (PCR) 11/02/20 11/02/20 11/02/20 04:38 07:40 12:09 WBC Hgb Hct MCH MCHC RDW Lymph % (Auto) [place] % (Auto) Lymph # (Auto) [place] # (Auto) Seg Neutrophils % Seg Neutrophils # D-Dimer Sodium Potassium Carbon Dioxide 32 H BUN 48 H Glucose 304 H POC Glucose 280 H 422 H Ferritin AST ALT Lactate Dehydrogenase C-Reactive Protein Albumin Coronavirus (PCR) Allied health notes reviewed: nursing
--- NOTE | 2020-11-02 16:13 | Progress Note ---
Assessment and Plan Cultures: Covid PCR: Positive A/P: 69-year-old female past medical history hypertension, diabetes, COPD, morbid obesity admitted with COVID #COVID-19 pneumonia: Patient presented with a week of symptoms, chest x-ray with diffuse bilateral infiltrates, admission O2 sats 79% on room air. Inflammatory markers improving. #Acute hypoxemic respiratory failure: Improving now on hfnc 30 L, 65%. #COPD with exacerbation #Morbid obesity: Associated with worse outcomes. #DM2: Poorly controlled with hyperglycemia. Recommendations: -Steroids per pulmonary, recommend at least 10 days. -Completed remdesivir -Completed Tocilizumab on 10/29/2020 -Completed ceftriaxone -Obtain q48-72h inflammatory markers - ferritin, Ddimer, CRP, LDH -Anticoagulation per hospital protocol -Proning as able Pulmonary on board. Guarded prognosis. MD [facility] ([facility]) Office [phone] Subjective Date of service: 11/02/20 Principal diagnosis: COVID-19 PNA Interval history: Patient remains on high flow nasal cannula 60%, 30 L, noted desaturation down to 89%. Objective - Exam Narrative Exam: Physical exam deferred to minimize COVID-19 transmission during pandemic. - Constitutional Vitals: Vital Signs Temp Pulse Resp BP Pulse Ox 98.4 F 74 20 130/86 89 11/02/20 14:07 11/02/20 15:56 11/02/20 14:07 11/02/20 15:56 11/02/20 14:07 Temperature -Last 24 Hours Temperature 98.4 F Temperature 98.3 F Temperature 98.3 F - Labs CBC & Chem 7: 11/02/20 04:38 11/02/20 04:38 Labs: Abnormal lab results 11/01/20 11/01/20 11/02/20 Range/Units 16:30 22:12 04:38 WBC 12.4 H (4.5-11.0) K/mm3 Hgb 14.8 H (10.1-14.3) gm/dl Hct 44.1 H (30.3-42.9) % RDW 13.0 L (13.2-15.2) % Lymph % (Auto) 3.3 L (13.4-35.0) % [place] % (Auto) 9.3 H (0.0-7.3) % Lymph # (Auto) 0.4 L (1.2-5.4) K/mm3 [place] # (Auto) 1.2 H (0.0-0.8) K/mm3 Seg Neutrophils % 87.2 H (40.0-70.0) % Seg Neutrophils # 10.9 H (1.8-7.7) K/mm3 Carbon Dioxide (22-30) mmol/L BUN (7-17) mg/dL Glucose (65-100) mg/dL POC Glucose 378 H 395 H (70-105) mg/dL 11/02/20 11/02/20 11/02/20 Range/Units 04:38 07:40 12:09 WBC (4.5-11.0) K/mm3 Hgb (10.1-14.3) gm/dl Hct (30.3-42.9) % RDW (13.2-15.2) % Lymph % (Auto) (13.4-35.0) % [place] % (Auto) (0.0-7.3) % Lymph # (Auto) (1.2-5.4) K/mm3 [place] # (Auto) (0.0-0.8) K/mm3 Seg Neutrophils % (40.0-70.0) % Seg Neutrophils # (1.8-7.7) K/mm3 Carbon Dioxide 32 H (22-30) mmol/L BUN 48 H (7-17) mg/dL Glucose 304 H (65-100) mg/dL POC Glucose 280 H 422 H (70-105) mg/dL
[2020-11-02] MEDS: PRAVASTATIN 80 MG TAB PO SCH (21:44)
[2020-11-02] MEDS ORDERED: INSULIN GLARGINE 100 UNITS/ML SUB-Q SCH ×2 (22:00)
[2020-11-03] MEDS: methylPREDNISolone Sod Succinate 40 MG/1 ML INJ IV SCH ×3 (06:04→21:47)
[2020-11-03] MEDS: FUROSEMIDE 40 MG/4 ML INJ IV SCH ×2 (06:05→17:31)
[2020-11-03] MEDS: hydrALAZINE 25 MG TAB PO SCH ×3 (06:05→21:48)
--- NOTE | 2020-11-03 09:36 | Progress Note ---
Assessment and Plan Cultures: Covid PCR: Positive A/P: 69-year-old female past medical history hypertension, diabetes, COPD, morbid obesity admitted with COVID #COVID-19 pneumonia: Patient presented with a week of symptoms, chest x-ray with diffuse bilateral infiltrates, admission O2 sats 79% on room air. Inflammatory markers improving. #Acute hypoxemic respiratory failure: Improving hfnc 30 L, 65%-->20L/60%. #COPD with exacerbation #Morbid obesity: Associated with worse outcomes. #DM2: Poorly controlled with hyperglycemia. #Leukocytosis: From steroids Recommendations: -Steroids per pulmonary, recommend at least 10 days. -Completed remdesivir -Completed Tocilizumab on 10/29/2020 -Completed ceftriaxone -Obtain q48-72h inflammatory markers - ferritin, Ddimer, CRP, LDH -Anticoagulation per hospital protocol -Proning as able Pulmonary on board. Guarded prognosis. Elizabeth Shepard MD [facility] ([facility]) Office [phone] Subjective Date of service: 11/03/20 Principal diagnosis: COVID-19 PNA Interval history: Remains on high flow 20 L, no desaturations seen overnight, no fever. Objective - Exam Narrative Exam: Physical exam deferred to minimize COVID-19 transmission during pandemic. - Constitutional Vitals: Vital Signs Temp Pulse Resp BP Pulse Ox 97.5 F L 89 20 150/74 92 11/03/20 05:23 11/03/20 06:05 11/03/20 05:23 11/03/20 06:05 11/03/20 05:23 Temperature -Last 24 Hours Temperature 97.5 F Temperature 98.1 F Temperature 97.4 F Temperature 98.4 F - Labs CBC & Chem 7: 11/02/20 04:38 11/02/20 04:38 Labs: Abnormal lab results 11/02/20 11/02/20 11/02/20 Range/Units 12:09 16:10 21:30 POC Glucose 422 H 367 H 380 H (70-105) mg/dL 11/03/20 Range/Units 08:01 POC Glucose 336 H (70-105) mg/dL
[2020-11-03] MEDS: HEPARIN 5,000 UNIT/1 ML VIAL SUB-Q SCH ×2 (10:07→21:46)
[2020-11-03] MEDS: ZINC SULFATE 220 MG CAP PO SCH ×2 (10:07→21:48)
[2020-11-03] MEDS: ASCORBIC ACID 500 MG TAB PO SCH ×2 (10:07→21:48)
[2020-11-03] MEDS: CHOLECALCIFEROL (VIT D3) 1000 UNIT (25 mcg) TAB PO SCH (10:07)
[2020-11-03] MEDS: LISINOPRIL 40 MG TAB PO SCH (10:07)
[2020-11-03] MEDS: INSULIN LISPRO 100 UNIT/ML SUB-Q SCH ×4 (10:08→21:45)
[2020-11-03] MEDS: amLODIPine 10 MG TAB PO SCH (10:08)
--- NOTE | 2020-11-03 10:23 | Progress Note ---
Assessment and Plan 69 y/o, obese female with acute respiratory failure secondary to COVID pneumonia. 11/03/20: Will monitor closely, but if oxygen requirement continues to increase, will go back up on steroids to at least 80q8. Already on BID lasix. Prognosis remains guarded. 11/02/20: Continue BID lasix. Wean for sats >88%. currently on solumedrol 4 0q8, continue this dose for now, but if able to wean further then will wean steroids further. prognosis is still guarded. 11/01/20: No new recs for today. 10/31/20: Prone if able and for as long as possible. Wean for sats >88%. Continue high dose steroids. 10/30/20: No lasix. Prognosis remains guarded. 10/29/20: Continue lasix but I/O are not accurate. May need to increase dosing. Wean FiO2 as tolerated. Guarded prognosis. 10/28/20: Continue current care. Monitor renal function and continue BID lasix. Need strict I/O 10/27/20: Continue current plan from below. Guarded prognosis given COVID and obesity. Monitor renal function. 1. Increased steroids to 125 TID 2. Increased lasix to 40 BID 3. Prone as tolerated and for as long as possible 4. Monitor fluid balance 5. BP control 6. Guarded prognosis given COVID and obesity with worsening respiratory failure. Subjective Date of service: 11/03/20 Principal diagnosis: COVID-19 PNA Interval history: Desats to the persistent 80's this am on 20 and 60 so increased to 30 and 70. Objective Vital Signs - 12hr 11/02/20 11/03/20 11/03/20 23:48 03:10 05:23 Temperature 98.1 F 97.5 F L Pulse Rate 96 H 84 Respiratory 20 20 Rate Blood Pressure 150/73 Blood Pressure 141/78 [Left] O2 Sat by Pulse 93 92 92 Oximetry 11/03/20 11/03/20 06:05 09:34 Temperature Pulse Rate 89 Respiratory Rate Blood Pressure 150/74 Blood Pressure [Left] O2 Sat by Pulse 90 Oximetry CBC and BMP: 11/02/20 04:38 11/02/20 04:38 ABG, PT/INR, D-dimer: PT/INR, D-dimer D-Dimer 214.85 ng/mlDDU (0-234) 11/02/20 22:12 Abnormal lab findings: Abnormal Labs 10/23/20 10/23/20 10/23/20 17:31 20:38 20:38 WBC Hgb Hct MCH MCHC RDW Lymph % (Auto) [place] % (Auto) Lymph # (Auto) [place] # (Auto) Seg Neutrophils % Seg Neutrophils # D-Dimer 919.44 H Sodium 136 L Potassium Carbon Dioxide BUN Glucose 149 H POC Glucose Ferritin AST ALT Lactate Dehydrogenase 606 H C-Reactive Protein 11.50 H Albumin Coronavirus (PCR) 10/23/20 10/24/20 10/24/20 20:38 08:00 08:07 WBC Hgb Hct MCH 33 H MCHC 35 H RDW Lymph % (Auto) 9.9 L [place] % (Auto) 7.9 H Lymph # (Auto) 0.6 L [place] # (Auto) Seg Neutrophils % 82.1 H Seg Neutrophils # D-Dimer Sodium Potassium Carbon Dioxide BUN Glucose POC Glucose Ferritin AST ALT Lactate Dehydrogenase 643 H C-Reactive Protein 11.70 H Albumin Coronavirus (PCR) Positive A 10/24/20 10/25/20 10/26/20 08:07 16:13 21:32 WBC Hgb Hct MCH MCHC RDW Lymph % (Auto) [place] % (Auto) Lymph # (Auto) [place] # (Auto) Seg Neutrophils % Seg Neutrophils # D-Dimer Sodium Potassium Carbon Dioxide BUN Glucose 173 H POC Glucose 180 H 213 H Ferritin AST ALT Lactate Dehydrogenase C-Reactive Protein Albumin Coronavirus (PCR) 10/27/20 10/27/20 10/27/20 07:54 11:56 13:47 WBC Hgb Hct MCH MCHC RDW Lymph % (Auto) [place] % (Auto) Lymph # (Auto) [place] # (Auto) Seg Neutrophils % Seg Neutrophils # D-Dimer Sodium Potassium 3.3 L D Carbon Dioxide BUN 38 H Glucose 262 H POC Glucose 305 H 289 H Ferritin AST 155 H ALT 170 H Lactate Dehydrogenase C-Reactive Protein Albumin 3.4 L Coronavirus (PCR) 10/27/20 10/27/20 10/28/20 15:49 21:36 07:24 WBC Hgb Hct MCH MCHC RDW Lymph % (Auto) [place] % (Auto) Lymph # (Auto) [place] # (Auto) Seg Neutrophils % Seg Neutrophils # D-Dimer Sodium Potassium Carbon Dioxide BUN 41 H Glucose 217 H POC Glucose 228 H 241 H Ferritin AST 116 H ALT 182 H Lactate Dehydrogenase C-Reactive Protein Albumin 3.7 L Coronavirus (PCR) 10/28/20 10/28/20 10/28/20 07:40 16:08 21:21 WBC Hgb Hct MCH MCHC RDW Lymph % (Auto) [place] % (Auto) Lymph # (Auto) [place] # (Auto) Seg Neutrophils % Seg Neutrophils # D-Dimer Sodium Potassium Carbon Dioxide BUN Glucose POC Glucose 207 H 227 H 354 H Ferritin AST ALT Lactate Dehydrogenase C-Reactive Protein Albumin Coronavirus (PCR) 10/29/20 10/29/20 10/29/20 05:12 07:47 12:19 WBC Hgb Hct MCH MCHC RDW Lymph % (Auto) [place] % (Auto) Lymph # (Auto) [place] # (Auto) Seg Neutrophils % Seg Neutrophils # D-Dimer Sodium Potassium Carbon Dioxide BUN 47 H Glucose 247 H POC Glucose 268 H 383 H Ferritin AST 102 H ALT 183 H Lactate Dehydrogenase C-Reactive Protein Albumin 3.1 L Coronavirus (PCR) 10/29/20 10/29/20 10/30/20 16:34 22:07 07:46 WBC Hgb Hct MCH MCHC RDW Lymph % (Auto) [place] % (Auto) Lymph # (Auto) [place] # (Auto) Seg Neutrophils % Seg Neutrophils # D-Dimer Sodium Potassium Carbon Dioxide BUN 50 H Glucose 287 H POC Glucose 324 H 276 H Ferritin AST 71 H ALT 164 H Lactate Dehydrogenase 392 H C-Reactive Protein Albumin 3.2 L Coronavirus (PCR) 10/30/20 10/30/20 10/30/20 07:46 07:46 08:07 WBC Hgb Hct MCH MCHC RDW Lymph % (Auto) [place] % (Auto) Lymph # (Auto) [place] # (Auto) Seg Neutrophils % Seg Neutrophils # D-Dimer 504.53 H Sodium Potassium Carbon Dioxide BUN Glucose POC Glucose 267 H Ferritin 1470.0 H AST ALT Lactate Dehydrogenase C-Reactive Protein Albumin Coronavirus (PCR) 10/30/20 10/30/20 10/30/20 12:39 17:14 21:42 WBC Hgb Hct MCH MCHC RDW Lymph % (Auto) [place] % (Auto) Lymph # (Auto) [place] # (Auto) Seg Neutrophils % Seg Neutrophils # D-Dimer Sodium Potassium Carbon Dioxide BUN Glucose POC Glucose 332 H 301 H 371 H Ferritin AST ALT Lactate Dehydrogenase C-Reactive Protein Albumin Coronavirus (PCR) 10/31/20 10/31/20 10/31/20 07:52 11:42 16:12 WBC Hgb Hct MCH MCHC RDW Lymph % (Auto) [place] % (Auto) Lymph # (Auto) [place] # (Auto) Seg Neutrophils % Seg Neutrophils # D-Dimer Sodium Potassium Carbon Dioxide BUN Glucose POC Glucose 303 H 387 H 343 H Ferritin AST ALT Lactate Dehydrogenase C-Reactive Protein Albumin Coronavirus (PCR) 10/31/20 11/01/20 11/01/20 21:35 07:34 11:22 WBC Hgb Hct MCH MCHC RDW Lymph % (Auto) [place] % (Auto) Lymph # (Auto) [place] # (Auto) Seg Neutrophils % Seg Neutrophils # D-Dimer Sodium Potassium Carbon Dioxide BUN Glucose POC Glucose 359 H 325 H 442 H Ferritin AST ALT Lactate Dehydrogenase C-Reactive Protein Albumin Coronavirus (PCR) 11/01/20 11/01/20 11/02/20 16:30 22:12 04:38 WBC 12.4 H Hgb 14.8 H Hct 44.1 H MCH MCHC RDW 13.0 L Lymph % (Auto) 3.3 L [place] % (Auto) 9.3 H Lymph # (Auto) 0.4 L [place] # (Auto) 1.2 H Seg Neutrophils % 87.2 H Seg Neutrophils # 10.9 H D-Dimer Sodium Potassium Carbon Dioxide BUN Glucose POC Glucose 378 H 395 H Ferritin AST ALT Lactate Dehydrogenase C-Reactive Protein Albumin Coronavirus (PCR) 11/02/20 11/02/20 11/02/20 04:38 07:40 12:09 WBC Hgb Hct MCH MCHC RDW Lymph % (Auto) [place] % (Auto) Lymph # (Auto) [place] # (Auto) Seg Neutrophils % Seg Neutrophils # D-Dimer Sodium Potassium Carbon Dioxide 32 H BUN 48 H Glucose 304 H POC Glucose 280 H 422 H Ferritin AST ALT Lactate Dehydrogenase C-Reactive Protein Albumin Coronavirus (PCR) 11/02/20 11/02/20 11/03/20 16:10 21:30 08:01 WBC Hgb Hct MCH MCHC RDW Lymph % (Auto) [place] % (Auto) Lymph # (Auto) [place] # (Auto) Seg Neutrophils % Seg Neutrophils # D-Dimer Sodium Potassium Carbon Dioxide BUN Glucose POC Glucose 367 H 380 H 336 H Ferritin AST ALT Lactate Dehydrogenase C-Reactive Protein Albumin Coronavirus (PCR) Allied health notes reviewed: nursing
[2020-11-03] MEDS: TIOTROPIUM 18 MCG CAP INHALATION IH SCH (11:26)
--- NOTE | 2020-11-03 12:56 | Progress Note ---
Assessment and Plan -- Acute respiratory failure Due to COVID-19 pneumonia and underlying morbid obesity Supplemental O2 and inhaler as needed -- Pneumonia due to COVID-19 virus Continue empiric steroid, status post remdesivir Supplemental O2, ID and pulmonary care on board -- COPD (chronic obstructive pulmonary disease) with exacerbation Continue empiric steroid, inhalers and supplemental O2 -- Hypertension Monitor BP and adjust meds as needed -- Diabetes mellitus, uncontrolled Consistent carb diet, continue SSI and Lantus Adjust insulin dose for better glycemic control -- GERD (gastroesophageal reflux disease) Continue PPI --Morbid obesity Dietary and exercise recommendation as outpatient when clinically more stable and appropriate --Leukocytosis, due to steroid --DVT prophylaxis, Daily clinical course: 10/31/20: Remains on high flow O2, continue to monitor inflammatory markers, pulmonary on board. Guarded prognosis. 11/01/20: Patient remains on 40 L high flow O2. Continue to monitor clinically with supportive care, follow inflammatory markers, blood glucose significantly elevated, will add long-acting insulin. Reduce steroids dose to 40 mg every 8 hours. guarded prognosis. 11/02/20: Patient on 20 L and 60% FiO2 today. Continue to wean off O2 as tolerated. Follow inflammatory markers 11/03: Remains on high flow O2-30L today, guarded prognosis, wean off as tolerated. Subjective Date of service: 11/03/20 Principal diagnosis: COVID-19 PNA Interval history: Patient seen and examined. Medical records and medication list reviewed. No acute event overnight noted by the RN. Patient remains on high flow O2, Discussed plan of care at bedside with patient. Objective - Exam Narrative Exam: Limited physical exam due to COVID-19 pandemic to minimize transmission of the disease and to preserve PPE. Vital reviewed and stable. GENERAL: well-developed morbidly obese -[place] female lying on bed appeared to be in no discomfort. HEENT: Normocephalic. Atraumatic. NECK: Supple. CHEST/LUNGS: breathing on high flow O2 HEART/CARDIOVASCULAR: Heart rate stable on telemetry ABDOMEN: Visibly not distended SKIN: There is no rash NEURO: No focal motor deficit. Follows command. MUSCULOSKELETAL: No joint effusion EXTRIMITY: No swelling, no cyanosis or clubbing. PSYCH: Cooperative. - Constitutional Vitals: Vital Signs - 12hr 11/03/20 11/03/20 11/03/20 03:10 05:23 06:05 Temperature 97.5 F L Pulse Rate 84 89 Respiratory 20 Rate Blood Pressure 150/73 150/74 O2 Sat by Pulse 92 92 Oximetry 11/03/20 09:34 Temperature Pulse Rate Respiratory Rate Blood Pressure O2 Sat by Pulse 90 Oximetry - Labs CBC & Chem 7: 11/02/20 04:38 11/04/20 04:28 Labs: Abnormal lab results 11/02/20 11/02/20 11/03/20 Range/Units 16:10 21:30 08:01 POC Glucose 367 H 380 H 336 H (70-105) mg/dL 11/03/20 Range/Units 12:21 POC Glucose 352 H (70-105) mg/dL HEART Score - HEART Score Troponin: Troponin T < 0.010 ng/mL (0.00-0.029) 10/23/20 17:31
[2020-11-03] MEDS: INSULIN GLARGINE 100 UNITS/ML SUB-Q SCH (17:31)
[2020-11-03] MEDS: PRAVASTATIN 80 MG TAB PO SCH (21:48)
[2020-11-03] MEDS: ACETAMINOPHEN 325 MG TAB PO PRN (23:15)
[2020-11-04 05:26] LABS: BUN/Creatinine Ratio 58; Blood Urea Nitrogen 52 mg/dL (7-17); Calcium 8.9 mg/dL (8.4-10.2); Hemolysis Index 12
[2020-11-04] MEDS: methylPREDNISolone Sod Succinate 40 MG/1 ML INJ IV SCH ×3 (05:41→22:38)
[2020-11-04] MEDS: FUROSEMIDE 40 MG/4 ML INJ IV SCH ×2 (05:42→18:35)
[2020-11-04] MEDS: hydrALAZINE 25 MG TAB PO SCH ×3 (05:42→22:39)
[2020-11-04] MEDS: INSULIN LISPRO 100 UNIT/ML SUB-Q SCH ×4 (08:16→22:36)
[2020-11-04] MEDS: HEPARIN 5,000 UNIT/1 ML VIAL SUB-Q SCH ×2 (09:27→22:36)
[2020-11-04] MEDS: TIOTROPIUM 18 MCG CAP INHALATION IH SCH ×2 (09:28→10:48)
[2020-11-04] MEDS: LISINOPRIL 40 MG TAB PO SCH (09:28)
[2020-11-04] MEDS: ZINC SULFATE 220 MG CAP PO SCH ×2 (09:28→22:39)
[2020-11-04] MEDS: amLODIPine 10 MG TAB PO SCH (09:28)
[2020-11-04] MEDS: ASCORBIC ACID 500 MG TAB PO SCH ×2 (09:28→22:38)
[2020-11-04] MEDS: CHOLECALCIFEROL (VIT D3) 1000 UNIT (25 mcg) TAB PO SCH (09:28)
--- NOTE | 2020-11-04 13:12 | Progress Note ---
Assessment and Plan 69 y/o, obese female with acute respiratory failure secondary to COVID pneumonia. 11/04/20: no increases in the last 24 hours so will not increase steroids. Continue to encourage proning if able. Continue lasix. Guarded prognosis. 11/03/20: Will monitor closely, but if oxygen requirement continues to increase, will go back up on steroids to at least 80q8. Already on BID lasix. Prognosis remains guarded. 11/02/20: Continue BID lasix. Wean for sats >88%. currently on solumedrol 40q8, continue this dose for now, but if able to wean further then will wean steroids further. prognosis is still guarded. 11/01/20: No new recs for today. 10/31/20: Prone if able and for as long as possible. Wean for sats >88%. Continue high dose steroids. 10/30/20: No lasix. Prognosis remains guarded. 10/29/20: Continue lasix but I/O are not accurate. May need to increase dosing. Wean FiO2 as tolerated. Guarded prognosis. 10/28/20: Continue current care. Monitor renal function and continue BID lasix. Need strict I/O 10/27/20: Continue current plan from below. Guarded prognosis given COVID and obesity. Monitor renal function. 1. Increased steroids to 125 TID 2. Increased lasix to 40 BID 3. Prone as tolerated and for as long as possible 4. Monitor fluid balance 5. BP control 6. Guarded prognosis given COVID and obesity with worsening respiratory failure. Subjective Date of service: 11/04/20 Principal diagnosis: COVID-19 PNA Interval history: Same [facility] settings as yesterday. Sats in the mid 90's. Objective Vital Signs - 12hr 11/04/20 11/04/20 11/04/20 03:49 05:12 08:00 Temperature 98.0 F Pulse Rate 82 Respiratory 20 Rate Blood Pressure 135/74 O2 Sat by Pulse 97 95 92 Oximetry 11/04/20 10:38 Temperature 98.0 F Pulse Rate 91 H Respiratory 18 Rate Blood Pressure 134/79 O2 Sat by Pulse 94 Oximetry CBC and BMP: 11/02/20 04:38 11/04/20 04:28 ABG, PT/INR, D-dimer: PT/INR, D-dimer D-Dimer 214.85 ng/mlDDU (0-234) 11/02/20 22:12 Abnormal lab findings: Abnormal Labs 10/23/20 10/23/20 10/23/20 17:31 20:38 20:38 WBC Hgb Hct MCH MCHC RDW Lymph % (Auto) [place] % (Auto) Lymph # (Auto) [place] # (Auto) Seg Neutrophils % Seg Neutrophils # D-Dimer 919.44 H Sodium 136 L Potassium Chloride Carbon Dioxide BUN Glucose 149 H POC Glucose Ferritin AST ALT Lactate Dehydrogenase 606 H C-Reactive Protein 11.50 H Albumin Coronavirus (PCR) 10/23/20 10/24/20 10/24/20 20:38 08:00 08:07 WBC Hgb Hct MCH 33 H MCHC 35 H RDW Lymph % (Auto) 9.9 L [place] % (Auto) 7.9 H Lymph # (Auto) 0.6 L [place] # (Auto) Seg Neutrophils % 82.1 H Seg Neutrophils # D-Dimer Sodium Potassium Chloride Carbon Dioxide BUN Glucose POC Glucose Ferritin AST ALT Lactate Dehydrogenase 643 H C-Reactive Protein 11.70 H Albumin Coronavirus (PCR) Positive A 10/24/20 10/25/20 10/26/20 08:07 16:13 21:32 WBC Hgb Hct MCH MCHC RDW Lymph % (Auto) [place] % (Auto) Lymph # (Auto) [place] # (Auto) Seg Neutrophils % Seg Neutrophils # D-Dimer Sodium Potassium Chloride Carbon Dioxide BUN Glucose 173 H POC Glucose 180 H 213 H Ferritin AST ALT Lactate Dehydrogenase C-Reactive Protein Albumin Coronavirus (PCR) 10/27/20 10/27/20 10/27/20 07:54 11:56 13:47 WBC Hgb Hct MCH MCHC RDW Lymph % (Auto) [place] % (Auto) Lymph # (Auto) [place] # (Auto) Seg Neutrophils % Seg Neutrophils # D-Dimer Sodium Potassium 3.3 L D Chloride Carbon Dioxide BUN 38 H Glucose 262 H POC Glucose 305 H 289 H Ferritin AST 155 H ALT 170 H Lactate Dehydrogenase C-Reactive Protein Albumin 3.4 L Coronavirus (PCR) 10/27/20 10/27/20 10/28/20 15:49 21:36 07:24 WBC Hgb Hct MCH MCHC RDW Lymph % (Auto) [place] % (Auto) Lymph # (Auto) [place] # (Auto) Seg Neutrophils % Seg Neutrophils # D-Dimer Sodium Potassium Chloride Carbon Dioxide BUN 41 H Glucose 217 H POC Glucose 228 H 241 H Ferritin AST 116 H ALT 182 H Lactate Dehydrogenase C-Reactive Protein Albumin 3.7 L Coronavirus (PCR) 10/28/20 10/28/20 10/28/20 07:40 16:08 21:21 WBC Hgb Hct MCH MCHC RDW Lymph % (Auto) [place] % (Auto) Lymph # (Auto) [place] # (Auto) Seg Neutrophils % Seg Neutrophils # D-Dimer Sodium Potassium Chloride Carbon Dioxide BUN Glucose POC Glucose 207 H 227 H 354 H Ferritin AST ALT Lactate Dehydrogenase C-Reactive Protein Albumin Coronavirus (PCR) 10/29/20 10/29/20 10/29/20 05:12 07:47 12:19 WBC Hgb Hct MCH MCHC RDW Lymph % (Auto) [place] % (Auto) Lymph # (Auto) [place] # (Auto) Seg Neutrophils % Seg Neutrophils # D-Dimer Sodium Potassium Chloride Carbon Dioxide BUN 47 H Glucose 247 H POC Glucose 268 H 383 H Ferritin AST 102 H ALT 183 H Lactate Dehydrogenase C-Reactive Protein Albumin 3.1 L Coronavirus (PCR) 10/29/20 10/29/20 10/30/20 16:34 22:07 07:46 WBC Hgb Hct MCH MCHC RDW Lymph % (Auto) [place] % (Auto) Lymph # (Auto) [place] # (Auto) Seg Neutrophils % Seg Neutrophils # D-Dimer Sodium Potassium Chloride Carbon Dioxide BUN 50 H Glucose 287 H POC Glucose 324 H 276 H Ferritin AST 71 H ALT 164 H Lactate Dehydrogenase 392 H C-Reactive Protein Albumin 3.2 L Coronavirus (PCR) 10/30/20 10/30/20 10/30/20 07:46 07:46 08:07 WBC Hgb Hct MCH MCHC RDW Lymph % (Auto) [place] % (Auto) Lymph # (Auto) [place] # (Auto) Seg Neutrophils % Seg Neutrophils # D-Dimer 504.53 H Sodium Potassium Chloride Carbon Dioxide BUN Glucose POC Glucose 267 H Ferritin 1470.0 H AST ALT Lactate Dehydrogenase C-Reactive Protein Albumin Coronavirus (PCR) 10/30/20 10/30/20 10/30/20 12:39 17:14 21:42 WBC Hgb Hct MCH MCHC RDW Lymph % (Auto) [place] % (Auto) Lymph # (Auto) [place] # (Auto) Seg Neutrophils % Seg Neutrophils # D-Dimer Sodium Potassium Chloride Carbon Dioxide BUN Glucose POC Glucose 332 H 301 H 371 H Ferritin AST ALT Lactate Dehydrogenase C-Reactive Protein Albumin Coronavirus (PCR) 10/31/20 10/31/20 10/31/20 07:52 11:42 16:12 WBC Hgb Hct MCH MCHC RDW Lymph % (Auto) [place] % (Auto) Lymph # (Auto) [place] # (Auto) Seg Neutrophils % Seg Neutrophils # D-Dimer Sodium Potassium Chloride Carbon Dioxide BUN Glucose POC Glucose 303 H 387 H 343 H Ferritin AST ALT Lactate Dehydrogenase C-Reactive Protein Albumin Coronavirus (PCR) 10/31/20 11/01/20 11/01/20 21:35 07:34 11:22 WBC Hgb Hct MCH MCHC RDW Lymph % (Auto) [place] % (Auto) Lymph # (Auto) [place] # (Auto) Seg Neutrophils % Seg Neutrophils # D-Dimer Sodium Potassium Chloride Carbon Dioxide BUN Glucose POC Glucose 359 H 325 H 442 H Ferritin AST ALT Lactate Dehydrogenase C-Reactive Protein Albumin Coronavirus (PCR) 11/01/20 11/01/20 11/02/20 16:30 22:12 04:38 WBC 12.4 H Hgb 14.8 H Hct 44.1 H MCH MCHC RDW 13.0 L Lymph % (Auto) 3.3 L [place] % (Auto) 9.3 H Lymph # (Auto) 0.4 L [place] # (Auto) 1.2 H Seg Neutrophils % 87.2 H Seg Neutrophils # 10.9 H D-Dimer Sodium Potassium Chloride Carbon Dioxide BUN Glucose POC Glucose 378 H 395 H Ferritin AST ALT Lactate Dehydrogenase C-Reactive Protein Albumin Coronavirus (PCR) 11/02/20 11/02/20 11/02/20 04:38 07:40 12:09 WBC Hgb Hct MCH MCHC RDW Lymph % (Auto) [place] % (Auto) Lymph # (Auto) [place] # (Auto) Seg Neutrophils % Seg Neutrophils # D-Dimer Sodium Potassium Chloride Carbon Dioxide 32 H BUN 48 H Glucose 304 H POC Glucose 280 H 422 H Ferritin AST ALT Lactate Dehydrogenase C-Reactive Protein Albumin Coronavirus (PCR) 11/02/20 11/02/20 11/03/20 16:10 21:30 08:01 WBC Hgb Hct MCH MCHC RDW Lymph % (Auto) [place] % (Auto) Lymph # (Auto) [place] # (Auto) Seg Neutrophils % Seg Neutrophils # D-Dimer Sodium Potassium Chloride Carbon Dioxide BUN Glucose POC Glucose 367 H 380 H 336 H Ferritin AST ALT Lactate Dehydrogenase C-Reactive Protein Albumin Coronavirus (PCR) 11/03/20 11/03/20 11/03/20 12:21 15:56 21:17 WBC Hgb Hct MCH MCHC RDW Lymph % (Auto) [place] % (Auto) Lymph # (Auto) [place] # (Auto) Seg Neutrophils % Seg Neutrophils # D-Dimer Sodium Potassium Chloride Carbon Dioxide BUN Glucose POC Glucose 352 H 312 H 307 H Ferritin AST ALT Lactate Dehydrogenase C-Reactive Protein Albumin Coronavirus (PCR) 11/04/20 11/04/20 11/04/20 04:28 07:57 11:43 WBC Hgb Hct MCH MCHC RDW Lymph % (Auto) [place] % (Auto) Lymph # (Auto) [place] # (Auto) Seg Neutrophils % Seg Neutrophils # D-Dimer Sodium Potassium Chloride 95.6 L Carbon Dioxide 33 H BUN 52 H Glucose 307 H POC Glucose 287 H 321 H Ferritin AST ALT Lactate Dehydrogenase C-Reactive Protein Albumin Coronavirus (PCR) Allied health notes reviewed: nursing
--- NOTE | 2020-11-04 14:00 | Progress Note ---
Assessment and Plan Cultures: Covid PCR: Positive A/P: 69-year-old female past medical history hypertension, diabetes, COPD, morbid obesity admitted with COVID #COVID-19 pneumonia: Patient presented with a week of symptoms, chest x-ray with diffuse bilateral infiltrates, admission O2 sats 79% on room air. Inflammatory markers improving. #Acute hypoxemic respiratory failure: Improving hfnc 30 L, 65%-->20L/60%. --> 30L/70% #COPD with exacerbation #Morbid obesity: Associated with worse outcomes. #DM2: Poorly controlled with hyperglycemia. #Leukocytosis: From steroids Recommendations: -Steroids per pulmonary -Completed remdesivir -Completed Tocilizumab on 10/29/2020 -Completed ceftriaxone -Obtain q48-72h inflammatory markers - ferritin, Ddimer, CRP, LDH -Anticoagulation per hospital protocol -Proning as able Pulmonary on board. Guarded prognosis. Elizabeth Shepard MD [facility] ([facility]) Office [phone] Subjective Date of service: 11/04/20 Principal diagnosis: COVID-19 PNA Interval history: Patient is now on high flow nasal cannula 30L/70%, no fever. Objective - Exam Narrative Exam: Physical exam deferred to minimize COVID-19 transmission during pandemic. - Constitutional Vitals: Vital Signs Temp Pulse Resp BP Pulse Ox 98.0 F 91 H 18 134/79 94 11/04/20 10:38 11/04/20 10:38 11/04/20 10:38 11/04/20 10:38 11/04/20 10:38 Temperature -Last 24 Hours Temperature 98.0 F Temperature 98.0 F Temperature 98.3 F Temperature 98.3 F - Labs CBC & Chem 7: 11/02/20 04:38 11/04/20 04:28 Labs: Abnormal lab results 11/03/20 11/03/20 11/04/20 Range/Units 15:56 21:17 04:28 Chloride 95.6 L (98-107) mmol/L Carbon Dioxide 33 H (22-30) mmol/L BUN 52 H (7-17) mg/dL Glucose 307 H (65-100) mg/dL POC Glucose 312 H 307 H (70-105) mg/dL 09/15/21 09/15/21 Range/Units 07:57 11:43 Chloride (98-107) mmol/L Carbon Dioxide (22-30) mmol/L BUN (7-17) mg/dL Glucose (65-100) mg/dL POC Glucose 287 H 321 H (70-105) mg/dL
--- NOTE | 2020-11-04 14:20 | Progress Note ---
Assessment and Plan -- Acute respiratory failure Due to COVID-19 pneumonia and underlying morbid obesity Supplemental O2 and inhaler as needed -- Pneumonia due to COVID-19 virus Continue empiric steroid, status post remdesivir, Completed Tocilizumab on 021, Completed ceftriaxone Supplemental O2, ID and pulmonary care on board -- COPD (chronic obstructive pulmonary disease) with exacerbation Continue empiric steroid, inhalers and supplemental O2 -- Hypertension Monitor BP and adjust meds as needed -- Diabetes mellitus, uncontrolled Consistent carb diet, continue SSI and Lantus Adjust insulin dose for better glycemic control -- GERD (gastroesophageal reflux disease) Continue PPI --Morbid obesity Dietary and exercise recommendation as outpatient when clinically more stable and appropriate --Leukocytosis, due to steroid --DVT prophylaxis, Daily clinical course: 10/31/20: Remains on high flow O2, continue to monitor inflammatory markers, pulmonary on board. Guarded prognosis. 11/01/20: Patient remains on 40 L high flow O2. Continue to monitor clinically with supportive care, follow inflammatory markers, blood glucose significantly elevated, will add long-acting insulin. Reduce steroids dose to 40 mg every 8 hours. guarded prognosis. 11/02/20: Patient on 20 L and 60% FiO2 today. Continue to wean off O2 as tolerated. Follow inflammatory markers 11/03/20: Remains on high flow O2-30L today, guarded prognosis, wean off as tolerated. 11/04/20: Guarded prognosis, remains on high flow O2 30 L with 70% FiO2. Continue to follow inflammatory markers, ID and pulmonary critical care following. Subjective Date of service: 11/04/20 Principal diagnosis: COVID-19 PNA Interval history: Patient seen and examined. Medical records and medication list reviewed. No acute event overnight noted by the RN. Patient remains on high flow O2, Discussed plan of care at bedside with patient. Objective - Exam Narrative Exam: Limited physical exam due to COVID-19 pandemic to minimize transmission of the disease and to preserve PPE. Vital reviewed and stable. GENERAL: well-developed morbidly obese -[place] female lying on bed appeared to be in no discomfort. HEENT: Normocephalic. Atraumatic. NECK: Supple. CHEST/LUNGS: breathing on high flow O2 HEART/CARDIOVASCULAR: Heart rate stable on telemetry ABDOMEN: Visibly not distended SKIN: There is no rash NEURO: No focal motor deficit. Follows command. MUSCULOSKELETAL: No joint effusion EXTRIMITY: No swelling, no cyanosis or clubbing. PSYCH: Cooperative. - Constitutional Vitals: Vital Signs - 12hr 11/04/20 11/04/20 11/04/20 03:49 05:12 08:00 Temperature 98.0 F Pulse Rate 82 Respiratory 20 Rate Blood Pressure 135/74 O2 Sat by Pulse 97 95 92 Oximetry 11/04/20 10:38 Temperature 98.0 F Pulse Rate 91 H Respiratory 18 Rate Blood Pressure 134/79 O2 Sat by Pulse 94 Oximetry - Labs CBC & Chem 7: 11/02/20 04:38 11/04/20 04:28 Labs: Abnormal lab results 11/03/20 11/03/20 11/04/20 Range/Units 15:56 21:17 04:28 Chloride 95.6 L (98-107) mmol/L Carbon Dioxide 33 H (22-30) mmol/L BUN 52 H (7-17) mg/dL Glucose 307 H (65-100) mg/dL POC Glucose 312 H 307 H (70-105) mg/dL 11/04/20 11/04/20 Range/Units 07:57 11:43 Chloride (98-107) mmol/L Carbon Dioxide (22-30) mmol/L BUN (7-17) mg/dL Glucose (65-100) mg/dL POC Glucose 287 H 321 H (70-105) mg/dL HEART Score - HEART Score Troponin: Troponin T < 0.010 ng/mL (0.00-0.029) 10/23/20 17:31
[2020-11-04] MEDS: oxyCODONE /ACETAMINOPHEN 5-325MG TAB PO PRN (15:14)
[2020-11-04] MEDS: INSULIN GLARGINE 100 UNITS/ML SUB-Q SCH (18:35)
[2020-11-04] MEDS ORDERED: traZODone 50 MG TAB PO ONE (22:13)
[2020-11-04] MEDS: PRAVASTATIN 80 MG TAB PO SCH (22:39)
[2020-11-05] MEDS: methylPREDNISolone Sod Succinate 40 MG/1 ML INJ IV SCH ×3 (06:10→22:00)
[2020-11-05] MEDS: FUROSEMIDE 40 MG/4 ML INJ IV SCH ×2 (06:11→17:12)
[2020-11-05] MEDS: hydrALAZINE 25 MG TAB PO SCH ×3 (06:12→23:21)
[2020-11-05] MEDS: oxyCODONE /ACETAMINOPHEN 5-325MG TAB PO PRN (06:29)
[2020-11-05] MEDS: INSULIN LISPRO 100 UNIT/ML SUB-Q SCH ×4 (08:00→22:55)
[2020-11-05] MEDS: ZINC SULFATE 220 MG CAP PO SCH ×2 (09:39→22:19)
[2020-11-05] MEDS: amLODIPine 10 MG TAB PO SCH (09:39)
[2020-11-05] MEDS: CHOLECALCIFEROL (VIT D3) 1000 UNIT (25 mcg) TAB PO SCH (09:39)
[2020-11-05] MEDS: ASCORBIC ACID 500 MG TAB PO SCH ×2 (09:40→22:18)
[2020-11-05] MEDS: LISINOPRIL 40 MG TAB PO SCH (09:40)
[2020-11-05] MEDS: HEPARIN 5,000 UNIT/1 ML VIAL SUB-Q SCH ×2 (09:40→23:19)
[2020-11-05] MEDS: INSULIN GLARGINE 100 UNITS/ML SUB-Q SCH ×2 (09:41→17:12)
[2020-11-05] MEDS: TIOTROPIUM 18 MCG CAP INHALATION IH SCH (10:10)
--- NOTE | 2020-11-05 11:47 | Progress Note ---
Assessment and Plan 69 y/o, obese female with acute respiratory failure secondary to COVID pneumonia. 11/05/20: Same recs as below. 11/04/20: no increases in the last 24 hours so will not increase steroids. Continue to encourage proning if able. Continue lasix. Guarded prognosis. 11/03/20: Will monitor closely, but if oxygen requirement continues to increase, will go back up on steroids to at least 80q8. Already on BID lasix. Prognosis remains guarded. 11/02/20: Continue BID lasix. Wean for sats >88%. currently on solumedrol 40q8, continue this dose for now, but if able to wean further then will wean steroids further. prognosis is still guarded. 11/01/20: No new recs for today. 10/31/20: Prone if able and for as long as possible. Wean for sats >88%. Continue high dose steroids. 10/30/20: No lasix. Prognosis remains guarded. 10/29/20: Continue lasix but I/O are not accurate. May need to increase dosing. Wean FiO2 as tolerated. Guarded prognosis. 10/28/20: Continue current care. Monitor renal function and continue BID lasix. Need strict I/O 10/27/20: Continue current plan from below. Guarded prognosis given COVID and ob esity. Monitor renal function. 1. Increased steroids to 125 TID 2. Increased lasix to 40 BID 3. Prone as tolerated and for as long as possible 4. Monitor fluid balance 5. BP control 6. Guarded prognosis given COVID and obesity with worsening respiratory failure. Subjective Date of service: 11/05/20 Principal diagnosis: COVID-19 PNA Interval history: No acute events. Still on 30 and 70 Objective Vital Signs - 12hr 11/05/20 11/05/20 11/05/20 03:23 05:40 08:52 Temperature 97.8 F Pulse Rate 84 Respiratory 20 Rate Blood Pressure 138/74 O2 Sat by Pulse 93 94 95 Oximetry 11/05/20 11/05/20 11/05/20 09:39 09:40 10:00 Temperature Pulse Rate 84 84 Respiratory Rate Blood Pressure 138/74 138/74 O2 Sat by Pulse 94 Oximetry CBC and BMP: 11/02/20 04:38 11/04/20 04:28 ABG, PT/INR, D-dimer: PT/INR, D-dimer D-Dimer 214.85 ng/mlDDU (0-234) 11/02/20 22:12 Abnormal lab findings: Abnormal Labs 10/23/20 10/23/20 10/23/20 17:31 20:38 20:38 WBC Hgb Hct MCH MCHC RDW Lymph % (Auto) [place] % (Auto) Lymph # (Auto) [place] # (Auto) Seg Neutrophils % Seg Neutrophils # D-Dimer 919.44 H Sodium 136 L Potassium Chloride Carbon Dioxide BUN Glucose 149 H POC Glucose Ferritin AST ALT Lactate Dehydrogenase 606 H C-Reactive Protein 11.50 H Albumin Coronavirus (PCR) 10/23/20 10/24/20 10/24/20 20:38 08:00 08:07 WBC Hgb Hct MCH 33 H MCHC 35 H RDW Lymph % (Auto) 9.9 L [place] % (Auto) 7.9 H Lymph # (Auto) 0.6 L [place] # (Auto) Seg Neutrophils % 82.1 H Seg Neutrophils # D-Dimer Sodium Potassium Chloride Carbon Dioxide BUN Glucose POC Glucose Ferritin AST ALT Lactate Dehydrogenase 643 H C-Reactive Protein 11.70 H Albumin Coronavirus (PCR) Positive A 10/24/20 10/25/20 10/26/20 08:07 16:13 21:32 WBC Hgb Hct MCH MCHC RDW Lymph % (Auto) [place] % (Auto) Lymph # (Auto) [place] # (Auto) Seg Neutrophils % Seg Neutrophils # D-Dimer Sodium Potassium Chloride Carbon Dioxide BUN Glucose 173 H POC Glucose 180 H 213 H Ferritin AST ALT Lactate Dehydrogenase C-Reactive Protein Albumin Coronavirus (PCR) 10/27/20 10/27/20 10/27/20 07:54 11:56 13:47 WBC Hgb Hct MCH MCHC RDW Lymph % (Auto) [place] % (Auto) Lymph # (Auto) [place] # (Auto) Seg Neutrophils % Seg Neutrophils # D-Dimer Sodium Potassium 3.3 L D Chloride Carbon Dioxide BUN 38 H Glucose 262 H POC Glucose 305 H 289 H Ferritin AST 155 H ALT 170 H Lactate Dehydrogenase C-Reactive Protein Albumin 3.4 L Coronavirus (PCR) 10/27/20 10/27/20 10/28/20 15:49 21:36 07:24 WBC Hgb Hct MCH MCHC RDW Lymph % (Auto) [place] % (Auto) Lymph # (Auto) [place] # (Auto) Seg Neutrophils % Seg Neutrophils # D-Dimer Sodium Potassium Chloride Carbon Dioxide BUN 41 H Glucose 217 H POC Glucose 228 H 241 H Ferritin AST 116 H ALT 182 H Lactate Dehydrogenase C-Reactive Protein Albumin 3.7 L Coronavirus (PCR) 10/28/20 10/28/20 10/28/20 07:40 16:08 21:21 WBC Hgb Hct MCH MCHC RDW Lymph % (Auto) [place] % (Auto) Lymph # (Auto) [place] # (Auto) Seg Neutrophils % Seg Neutrophils # D-Dimer Sodium Potassium Chloride Carbon Dioxide BUN Glucose POC Glucose 207 H 227 H 354 H Ferritin AST ALT Lactate Dehydrogenase C-Reactive Protein Albumin Coronavirus (PCR) 10/29/20 10/29/20 10/29/20 05:12 07:47 12:19 WBC Hgb Hct MCH MCHC RDW Lymph % (Auto) [place] % (Auto) Lymph # (Auto) [place] # (Auto) Seg Neutrophils % Seg Neutrophils # D-Dimer Sodium Potassium Chloride Carbon Dioxide BUN 47 H Glucose 247 H POC Glucose 268 H 383 H Ferritin AST 102 H ALT 183 H Lactate Dehydrogenase C-Reactive Protein Albumin 3.1 L Coronavirus (PCR) 10/29/20 10/29/20 10/30/20 16:34 22:07 07:46 WBC Hgb Hct MCH MCHC RDW Lymph % (Auto) [place] % (Auto) Lymph # (Auto) [place] # (Auto) Seg Neutrophils % Seg Neutrophils # D-Dimer Sodium Potassium Chloride Carbon Dioxide BUN 50 H Glucose 287 H POC Glucose 324 H 276 H Ferritin AST 71 H ALT 164 H Lactate Dehydrogenase 392 H C-Reactive Protein Albumin 3.2 L Coronavirus (PCR) 10/30/20 10/30/20 10/30/20 07:46 07:46 08:07 WBC Hgb Hct MCH MCHC RDW Lymph % (Auto) [place] % (Auto) Lymph # (Auto) [place] # (Auto) Seg Neutrophils % Seg Neutrophils # D-Dimer 504.53 H Sodium Potassium Chloride Carbon Dioxide BUN Glucose POC Glucose 267 H Ferritin 1470.0 H AST ALT Lactate Dehydrogenase C-Reactive Protein Albumin Coronavirus (PCR) 10/30/20 10/30/20 10/30/20 12:39 17:14 21:42 WBC Hgb Hct MCH MCHC RDW Lymph % (Auto) [place] % (Auto) Lymph # (Auto) [place] # (Auto) Seg Neutrophils % Seg Neutrophils # D-Dimer Sodium Potassium Chloride Carbon Dioxide BUN Glucose POC Glucose 332 H 301 H 371 H Ferritin AST ALT Lactate Dehydrogenase C-Reactive Protein Albumin Coronavirus (PCR) 10/31/20 10/31/20 10/31/20 07:52 11:42 16:12 WBC Hgb Hct MCH MCHC RDW Lymph % (Auto) [place] % (Auto) Lymph # (Auto) [place] # (Auto) Seg Neutrophils % Seg Neutrophils # D-Dimer Sodium Potassium Chloride Carbon Dioxide BUN Glucose POC Glucose 303 H 387 H 343 H Ferritin AST ALT Lactate Dehydrogenase C-Reactive Protein Albumin Coronavirus (PCR) 10/31/20 11/01/20 11/01/20 21:35 07:34 11:22 WBC Hgb Hct MCH MCHC RDW Lymph % (Auto) [place] % (Auto) Lymph # (Auto) [place] # (Auto) Seg Neutrophils % Seg Neutrophils # D-Dimer Sodium Potassium Chloride Carbon Dioxide BUN Glucose POC Glucose 359 H 325 H 442 H Ferritin AST ALT Lactate Dehydrogenase C-Reactive Protein Albumin Coronavirus (PCR) 11/01/20 11/01/20 11/02/20 16:30 22:12 04:38 WBC 12.4 H Hgb 14.8 H Hct 44.1 H MCH MCHC RDW 13.0 L Lymph % (Auto) 3.3 L [place] % (Auto) 9.3 H Lymph # (Auto) 0.4 L [place] # (Auto) 1.2 H Seg Neutrophils % 87.2 H Seg Neutrophils # 10.9 H D-Dimer Sodium Potassium Chloride Carbon Dioxide BUN Glucose POC Glucose 378 H 395 H Ferritin AST ALT Lactate Dehydrogenase C-Reactive Protein Albumin Coronavirus (PCR) 11/02/20 11/02/20 11/02/20 04:38 07:40 12:09 WBC Hgb Hct MCH MCHC RDW Lymph % (Auto) [place] % (Auto) Lymph # (Auto) [place] # (Auto) Seg Neutrophils % Seg Neutrophils # D-Dimer Sodium Potassium Chloride Carbon Dioxide 32 H BUN 48 H Glucose 304 H POC Glucose 280 H 422 H Ferritin AST ALT Lactate Dehydrogenase C-Reactive Protein Albumin Coronavirus (PCR) 11/02/20 11/02/20 11/03/20 16:10 21:30 08:01 WBC Hgb Hct MCH MCHC RDW Lymph % (Auto) [place] % (Auto) Lymph # (Auto) [place] # (Auto) Seg Neutrophils % Seg Neutrophils # D-Dimer Sodium Potassium Chloride Carbon Dioxide BUN Glucose POC Glucose 367 H 380 H 336 H Ferritin AST ALT Lactate Dehydrogenase C-Reactive Protein Albumin Coronavirus (PCR) 11/03/20 11/03/20 11/03/20 12:21 15:56 21:17 WBC Hgb Hct MCH MCHC RDW Lymph % (Auto) [place] % (Auto) Lymph # (Auto) [place] # (Auto) Seg Neutrophils % Seg Neutrophils # D-Dimer Sodium Potassium Chloride Carbon Dioxide BUN Glucose POC Glucose 352 H 312 H 307 H Ferritin AST ALT Lactate Dehydrogenase C-Reactive Protein Albumin Coronavirus (PCR) 11/04/20 11/04/20 11/04/20 04:28 07:57 11:43 WBC Hgb Hct MCH MCHC RDW Lymph % (Auto) [place] % (Auto) Lymph # (Auto) [place] # (Auto) Seg Neutrophils % Seg Neutrophils # D-Dimer Sodium Potassium Chloride 95.6 L Carbon Dioxide 33 H BUN 52 H Glucose 307 H POC Glucose 287 H 321 H Ferritin AST ALT Lactate Dehydrogenase C-Reactive Protein Albumin Coronavirus (PCR) 11/04/20 11/04/20 11/05/20 16:23 22:30 07:49 WBC Hgb Hct MCH MCHC RDW Lymph % (Auto) [place] % (Auto) Lymph # (Auto) [place] # (Auto) Seg Neutrophils % Seg Neutrophils # D-Dimer Sodium Potassium Chloride Carbon Dioxide BUN Glucose POC Glucose 345 H 285 H 269 H Ferritin AST ALT Lactate Dehydrogenase C-Reactive Protein Albumin Coronavirus (PCR) Allied health notes reviewed: nursing
--- NOTE | 2020-11-05 13:18 | Progress Note ---
Assessment and Plan -- Acute respiratory failure Due to COVID-19 pneumonia and underlying morbid obesity Supplemental O2 and inhaler as needed -- Pneumonia due to COVID-19 virus Continue empiric steroid, status post remdesivir, Completed Tocilizumab on 021, Completed ceftriaxone Supplemental O2, ID and pulmonary care on board -- COPD (chronic obstructive pulmonary disease) with exacerbation Continue empiric steroid, inhalers and supplemental O2 -- Hypertension Monitor BP and adjust meds as needed -- Diabetes mellitus, uncontrolled Consistent carb diet, continue SSI and Lantus Adjust insulin dose for better glycemic control -- GERD (gastroesophageal reflux disease) Continue PPI --Morbid obesity Dietary and exercise recommendation as outpatient when clinically more stable and appropriate --Leukocytosis, due to steroid --DVT prophylaxis, Daily clinical course: 10/31/20: Remains on high flow O2, continue to monitor inflammatory markers, pulmonary on board. Guarded prognosis. 11/01/20: Patient remains on 40 L high flow O2. Continue to monitor clinically with supportive care, follow inflammatory markers, blood glucose significantly elevated, will add long-acting insulin. Reduce steroids dose to 40 mg every 8 hours. guarded prognosis. 11/02/20: Patient on 20 L and 60% FiO2 today. Continue to wean off O2 as tolerated. Follow inflammatory markers 11/03/20: Remains on high flow O2-30L today, guarded prognosis, wean off as tolerated. 11/04/20: Guarded prognosis, remains on high flow O2 30 L with 70% FiO2. Continue to follow inflammatory markers, ID and pulmonary critical care following. 11/05/20; remains on 30L O2, unable to wean off, gurded prognosis. follow clinically. Continue to adjust insulin doses for better glycemic control. Subjective Date of service: 11/05/20 Principal diagnosis: COVID-19 PNA Interval history: Patient seen and examined. Medical records and medication list reviewed. No acute event overnight noted by the RN. Patient remains on high flow O2, Discussed plan of care at bedside with patient. Objective - Exam Narrative Exam: Limited physical exam due to COVID-19 pandemic to minimize transmission of the d isease and to preserve PPE. Vital reviewed and stable. GENERAL: well-developed morbidly obese -[place] female lying on bed appeared to be in no discomfort. HEENT: Normocephalic. Atraumatic. NECK: Supple. CHEST/LUNGS: breathing on high flow O2 HEART/CARDIOVASCULAR: Heart rate stable on telemetry ABDOMEN: Visibly not distended SKIN: There is no rash NEURO: No focal motor deficit. Follows command. MUSCULOSKELETAL: No joint effusion EXTRIMITY: No swelling, no cyanosis or clubbing. PSYCH: Cooperative. - Constitutional Vitals: Vital Signs - 12hr 11/05/20 11/05/20 11/05/20 03:23 05:40 08:52 Temperature 97.8 F Pulse Rate 84 Respiratory 20 Rate Blood Pressure 138/74 O2 Sat by Pulse 93 94 95 Oximetry 11/05/20 11/05/20 11/05/20 09:39 09:40 10:00 Temperature Pulse Rate 84 84 Respiratory Rate Blood Pressure 138/74 138/74 O2 Sat by Pulse 94 Oximetry 11/05/20 11/05/20 11:45 11:49 Temperature 97.9 F Pulse Rate 87 Respiratory 19 Rate Blood Pressure 137/69 O2 Sat by Pulse 94 94 Oximetry - Labs CBC & Chem 7: 11/02/20 04:38 11/04/20 04:28 Labs: Abnormal lab results 11/04/20 11/04/20 11/05/20 Range/Units 16:23 22:30 07:49 POC Glucose 345 H 285 H 269 H (70-105) mg/dL 11/05/20 Range/Units 11:43 POC Glucose 349 H (70-105) mg/dL HEART Score - HEART Score Troponin: Troponin T < 0.010 ng/mL (0.00-0.029) 10/23/20 17:31
--- NOTE | 2020-11-05 14:29 | Progress Note ---
Assessment and Plan Cultures: Covid PCR: Positive A/P: 69-year-old female past medical history hypertension, diabetes, COPD, morbid obesity admitted with COVID #COVID-19 pneumonia: Patient presented with a week of symptoms, chest x-ray with diffuse bilateral infiltrates, admission O2 sats 79% on room air. Inflammatory markers improving. #Acute hypoxemic respiratory failure: Improving hfnc 30 L, 65%-->20L/60%. --> 30L/70% #COPD with exacerbation #Morbid obesity: Associated with worse outcomes. #DM2: Poorly controlled with hyperglycemia. #Leukocytosis: From steroids Recommendations: -Steroids per pulmonary -Completed remdesivir -Completed Tocilizumab on 10/29/2020 -Completed ceftriaxone -Obtain q48-72h inflammatory markers - ferritin, Ddimer, CRP, LDH, ordered markpadmaja rs today. -Anticoagulation per hospital protocol -Proning as able Pulmonary on board. Guarded prognosis. Elizabeth Shepard MD [facility] ([facility]) Office [phone] Subjective Date of service: 11/05/20 Principal diagnosis: COVID-19 PNA Interval history: No desaturations overnight. Remains on high flow nasal cannula 3 L, 70%. No fever. Objective - Exam Narrative Exam: Physical exam deferred to minimize COVID-19 transmission during pandemic. - Constitutional Vitals: Vital Signs Temp Pulse Resp BP Pulse Ox 97.9 F 87 19 137/69 94 11/05/20 11:45 11/05/20 13:32 11/05/20 11:45 11/05/20 13:32 11/05/20 11:49 Temperature -Last 24 Hours Temperature 97.9 F Temperature 97.8 F Temperature 97.8 F Temperature 97.8 F Temperature 98.0 F - Labs CBC & Chem 7: 11/02/20 04:38 11/04/20 04:28 Labs: Abnormal lab results 11/04/20 11/04/20 11/05/20 Range/Units 16:23 22:30 07:49 POC Glucose 345 H 285 H 269 H (70-105) mg/dL 11/05/20 Range/Units 11:43 POC Glucose 349 H (70-105) mg/dL
[2020-11-05 16:58] LABS: C-Reactive Protein 0.1 mg/dL (0.00-1.30)
[2020-11-05] MEDS: PRAVASTATIN 80 MG TAB PO SCH (22:18)
[2020-11-06] MEDS: hydrALAZINE 25 MG TAB PO SCH ×3 (05:48→22:00)
[2020-11-06] MEDS: FUROSEMIDE 40 MG/4 ML INJ IV SCH ×2 (05:49→17:16)
[2020-11-06] MEDS: methylPREDNISolone Sod Succinate 40 MG/1 ML INJ IV SCH ×3 (05:52→22:00)
[2020-11-06] MEDS: INSULIN LISPRO 100 UNIT/ML SUB-Q SCH ×4 (08:25→22:00)
[2020-11-06] MEDS: HEPARIN 5,000 UNIT/1 ML VIAL SUB-Q SCH ×2 (09:57→22:00)
[2020-11-06] MEDS: LISINOPRIL 40 MG TAB PO SCH (09:58)
[2020-11-06] MEDS: ASCORBIC ACID 500 MG TAB PO SCH ×2 (09:58→22:00)
[2020-11-06] MEDS: INSULIN GLARGINE 100 UNITS/ML SUB-Q SCH ×2 (09:58→17:16)
[2020-11-06] MEDS: amLODIPine 10 MG TAB PO SCH (09:58)
[2020-11-06] MEDS: CHOLECALCIFEROL (VIT D3) 1000 UNIT (25 mcg) TAB PO SCH (09:58)
[2020-11-06] MEDS: ZINC SULFATE 220 MG CAP PO SCH ×2 (09:58→22:00)
[2020-11-06] MEDS: TIOTROPIUM 18 MCG CAP INHALATION IH SCH (09:59)
--- NOTE | 2020-11-06 09:59 | Progress Note ---
Assessment and Plan -- Acute respiratory failure Due to COVID-19 pneumonia and underlying morbid obesity Supplemental O2 and inhaler as needed -- Pneumonia due to COVID-19 virus Continue empiric steroid, status post remdesivir, Completed Tocilizumab on 021, Completed ceftriaxone Supplemental O2, ID and pulmonary care on board -- COPD (chronic obstructive pulmonary disease) with exacerbation Continue empiric steroid, inhalers and supplemental O2 -- Hypertension Monitor BP and adjust meds as needed -- Diabetes mellitus, uncontrolled Consistent carb diet, continue SSI and Lantus Adjust insulin dose for better glycemic control -- GERD (gastroesophageal reflux disease) Continue PPI --Morbid obesity Dietary and exercise recommendation as outpatient when clinically more stable and appropriate --Leukocytosis, due to steroid --DVT prophylaxis, Daily clinical course: 10/31/20: Remains on high flow O2, continue to monitor inflammatory markers, pulmonary on board. Guarded prognosis. 11/01/20: Patient remains on 40 L high flow O2. Continue to monitor clinically with supportive care, follow inflammatory markers, blood glucose significantly elevated, will add long-acting insulin. Reduce steroids dose to 40 mg every 8 hours. guarded prognosis. 11/02/20: Patient on 20 L and 60% FiO2 today. Continue to wean off O2 as tolerated. Follow inflammatory markers 11/03/20: Remains on high flow O2-30L today, guarded prognosis, wean off as tolerated. 11/04/20: Guarded prognosis, remains on high flow O2 30 L with 70% FiO2. Continue to follow inflammatory markers, ID and pulmonary critical care following. 11/05/20; Remains on 30L O2, unable to wean off, gurded prognosis. follow clinically. Continue to adjust insulin doses for better glycemic control. 11/06/20: Remains on high flow O2, BG improved, cont to adjust insulin doses. Patient is getting very frustrated and anxious and desperately wants to go home. I explained to her with the nurse in L&D discussion that she is still requiring high flow O2 and not stable enough to go home. She finally verbalized understanding. Subjective Date of service: 11/06/20 Principal diagnosis: COVID-19 PNA Interval history: Patient seen and examined. Medical records and medication list reviewed. No acute event overnight noted by the RN. Patient remains on high flow O2, Discussed plan of care at bedside with patient. Objective - Exam Narrative Exam: Limited physical exam due to COVID-19 pandemic to minimize transmission of the disease and to preserve PPE. Vital reviewed and stable. GENERAL: well-developed morbidly obese -[place] female lying on bed appeared to be in no discomfort. HEENT: Normocephalic. Atraumatic. NECK: Supple. CHEST/LUNGS: breathing on high flow O2 HEART/CARDIOVASCULAR: Heart rate stable on telemetry ABDOMEN: Visibly not distended SKIN: There is no rash NEURO: No focal motor deficit. Follows command. MUSCULOSKELETAL: No joint effusion EXTRIMITY: No swelling, no cyanosis or clubbing. PSYCH: Cooperative. - Constitutional Vitals: Vital Signs - 12hr 11/05/20 11/05/20 11/06/20 22:23 23:21 02:00 Temperature 97.7 F Pulse Rate 88 88 Respiratory 20 Rate Blood Pressure 146/63 146/63 O2 Sat by Pulse 93 95 Oximetry 11/06/20 11/06/20 11/06/20 05:30 05:48 08:40 Temperature 97.8 F Pulse Rate 84 84 Respiratory 22 Rate Blood Pressure 137/62 137/62 O2 Sat by Pulse 95 96 Oximetry - Labs CBC & Chem 7: 11/07/20 06:08 11/07/20 09:00 Labs: Abnormal lab results 11/05/20 11/05/20 11/05/20 Range/Units 11:43 15:53 15:53 POC Glucose 349 H (70-105) mg/dL Ferritin 2889.0 H (10.0-200.0) ng/mL Lactate Dehydrogenase 345 H (91-180) units/L 11/05/20 11/05/20 11/06/20 Range/Units 16:10 22:22 07:29 POC Glucose 311 H 264 H 216 H (70-105) mg/dL Ferritin (10.0-200.0) ng/mL Lactate Dehydrogenase (91-180) units/L HEART Score - HEART Score Troponin: Troponin T < 0.010 ng/mL (0.00-0.029) 10/23/20 17:31
--- NOTE | 2020-11-06 12:53 | Progress Note ---
Assessment and Plan 69 y/o, obese female with acute respiratory failure secondary to COVID pneumonia. 11/06/20: Will continue same recs. Hold on increases in steroids. Prone if possible. Continue lasix. Prognosis is still guarded. 11/05/20: Same recs as below. 11/04/20: no increases in the last 24 hours so will not increase steroids. Continue to encourage proning if able. Continue lasix. Guarded prognosis. 11/03/20: Will monitor closely, but if oxygen requirement continues to increase, will go back up on steroids to at least 80q8. Already on BID lasix. Prognosis remains guarded. 11/02/20: Continue BID lasix. Wean for sats >88%. currently on solumedrol 40q8, continue this dose for now, but if able to wean further then will wean steroids further. prognosis is still guarded. 11/01/20: No new recs for today. 10/31/20: Prone if able and for as long as possible. Wean for sats >88%. Continue high dose steroids. 10/30/20: No lasix. Prognosis remains guarded. 10/29/20: Continue lasix but I/O are not accurate. May need to increase dosing. Wean FiO2 as tolerated. Guarded prognosis. 10/28/20: Continue current care. Monitor renal function and continue BID lasix. Need strict I/O 10/27/20: Continue current plan from below. Guarded prognosis given COVID and obesity. Monitor renal function. 1. Increased steroids to 125 TID 2. Increased lasix to 40 BID 3. Prone as tolerated and for as long as possible 4. Monitor fluid balance 5. BP control 6. Guarded prognosis given COVID and obesity with worsening respiratory fail ure. Subjective Date of service: 11/06/20 Principal diagnosis: COVID-19 PNA Interval history: No acute events. Now down to 50%. Stable sats. Objective Vital Signs - 12hr 11/06/20 11/06/20 11/06/20 02:00 05:30 05:48 Temperature 97.8 F Pulse Rate 84 84 Respiratory 22 Rate Blood Pressure 137/62 137/62 O2 Sat by Pulse 95 95 Oximetry 11/06/20 11/06/20 08:40 09:58 Temperature Pulse Rate 84 Respiratory Rate Blood Pressure 137/62 O2 Sat by Pulse 96 Oximetry CBC and BMP: 11/02/20 04:38 11/04/20 04:28 ABG, PT/INR, D-dimer: PT/INR, D-dimer D-Dimer 229.3 ng/mlDDU (0-234) 11/05/20 15:53 Abnormal lab findings: Abnormal Labs 10/23/20 10/23/20 10/23/20 17:31 20:38 20:38 WBC Hgb Hct MCH MCHC RDW Lymph % (Auto) [place] % (Auto) Lymph # (Auto) [place] # (Auto) Seg Neutrophils % Seg Neutrophils # D-Dimer 919.44 H Sodium 136 L Potassium Chloride Carbon Dioxide BUN Glucose 149 H POC Glucose Ferritin AST ALT Lactate Dehydrogenase 606 H C-Reactive Protein 11.50 H Albumin Coronavirus (PCR) 10/23/20 10/24/20 10/24/20 20:38 08:00 08:07 WBC Hgb Hct MCH 33 H MCHC 35 H RDW Lymph % (Auto) 9.9 L [place] % (Auto) 7.9 H Lymph # (Auto) 0.6 L [place] # (Auto) Seg Neutrophils % 82.1 H Seg Neutrophils # D-Dimer Sodium Potassium Chloride Carbon Dioxide BUN Glucose POC Glucose Ferritin AST ALT Lactate Dehydrogenase 643 H C-Reactive Protein 11.70 H Albumin Coronavirus (PCR) Positive A 10/24/20 10/25/20 10/26/20 08:07 16:13 21:32 WBC Hgb Hct MCH MCHC RDW Lymph % (Auto) [place] % (Auto) Lymph # (Auto) [place] # (Auto) Seg Neutrophils % Seg Neutrophils # D-Dimer Sodium Potassium Chloride Carbon Dioxide BUN Glucose 173 H POC Glucose 180 H 213 H Ferritin AST ALT Lactate Dehydrogenase C-Reactive Protein Albumin Coronavirus (PCR) 10/27/20 10/27/20 10/27/20 07:54 11:56 13:47 WBC Hgb Hct MCH MCHC RDW Lymph % (Auto) [place] % (Auto) Lymph # (Auto) [place] # (Auto) Seg Neutrophils % Seg Neutrophils # D-Dimer Sodium Potassium 3.3 L D Chloride Carbon Dioxide BUN 38 H Glucose 262 H POC Glucose 305 H 289 H Ferritin AST 155 H ALT 170 H Lactate Dehydrogenase C-Reactive Protein Albumin 3.4 L Coronavirus (PCR) 10/27/20 10/27/20 10/28/20 15:49 21:36 07:24 WBC Hgb Hct MCH MCHC RDW Lymph % (Auto) [place] % (Auto) Lymph # (Auto) [place] # (Auto) Seg Neutrophils % Seg Neutrophils # D-Dimer Sodium Potassium Chloride Carbon Dioxide BUN 41 H Glucose 217 H POC Glucose 228 H 241 H Ferritin AST 116 H ALT 182 H Lactate Dehydrogenase C-Reactive Protein Albumin 3.7 L Coronavirus (PCR) 10/28/20 10/28/20 10/28/20 07:40 16:08 21:21 WBC Hgb Hct MCH MCHC RDW Lymph % (Auto) [place] % (Auto) Lymph # (Auto) [place] # (Auto) Seg Neutrophils % Seg Neutrophils # D-Dimer Sodium Potassium Chloride Carbon Dioxide BUN Glucose POC Glucose 207 H 227 H 354 H Ferritin AST ALT Lactate Dehydrogenase C-Reactive Protein Albumin Coronavirus (PCR) 10/29/20 10/29/20 10/29/20 05:12 07:47 12:19 WBC Hgb Hct MCH MCHC RDW Lymph % (Auto) [place] % (Auto) Lymph # (Auto) [place] # (Auto) Seg Neutrophils % Seg Neutrophils # D-Dimer Sodium Potassium Chloride Carbon Dioxide BUN 47 H Glucose 247 H POC Glucose 268 H 383 H Ferritin AST 102 H ALT 183 H Lactate Dehydrogenase C-Reactive Protein Albumin 3.1 L Coronavirus (PCR) 10/29/20 10/29/20 10/30/20 16:34 22:07 07:46 WBC Hgb Hct MCH MCHC RDW Lymph % (Auto) [place] % (Auto) Lymph # (Auto) [place] # (Auto) Seg Neutrophils % Seg Neutrophils # D-Dimer Sodium Potassium Chloride Carbon Dioxide BUN 50 H Glucose 287 H POC Glucose 324 H 276 H Ferritin AST 71 H ALT 164 H Lactate Dehydrogenase 392 H C-Reactive Protein Albumin 3.2 L Coronavirus (PCR) 10/30/20 10/30/20 10/30/20 07:46 07:46 08:07 WBC Hgb Hct MCH MCHC RDW Lymph % (Auto) [place] % (Auto) Lymph # (Auto) [place] # (Auto) Seg Neutrophils % Seg Neutrophils # D-Dimer 504.53 H Sodium Potassium Chloride Carbon Dioxide BUN Glucose POC Glucose 267 H Ferritin 1470.0 H AST ALT Lactate Dehydrogenase C-Reactive Protein Albumin Coronavirus (PCR) 10/30/20 10/30/20 10/30/20 12:39 17:14 21:42 WBC Hgb Hct MCH MCHC RDW Lymph % (Auto) [place] % (Auto) Lymph # (Auto) [place] # (Auto) Seg Neutrophils % Seg Neutrophils # D-Dimer Sodium Potassium Chloride Carbon Dioxide BUN Glucose POC Glucose 332 H 301 H 371 H Ferritin AST ALT Lactate Dehydrogenase C-Reactive Protein Albumin Coronavirus (PCR) 10/31/20 10/31/20 10/31/20 07:52 11:42 16:12 WBC Hgb Hct MCH MCHC RDW Lymph % (Auto) [place] % (Auto) Lymph # (Auto) [place] # (Auto) Seg Neutrophils % Seg Neutrophils # D-Dimer Sodium Potassium Chloride Carbon Dioxide BUN Glucose POC Glucose 303 H 387 H 343 H Ferritin AST ALT Lactate Dehydrogenase C-Reactive Protein Albumin Coronavirus (PCR) 10/31/20 11/01/20 11/01/20 21:35 07:34 11:22 WBC Hgb Hct MCH MCHC RDW Lymph % (Auto) [place] % (Auto) Lymph # (Auto) [place] # (Auto) Seg Neutrophils % Seg Neutrophils # D-Dimer Sodium Potassium Chloride Carbon Dioxide BUN Glucose POC Glucose 359 H 325 H 442 H Ferritin AST ALT Lactate Dehydrogenase C-Reactive Protein Albumin Coronavirus (PCR) 11/01/20 11/01/20 11/02/20 16:30 22:12 04:38 WBC 12.4 H Hgb 14.8 H Hct 44.1 H MCH MCHC RDW 13.0 L Lymph % (Auto) 3.3 L [place] % (Auto) 9.3 H Lymph # (Auto) 0.4 L [place] # (Auto) 1.2 H Seg Neutrophils % 87.2 H Seg Neutrophils # 10.9 H D-Dimer Sodium Potassium Chloride Carbon Dioxide BUN Glucose POC Glucose 378 H 395 H Ferritin AST ALT Lactate Dehydrogenase C-Reactive Protein Albumin Coronavirus (PCR) 11/02/20 11/02/20 11/02/20 04:38 07:40 12:09 WBC Hgb Hct MCH MCHC RDW Lymph % (Auto) [place] % (Auto) Lymph # (Auto) [place] # (Auto) Seg Neutrophils % Seg Neutrophils # D-Dimer Sodium Potassium Chloride Carbon Dioxide 32 H BUN 48 H Glucose 304 H POC Glucose 280 H 422 H Ferritin AST ALT Lactate Dehydrogenase C-Reactive Protein Albumin Coronavirus (PCR) 11/02/20 11/02/20 11/03/20 16:10 21:30 08:01 WBC Hgb Hct MCH MCHC RDW Lymph % (Auto) [place] % (Auto) Lymph # (Auto) [place] # (Auto) Seg Neutrophils % Seg Neutrophils # D-Dimer Sodium Potassium Chloride Carbon Dioxide BUN Glucose POC Glucose 367 H 380 H 336 H Ferritin AST ALT Lactate Dehydrogenase C-Reactive Protein Albumin Coronavirus (PCR) 11/03/20 11/03/20 11/03/20 12:21 15:56 21:17 WBC Hgb Hct MCH MCHC RDW Lymph % (Auto) [place] % (Auto) Lymph # (Auto) [place] # (Auto) Seg Neutrophils % Seg Neutrophils # D-Dimer Sodium Potassium Chloride Carbon Dioxide BUN Glucose POC Glucose 352 H 312 H 307 H Ferritin AST ALT Lactate Dehydrogenase C-Reactive Protein Albumin Coronavirus (PCR) 11/04/20 11/04/20 11/04/20 04:28 07:57 11:43 WBC Hgb Hct MCH MCHC RDW Lymph % (Auto) [place] % (Auto) Lymph # (Auto) [place] # (Auto) Seg Neutrophils % Seg Neutrophils # D-Dimer Sodium Potassium Chloride 95.6 L Carbon Dioxide 33 H BUN 52 H Glucose 307 H POC Glucose 287 H 321 H Ferritin AST ALT Lactate Dehydrogenase C-Reactive Protein Albumin Coronavirus (PCR) 11/04/20 11/04/20 11/05/20 16:23 22:30 07:49 WBC Hgb Hct MCH MCHC RDW Lymph % (Auto) [place] % (Auto) Lymph # (Auto) [place] # (Auto) Seg Neutrophils % Seg Neutrophils # D-Dimer Sodium Potassium Chloride Carbon Dioxide BUN Glucose POC Glucose 345 H 285 H 269 H Ferritin AST ALT Lactate Dehydrogenase C-Reactive Protein Albumin Coronavirus (PCR) 11/05/20 11/05/20 11/05/20 11:43 15:53 15:53 WBC Hgb Hct MCH MCHC RDW Lymph % (Auto) [place] % (Auto) Lymph # (Auto) [place] # (Auto) Seg Neutrophils % Seg Neutrophils # D-Dimer Sodium Potassium Chloride Carbon Dioxide BUN Glucose POC Glucose 349 H Ferritin 2889.0 H AST ALT Lactate Dehydrogenase 345 H C-Reactive Protein Albumin Coronavirus (PCR) 11/05/20 11/05/20 11/06/20 16:10 22:22 07:29 WBC Hgb Hct MCH MCHC RDW Lymph % (Auto) [place] % (Auto) Lymph # (Auto) [place] # (Auto) Seg Neutrophils % Seg Neutrophils # D-Dimer Sodium Potassium Chloride Carbon Dioxide BUN Glucose POC Glucose 311 H 264 H 216 H Ferritin AST ALT Lactate Dehydrogenase C-Reactive Protein Albumin Coronavirus (PCR) 11/06/20 11:04 WBC Hgb Hct MCH MCHC RDW Lymph % (Auto) [place] % (Auto) Lymph # (Auto) [place] # (Auto) Seg Neutrophils % Seg Neutrophils # D-Dimer Sodium Potassium Chloride Carbon Dioxide BUN Glucose POC Glucose 363 H Ferritin AST ALT Lactate Dehydrogenase C-Reactive Protein Albumin Coronavirus (PCR) Allied health notes reviewed: nursing
--- NOTE | 2020-11-06 15:27 | Progress Note ---
Assessment and Plan Cultures: Covid PCR: Positive A/P: 69-year-old female past medical history hypertension, diabetes, COPD, morbid obesity admitted with COVID #COVID-19 pneumonia: Patient presented with a week of symptoms, chest x-ray with diffuse bilateral infiltrates, admission O2 sats 79% on room air. Inflammatory markers all improving except ferritin. #Acute hypoxemic respiratory failure: Improving hfnc 30 L, 65%-->20L/60%. --> 30L/70%-->heliox #COPD with exacerbation #Morbid obesity: Associated with worse outcomes. #DM2: Poorly controlled with hyperglycemia. #Leukocytosis: From steroids Recommendations: -Steroids per pulmonary -Completed remdesivir -Completed Tocilizumab on 10/29/2020 -Completed ceftriaxone -Obtain q48-72h inflammatory markers - ferritin, Ddimer, CRP, LDH, ordered markers -Anticoagulation per hospital protocol -Proning as able Pulmonary on board. Guarded prognosis. Elizabeth Shepard MD [facility] ([facility]) Office [phone] Subjective Date of service: 11/06/20 Principal diagnosis: COVID-19 PNA Interval history: Patient is now on Heliox 80/20. No desaturation. No fever. Objective - Exam Narrative Exam: Physical exam deferred to minimize COVID-19 transmission during pandemic. - Constitutional Vitals: Vital Signs Temp Pulse Resp BP Pulse Ox 97.8 F 84 22 137/62 96 11/06/20 05:30 11/06/20 14:39 11/06/20 05:30 11/06/20 14:39 11/06/20 08:40 Temperature -Last 24 Hours Temperature 97.8 F Temperature 97.7 F Temperature 97.9 F - Labs CBC & Chem 7: 11/02/20 04:38 11/04/20 04:28 Labs: Abnormal lab results 11/05/20 11/05/20 11/05/20 Range/Units 15:53 15:53 16:10 POC Glucose 311 H (70-105) mg/dL Ferritin 2889.0 H (10.0-200.0) ng/mL Lactate Dehydrogenase 345 H (91-180) units/L 11/05/20 11/06/20 11/06/20 Range/Units 22:22 07:29 11:04 POC Glucose 264 H 216 H 363 H (70-105) mg/dL Ferritin (10.0-200.0) ng/mL Lactate Dehydrogenase (91-180) units/L
[2020-11-06] MEDS: PRAVASTATIN 80 MG TAB PO SCH (22:00)
[2020-11-07] MEDS: methylPREDNISolone Sod Succinate 40 MG/1 ML INJ IV SCH ×3 (06:00→22:00)
[2020-11-07] MEDS: FUROSEMIDE 40 MG/4 ML INJ IV SCH ×2 (06:00→18:30)
[2020-11-07] MEDS: hydrALAZINE 25 MG TAB PO SCH ×2 (06:00→18:27)
[2020-11-07 06:34] LABS: Basophils % (Auto) 0.1 % (0.0-1.8); Eosinophils % (Auto) 0.1 % (0.0-4.3); Hematocrit 48.6 % (30.3-42.9); Hemoglobin 16.1 gm/dl (10.1-14.3); Lymphocytes # (Auto) 0.7 K/mm3 (1.2-5.4); Lymphocytes % (Auto) 7.7 % (13.4-35.0); Mean Corpuscular HGB Conc 33 % (30-34); Mean Corpuscular Volume 97 fl (79-97); Monocytes # (Auto) 1.1 K/mm3 (0.0-0.8); Monocytes % (Auto) 12.5 % (0.0-7.3); Platelet Count 122 K/mm3 (140-440); Red Blood Count 5.03 M/mm3 (3.65-5.03); Red Cell Distribution Width 13.2 % (13.2-15.2)
--- NOTE | 2020-11-07 07:56 | XRay Report ---
CHEST 1 VIEW 11/07/2020 6:43 AM INDICATION / CLINICAL INFORMATION: SOB. COMPARISON: 10/23/20. FINDINGS: SUPPORT DEVICES: None. HEART / MEDIASTINUM: There is mild cardiomegaly. LUNGS / PLEURA: There are patchy parenchymal opacities in both mid to lower lung zones which are fair ly symmetric. Disease may be slightly increased on the right compared to the prior study. No pneumoth orax. ADDITIONAL FINDINGS: No significant additional findings. IMPRESSION: Patchy parenchymal opacities in both mid to lower lung zones are again identified with pr obable slight increase on the right. The findings may be related to pneumonia or edema. Signer Name: Donald Florez MD Signed: 11/07/2020 7:52 AM Workstation Name: [id number]
--- NOTE | 2020-11-07 08:54 | Progress Note ---
Assessment and Plan - Patient Problems (1) Acute respiratory failure Current Visit: Yes Status: Acute (2) CHF exacerbation Current Visit: Yes Status: Acute (3) Hypoxia Current Visit: Yes Status: Acute (4) Pneumonia due to COVID-19 virus Current Visit: Yes Status: Acute (5) COPD (chronic obstructive pulmonary disease) Current Visit: Yes Status: Chronic (6) Diabetes mellitus Current Visit: Yes Status: Chronic (7) GERD (gastroesophageal reflux disease) Current Visit: Yes Status: Chronic (8) Hypertension Current Visit: Yes Status: Chronic Qualifiers: Hypertension type: primary hypertension Qualified Code(s): I10 - Essential (primary) hypertension (9) Obesity hypoventilation syndrome Current Visit: Yes Status: Chronic (10) Acute hypoxemic respiratory failure Current Visit: No Status: Acute Subjective Principal diagnosis: COVID-19 PNA Interval history: awake Objective Vital Signs - 12hr 11/06/20 11/06/20 11/06/20 21:31 22:00 22:04 Temperature 97.6 F Pulse Rate 88 88 Respiratory 18 Rate Blood Pressure 133/66 133/66 O2 Sat by Pulse 94 94 94 Oximetry 11/07/20 11/07/20 11/07/20 04:21 04:56 06:00 Temperature 98.2 F Pulse Rate 85 85 Respiratory 18 Rate Blood Pressure 138/74 138/74 O2 Sat by Pulse 93 95 Oximetry Constitutional: alert Eyes: non-icteric ENT: oropharynx moist Ascultation: Bilateral: diminished breath sounds Cardiovascular: regular rate and rhythm Gastrointestinal: normoactive bowel sounds, soft, non-tender CBC and BMP: 11/07/20 06:08 11/04/20 04:28 ABG, PT/INR, D-dimer: PT/INR, D-dimer D-Dimer 229.3 ng/mlDDU (0-234) 11/05/20 15:53 Abnormal lab findings: Abnormal Labs 10/23/20 10/23/20 10/23/20 17:31 20:38 20:38 WBC Hgb Hct MCH MCHC RDW Plt Count Lymph % (Auto) [place] % (Auto) Lymph # (Auto) [place] # (Auto) Seg Neutrophils % Seg Neutrophils # D-Dimer 919.44 H Sodium 136 L Potassium Chloride Carbon Dioxide BUN Glucose 149 H POC Glucose Ferritin AST ALT Lactate Dehydrogenase 606 H C-Reactive Protein 11.50 H Albumin Coronavirus (PCR) 10/23/20 10/24/20 10/24/20 20:38 08:00 08:07 WBC Hgb Hct MCH 33 H MCHC 35 H RDW Plt Count Lymph % (Auto) 9.9 L [place] % (Auto) 7.9 H Lymph # (Auto) 0.6 L [place] # (Auto) Seg Neutrophils % 82.1 H Seg Neutrophils # D-Dimer Sodium Potassium Chloride Carbon Dioxide BUN Glucose POC Glucose Ferritin AST ALT Lactate Dehydrogenase 643 H C-Reactive Protein 11.70 H Albumin Coronavirus (PCR) Positive A 10/24/20 10/25/20 10/26/20 08:07 16:13 21:32 WBC Hgb Hct MCH MCHC RDW Plt Count Lymph % (Auto) [place] % (Auto) Lymph # (Auto) [place] # (Auto) Seg Neutrophils % Seg Neutrophils # D-Dimer Sodium Potassium Chloride Carbon Dioxide BUN Glucose 173 H POC Glucose 180 H 213 H Ferritin AST ALT Lactate Dehydrogenase C-Reactive Protein Albumin Coronavirus (PCR) 10/27/20 10/27/20 10/27/20 07:54 11:56 13:47 WBC Hgb Hct MCH MCHC RDW Plt Count Lymph % (Auto) [place] % (Auto) Lymph # (Auto) [place] # (Auto) Seg Neutrophils % Seg Neutrophils # D-Dimer Sodium Potassium 3.3 L D Chloride Carbon Dioxide BUN 38 H Glucose 262 H POC Glucose 305 H 289 H Ferritin AST 155 H ALT 170 H Lactate Dehydrogenase C-Reactive Protein Albumin 3.4 L Coronavirus (PCR) 10/27/20 10/27/20 10/28/20 15:49 21:36 07:24 WBC Hgb Hct MCH MCHC RDW Plt Count Lymph % (Auto) [place] % (Auto) Lymph # (Auto) [place] # (Auto) Seg Neutrophils % Seg Neutrophils # D-Dimer Sodium Potassium Chloride Carbon Dioxide BUN 41 H Glucose 217 H POC Glucose 228 H 241 H Ferritin AST 116 H ALT 182 H Lactate Dehydrogenase C-Reactive Protein Albumin 3.7 L Coronavirus (PCR) 10/28/20 10/28/20 10/28/20 07:40 16:08 21:21 WBC Hgb Hct MCH MCHC RDW Plt Count Lymph % (Auto) [place] % (Auto) Lymph # (Auto) [place] # (Auto) Seg Neutrophils % Seg Neutrophils # D-Dimer Sodium Potassium Chloride Carbon Dioxide BUN Glucose POC Glucose 207 H 227 H 354 H Ferritin AST ALT Lactate Dehydrogenase C-Reactive Protein Albumin Coronavirus (PCR) 10/29/20 10/29/20 10/29/20 05:12 07:47 12:19 WBC Hgb Hct MCH MCHC RDW Plt Count Lymph % (Auto) [place] % (Auto) Lymph # (Auto) [place] # (Auto) Seg Neutrophils % Seg Neutrophils # D-Dimer Sodium Potassium Chloride Carbon Dioxide BUN 47 H Glucose 247 H POC Glucose 268 H 383 H Ferritin AST 102 H ALT 183 H Lactate Dehydrogenase C-Reactive Protein Albumin 3.1 L Coronavirus (PCR) 10/29/20 10/29/20 10/30/20 16:34 22:07 07:46 WBC Hgb Hct MCH MCHC RDW Plt Count Lymph % (Auto) [place] % (Auto) Lymph # (Auto) [place] # (Auto) Seg Neutrophils % Seg Neutrophils # D-Dimer Sodium Potassium Chloride Carbon Dioxide BUN 50 H Glucose 287 H POC Glucose 324 H 276 H Ferritin AST 71 H ALT 164 H Lactate Dehydrogenase 392 H C-Reactive Protein Albumin 3.2 L Coronavirus (PCR) 10/30/20 10/30/20 10/30/20 07:46 07:46 08:07 WBC Hgb Hct MCH MCHC RDW Plt Count Lymph % (Auto) [place] % (Auto) Lymph # (Auto) [place] # (Auto) Seg Neutrophils % Seg Neutrophils # D-Dimer 504.53 H Sodium Potassium Chloride Carbon Dioxide BUN Glucose POC Glucose 267 H Ferritin 1470.0 H AST ALT Lactate Dehydrogenase C-Reactive Protein Albumin Coronavirus (PCR) 10/30/20 10/30/20 10/30/20 12:39 17:14 21:42 WBC Hgb Hct MCH MCHC RDW Plt Count Lymph % (Auto) [place] % (Auto) Lymph # (Auto) [place] # (Auto) Seg Neutrophils % Seg Neutrophils # D-Dimer Sodium Potassium Chloride Carbon Dioxide BUN Glucose POC Glucose 332 H 301 H 371 H Ferritin AST ALT Lactate Dehydrogenase C-Reactive Protein Albumin Coronavirus (PCR) 10/31/20 10/31/20 10/31/20 07:52 11:42 16:12 WBC Hgb Hct MCH MCHC RDW Plt Count Lymph % (Auto) [place] % (Auto) Lymph # (Auto) [place] # (Auto) Seg Neutrophils % Seg Neutrophils # D-Dimer Sodium Potassium Chloride Carbon Dioxide BUN Glucose POC Glucose 303 H 387 H 343 H Ferritin AST ALT Lactate Dehydrogenase C-Reactive Protein Albumin Coronavirus (PCR) 10/31/20 11/01/20 11/01/20 21:35 07:34 11:22 WBC Hgb Hct MCH MCHC RDW Plt Count Lymph % (Auto) [place] % (Auto) Lymph # (Auto) [place] # (Auto) Seg Neutrophils % Seg Neutrophils # D-Dimer Sodium Potassium Chloride Carbon Dioxide BUN Glucose POC Glucose 359 H 325 H 442 H Ferritin AST ALT Lactate Dehydrogenase C-Reactive Protein Albumin Coronavirus (PCR) 11/01/20 11/01/20 11/02/20 16:30 22:12 04:38 WBC 12.4 H Hgb 14.8 H Hct 44.1 H MCH MCHC RDW 13.0 L Plt Count Lymph % (Auto) 3.3 L [place] % (Auto) 9.3 H Lymph # (Auto) 0.4 L [place] # (Auto) 1.2 H Seg Neutrophils % 87.2 H Seg Neutrophils # 10.9 H D-Dimer Sodium Potassium Chloride Carbon Dioxide BUN Glucose POC Glucose 378 H 395 H Ferritin AST ALT Lactate Dehydrogenase C-Reactive Protein Albumin Coronavirus (PCR) 11/02/20 11/02/20 11/02/20 04:38 07:40 12:09 WBC Hgb Hct MCH MCHC RDW Plt Count Lymph % (Auto) [place] % (Auto) Lymph # (Auto) [place] # (Auto) Seg Neutrophils % Seg Neutrophils # D-Dimer Sodium Potassium Chloride Carbon Dioxide 32 H BUN 48 H Glucose 304 H POC Glucose 280 H 422 H Ferritin AST ALT Lactate Dehydrogenase C-Reactive Protein Albumin Coronavirus (PCR) 11/02/20 11/02/20 11/03/20 16:10 21:30 08:01 WBC Hgb Hct MCH MCHC RDW Plt Count Lymph % (Auto) [place] % (Auto) Lymph # (Auto) [place] # (Auto) Seg Neutrophils % Seg Neutrophils # D-Dimer Sodium Potassium Chloride Carbon Dioxide BUN Glucose POC Glucose 367 H 380 H 336 H Ferritin AST ALT Lactate Dehydrogenase C-Reactive Protein Albumin Coronavirus (PCR) 11/03/20 11/03/20 11/03/20 12:21 15:56 21:17 WBC Hgb Hct MCH MCHC RDW Plt Count Lymph % (Auto) [place] % (Auto) Lymph # (Auto) [place] # (Auto) Seg Neutrophils % Seg Neutrophils # D-Dimer Sodium Potassium Chloride Carbon Dioxide BUN Glucose POC Glucose 352 H 312 H 307 H Ferritin AST ALT Lactate Dehydrogenase C-Reactive Protein Albumin Coronavirus (PCR) 11/04/20 11/04/20 11/04/20 04:28 07:57 11:43 WBC Hgb Hct MCH MCHC RDW Plt Count Lymph % (Auto) [place] % (Auto) Lymph # (Auto) [place] # (Auto) Seg Neutrophils % Seg Neutrophils # D-Dimer Sodium Potassium Chloride 95.6 L Carbon Dioxide 33 H BUN 52 H Glucose 307 H POC Glucose 287 H 321 H Ferritin AST ALT Lactate Dehydrogenase C-Reactive Protein Albumin Coronavirus (PCR) 11/04/20 11/04/20 11/05/20 16:23 22:30 07:49 WBC Hgb Hct MCH MCHC RDW Plt Count Lymph % (Auto) [place] % (Auto) Lymph # (Auto) [place] # (Auto) Seg Neutrophils % Seg Neutrophils # D-Dimer Sodium Potassium Chloride Carbon Dioxide BUN Glucose POC Glucose 345 H 285 H 269 H Ferritin AST ALT Lactate Dehydrogenase C-Reactive Protein Albumin Coronavirus (PCR) 11/05/20 11/05/20 11/05/20 11:43 15:53 15:53 WBC Hgb Hct MCH MCHC RDW Plt Count Lymph % (Auto) [place] % (Auto) Lymph # (Auto) [place] # (Auto) Seg Neutrophils % Seg Neutrophils # D-Dimer Sodium Potassium Chloride Carbon Dioxide BUN Glucose POC Glucose 349 H Ferritin 2889.0 H AST ALT Lactate Dehydrogenase 345 H C-Reactive Protein Albumin Coronavirus (PCR) 11/05/20 11/05/20 11/06/20 16:10 22:22 07:29 WBC Hgb Hct MCH MCHC RDW Plt Count Lymph % (Auto) [place] % (Auto) Lymph # (Auto) [place] # (Auto) Seg Neutrophils % Seg Neutrophils # D-Dimer Sodium Potassium Chloride Carbon Dioxide BUN Glucose POC Glucose 311 H 264 H 216 H Ferritin AST ALT Lactate Dehydrogenase C-Reactive Protein Albumin Coronavirus (PCR) 11/06/20 11/06/20 11/06/20 11:04 16:37 21:58 WBC Hgb Hct MCH MCHC RDW Plt Count Lymph % (Auto) [place] % (Auto) Lymph # (Auto) [place] # (Auto) Seg Neutrophils % Seg Neutrophils # D-Dimer Sodium Potassium Chloride Carbon Dioxide BUN Glucose POC Glucose 363 H 247 H 279 H Ferritin AST ALT Lactate Dehydrogenase C-Reactive Protein Albumin Coronavirus (PCR) 11/07/20 11/07/20 06:08 07:39 WBC Hgb 16.1 H Hct 48.6 H MCH MCHC RDW Plt Count 122 L Lymph % (Auto) 7.7 L [place] % (Auto) 12.5 H Lymph # (Auto) 0.7 L [place] # (Auto) 1.1 H Seg Neutrophils % 79.6 H Seg Neutrophils # D-Dimer Sodium Potassium Chloride Carbon Dioxide BUN Glucose POC Glucose 194 H Ferritin AST ALT Lactate Dehydrogenase C-Reactive Protein Albumin Coronavirus (PCR) Allied health notes reviewed: nursing
[2020-11-07] MEDS: INSULIN LISPRO 100 UNIT/ML SUB-Q SCH ×3 (08:58→18:28)
[2020-11-07] MEDS: INSULIN GLARGINE 100 UNITS/ML SUB-Q SCH ×2 (09:04→18:29)
[2020-11-07 09:58] LABS: BUN/Creatinine Ratio 69; Blood Urea Nitrogen 62 mg/dL (7-17); Calcium 9.5 mg/dL (8.4-10.2); Hemolysis Index 10
--- NOTE | 2020-11-07 11:34 | Progress Note ---
Assessment and Plan -- Acute respiratory failure Due to COVID-19 pneumonia and underlying morbid obesity Supplemental O2 and inhaler as needed -- Pneumonia due to COVID-19 virus Continue empiric steroid, status post remdesivir, Completed Tocilizumab on 021, Completed ceftriaxone Supplemental O2, ID and pulmonary care on board -- COPD (chronic obstructive pulmonary disease) with exacerbation Continue empiric steroid, inhalers and supplemental O2 -- Hypertension Monitor BP and adjust meds as needed -- Diabetes mellitus, uncontrolled Consistent carb diet, continue SSI and Lantus Adjust insulin dose for better glycemic control -- GERD (gastroesophageal reflux disease) Continue PPI --Morbid obesity Dietary and exercise recommendation as outpatient when clinically more stable and appropriate --Leukocytosis, due to steroid --DVT prophylaxis, Daily clinical course: 10/31/20: Remains on high flow O2, continue to monitor inflammatory markers, pulmonary on board. Guarded prognosis. 11/01/20: Patient remains on 40 L high flow O2. Continue to monitor clinically with supportive care, follow inflammatory markers, blood glucose significantly elevated, will add long-acting insulin. Reduce steroids dose to 40 mg every 8 hours. guarded prognosis. 11/02/20: Patient on 20 L and 60% FiO2 today. Continue to wean off O2 as tolerated. Follow inflammatory markers 11/03/20: Remains on high flow O2-30L today, guarded prognosis, wean off as tolerated. 11/04/20: Guarded prognosis, remains on high flow O2 30 L with 70% FiO2. Continue to follow inflammatory markers, ID and pulmonary critical care following. 11/05/20; Remains on 30L O2, unable to wean off, gurded prognosis. follow clinically. Continue to adjust insulin doses for better glycemic control. 11/06/20: Remains on high flow O2, BG improved, cont to adjust insulin doses. Patient is getting very frustrated and anxious and desperately wants to go home. I explained to her with the nurse in lengthy discussion that she is still requiring high flow O2 and not stable enough to go home. She finally verbalized understanding. 11/07/20; still remains on high flow, unable to wean off, guarded prognosis. cont to follow Subjective Date of service: 11/07/20 Principal diagnosis: COVID-19 PNA Interval history: Patient seen and examined. Medical records and medication list reviewed. No acute event overnight noted by the RN. Patient remains on high flow O2, Discussed plan of care at bedside with patient. Objective - Exam Narrative Exam: Limited physical exam due to COVID-19 pandemic to minimize transmission of the disease and to preserve PPE. Vital reviewed and stable. GENERAL: well-developed morbidly obese -[place] female lying on bed appeared to be in no discomfort. HEENT: Normocephalic. Atraumatic. NECK: Supple. CHEST/LUNGS: breathing on high flow O2 HEART/CARDIOVASCULAR: Heart rate stable on telemetry ABDOMEN: Visibly not distended SKIN: There is no rash NEURO: No focal motor deficit. Follows command. MUSCULOSKELETAL: No joint effusion EXTRIMITY: No swelling, no cyanosis or clubbing. PSYCH: Cooperative. - Constitutional Vitals: Vital Signs - 12hr 11/07/20 11/07/20 11/07/20 04:21 04:56 06:00 Temperature 98.2 F Pulse Rate 85 85 Respiratory 18 Rate Blood Pressure 138/74 138/74 O2 Sat by Pulse 93 95 Oximetry 11/07/20 09:17 Temperature Pulse Rate Respiratory Rate Blood Pressure O2 Sat by Pulse 95 Oximetry - Labs CBC & Chem 7: 11/07/20 06:08 11/07/20 09:00 Labs: Abnormal lab results 11/06/20 11/06/20 11/07/20 Range/Units 16:37 21:58 06:08 Hgb 16.1 H (10.1-14.3) gm/dl Hct 48.6 H (30.3-42.9) % Plt Count 122 L (140-440) K/mm3 Lymph % (Auto) 7.7 L (13.4-35.0) % [place] % (Auto) 12.5 H (0.0-7.3) % Lymph # (Auto) 0.7 L (1.2-5.4) K/mm3 [place] # (Auto) 1.1 H (0.0-0.8) K/mm3 Seg Neutrophils % 79.6 H (40.0-70.0) % Carbon Dioxide (22-30) mmol/L BUN (7-17) mg/dL Glucose (65-100) mg/dL POC Glucose 247 H 279 H (70-105) mg/dL 11/07/20 11/07/20 Range/Units 07:39 09:00 Hgb (10.1-14.3) gm/dl Hct (30.3-42.9) % Plt Count (140-440) K/mm3 Lymph % (Auto) (13.4-35.0) % [place] % (Auto) (0.0-7.3) % Lymph # (Auto) (1.2-5.4) K/mm3 [place] # (Auto) (0.0-0.8) K/mm3 Seg Neutrophils % (40.0-70.0) % Carbon Dioxide 33 H (22-30) mmol/L BUN 62 H (7-17) mg/dL Glucose 279 H (65-100) mg/dL POC Glucose 194 H (70-105) mg/dL HEART Score - HEART Score Troponin: Troponin T < 0.010 ng/mL (0.00-0.029) 10/23/20 17:31
[2020-11-07] MEDS: CHOLECALCIFEROL (VIT D3) 1000 UNIT (25 mcg) TAB PO SCH (12:39)
[2020-11-07] MEDS: ASCORBIC ACID 500 MG TAB PO SCH (12:39)
[2020-11-07] MEDS: ZINC SULFATE 220 MG CAP PO SCH (12:41)
[2020-11-07] MEDS: amLODIPine 10 MG TAB PO SCH (13:26)
[2020-11-07] MEDS: LISINOPRIL 40 MG TAB PO SCH (13:27)
[2020-11-07] MEDS: HEPARIN 5,000 UNIT/1 ML VIAL SUB-Q SCH (13:29)
[2020-11-07] MEDS: TIOTROPIUM 18 MCG CAP INHALATION IH SCH (18:24)
[2020-11-07] MEDS: PRAVASTATIN 80 MG TAB PO SCH (22:00)
[2020-11-08] MEDS: methylPREDNISolone Sod Succinate 40 MG/1 ML INJ IV SCH ×3 (06:00→22:16)
[2020-11-08] MEDS: FUROSEMIDE 40 MG/4 ML INJ IV SCH ×2 (06:00→20:01)
[2020-11-08] MEDS: INSULIN GLARGINE 100 UNITS/ML SUB-Q SCH ×2 (09:14→20:01)
[2020-11-08] MEDS: INSULIN LISPRO 100 UNIT/ML SUB-Q SCH ×5 (09:17→22:36)
--- NOTE | 2020-11-08 11:30 | Progress Note ---
Assessment and Plan - Patient Problems (1) Acute respiratory failure Current Visit: Yes Status: Acute (2) CHF exacerbation Current Visit: Yes Status: Acute (3) Hypoxia Current Visit: Yes Status: Acute (4) Pneumonia due to COVID-19 virus Current Visit: Yes Status: Acute (5) COPD (chronic obstructive pulmonary disease) Current Visit: Yes Status: Chronic (6) Diabetes mellitus Current Visit: Yes Status: Chronic (7) GERD (gastroesophageal reflux disease) Current Visit: Yes Status: Chronic (8) Hypertension Current Visit: Yes Status: Chronic Qualifiers: Hypertension type: primary hypertension Qualified Code(s): I10 - Essential (primary) hypertension (9) Obesity hypoventilation syndrome Current Visit: Yes Status: Chronic (10) Acute hypoxemic respiratory failure Current Visit: No Status: Acute Subjective Principal diagnosis: COVID-19 PNA Interval history: wants to go home Objective Vital Signs - 12hr 11/08/20 11/08/20 11/08/20 00:00 05:28 08:00 Temperature 98.4 F 98.0 F Pulse Rate 84 79 Respiratory 20 20 Rate Blood Pressure 150/76 Blood Pressure 143/68 [Left] O2 Sat by Pulse 92 97 50 L Oximetry Constitutional: alert Eyes: non-icteric ENT: oropharynx moist Ascultation: Bilateral: diminished breath sounds Cardiovascular: regular rate and rhythm Gastrointestinal: normoactive bowel sounds, soft, non-tender CBC and BMP: 11/07/20 06:08 11/07/20 09:00 ABG, PT/INR, D-dimer: PT/INR, D-dimer D-Dimer 229.3 ng/mlDDU (0-234) 11/05/20 15:53 Abnormal lab findings: Abnormal Labs 10/23/20 10/23/20 10/23/20 17:31 20:38 20:38 WBC Hgb Hct MCH MCHC RDW Plt Count Lymph % (Auto) Hunt % (Auto) Lymph # (Auto) Hunt # (Auto) Seg Neutrophils % Seg Neutrophils # D-Dimer 919.44 H Sodium 136 L Potassium Chloride Carbon Dioxide BUN Glucose 149 H POC Glucose Ferritin AST ALT Lactate Dehydrogenase 606 H C-Reactive Protein 11.50 H Albumin Coronavirus (PCR) 10/23/20 10/24/20 10/24/20 20:38 08:00 08:07 WBC Hgb Hct MCH 33 H MCHC 35 H RDW Plt Count Lymph % (Auto) 9.9 L Hunt % (Auto) 7.9 H Lymph # (Auto) 0.6 L Hunt # (Auto) Seg Neutrophils % 82.1 H Seg Neutrophils # D-Dimer Sodium Potassium Chloride Carbon Dioxide BUN Glucose POC Glucose Ferritin AST ALT Lactate Dehydrogenase 643 H C-Reactive Protein 11.70 H Albumin Coronavirus (PCR) Positive A 10/24/20 10/25/20 10/26/20 08:07 16:13 21:32 WBC Hgb Hct MCH MCHC RDW Plt Count Lymph % (Auto) Hunt % (Auto) Lymph # (Auto) Hunt # (Auto) Seg Neutrophils % Seg Neutrophils # D-Dimer Sodium Potassium Chloride Carbon Dioxide BUN Glucose 173 H POC Glucose 180 H 213 H Ferritin AST ALT Lactate Dehydrogenase C-Reactive Protein Albumin Coronavirus (PCR) 10/27/20 10/27/20 10/27/20 07:54 11:56 13:47 WBC Hgb Hct MCH MCHC RDW Plt Count Lymph % (Auto) Hunt % (Auto) Lymph # (Auto) Hunt # (Auto) Seg Neutrophils % Seg Neutrophils # D-Dimer Sodium Potassium 3.3 L D Chloride Carbon Dioxide BUN 38 H Glucose 262 H POC Glucose 305 H 289 H Ferritin AST 155 H ALT 170 H Lactate Dehydrogenase C-Reactive Protein Albumin 3.4 L Coronavirus (PCR) 10/27/20 10/27/20 10/28/20 15:49 21:36 07:24 WBC Hgb Hct MCH MCHC RDW Plt Count Lymph % (Auto) Hunt % (Auto) Lymph # (Auto) Hunt # (Auto) Seg Neutrophils % Seg Neutrophils # D-Dimer Sodium Potassium Chloride Carbon Dioxide BUN 41 H Glucose 217 H POC Glucose 228 H 241 H Ferritin AST 116 H ALT 182 H Lactate Dehydrogenase C-Reactive Protein Albumin 3.7 L Coronavirus (PCR) 10/28/20 10/28/20 10/28/20 07:40 16:08 21:21 WBC Hgb Hct MCH MCHC RDW Plt Count Lymph % (Auto) Hunt % (Auto) Lymph # (Auto) Hunt # (Auto) Seg Neutrophils % Seg Neutrophils # D-Dimer Sodium Potassium Chloride Carbon Dioxide BUN Glucose POC Glucose 207 H 227 H 354 H Ferritin AST ALT Lactate Dehydrogenase C-Reactive Protein Albumin Coronavirus (PCR) 10/29/20 10/29/20 10/29/20 05:12 07:47 12:19 WBC Hgb Hct MCH MCHC RDW Plt Count Lymph % (Auto) Hunt % (Auto) Lymph # (Auto) Hunt # (Auto) Seg Neutrophils % Seg Neutrophils # D-Dimer Sodium Potassium Chloride Carbon Dioxide BUN 47 H Glucose 247 H POC Glucose 268 H 383 H Ferritin AST 102 H ALT 183 H Lactate Dehydrogenase C-Reactive Protein Albumin 3.1 L Coronavirus (PCR) 10/29/20 10/29/20 10/30/20 16:34 22:07 07:46 WBC Hgb Hct MCH MCHC RDW Plt Count Lymph % (Auto) Hunt % (Auto) Lymph # (Auto) Hunt # (Auto) Seg Neutrophils % Seg Neutrophils # D-Dimer Sodium Potassium Chloride Carbon Dioxide BUN 50 H Glucose 287 H POC Glucose 324 H 276 H Ferritin AST 71 H ALT 164 H Lactate Dehydrogenase 392 H C-Reactive Protein Albumin 3.2 L Coronavirus (PCR) 10/30/20 10/30/20 10/30/20 07:46 07:46 08:07 WBC Hgb Hct MCH MCHC RDW Plt Count Lymph % (Auto) Hunt % (Auto) Lymph # (Auto) Hunt # (Auto) Seg Neutrophils % Seg Neutrophils # D-Dimer 504.53 H Sodium Potassium Chloride Carbon Dioxide BUN Glucose POC Glucose 267 H Ferritin 1470.0 H AST ALT Lactate Dehydrogenase C-Reactive Protein Albumin Coronavirus (PCR) 10/30/20 10/30/20 10/30/20 12:39 17:14 21:42 WBC Hgb Hct MCH MCHC RDW Plt Count Lymph % (Auto) Hunt % (Auto) Lymph # (Auto) Hunt # (Auto) Seg Neutrophils % Seg Neutrophils # D-Dimer Sodium Potassium Chloride Carbon Dioxide BUN Glucose POC Glucose 332 H 301 H 371 H Ferritin AST ALT Lactate Dehydrogenase C-Reactive Protein Albumin Coronavirus (PCR) 10/31/20 10/31/20 10/31/20 07:52 11:42 16:12 WBC Hgb Hct MCH MCHC RDW Plt Count Lymph % (Auto) Hunt % (Auto) Lymph # (Auto) Hunt # (Auto) Seg Neutrophils % Seg Neutrophils # D-Dimer Sodium Potassium Chloride Carbon Dioxide BUN Glucose POC Glucose 303 H 387 H 343 H Ferritin AST ALT Lactate Dehydrogenase C-Reactive Protein Albumin Coronavirus (PCR) 10/31/20 11/01/20 11/01/20 21:35 07:34 11:22 WBC Hgb Hct MCH MCHC RDW Plt Count Lymph % (Auto) Hunt % (Auto) Lymph # (Auto) Hunt # (Auto) Seg Neutrophils % Seg Neutrophils # D-Dimer Sodium Potassium Chloride Carbon Dioxide BUN Glucose POC Glucose 359 H 325 H 442 H Ferritin AST ALT Lactate Dehydrogenase C-Reactive Protein Albumin Coronavirus (PCR) 11/01/20 11/01/20 11/02/20 16:30 22:12 04:38 WBC 12.4 H Hgb 14.8 H Hct 44.1 H MCH MCHC RDW 13.0 L Plt Count Lymph % (Auto) 3.3 L Hunt % (Auto) 9.3 H Lymph # (Auto) 0.4 L Hunt # (Auto) 1.2 H Seg Neutrophils % 87.2 H Seg Neutrophils # 10.9 H D-Dimer Sodium Potassium Chloride Carbon Dioxide BUN Glucose POC Glucose 378 H 395 H Ferritin AST ALT Lactate Dehydrogenase C-Reactive Protein Albumin Coronavirus (PCR) 11/02/20 11/02/20 11/02/20 04:38 07:40 12:09 WBC Hgb Hct MCH MCHC RDW Plt Count Lymph % (Auto) Hunt % (Auto) Lymph # (Auto) Hunt # (Auto) Seg Neutrophils % Seg Neutrophils # D-Dimer Sodium Potassium Chloride Carbon Dioxide 32 H BUN 48 H Glucose 304 H POC Glucose 280 H 422 H Ferritin AST ALT Lactate Dehydrogenase C-Reactive Protein Albumin Coronavirus (PCR) 11/02/20 11/02/20 11/03/20 16:10 21:30 08:01 WBC Hgb Hct MCH MCHC RDW Plt Count Lymph % (Auto) Hunt % (Auto) Lymph # (Auto) Hunt # (Auto) Seg Neutrophils % Seg Neutrophils # D-Dimer Sodium Potassium Chloride Carbon Dioxide BUN Glucose POC Glucose 367 H 380 H 336 H Ferritin AST ALT Lactate Dehydrogenase C-Reactive Protein Albumin Coronavirus (PCR) 11/03/20 11/03/20 11/03/20 12:21 15:56 21:17 WBC Hgb Hct MCH MCHC RDW Plt Count Lymph % (Auto) Hunt % (Auto) Lymph # (Auto) Hunt # (Auto) Seg Neutrophils % Seg Neutrophils # D-Dimer Sodium Potassium Chloride Carbon Dioxide BUN Glucose POC Glucose 352 H 312 H 307 H Ferritin AST ALT Lactate Dehydrogenase C-Reactive Protein Albumin Coronavirus (PCR) 09/11/04/20 11/04/20 04:28 07:57 11:43 WBC Hgb Hct MCH MCHC RDW Plt Count Lymph % (Auto) Hunt % (Auto) Lymph # (Auto) Hunt # (Auto) Seg Neutrophils % Seg Neutrophils # D-Dimer Sodium Potassium Chloride 95.6 L Carbon Dioxide 33 H BUN 52 H Glucose 307 H POC Glucose 287 H 321 H Ferritin AST ALT Lactate Dehydrogenase C-Reactive Protein Albumin Coronavirus (PCR) 11/04/20 11/04/20 11/05/20 16:23 22:30 07:49 WBC Hgb Hct MCH MCHC RDW Plt Count Lymph % (Auto) Hunt % (Auto) Lymph # (Auto) Hunt # (Auto) Seg Neutrophils % Seg Neutrophils # D-Dimer Sodium Potassium Chloride Carbon Dioxide BUN Glucose POC Glucose 345 H 285 H 269 H Ferritin AST ALT Lactate Dehydrogenase C-Reactive Protein Albumin Coronavirus (PCR) 11/05/20 11/05/20 11/05/20 11:43 15:53 15:53 WBC Hgb Hct MCH MCHC RDW Plt Count Lymph % (Auto) Hunt % (Auto) Lymph # (Auto) Hunt # (Auto) Seg Neutrophils % Seg Neutrophils # D-Dimer Sodium Potassium Chloride Carbon Dioxide BUN Glucose POC Glucose 349 H Ferritin 2889.0 H AST ALT Lactate Dehydrogenase 345 H C-Reactive Protein Albumin Coronavirus (PCR) 11/05/20 11/05/20 11/06/20 16:10 22:22 07:29 WBC Hgb Hct MCH MCHC RDW Plt Count Lymph % (Auto) Hunt % (Auto) Lymph # (Auto) Hunt # (Auto) Seg Neutrophils % Seg Neutrophils # D-Dimer Sodium Potassium Chloride Carbon Dioxide BUN Glucose POC Glucose 311 H 264 H 216 H Ferritin AST ALT Lactate Dehydrogenase C-Reactive Protein Albumin Coronavirus (PCR) 11/06/20 11/06/20 11/06/20 11:04 16:37 21:58 WBC Hgb Hct MCH MCHC RDW Plt Count Lymph % (Auto) Hunt % (Auto) Lymph # (Auto) Hunt # (Auto) Seg Neutrophils % Seg Neutrophils # D-Dimer Sodium Potassium Chloride Carbon Dioxide BUN Glucose POC Glucose 363 H 247 H 279 H Ferritin AST ALT Lactate Dehydrogenase C-Reactive Protein Albumin Coronavirus (PCR) 11/07/20 11/07/20 11/07/20 06:08 07:39 09:00 WBC Hgb 16.1 H Hct 48.6 H MCH MCHC RDW Plt Count 122 L Lymph % (Auto) 7.7 L Hunt % (Auto) 12.5 H Lymph # (Auto) 0.7 L Hunt # (Auto) 1.1 H Seg Neutrophils % 79.6 H Seg Neutrophils # D-Dimer Sodium Potassium Chloride Carbon Dioxide 33 H BUN 62 H Glucose 279 H POC Glucose 194 H Ferritin AST ALT Lactate Dehydrogenase C-Reactive Protein Albumin Coronavirus (PCR) 11/07/20 11/07/20 11/07/20 12:43 17:26 21:54 WBC Hgb Hct MCH MCHC RDW Plt Count Lymph % (Auto) Hunt % (Auto) Lymph # (Auto) Hunt # (Auto) Seg Neutrophils % Seg Neutrophils # D-Dimer Sodium Potassium Chloride Carbon Dioxide BUN Glucose POC Glucose 338 H 251 H 255 H Ferritin AST ALT Lactate Dehydrogenase C-Reactive Protein Albumin Coronavirus (PCR) 11/08/20 07:42 WBC Hgb Hct MCH MCHC RDW Plt Count Lymph % (Auto) Hunt % (Auto) Lymph # (Auto) Hunt # (Auto) Seg Neutrophils % Seg Neutrophils # D-Dimer Sodium Potassium Chloride Carbon Dioxide BUN Glucose POC Glucose 251 H Ferritin AST ALT Lactate Dehydrogenase C-Reactive Protein Albumin Coronavirus (PCR) Chest x-ray: report reviewed, image reviewed Allied health notes reviewed: nursing
[2020-11-08] MEDS: HEPARIN 5,000 UNIT/1 ML VIAL SUB-Q SCH ×3 (13:04→22:17)
[2020-11-08] MEDS: ASCORBIC ACID 500 MG TAB PO SCH ×2 (13:05→22:18)
[2020-11-08] MEDS: CHOLECALCIFEROL (VIT D3) 1000 UNIT (25 mcg) TAB PO SCH (13:05)
[2020-11-08] MEDS: ZINC SULFATE 220 MG CAP PO SCH ×3 (13:06→22:21)
[2020-11-08] MEDS: hydrALAZINE 25 MG TAB PO SCH ×3 (13:13→16:06)
[2020-11-08] MEDS: LISINOPRIL 40 MG TAB PO SCH (13:14)
[2020-11-08] MEDS: amLODIPine 10 MG TAB PO SCH (13:14)
[2020-11-08] MEDS: TIOTROPIUM 18 MCG CAP INHALATION IH SCH (13:26)
--- NOTE | 2020-11-08 15:49 | Progress Note ---
Assessment and Plan -- Acute respiratory failure Due to COVID-19 pneumonia and underlying morbid obesity Supplemental O2 and inhaler as needed -- Pneumonia due to COVID-19 virus Continue empiric steroid, status post remdesivir, Completed Tocilizumab on 021, Completed ceftriaxone Supplemental O2, ID and pulmonary care on board -- COPD (chronic obstructive pulmonary disease) with exacerbation Continue empiric steroid, inhalers and supplemental O2 -- Hypertension Monitor BP and adjust meds as needed -- Diabetes mellitus, uncontrolled Consistent carb diet, continue SSI and Lantus Adjust insulin dose for better glycemic control -- GERD (gastroesophageal reflux disease) Continue PPI --Morbid obesity Dietary and exercise recommendation as outpatient when clinically more stable and appropriate --Leukocytosis, due to steroid --DVT prophylaxis, Daily clinical course: 10/31/20: Remains on high flow O2, continue to monitor inflammatory markers, pulmonary on board. Guarded prognosis. 11/01/20: Patient remains on 40 L high flow O2. Continue to monitor clinically with supportive care, follow inflammatory markers, blood glucose significantly elevated, will add long-acting insulin. Reduce steroids dose to 40 mg every 8 hours. guarded prognosis. 11/02/20: Patient on 20 L and 60% FiO2 today. Continue to wean off O2 as tolerated. Follow inflammatory markers 11/03/20: Remains on high flow O2-30L today, guarded prognosis, wean off as tolerated. 11/04/20: Guarded prognosis, remains on high flow O2 30 L with 70% FiO2. Continue to follow inflammatory markers, ID and pulmonary critical care following. 11/05/20; Remains on 30L O2, unable to wean off, gurded prognosis. follow clinically. Continue to adjust insulin doses for better glycemic control. 11/06/20: Remains on high flow O2, BG improved, cont to adjust insulin doses. Patient is getting very frustrated and anxious and desperately wants to go home. I explained to her with the nurse in lengthy discussion that she is still requiring high flow O2 and not stable enough to go home. She finally verbalized understanding. 11/07/20; still remains on high flow, unable to wean off, guarded prognosis. cont to follow 11/08/20: Discussed with RT, will try to wean off to nasal cannula O2. Patient remains on high flow O2, Becoming very frustrated and anxious. Explained in details with RN at the bedside. Guarded prognosis. Continue to follow inflammatory markers. Subjective Date of service: 11/08/20 Principal diagnosis: COVID-19 PNA Interval history: Patient seen and examined. Medical records and medication list reviewed. No acute event overnight noted by the RN. Patient remains on high flow O2, Discussed plan of care at bedside with patient. Objective - Exam Narrative Exam: Limited physical exam due to COVID-19 pandemic to minimize transmission of the disease and to preserve PPE. Vital reviewed and stable. GENERAL: well-developed morbidly obese -[place] female lying on bed appeared to be in no discomfort. HEENT: Normocephalic. Atraumatic. NECK: Supple. CHEST/LUNGS: breathing on high flow O2 HEART/CARDIOVASCULAR: Heart rate stable on telemetry ABDOMEN: Visibly not distended SKIN: There is no rash NEURO: No focal motor deficit. Follows command. MUSCULOSKELETAL: No joint effusion EXTRIMITY: No swelling, no cyanosis or clubbing. PSYCH: Cooperative. - Constitutional Vitals: Vital Signs - 12hr 11/08/20 11/08/20 11/08/20 05:28 08:00 12:09 Temperature 98.0 F 97.9 F Pulse Rate 79 95 H Respiratory 20 24 Rate Blood Pressure 150/76 129/31 O2 Sat by Pulse 97 50 L 93 Oximetry 11/08/20 11/08/20 13:13 13:14 Temperature Pulse Rate 95 H 95 H Respiratory Rate Blood Pressure 129/31 129/31 O2 Sat by Pulse Oximetry - Labs CBC & Chem 7: 11/07/20 06:08 11/07/20 09:00 Labs: Abnormal lab results 11/07/20 11/07/20 11/08/20 Range/Units 17:26 21:54 07:42 POC Glucose 251 H 255 H 251 H (70-105) mg/dL 11/08/20 Range/Units 12:15 POC Glucose 320 H (70-105) mg/dL HEART Score - HEART Score Troponin: Troponin T < 0.010 ng/mL (0.00-0.029) 10/23/20 17:31
[2020-11-08] MEDS: PRAVASTATIN 80 MG TAB PO SCH (22:13)
[2020-11-09] MEDS: hydrALAZINE 25 MG TAB PO SCH ×4 (00:33→22:37)
[2020-11-09] MEDS: methylPREDNISolone Sod Succinate 40 MG/1 ML INJ IV SCH ×3 (06:40→22:37)
[2020-11-09] MEDS: FUROSEMIDE 40 MG/4 ML INJ IV SCH ×2 (06:41→17:48)
[2020-11-09] MEDS: INSULIN LISPRO 100 UNIT/ML SUB-Q SCH ×4 (07:30→22:45)
[2020-11-09] MEDS: TIOTROPIUM 18 MCG CAP INHALATION IH SCH (09:01)
[2020-11-09] MEDS: ZINC SULFATE 220 MG CAP PO SCH ×2 (09:06→22:37)
[2020-11-09] MEDS: CHOLECALCIFEROL (VIT D3) 1000 UNIT (25 mcg) TAB PO SCH (09:06)
[2020-11-09] MEDS: ASCORBIC ACID 500 MG TAB PO SCH ×2 (09:06→22:36)
[2020-11-09] MEDS: LISINOPRIL 40 MG TAB PO SCH (09:06)
[2020-11-09] MEDS: amLODIPine 10 MG TAB PO SCH (09:06)
[2020-11-09] MEDS: INSULIN GLARGINE 100 UNITS/ML SUB-Q SCH ×2 (10:00→18:40)
[2020-11-09] MEDS: HEPARIN 5,000 UNIT/1 ML VIAL SUB-Q SCH ×2 (10:25→22:37)
--- NOTE | 2020-11-09 15:00 | Progress Note ---
Assessment and Plan Cultures: Covid PCR: Positive A/P: 69-year-old female past medical history hypertension, diabetes, COPD, morbid obesity admitted with COVID #COVID-19 pneumonia: Patient presented with a week of symptoms, chest x-ray with diffuse bilateral infiltrates, admission O2 sats 79% on room air. Inflammatory markers all improving. #Acute hypoxemic respiratory failure: Improving now on salter 10L. #COPD with exacerbation #Morbid obesity: Associated with worse outcomes. #DM2: Poorly controlled with hyperglycemia. #Leukocytosis: From steroids Recommendations: -Steroids per pulmonary -Completed remdesivir -Completed Tocilizumab on 10/29/2020 -Completed ceftriaxone -Anticoagulation per hospital protocol -Proning as able We will sign off please call us for questions Elizabeth Shepard MD [facility] ([facility]) Office [phone] Subjective Date of service: 11/09/20 Principal diagnosis: COVID-19 PNA Interval history: Patient is now on salter 10 L. No desaturation. No fever. Objective - Exam Narrative Exam: Physical exam deferred to minimize COVID-19 transmission during pandemic. - Constitutional Vitals: Vital Signs Temp Pulse Resp BP Pulse Ox 98.3 F 89 19 129/68 96 11/09/20 11:25 11/09/20 11:25 11/09/20 11:25 11/09/20 11:25 11/09/20 11:25 Temperature -Last 24 Hours Temperature 98.3 F Temperature 97.4 F Temperature 98.2 F Temperature 98.7 F - Labs CBC & Chem 7: 11/07/20 06:08 11/07/20 09:00 Labs: Abnormal lab results 11/08/20 11/09/20 11/09/20 Range/Units 21:37 07:52 11:22 POC Glucose 316 H 246 H 257 H (70-105) mg/dL
--- NOTE | 2020-11-09 15:02 | Progress Note ---
Assessment and Plan 69 y/o, obese female with acute respiratory failure secondary to COVID pneumonia. 11/09/20: Continue current level of care. No new recs pulm stout. Continue to wean FiO2 as tolerated. Prognosis is still guarded. 11/06/20: Will continue same recs. Hold on increases in steroids. Prone if possible. Continue lasix. Prognosis is still guarded. 11/05/20: Same recs as below. 11/04/20: no increases in the last 24 hours so will not increase steroids. Continue to encourage proning if able. Continue lasix. Guarded prognosis. 11/03/20: Will monitor closely, but if oxygen requirement continues to increase, will go back up on steroids to at least 80q8. Already on BID lasix. Prognosis remains guarded. 11/02/20: Continue BID lasix. Wean for sats >88%. currently on solumedrol 40q8, continue this dose for now, but if able to wean further then will wean steroids further. prognosis is still guarded. 11/01/20: No new recs for today. 10/31/20: Prone if able and for as long as possible. Wean for sats >88%. Continue high dose steroids. 10/30/20: No lasix. Prognosis remains guarded. 10/29/20: Continue lasix but I/O are not accurate. May need to increase dosing. Wean FiO2 as tolerated. Guarded prognosis. 10/28/20: Continue current care. Monitor renal function and continue BID lasix. Need strict I/O 10/27/20: Continue current plan from below. Guarded prognosis given COVID and obesity. Monitor renal function. 1. Increased steroids to 125 TID 2. Increased lasix to 40 BID 3. Prone as tolerated and for as long as possible 4. Monitor fluid balance 5. BP control 6. Guarded prognosis given COVID and obesity with worsening respiratory failure. Subjective Date of service: 11/09/20 Principal diagnosis: COVID-19 PNA Interval history: No acute events. Down to 8 liters now. Objective Vital Signs - 12hr 11/09/20 11/09/20 11/09/20 05:23 06:41 09:01 Temperature 97.4 F L Pulse Rate 85 85 Pulse Rate [ 95 H Anterior Bilateral Throughout] Respiratory 20 Rate Respiratory 20 Rate [Anterior Bilateral Throughout] Blood Pressure 144/74 144/74 O2 Sat by Pulse 94 97 Oximetry 11/09/20 11/09/20 11/09/20 09:21 10:50 11:25 Temperature 98.3 F Pulse Rate 89 Pulse Rate [ Anterior Bilateral Throughout] Respiratory 19 Rate Respiratory Rate [Anterior Bilateral Throughout] Blood Pressure 129/68 O2 Sat by Pulse 94 96 96 Oximetry Constitutional: alert Eyes: non-icteric ENT: oropharynx moist Ascultation: Bilateral: diminished breath sounds Cardiovascular: regular rate and rhythm Gastrointestinal: normoactive bowel sounds, soft, non-tender CBC and BMP: 11/07/20 06:08 11/07/20 09:00 ABG, PT/INR, D-dimer: PT/INR, D-dimer D-Dimer 229.3 ng/mlDDU (0-234) 11/05/20 15:53 Abnormal lab findings: Abnormal Labs 10/23/20 10/23/20 10/23/20 17:31 20:38 20:38 WBC Hgb Hct MCH MCHC RDW Plt Count Lymph % (Auto) [place] % (Auto) Lymph # (Auto) [place] # (Auto) Seg Neutrophils % Seg Neutrophils # D-Dimer 919.44 H Sodium 136 L Potassium Chloride Carbon Dioxide BUN Glucose 149 H POC Glucose Ferritin AST ALT Lactate Dehydrogenase 606 H C-Reactive Protein 11.50 H Albumin Coronavirus (PCR) 10/23/20 10/24/20 10/24/20 20:38 08:00 08:07 WBC Hgb Hct MCH 33 H MCHC 35 H RDW Plt Count Lymph % (Auto) 9.9 L [place] % (Auto) 7.9 H Lymph # (Auto) 0.6 L [place] # (Auto) Seg Neutrophils % 82.1 H Seg Neutrophils # D-Dimer Sodium Potassium Chloride Carbon Dioxide BUN Glucose POC Glucose Ferritin AST ALT Lactate Dehydrogenase 643 H C-Reactive Protein 11.70 H Albumin Coronavirus (PCR) Positive A 10/24/20 10/25/20 10/26/20 08:07 16:13 21:32 WBC Hgb Hct MCH MCHC RDW Plt Count Lymph % (Auto) [place] % (Auto) Lymph # (Auto) [place] # (Auto) Seg Neutrophils % Seg Neutrophils # D-Dimer Sodium Potassium Chloride Carbon Dioxide BUN Glucose 173 H POC Glucose 180 H 213 H Ferritin AST ALT Lactate Dehydrogenase C-Reactive Protein Albumin Coronavirus (PCR) 10/27/20 10/27/20 10/27/20 07:54 11:56 13:47 WBC Hgb Hct MCH MCHC RDW Plt Count Lymph % (Auto) [place] % (Auto) Lymph # (Auto) [place] # (Auto) Seg Neutrophils % Seg Neutrophils # D-Dimer Sodium Potassium 3.3 L D Chloride Carbon Dioxide BUN 38 H Glucose 262 H POC Glucose 305 H 289 H Ferritin AST 155 H ALT 170 H Lactate Dehydrogenase C-Reactive Protein Albumin 3.4 L Coronavirus (PCR) 10/27/20 10/27/20 10/28/20 15:49 21:36 07:24 WBC Hgb Hct MCH MCHC RDW Plt Count Lymph % (Auto) [place] % (Auto) Lymph # (Auto) [place] # (Auto) Seg Neutrophils % Seg Neutrophils # D-Dimer Sodium Potassium Chloride Carbon Dioxide BUN 41 H Glucose 217 H POC Glucose 228 H 241 H Ferritin AST 116 H ALT 182 H Lactate Dehydrogenase C-Reactive Protein Albumin 3.7 L Coronavirus (PCR) 10/28/20 10/28/20 10/28/20 07:40 16:08 21:21 WBC Hgb Hct MCH MCHC RDW Plt Count Lymph % (Auto) [place] % (Auto) Lymph # (Auto) [place] # (Auto) Seg Neutrophils % Seg Neutrophils # D-Dimer Sodium Potassium Chloride Carbon Dioxide BUN Glucose POC Glucose 207 H 227 H 354 H Ferritin AST ALT Lactate Dehydrogenase C-Reactive Protein Albumin Coronavirus (PCR) 10/29/20 10/29/20 10/29/20 05:12 07:47 12:19 WBC Hgb Hct MCH MCHC RDW Plt Count Lymph % (Auto) [place] % (Auto) Lymph # (Auto) [place] # (Auto) Seg Neutrophils % Seg Neutrophils # D-Dimer Sodium Potassium Chloride Carbon Dioxide BUN 47 H Glucose 247 H POC Glucose 268 H 383 H Ferritin AST 102 H ALT 183 H Lactate Dehydrogenase C-Reactive Protein Albumin 3.1 L Coronavirus (PCR) 10/29/20 10/29/20 10/30/20 16:34 22:07 07:46 WBC Hgb Hct MCH MCHC RDW Plt Count Lymph % (Auto) [place] % (Auto) Lymph # (Auto) [place] # (Auto) Seg Neutrophils % Seg Neutrophils # D-Dimer Sodium Potassium Chloride Carbon Dioxide BUN 50 H Glucose 287 H POC Glucose 324 H 276 H Ferritin AST 71 H ALT 164 H Lactate Dehydrogenase 392 H C-Reactive Protein Albumin 3.2 L Coronavirus (PCR) 10/30/20 10/30/20 10/30/20 07:46 07:46 08:07 WBC Hgb Hct MCH MCHC RDW Plt Count Lymph % (Auto) [place] % (Auto) Lymph # (Auto) [place] # (Auto) Seg Neutrophils % Seg Neutrophils # D-Dimer 504.53 H Sodium Potassium Chloride Carbon Dioxide BUN Glucose POC Glucose 267 H Ferritin 1470.0 H AST ALT Lactate Dehydrogenase C-Reactive Protein Albumin Coronavirus (PCR) 10/30/20 10/30/20 10/30/20 12:39 17:14 21:42 WBC Hgb Hct MCH MCHC RDW Plt Count Lymph % (Auto) [place] % (Auto) Lymph # (Auto) [place] # (Auto) Seg Neutrophils % Seg Neutrophils # D-Dimer Sodium Potassium Chloride Carbon Dioxide BUN Glucose POC Glucose 332 H 301 H 371 H Ferritin AST ALT Lactate Dehydrogenase C-Reactive Protein Albumin Coronavirus (PCR) 10/31/20 10/31/20 10/31/20 07:52 11:42 16:12 WBC Hgb Hct MCH MCHC RDW Plt Count Lymph % (Auto) [place] % (Auto) Lymph # (Auto) [place] # (Auto) Seg Neutrophils % Seg Neutrophils # D-Dimer Sodium Potassium Chloride Carbon Dioxide BUN Glucose POC Glucose 303 H 387 H 343 H Ferritin AST ALT Lactate Dehydrogenase C-Reactive Protein Albumin Coronavirus (PCR) 10/31/20 11/01/20 11/01/20 21:35 07:34 11:22 WBC Hgb Hct MCH MCHC RDW Plt Count Lymph % (Auto) [place] % (Auto) Lymph # (Auto) [place] # (Auto) Seg Neutrophils % Seg Neutrophils # D-Dimer Sodium Potassium Chloride Carbon Dioxide BUN Glucose POC Glucose 359 H 325 H 442 H Ferritin AST ALT Lactate Dehydrogenase C-Reactive Protein Albumin Coronavirus (PCR) 11/01/20 11/01/20 11/02/20 16:30 22:12 04:38 WBC 12.4 H Hgb 14.8 H Hct 44.1 H MCH MCHC RDW 13.0 L Plt Count Lymph % (Auto) 3.3 L [place] % (Auto) 9.3 H Lymph # (Auto) 0.4 L [place] # (Auto) 1.2 H Seg Neutrophils % 87.2 H Seg Neutrophils # 10.9 H D-Dimer Sodium Potassium Chloride Carbon Dioxide BUN Glucose POC Glucose 378 H 395 H Ferritin AST ALT Lactate Dehydrogenase C-Reactive Protein Albumin Coronavirus (PCR) 11/02/20 11/02/20 11/02/20 04:38 07:40 12:09 WBC Hgb Hct MCH MCHC RDW Plt Count Lymph % (Auto) [place] % (Auto) Lymph # (Auto) [place] # (Auto) Seg Neutrophils % Seg Neutrophils # D-Dimer Sodium Potassium Chloride Carbon Dioxide 32 H BUN 48 H Glucose 304 H POC Glucose 280 H 422 H Ferritin AST ALT Lactate Dehydrogenase C-Reactive Protein Albumin Coronavirus (PCR) 11/02/20 11/02/20 11/03/20 16:10 21:30 08:01 WBC Hgb Hct MCH MCHC RDW Plt Count Lymph % (Auto) [place] % (Auto) Lymph # (Auto) [place] # (Auto) Seg Neutrophils % Seg Neutrophils # D-Dimer Sodium Potassium Chloride Carbon Dioxide BUN Glucose POC Glucose 367 H 380 H 336 H Ferritin AST ALT Lactate Dehydrogenase C-Reactive Protein Albumin Coronavirus (PCR) 11/03/20 11/03/20 11/03/20 12:21 15:56 21:17 WBC Hgb Hct MCH MCHC RDW Plt Count Lymph % (Auto) [place] % (Auto) Lymph # (Auto) [place] # (Auto) Seg Neutrophils % Seg Neutrophils # D-Dimer Sodium Potassium Chloride Carbon Dioxide BUN Glucose POC Glucose 352 H 312 H 307 H Ferritin AST ALT Lactate Dehydrogenase C-Reactive Protein Albumin Coronavirus (PCR) 11/04/20 11/04/20 11/04/20 04:28 07:57 11:43 WBC Hgb Hct MCH MCHC RDW Plt Count Lymph % (Auto) [place] % (Auto) Lymph # (Auto) [place] # (Auto) Seg Neutrophils % Seg Neutrophils # D-Dimer Sodium Potassium Chloride 95.6 L Carbon Dioxide 33 H BUN 52 H Glucose 307 H POC Glucose 287 H 321 H Ferritin AST ALT Lactate Dehydrogenase C-Reactive Protein Albumin Coronavirus (PCR) 11/04/20 11/04/20 11/05/20 16:23 22:30 07:49 WBC Hgb Hct MCH MCHC RDW Plt Count Lymph % (Auto) [place] % (Auto) Lymph # (Auto) [place] # (Auto) Seg Neutrophils % Seg Neutrophils # D-Dimer Sodium Potassium Chloride Carbon Dioxide BUN Glucose POC Glucose 345 H 285 H 269 H Ferritin AST ALT Lactate Dehydrogenase C-Reactive Protein Albumin Coronavirus (PCR) 11/05/20 11/05/20 11/05/20 11:43 15:53 15:53 WBC Hgb Hct MCH MCHC RDW Plt Count Lymph % (Auto) [place] % (Auto) Lymph # (Auto) [place] # (Auto) Seg Neutrophils % Seg Neutrophils # D-Dimer Sodium Potassium Chloride Carbon Dioxide BUN Glucose POC Glucose 349 H Ferritin 2889.0 H AST ALT Lactate Dehydrogenase 345 H C-Reactive Protein Albumin Coronavirus (PCR) 11/05/20 11/05/20 11/06/20 16:10 22:22 07:29 WBC Hgb Hct MCH MCHC RDW Plt Count Lymph % (Auto) [place] % (Auto) Lymph # (Auto) [place] # (Auto) Seg Neutrophils % Seg Neutrophils # D-Dimer Sodium Potassium Chloride Carbon Dioxide BUN Glucose POC Glucose 311 H 264 H 216 H Ferritin AST ALT Lactate Dehydrogenase C-Reactive Protein Albumin Coronavirus (PCR) 11/06/20 11/06/20 11/06/20 11:04 16:37 21:58 WBC Hgb Hct MCH MCHC RDW Plt Count Lymph % (Auto) [place] % (Auto) Lymph # (Auto) [place] # (Auto) Seg Neutrophils % Seg Neutrophils # D-Dimer Sodium Potassium Chloride Carbon Dioxide BUN Glucose POC Glucose 363 H 247 H 279 H Ferritin AST ALT Lactate Dehydrogenase C-Reactive Protein Albumin Coronavirus (PCR) 11/07/20 11/07/20 11/07/20 06:08 07:39 09:00 WBC Hgb 16.1 H Hct 48.6 H MCH MCHC RDW Plt Count 122 L Lymph % (Auto) 7.7 L [place] % (Auto) 12.5 H Lymph # (Auto) 0.7 L [place] # (Auto) 1.1 H Seg Neutrophils % 79.6 H Seg Neutrophils # D-Dimer Sodium Potassium Chloride Carbon Dioxide 33 H BUN 62 H Glucose 279 H POC Glucose 194 H Ferritin AST ALT Lactate Dehydrogenase C-Reactive Protein Albumin Coronavirus (PCR) 11/07/20 11/07/20 11/07/20 12:43 17:26 21:54 WBC Hgb Hct MCH MCHC RDW Plt Count Lymph % (Auto) [place] % (Auto) Lymph # (Auto) [place] # (Auto) Seg Neutrophils % Seg Neutrophils # D-Dimer Sodium Potassium Chloride Carbon Dioxide BUN Glucose POC Glucose 338 H 251 H 255 H Ferritin AST ALT Lactate Dehydrogenase C-Reactive Protein Albumin Coronavirus (PCR) 11/08/20 11/08/20 11/08/20 07:42 12:15 21:37 WBC Hgb Hct MCH MCHC RDW Plt Count Lymph % (Auto) [place] % (Auto) Lymph # (Auto) [place] # (Auto) Seg Neutrophils % Seg Neutrophils # D-Dimer Sodium Potassium Chloride Carbon Dioxide BUN Glucose POC Glucose 251 H 320 H 316 H Ferritin AST ALT Lactate Dehydrogenase C-Reactive Protein Albumin Coronavirus (PCR) 11/09/20 11/09/20 07:52 11:22 WBC Hgb Hct MCH MCHC RDW Plt Count Lymph % (Auto) [place] % (Auto) Lymph # (Auto) [place] # (Auto) Seg Neutrophils % Seg Neutrophils # D-Dimer Sodium Potassium Chloride Carbon Dioxide BUN Glucose POC Glucose 246 H 257 H Ferritin AST ALT Lactate Dehydrogenase C-Reactive Protein Albumin Coronavirus (PCR) Allied health notes reviewed: nursing
--- NOTE | 2020-11-09 15:04 | Progress Note ---
Assessment and Plan -- Acute respiratory failure Due to COVID-19 pneumonia and underlying morbid obesity Supplemental O2 and inhaler as needed -- Pneumonia due to COVID-19 virus Continue empiric steroid, status post remdesivir, Completed Tocilizumab on 021, Completed ceftriaxone Supplemental O2, ID and pulmonary care on board -- COPD (chronic obstructive pulmonary disease) with exacerbation Continue empiric steroid, inhalers and supplemental O2 -- Hypertension Monitor BP and adjust meds as needed -- Diabetes mellitus, uncontrolled Consistent carb diet, continue SSI and Lantus Adjust insulin dose for better glycemic control -- GERD (gastroesophageal reflux disease) Continue PPI --Morbid obesity Dietary and exercise recommendation as outpatient when clinically more stable and appropriate --Leukocytosis, due to steroid --DVT prophylaxis, Daily clinical course: 10/31/20: Remains on high flow O2, continue to monitor inflammatory markers, pulmonary on board. Guarded prognosis. 11/01/20: Patient remains on 40 L high flow O2. Continue to monitor clinically with supportive care, follow inflammatory markers, blood glucose significantly elevated, will add long-acting insulin. Reduce steroids dose to 40 mg every 8 hours. guarded prognosis. 11/02/20: Patient on 20 L and 60% FiO2 today. Continue to wean off O2 as tolerated. Follow inflammatory markers 11/03/20: Remains on high flow O2-30L today, guarded prognosis, wean off as tolerated. 11/04/20: Guarded prognosis, remains on high flow O2 30 L with 70% FiO2. Continue to follow inflammatory markers, ID and pulmonary critical care following. 11/05/20; Remains on 30L O2, unable to wean off, gurded prognosis. follow clinically. Continue to adjust insulin doses for better glycemic control. 11/06/20: Remains on high flow O2, BG improved, cont to adjust insulin doses. Patient is getting very frustrated and anxious and desperately wants to go home. I explained to her with the nurse in lengthy discussion that she is still requiring high flow O2 and not stable enough to go home. She finally verbalized understanding. 11/07/20; still remains on high flow, unable to wean off, guarded prognosis. cont to follow 11/08/20: Discussed with RT, will try to wean off to nasal cannula O2. Patient remains on high flow O2, Becoming very frustrated and anxious. Explained in details with RN at the bedside. Guarded prognosis. Continue to follow inflammatory markers. 11/09/20: pt on 10L O2 today, continue to wean off, follow inflammatory markers. Patient appears otherwise clinically stable Subjective Date of service: 11/09/20 Principal diagnosis: COVID-19 PNA Interval history: Patient seen and examined. Medical records and medication list reviewed. No acute event overnight noted by the RN. Patient on 10 L nasal cannula O2 today Discussed plan of care at bedside with patient. Objective - Exam Narrative Exam: Limited physical exam due to COVID-19 pandemic to minimize transmission of the disease and to preserve PPE. Vital reviewed and stable. GENERAL: well-developed morbidly obese -[place] female lying on bed appeared to be in no discomfort. HEENT: Normocephalic. Atraumatic. NECK: Supple. CHEST/LUNGS: breathing on nasal cannula O2 HEART/CARDIOVASCULAR: Heart rate stable on telemetry ABDOMEN: Visibly not distended SKIN: There is no rash NEURO: No focal motor deficit. Follows command. MUSCULOSKELETAL: No joint effusion EXTRIMITY: No swelling, no cyanosis or clubbing. PSYCH: Cooperative. - Constitutional Vitals: Vital Signs - 12hr 11/09/20 11/09/20 11/09/20 05:23 06:41 09:01 Temperature 97.4 F L Pulse Rate 85 85 Pulse Rate [ 95 H Anterior Bilateral Throughout] Respiratory 20 Rate Respiratory 20 Rate [Anterior Bilateral Throughout] Blood Pressure 144/74 144/74 O2 Sat by Pulse 94 97 Oximetry 11/09/20 11/09/20 11/09/20 09:21 10:50 11:25 Temperature 98.3 F Pulse Rate 89 Pulse Rate [ Anterior Bilateral Throughout] Respiratory 19 Rate Respiratory Rate [Anterior Bilateral Throughout] Blood Pressure 129/68 O2 Sat by Pulse 94 96 96 Oximetry - Labs CBC & Chem 7: 11/10/20 07:13 11/10/20 07:13 Labs: Abnormal lab results 11/08/20 11/09/20 11/09/20 Range/Units 21:37 07:52 11:22 POC Glucose 316 H 246 H 257 H (70-105) mg/dL HEART Score - HEART Score Troponin: Troponin T < 0.010 ng/mL (0.00-0.029) 10/23/20 17:31
[2020-11-09] MEDS: PRAVASTATIN 80 MG TAB PO SCH (22:36)
[2020-11-10] MEDS: methylPREDNISolone Sod Succinate 40 MG/1 ML INJ IV SCH ×3 (06:25→21:59)
[2020-11-10] MEDS: FUROSEMIDE 40 MG/4 ML INJ IV SCH ×2 (06:25→17:31)
[2020-11-10] MEDS: hydrALAZINE 25 MG TAB PO SCH ×3 (06:25→21:50)
[2020-11-10] MEDS: INSULIN LISPRO 100 UNIT/ML SUB-Q SCH ×4 (07:30→22:01)
[2020-11-10 08:01] LABS: Basophils % (Auto) 0.3 % (0.0-1.8); Hematocrit 44.1 % (30.3-42.9); Hemoglobin 14.7 gm/dl (10.1-14.3); Lymphocytes # (Auto) 0.4 K/mm3 (1.2-5.4); Lymphocytes % (Auto) 5.4 % (13.4-35.0); Mean Corpuscular HGB Conc 33 % (30-34); Mean Corpuscular Volume 95 fl (79-97); Monocytes # (Auto) 0.4 K/mm3 (0.0-0.8); Monocytes % (Auto) 5.8 % (0.0-7.3); Platelet Count 106 K/mm3 (140-440); Red Blood Count 4.65 M/mm3 (3.65-5.03); Red Cell Distribution Width 13.2 % (13.2-15.2)
[2020-11-10 08:11] LABS: Blood Urea Nitrogen 56 mg/dL (7-17); Calcium 9.2 mg/dL (8.4-10.2); Hemolysis Index 7
[2020-11-10 08:19] LABS: BUN/Creatinine Ratio 80
[2020-11-10] MEDS: HEPARIN 5,000 UNIT/1 ML VIAL SUB-Q SCH ×2 (10:00→21:52)
[2020-11-10] MEDS: INSULIN GLARGINE 100 UNITS/ML SUB-Q SCH ×2 (10:00→17:13)
--- NOTE | 2020-11-10 10:07 | Progress Note ---
Assessment and Plan 69 y/o, obese female with acute respiratory failure secondary to COVID pneumonia. 11/10/20: Continue to wean FiO2 as tolerated. Hopeful can wean to lower numbers safer for discharge. Should start working on discharge planning now. 11/09/20: Continue current level of care. No new recs pulm stout. Continue to wean FiO2 as tolerated. Prognosis is still guarded. 11/06/20: Will continue same recs. Hold on increases in steroids. Prone if possible. Continue lasix. Prognosis is still guarded. 11/05/20: Same recs as below. 11/04/20: no increases in the last 24 hours so will not increase steroids. Continue to encourage proning if able. Continue lasix. Guarded prognosis. 11/03/20: Will monitor closely, but if oxygen requirement continues to increase, will go back up on steroids to at least 80q8. Already on BID lasix. Prognosis remains guarded. 11/02/20: Continue BID lasix. Wean for sats >88%. currently on solumedrol 40q8, continue this dose for now, but if able to wean further then will wean steroids further. prognosis is still guarded. 11/01/20: No new recs for today. 10/31/20: Prone if able and for as long as possible. Wean for sats >88%. Continue high dose steroids. 10/30/20: No lasix. Prognosis remains guarded. 10/29/20: Continue lasix but I/O are not accurate. May need to increase dosing. Wean FiO2 as tolerated. Guarded prognosis. 10/28/20: Continue current care. Monitor renal function and continue BID lasix. Need strict I/O 10/27/20: Continue current plan from below. Guarded prognosis given COVID and obesity. Monitor renal function. 1. Increased steroids to 125 TID 2. Increased lasix to 40 BID 3. Prone as tolerated and for as long as possible 4. Monitor fluid balance 5. BP control 6. Guarded prognosis given COVID and obesity with worsening respiratory failure. Subjective Date of service: 11/10/20 Principal diagnosis: COVID-19 PNA Interval history: No acute events. Now down to 6 liters with good sats. Objective Vital Signs - 12hr 11/09/20 11/10/20 11/10/20 22:04 06:25 08:42 Temperature 97.9 F 98.5 F Pulse Rate 87 89 Respiratory 18 18 Rate Blood Pressure 135/69 145/60 O2 Sat by Pulse 97 94 94 Oximetry 11/10/20 09:38 Temperature Pulse Rate Respiratory Rate Blood Pressure O2 Sat by Pulse 93 Oximetry Constitutional: alert Eyes: non-icteric ENT: oropharynx moist Ascultation: Bilateral: diminished breath sounds Cardiovascular: regular rate and rhythm Gastrointestinal: normoactive bowel sounds, soft, non-tender CBC and BMP: 11/10/20 07:13 11/10/20 07:13 ABG, PT/INR, D-dimer: PT/INR, D-dimer D-Dimer 229.3 ng/mlDDU (0-234) 11/05/20 15:53 Abnormal lab findings: Abnormal Labs 10/23/20 10/23/20 10/23/20 17:31 20:38 20:38 WBC Hgb Hct MCH MCHC RDW Plt Count Lymph % (Auto) Bates % (Auto) Lymph # (Auto) Bates # (Auto) Seg Neutrophils % Seg Neutrophils # D-Dimer 919.44 H Sodium 136 L Potassium Chloride Carbon Dioxide BUN Glucose 149 H POC Glucose Ferritin AST ALT Lactate Dehydrogenase 606 H C-Reactive Protein 11.50 H Albumin Coronavirus (PCR) 10/23/20 10/24/20 10/24/20 20:38 08:00 08:07 WBC Hgb Hct MCH 33 H MCHC 35 H RDW Plt Count Lymph % (Auto) 9.9 L Bates % (Auto) 7.9 H Lymph # (Auto) 0.6 L Bates # (Auto) Seg Neutrophils % 82.1 H Seg Neutrophils # D-Dimer Sodium Potassium Chloride Carbon Dioxide BUN Glucose POC Glucose Ferritin AST ALT Lactate Dehydrogenase 643 H C-Reactive Protein 11.70 H Albumin Coronavirus (PCR) Positive A 10/24/20 10/25/20 10/26/20 08:07 16:13 21:32 WBC Hgb Hct MCH MCHC RDW Plt Count Lymph % (Auto) Bates % (Auto) Lymph # (Auto) Bates # (Auto) Seg Neutrophils % Seg Neutrophils # D-Dimer Sodium Potassium Chloride Carbon Dioxide BUN Glucose 173 H POC Glucose 180 H 213 H Ferritin AST ALT Lactate Dehydrogenase C-Reactive Protein Albumin Coronavirus (PCR) 10/27/20 10/27/2021 07:54 11:56 13:47 WBC Hgb Hct MCH MCHC RDW Plt Count Lymph % (Auto) Bates % (Auto) Lymph # (Auto) Bates # (Auto) Seg Neutrophils % Seg Neutrophils # D-Dimer Sodium Potassium 3.3 L D Chloride Carbon Dioxide BUN 38 H Glucose 262 H POC Glucose 305 H 289 H Ferritin AST 155 H ALT 170 H Lactate Dehydrogenase C-Reactive Protein Albumin 3.4 L Coronavirus (PCR) 10/27/20 10/27/20 10/28/20 15:49 21:36 07:24 WBC Hgb Hct MCH MCHC RDW Plt Count Lymph % (Auto) Bates % (Auto) Lymph # (Auto) Bates # (Auto) Seg Neutrophils % Seg Neutrophils # D-Dimer Sodium Potassium Chloride Carbon Dioxide BUN 41 H Glucose 217 H POC Glucose 228 H 241 H Ferritin AST 116 H ALT 182 H Lactate Dehydrogenase C-Reactive Protein Albumin 3.7 L Coronavirus (PCR) 10/28/20 10/28/20 10/28/20 07:40 16:08 21:21 WBC Hgb Hct MCH MCHC RDW Plt Count Lymph % (Auto) Bates % (Auto) Lymph # (Auto) Bates # (Auto) Seg Neutrophils % Seg Neutrophils # D-Dimer Sodium Potassium Chloride Carbon Dioxide BUN Glucose POC Glucose 207 H 227 H 354 H Ferritin AST ALT Lactate Dehydrogenase C-Reactive Protein Albumin Coronavirus (PCR) 10/29/20 10/29/20 10/29/20 05:12 07:47 12:19 WBC Hgb Hct MCH MCHC RDW Plt Count Lymph % (Auto) Bates % (Auto) Lymph # (Auto) Bates # (Auto) Seg Neutrophils % Seg Neutrophils # D-Dimer Sodium Potassium Chloride Carbon Dioxide BUN 47 H Glucose 247 H POC Glucose 268 H 383 H Ferritin AST 102 H ALT 183 H Lactate Dehydrogenase C-Reactive Protein Albumin 3.1 L Coronavirus (PCR) 10/29/20 10/29/20 10/30/20 16:34 22:07 07:46 WBC Hgb Hct MCH MCHC RDW Plt Count Lymph % (Auto) Bates % (Auto) Lymph # (Auto) Bates # (Auto) Seg Neutrophils % Seg Neutrophils # D-Dimer Sodium Potassium Chloride Carbon Dioxide BUN 50 H Glucose 287 H POC Glucose 324 H 276 H Ferritin AST 71 H ALT 164 H Lactate Dehydrogenase 392 H C-Reactive Protein Albumin 3.2 L Coronavirus (PCR) 10/30/20 10/30/20 10/30/20 07:46 07:46 08:07 WBC Hgb Hct MCH MCHC RDW Plt Count Lymph % (Auto) Bates % (Auto) Lymph # (Auto) Bates # (Auto) Seg Neutrophils % Seg Neutrophils # D-Dimer 504.53 H Sodium Potassium Chloride Carbon Dioxide BUN Glucose POC Glucose 267 H Ferritin 1470.0 H AST ALT Lactate Dehydrogenase C-Reactive Protein Albumin Coronavirus (PCR) 10/30/20 10/30/20 10/30/20 12:39 17:14 21:42 WBC Hgb Hct MCH MCHC RDW Plt Count Lymph % (Auto) Bates % (Auto) Lymph # (Auto) Bates # (Auto) Seg Neutrophils % Seg Neutrophils # D-Dimer Sodium Potassium Chloride Carbon Dioxide BUN Glucose POC Glucose 332 H 301 H 371 H Ferritin AST ALT Lactate Dehydrogenase C-Reactive Protein Albumin Coronavirus (PCR) 10/31/20 10/31/20 10/31/20 07:52 11:42 16:12 WBC Hgb Hct MCH MCHC RDW Plt Count Lymph % (Auto) Bates % (Auto) Lymph # (Auto) Bates # (Auto) Seg Neutrophils % Seg Neutrophils # D-Dimer Sodium Potassium Chloride Carbon Dioxide BUN Glucose POC Glucose 303 H 387 H 343 H Ferritin AST ALT Lactate Dehydrogenase C-Reactive Protein Albumin Coronavirus (PCR) 10/31/20 11/01/20 11/01/20 21:35 07:34 11:22 WBC Hgb Hct MCH MCHC RDW Plt Count Lymph % (Auto) Bates % (Auto) Lymph # (Auto) Bates # (Auto) Seg Neutrophils % Seg Neutrophils # D-Dimer Sodium Potassium Chloride Carbon Dioxide BUN Glucose POC Glucose 359 H 325 H 442 H Ferritin AST ALT Lactate Dehydrogenase C-Reactive Protein Albumin Coronavirus (PCR) 11/01/20 11/01/20 11/02/20 16:30 22:12 04:38 WBC 12.4 H Hgb 14.8 H Hct 44.1 H MCH MCHC RDW 13.0 L Plt Count Lymph % (Auto) 3.3 L Bates % (Auto) 9.3 H Lymph # (Auto) 0.4 L Bates # (Auto) 1.2 H Seg Neutrophils % 87.2 H Seg Neutrophils # 10.9 H D-Dimer Sodium Potassium Chloride Carbon Dioxide BUN Glucose POC Glucose 378 H 395 H Ferritin AST ALT Lactate Dehydrogenase C-Reactive Protein Albumin Coronavirus (PCR) 11/02/20 11/02/20 11/02/20 04:38 07:40 12:09 WBC Hgb Hct MCH MCHC RDW Plt Count Lymph % (Auto) Bates % (Auto) Lymph # (Auto) Bates # (Auto) Seg Neutrophils % Seg Neutrophils # D-Dimer Sodium Potassium Chloride Carbon Dioxide 32 H BUN 48 H Glucose 304 H POC Glucose 280 H 422 H Ferritin AST ALT Lactate Dehydrogenase C-Reactive Protein Albumin Coronavirus (PCR) 11/02/20 11/02/20 11/03/20 16:10 21:30 08:01 WBC Hgb Hct MCH MCHC RDW Plt Count Lymph % (Auto) Bates % (Auto) Lymph # (Auto) Bates # (Auto) Seg Neutrophils % Seg Neutrophils # D-Dimer Sodium Potassium Chloride Carbon Dioxide BUN Glucose POC Glucose 367 H 380 H 336 H Ferritin AST ALT Lactate Dehydrogenase C-Reactive Protein Albumin Coronavirus (PCR) 11/03/20 11/03/20 11/03/20 12:21 15:56 21:17 WBC Hgb Hct MCH MCHC RDW Plt Count Lymph % (Auto) Bates % (Auto) Lymph # (Auto) Bates # (Auto) Seg Neutrophils % Seg Neutrophils # D-Dimer Sodium Potassium Chloride Carbon Dioxide BUN Glucose POC Glucose 352 H 312 H 307 H Ferritin AST ALT Lactate Dehydrogenase C-Reactive Protein Albumin Coronavirus (PCR) 11/04/20 11/04/20 11/04/20 04:28 07:57 11:43 WBC Hgb Hct MCH MCHC RDW Plt Count Lymph % (Auto) Bates % (Auto) Lymph # (Auto) Bates # (Auto) Seg Neutrophils % Seg Neutrophils # D-Dimer Sodium Potassium Chloride 95.6 L Carbon Dioxide 33 H BUN 52 H Glucose 307 H POC Glucose 287 H 321 H Ferritin AST ALT Lactate Dehydrogenase C-Reactive Protein Albumin Coronavirus (PCR) 11/04/20 11/04/20 11/05/20 16:23 22:30 07:49 WBC Hgb Hct MCH MCHC RDW Plt Count Lymph % (Auto) Bates % (Auto) Lymph # (Auto) Bates # (Auto) Seg Neutrophils % Seg Neutrophils # D-Dimer Sodium Potassium Chloride Carbon Dioxide BUN Glucose POC Glucose 345 H 285 H 269 H Ferritin AST ALT Lactate Dehydrogenase C-Reactive Protein Albumin Coronavirus (PCR) 11/05/20 11/05/20 11/05/20 11:43 15:53 15:53 WBC Hgb Hct MCH MCHC RDW Plt Count Lymph % (Auto) Bates % (Auto) Lymph # (Auto) Bates # (Auto) Seg Neutrophils % Seg Neutrophils # D-Dimer Sodium Potassium Chloride Carbon Dioxide BUN Glucose POC Glucose 349 H Ferritin 2889.0 H AST ALT Lactate Dehydrogenase 345 H C-Reactive Protein Albumin Coronavirus (PCR) 11/05/20 11/05/20 11/06/20 16:10 22:22 07:29 WBC Hgb Hct MCH MCHC RDW Plt Count Lymph % (Auto) Bates % (Auto) Lymph # (Auto) Bates # (Auto) Seg Neutrophils % Seg Neutrophils # D-Dimer Sodium Potassium Chloride Carbon Dioxide BUN Glucose POC Glucose 311 H 264 H 216 H Ferritin AST ALT Lactate Dehydrogenase C-Reactive Protein Albumin Coronavirus (PCR) 11/06/20 11/06/20 11/06/20 11:04 16:37 21:58 WBC Hgb Hct MCH MCHC RDW Plt Count Lymph % (Auto) Bates % (Auto) Lymph # (Auto) Bates # (Auto) Seg Neutrophils % Seg Neutrophils # D-Dimer Sodium Potassium Chloride Carbon Dioxide BUN Glucose POC Glucose 363 H 247 H 279 H Ferritin AST ALT Lactate Dehydrogenase C-Reactive Protein Albumin Coronavirus (PCR) 11/07/20 11/07/20 11/07/20 06:08 07:39 09:00 WBC Hgb 16.1 H Hct 48.6 H MCH MCHC RDW Plt Count 122 L Lymph % (Auto) 7.7 L Bates % (Auto) 12.5 H Lymph # (Auto) 0.7 L Bates # (Auto) 1.1 H Seg Neutrophils % 79.6 H Seg Neutrophils # D-Dimer Sodium Potassium Chloride Carbon Dioxide 33 H BUN 62 H Glucose 279 H POC Glucose 194 H Ferritin AST ALT Lactate Dehydrogenase C-Reactive Protein Albumin Coronavirus (PCR) 11/07/20 11/07/20 11/07/20 12:43 17:26 21:54 WBC Hgb Hct MCH MCHC RDW Plt Count Lymph % (Auto) Bates % (Auto) Lymph # (Auto) Bates # (Auto) Seg Neutrophils % Seg Neutrophils # D-Dimer Sodium Potassium Chloride Carbon Dioxide BUN Glucose POC Glucose 338 H 251 H 255 H Ferritin AST ALT Lactate Dehydrogenase C-Reactive Protein Albumin Coronavirus (PCR) 11/08/20 11/08/20 11/08/20 07:42 12:15 21:37 WBC Hgb Hct MCH MCHC RDW Plt Count Lymph % (Auto) Bates % (Auto) Lymph # (Auto) Bates # (Auto) Seg Neutrophils % Seg Neutrophils # D-Dimer Sodium Potassium Chloride Carbon Dioxide BUN Glucose POC Glucose 251 H 320 H 316 H Ferritin AST ALT Lactate Dehydrogenase C-Reactive Protein Albumin Coronavirus (PCR) 11/09/20 11/09/20 11/09/20 07:52 11:22 17:05 WBC Hgb Hct MCH MCHC RDW Plt Count Lymph % (Auto) Bates % (Auto) Lymph # (Auto) Bates # (Auto) Seg Neutrophils % Seg Neutrophils # D-Dimer Sodium Potassium Chloride Carbon Dioxide BUN Glucose POC Glucose 246 H 257 H 223 H Ferritin AST ALT Lactate Dehydrogenase C-Reactive Protein Albumin Coronavirus (PCR) 11/09/20 11/10/20 11/10/20 22:01 07:13 07:13 WBC Hgb 14.7 H Hct 44.1 H MCH MCHC RDW Plt Count 106 L Lymph % (Auto) 5.4 L Bates % (Auto) Lymph # (Auto) 0.4 L Bates # (Auto) Seg Neutrophils % 88.5 H Seg Neutrophils # D-Dimer Sodium Potassium Chloride Carbon Dioxide BUN 56 H Glucose 261 H POC Glucose 241 H Ferritin AST ALT Lactate Dehydrogenase C-Reactive Protein Albumin Coronavirus (PCR) 11/10/20 07:31 WBC Hgb Hct MCH MCHC RDW Plt Count Lymph % (Auto) Bates % (Auto) Lymph # (Auto) Bates # (Auto) Seg Neutrophils % Seg Neutrophils # D-Dimer Sodium Potassium Chloride Carbon Dioxide BUN Glucose POC Glucose 234 H Ferritin AST ALT Lactate Dehydrogenase C-Reactive Protein Albumin Coronavirus (PCR) Allied health notes reviewed: nursing
[2020-11-10] MEDS: ASCORBIC ACID 500 MG TAB PO SCH ×2 (10:38→21:50)
[2020-11-10] MEDS: amLODIPine 10 MG TAB PO SCH (10:38)
[2020-11-10] MEDS: LISINOPRIL 40 MG TAB PO SCH (10:38)
[2020-11-10] MEDS: ZINC SULFATE 220 MG CAP PO SCH ×2 (10:39→21:50)
[2020-11-10] MEDS: CHOLECALCIFEROL (VIT D3) 1000 UNIT (25 mcg) TAB PO SCH (10:40)
--- NOTE | 2020-11-10 14:14 | Progress Note ---
Assessment and Plan -- Acute respiratory failure Due to COVID-19 pneumonia and underlying morbid obesity Supplemental O2 and inhaler as needed -- Pneumonia due to COVID-19 virus Continue empiric steroid, status post remdesivir, Completed Tocilizumab on 021, Completed ceftriaxone Supplemental O2, ID and pulmonary care on board -- COPD (chronic obstructive pulmonary disease) with exacerbation Continue empiric steroid, inhalers and supplemental O2 -- Hypertension Monitor BP and adjust meds as needed -- Diabetes mellitus, uncontrolled Consistent carb diet, continue SSI and Lantus Adjust insulin dose for better glycemic control -- GERD (gastroesophageal reflux disease) Continue PPI --Morbid obesity Dietary and exercise recommendation as outpatient when clinically more stable and appropriate --Leukocytosis, due to steroid --DVT prophylaxis, Daily clinical course: 10/31/20: Remains on high flow O2, continue to monitor inflammatory markers, pulmonary on board. Guarded prognosis. 11/01/20: Patient remains on 40 L high flow O2. Continue to monitor clinically with supportive care, follow inflammatory markers, blood glucose significantly elevated, will add long-acting insulin. Reduce steroids dose to 40 mg every 8 hours. guarded prognosis. 11/02/20: Patient on 20 L and 60% FiO2 today. Continue to wean off O2 as tolerated. Follow inflammatory markers 11/03/20: Remains on high flow O2-30L today, guarded prognosis, wean off as tolerated. 11/04/20: Guarded prognosis, remains on high flow O2 30 L with 70% FiO2. Continue to follow inflammatory markers, ID and pulmonary critical care following. 11/05/20; Remains on 30L O2, unable to wean off, gurded prognosis. follow clinically. Continue to adjust insulin doses for better glycemic control. 11/06/20: Remains on high flow O2, BG improved, cont to adjust insulin doses. Patient is getting very frustrated and anxious and desperately wants to go home. I explained to her with the nurse in lengthy discussion that she is still requiring high flow O2 and not stable enough to go home. She finally verbalized understanding. 11/07/20; still remains on high flow, unable to wean off, guarded prognosis. cont to follow 11/08/20: Discussed with RT, will try to wean off to nasal cannula O2. Patient remains on high flow O2, Becoming very frustrated and anxious. Explained in details with RN at the bedside. Guarded prognosis. Continue to follow inflammatory markers. 11/09/20: pt on 10L O2 today, continue to wean off, follow inflammatory markers. Patient appears otherwise clinically stable 11/10/20: Patient weaned off to 6 L nasal cannula O2 today. If weaned off below 5 L nasal cannula patient should be able to discharge home. Continue to follow for now. Subjective Date of service: 11/10/20 Principal diagnosis: COVID-19 PNA Interval history: Patient seen and examined. Medical records and medication list reviewed. No acute event overnight noted by the RN. Patient on 10 L nasal cannula O2 today Discussed plan of care at bedside with patient. Objective - Exam Narrative Exam: Limited physical exam due to COVID-19 pandemic to minimize transmission of the disease and to preserve PPE. Vital reviewed and stable. GENERAL: well-developed morbidly obese -[place] female lying on bed appeared to be in no discomfort. HEENT: Normocephalic. Atraumatic. NECK: Supple. CHEST/LUNGS: breathing on nasal cannula O2 HEART/CARDIOVASCULAR: Heart rate stable on telemetry ABDOMEN: Visibly not distended SKIN: There is no rash NEURO: No focal motor deficit. Follows command. MUSCULOSKELETAL: No joint effusion EXTRIMITY: No swelling, no cyanosis or clubbing. PSYCH: Cooperative. - Constitutional Vitals: Vital Signs - 12hr 11/10/20 11/10/20 11/10/20 06:25 08:42 09:38 Temperature 98.5 F Pulse Rate 89 Respiratory 18 Rate Blood Pressure 145/60 O2 Sat by Pulse 94 94 93 Oximetry - Labs CBC & Chem 7: 11/10/20 07:13 11/10/20 07:13 Labs: Abnormal lab results 11/09/20 11/09/20 11/10/20 Range/Units 17:05 22:01 07:13 Hgb 14.7 H (10.1-14.3) gm/dl Hct 44.1 H (30.3-42.9) % Plt Count 106 L (140-440) K/mm3 Lymph % (Auto) 5.4 L (13.4-35.0) % Lymph # (Auto) 0.4 L (1.2-5.4) K/mm3 Seg Neutrophils % 88.5 H (40.0-70.0) % BUN (7-17) mg/dL Glucose (65-100) mg/dL POC Glucose 223 H 241 H (70-105) mg/dL 11/10/20 11/10/20 11/10/20 Range/Units 07:13 07:31 12:15 Hgb (10.1-14.3) gm/dl Hct (30.3-42.9) % Plt Count (140-440) K/mm3 Lymph % (Auto) (13.4-35.0) % Lymph # (Auto) (1.2-5.4) K/mm3 Seg Neutrophils % (40.0-70.0) % BUN 56 H (7-17) mg/dL Glucose 261 H (65-100) mg/dL POC Glucose 234 H 327 H (70-105) mg/dL HEART Score - HEART Score Troponin: Troponin T < 0.010 ng/mL (0.00-0.029) 10/23/20 17:31
[2020-11-10] MEDS: oxyCODONE /ACETAMINOPHEN 5-325MG TAB PO PRN ×2 (14:24→21:51)
[2020-11-10] MEDS: PRAVASTATIN 80 MG TAB PO SCH (21:50)
[2020-11-10] MEDS: ACETAMINOPHEN 325 MG TAB PO PRN (21:51)
[2020-11-11] MEDS: hydrALAZINE 25 MG TAB PO SCH ×3 (06:11→23:19)
[2020-11-11] MEDS: FUROSEMIDE 40 MG/4 ML INJ IV SCH ×2 (06:11→18:04)
[2020-11-11] MEDS: methylPREDNISolone Sod Succinate 40 MG/1 ML INJ IV SCH ×2 (06:12→18:06)
[2020-11-11] MEDS: INSULIN LISPRO 100 UNIT/ML SUB-Q SCH ×4 (07:30→23:21)
--- NOTE | 2020-11-11 08:27 | Progress Note ---
Assessment and Plan 69 y/o, obese female with acute respiratory failure secondary to COVID pneumonia. 11/11/20: Wean FiO2. Would like for oxygen requirement to be around 3-4 liters then can switch to PO Prednisone 60 daily for 4 days, then 40 daily for 4 days then 20 daily for 4 days then 10 daily for 4 days then stop. 11/10/20: Continue to wean FiO2 as tolerated. Hopeful can wean to lower numbers safer for discharge. Should start working on discharge planning now. 11/09/20: Continue current level of care. No new recs pulm stout. Continue to wean FiO2 as tolerated. Prognosis is still guarded. 11/06/20: Will continue same recs. Hold on increases in steroids. Prone if possible. Continue lasix. Prognosis is still guarded. 11/05/20: Same recs as below. 11/04/20: no increases in the last 24 hours so will not increase steroids. Continue to encourage proning if able. Continue lasix. Guarded prognosis. 11/03/20: Will monitor closely, but if oxygen requirement continues to increase, will go back up on steroids to at least 80q8. Already on BID lasix. Prognosis remains guarded. 11/02/20: Continue BID lasix. Wean for sats >88%. currently on solumedrol 40q8, continue this dose for now, but if able to wean further then will wean steroids further. prognosis is still guarded. 11/01/20: No new recs for today. 10/31/20: Prone if able and for as long as possible. Wean for sats >88%. Continue high dose steroids. 10/30/20: No lasix. Prognosis remains guarded. 10/29/20: Continue lasix but I/O are not accurate. May need to increase dosing. Wean FiO2 as tolerated. Guarded prognosis. 10/28/20: Continue current care. Monitor renal function and continue BID lasix. Need strict I/O 10/27/20: Continue current plan from below. Guarded prognosis given COVID and obesity. Monitor renal function. 1. Increased steroids to 125 TID 2. Increased lasix to 40 BID 3. Prone as tolerated and for as long as possible 4. Monitor fluid balance 5. BP control 6. Guarded prognosis given COVID and obesity with worsening respiratory failure. Subjective Date of service: 11/11/20 Principal diagnosis: COVID-19 PNA Interval history: No acute events. Still on 6 but still early in the am. Objective Vital Signs - 12hr 11/10/20 11/10/20 11/11/20 20:48 20:54 02:00 Temperature 98.7 F Pulse Rate 92 H Respiratory 16 Rate Blood Pressure 142/74 O2 Sat by Pulse 98 94 96 Oximetry 11/11/20 04:45 Temperature 97.8 F Pulse Rate 95 H Respiratory Rate Blood Pressure 142/70 O2 Sat by Pulse 91 Oximetry Constitutional: alert Eyes: non-icteric ENT: oropharynx moist Ascultation: Bilateral: diminished breath sounds Cardiovascular: regular rate and rhythm Gastrointestinal: normoactive bowel sounds, soft, non-tender CBC and BMP: 11/10/20 07:13 11/10/20 07:13 ABG, PT/INR, D-dimer: PT/INR, D-dimer D-Dimer 229.3 ng/mlDDU (0-234) 11/05/20 15:53 Abnormal lab findings: Abnormal Labs 10/23/20 10/23/20 10/23/20 17:31 20:38 20:38 WBC Hgb Hct MCH MCHC RDW Plt Count Lymph % (Auto) [place] % (Auto) Lymph # (Auto) [place] # (Auto) Seg Neutrophils % Seg Neutrophils # D-Dimer 919.44 H Sodium 136 L Potassium Chloride Carbon Dioxide BUN Glucose 149 H POC Glucose Ferritin AST ALT Lactate Dehydrogenase 606 H C-Reactive Protein 11.50 H Albumin Coronavirus (PCR) 10/23/20 10/24/20 10/24/20 20:38 08:00 08:07 WBC Hgb Hct MCH 33 H MCHC 35 H RDW Plt Count Lymph % (Auto) 9.9 L [place] % (Auto) 7.9 H Lymph # (Auto) 0.6 L [place] # (Auto) Seg Neutrophils % 82.1 H Seg Neutrophils # D-Dimer Sodium Potassium Chloride Carbon Dioxide BUN Glucose POC Glucose Ferritin AST ALT Lactate Dehydrogenase 643 H C-Reactive Protein 11.70 H Albumin Coronavirus (PCR) Positive A 10/24/20 10/25/20 10/26/20 08:07 16:13 21:32 WBC Hgb Hct MCH MCHC RDW Plt Count Lymph % (Auto) [place] % (Auto) Lymph # (Auto) [place] # (Auto) Seg Neutrophils % Seg Neutrophils # D-Dimer Sodium Potassium Chloride Carbon Dioxide BUN Glucose 173 H POC Glucose 180 H 213 H Ferritin AST ALT Lactate Dehydrogenase C-Reactive Protein Albumin Coronavirus (PCR) 10/27/20 10/27/20 10/27/20 07:54 11:56 13:47 WBC Hgb Hct MCH MCHC RDW Plt Count Lymph % (Auto) [place] % (Auto) Lymph # (Auto) [place] # (Auto) Seg Neutrophils % Seg Neutrophils # D-Dimer Sodium Potassium 3.3 L D Chloride Carbon Dioxide BUN 38 H Glucose 262 H POC Glucose 305 H 289 H Ferritin AST 155 H ALT 170 H Lactate Dehydrogenase C-Reactive Protein Albumin 3.4 L Coronavirus (PCR) 10/27/20 10/27/20 10/28/20 15:49 21:36 07:24 WBC Hgb Hct MCH MCHC RDW Plt Count Lymph % (Auto) [place] % (Auto) Lymph # (Auto) [place] # (Auto) Seg Neutrophils % Seg Neutrophils # D-Dimer Sodium Potassium Chloride Carbon Dioxide BUN 41 H Glucose 217 H POC Glucose 228 H 241 H Ferritin AST 116 H ALT 182 H Lactate Dehydrogenase C-Reactive Protein Albumin 3.7 L Coronavirus (PCR) 10/28/20 10/28/20 10/28/20 07:40 16:08 21:21 WBC Hgb Hct MCH MCHC RDW Plt Count Lymph % (Auto) [place] % (Auto) Lymph # (Auto) [place] # (Auto) Seg Neutrophils % Seg Neutrophils # D-Dimer Sodium Potassium Chloride Carbon Dioxide BUN Glucose POC Glucose 207 H 227 H 354 H Ferritin AST ALT Lactate Dehydrogenase C-Reactive Protein Albumin Coronavirus (PCR) 10/29/20 10/29/20 10/29/20 05:12 07:47 12:19 WBC Hgb Hct MCH MCHC RDW Plt Count Lymph % (Auto) [place] % (Auto) Lymph # (Auto) [place] # (Auto) Seg Neutrophils % Seg Neutrophils # D-Dimer Sodium Potassium Chloride Carbon Dioxide BUN 47 H Glucose 247 H POC Glucose 268 H 383 H Ferritin AST 102 H ALT 183 H Lactate Dehydrogenase C-Reactive Protein Albumin 3.1 L Coronavirus (PCR) 10/29/20 10/29/20 10/30/20 16:34 22:07 07:46 WBC Hgb Hct MCH MCHC RDW Plt Count Lymph % (Auto) [place] % (Auto) Lymph # (Auto) [place] # (Auto) Seg Neutrophils % Seg Neutrophils # D-Dimer Sodium Potassium Chloride Carbon Dioxide BUN 50 H Glucose 287 H POC Glucose 324 H 276 H Ferritin AST 71 H ALT 164 H Lactate Dehydrogenase 392 H C-Reactive Protein Albumin 3.2 L Coronavirus (PCR) 10/30/20 10/30/20 10/30/20 07:46 07:46 08:07 WBC Hgb Hct MCH MCHC RDW Plt Count Lymph % (Auto) [place] % (Auto) Lymph # (Auto) [place] # (Auto) Seg Neutrophils % Seg Neutrophils # D-Dimer 504.53 H Sodium Potassium Chloride Carbon Dioxide BUN Glucose POC Glucose 267 H Ferritin 1470.0 H AST ALT Lactate Dehydrogenase C-Reactive Protein Albumin Coronavirus (PCR) 10/30/20 10/30/20 10/30/20 12:39 17:14 21:42 WBC Hgb Hct MCH MCHC RDW Plt Count Lymph % (Auto) [place] % (Auto) Lymph # (Auto) [place] # (Auto) Seg Neutrophils % Seg Neutrophils # D-Dimer Sodium Potassium Chloride Carbon Dioxide BUN Glucose POC Glucose 332 H 301 H 371 H Ferritin AST ALT Lactate Dehydrogenase C-Reactive Protein Albumin Coronavirus (PCR) 10/31/20 10/31/20 10/31/20 07:52 11:42 16:12 WBC Hgb Hct MCH MCHC RDW Plt Count Lymph % (Auto) [place] % (Auto) Lymph # (Auto) [place] # (Auto) Seg Neutrophils % Seg Neutrophils # D-Dimer Sodium Potassium Chloride Carbon Dioxide BUN Glucose POC Glucose 303 H 387 H 343 H Ferritin AST ALT Lactate Dehydrogenase C-Reactive Protein Albumin Coronavirus (PCR) 10/31/20 11/01/20 11/01/20 21:35 07:34 11:22 WBC Hgb Hct MCH MCHC RDW Plt Count Lymph % (Auto) [place] % (Auto) Lymph # (Auto) [place] # (Auto) Seg Neutrophils % Seg Neutrophils # D-Dimer Sodium Potassium Chloride Carbon Dioxide BUN Glucose POC Glucose 359 H 325 H 442 H Ferritin AST ALT Lactate Dehydrogenase C-Reactive Protein Albumin Coronavirus (PCR) 11/01/20 11/01/20 11/02/20 16:30 22:12 04:38 WBC 12.4 H Hgb 14.8 H Hct 44.1 H MCH MCHC RDW 13.0 L Plt Count Lymph % (Auto) 3.3 L [place] % (Auto) 9.3 H Lymph # (Auto) 0.4 L [place] # (Auto) 1.2 H Seg Neutrophils % 87.2 H Seg Neutrophils # 10.9 H D-Dimer Sodium Potassium Chloride Carbon Dioxide BUN Glucose POC Glucose 378 H 395 H Ferritin AST ALT Lactate Dehydrogenase C-Reactive Protein Albumin Coronavirus (PCR) 11/02/20 11/02/20 11/02/20 04:38 07:40 12:09 WBC Hgb Hct MCH MCHC RDW Plt Count Lymph % (Auto) [place] % (Auto) Lymph # (Auto) [place] # (Auto) Seg Neutrophils % Seg Neutrophils # D-Dimer Sodium Potassium Chloride Carbon Dioxide 32 H BUN 48 H Glucose 304 H POC Glucose 280 H 422 H Ferritin AST ALT Lactate Dehydrogenase C-Reactive Protein Albumin Coronavirus (PCR) 11/02/20 11/02/20 11/03/20 16:10 21:30 08:01 WBC Hgb Hct MCH MCHC RDW Plt Count Lymph % (Auto) [place] % (Auto) Lymph # (Auto) [place] # (Auto) Seg Neutrophils % Seg Neutrophils # D-Dimer Sodium Potassium Chloride Carbon Dioxide BUN Glucose POC Glucose 367 H 380 H 336 H Ferritin AST ALT Lactate Dehydrogenase C-Reactive Protein Albumin Coronavirus (PCR) 11/03/20 11/03/20 11/03/20 12:21 15:56 21:17 WBC Hgb Hct MCH MCHC RDW Plt Count Lymph % (Auto) [place] % (Auto) Lymph # (Auto) [place] # (Auto) Seg Neutrophils % Seg Neutrophils # D-Dimer Sodium Potassium Chloride Carbon Dioxide BUN Glucose POC Glucose 352 H 312 H 307 H Ferritin AST ALT Lactate Dehydrogenase C-Reactive Protein Albumin Coronavirus (PCR) 11/04/20 11/04/20 11/04/20 04:28 07:57 11:43 WBC Hgb Hct MCH MCHC RDW Plt Count Lymph % (Auto) [place] % (Auto) Lymph # (Auto) [place] # (Auto) Seg Neutrophils % Seg Neutrophils # D-Dimer Sodium Potassium Chloride 95.6 L Carbon Dioxide 33 H BUN 52 H Glucose 307 H POC Glucose 287 H 321 H Ferritin AST ALT Lactate Dehydrogenase C-Reactive Protein Albumin Coronavirus (PCR) 11/04/20 11/04/20 11/05/20 16:23 22:30 07:49 WBC Hgb Hct MCH MCHC RDW Plt Count Lymph % (Auto) [place] % (Auto) Lymph # (Auto) [place] # (Auto) Seg Neutrophils % Seg Neutrophils # D-Dimer Sodium Potassium Chloride Carbon Dioxide BUN Glucose POC Glucose 345 H 285 H 269 H Ferritin AST ALT Lactate Dehydrogenase C-Reactive Protein Albumin Coronavirus (PCR) 11/05/20 11/05/20 11/05/20 11:43 15:53 15:53 WBC Hgb Hct MCH MCHC RDW Plt Count Lymph % (Auto) [place] % (Auto) Lymph # (Auto) [place] # (Auto) Seg Neutrophils % Seg Neutrophils # D-Dimer Sodium Potassium Chloride Carbon Dioxide BUN Glucose POC Glucose 349 H Ferritin 2889.0 H AST ALT Lactate Dehydrogenase 345 H C-Reactive Protein Albumin Coronavirus (PCR) 11/05/20 11/05/20 11/06/20 16:10 22:22 07:29 WBC Hgb Hct MCH MCHC RDW Plt Count Lymph % (Auto) [place] % (Auto) Lymph # (Auto) [place] # (Auto) Seg Neutrophils % Seg Neutrophils # D-Dimer Sodium Potassium Chloride Carbon Dioxide BUN Glucose POC Glucose 311 H 264 H 216 H Ferritin AST ALT Lactate Dehydrogenase C-Reactive Protein Albumin Coronavirus (PCR) 11/06/20 11/06/20 11/06/20 11:04 16:37 21:58 WBC Hgb Hct MCH MCHC RDW Plt Count Lymph % (Auto) [place] % (Auto) Lymph # (Auto) [place] # (Auto) Seg Neutrophils % Seg Neutrophils # D-Dimer Sodium Potassium Chloride Carbon Dioxide BUN Glucose POC Glucose 363 H 247 H 279 H Ferritin AST ALT Lactate Dehydrogenase C-Reactive Protein Albumin Coronavirus (PCR) 11/07/20 11/07/20 11/07/20 06:08 07:39 09:00 WBC Hgb 16.1 H Hct 48.6 H MCH MCHC RDW Plt Count 122 L Lymph % (Auto) 7.7 L [place] % (Auto) 12.5 H Lymph # (Auto) 0.7 L [place] # (Auto) 1.1 H Seg Neutrophils % 79.6 H Seg Neutrophils # D-Dimer Sodium Potassium Chloride Carbon Dioxide 33 H BUN 62 H Glucose 279 H POC Glucose 194 H Ferritin AST ALT Lactate Dehydrogenase C-Reactive Protein Albumin Coronavirus (PCR) 11/07/20 11/07/20 11/07/20 12:43 17:26 21:54 WBC Hgb Hct MCH MCHC RDW Plt Count Lymph % (Auto) [place] % (Auto) Lymph # (Auto) [place] # (Auto) Seg Neutrophils % Seg Neutrophils # D-Dimer Sodium Potassium Chloride Carbon Dioxide BUN Glucose POC Glucose 338 H 251 H 255 H Ferritin AST ALT Lactate Dehydrogenase C-Reactive Protein Albumin Coronavirus (PCR) 11/08/20 11/08/20 11/08/20 07:42 12:15 21:37 WBC Hgb Hct MCH MCHC RDW Plt Count Lymph % (Auto) [place] % (Auto) Lymph # (Auto) [place] # (Auto) Seg Neutrophils % Seg Neutrophils # D-Dimer Sodium Potassium Chloride Carbon Dioxide BUN Glucose POC Glucose 251 H 320 H 316 H Ferritin AST ALT Lactate Dehydrogenase C-Reactive Protein Albumin Coronavirus (PCR) 11/09/20 11/09/20 11/09/20 07:52 11:22 17:05 WBC Hgb Hct MCH MCHC RDW Plt Count Lymph % (Auto) [place] % (Auto) Lymph # (Auto) [place] # (Auto) Seg Neutrophils % Seg Neutrophils # D-Dimer Sodium Potassium Chloride Carbon Dioxide BUN Glucose POC Glucose 246 H 257 H 223 H Ferritin AST ALT Lactate Dehydrogenase C-Reactive Protein Albumin Coronavirus (PCR) 11/09/20 11/10/20 11/10/20 22:01 07:13 07:13 WBC Hgb 14.7 H Hct 44.1 H MCH MCHC RDW Plt Count 106 L Lymph % (Auto) 5.4 L [place] % (Auto) Lymph # (Auto) 0.4 L [place] # (Auto) Seg Neutrophils % 88.5 H Seg Neutrophils # D-Dimer Sodium Potassium Chloride Carbon Dioxide BUN 56 H Glucose 261 H POC Glucose 241 H Ferritin AST ALT Lactate Dehydrogenase C-Reactive Protein Albumin Coronavirus (PCR) 11/10/20 11/10/20 11/10/20 07:31 12:15 16:09 WBC Hgb Hct MCH MCHC RDW Plt Count Lymph % (Auto) [place] % (Auto) Lymph # (Auto) [place] # (Auto) Seg Neutrophils % Seg Neutrophils # D-Dimer Sodium Potassium Chloride Carbon Dioxide BUN Glucose POC Glucose 234 H 327 H 258 H Ferritin AST ALT Lactate Dehydrogenase C-Reactive Protein Albumin Coronavirus (PCR) 11/10/20 11/11/20 21:47 07:44 WBC Hgb Hct MCH MCHC RDW Plt Count Lymph % (Auto) [place] % (Auto) Lymph # (Auto) [place] # (Auto) Seg Neutrophils % Seg Neutrophils # D-Dimer Sodium Potassium Chloride Carbon Dioxide BUN Glucose POC Glucose 281 H 273 H Ferritin AST ALT Lactate Dehydrogenase C-Reactive Protein Albumin Coronavirus (PCR) Allied health notes reviewed: nursing
[2020-11-11] MEDS: INSULIN GLARGINE 100 UNITS/ML SUB-Q SCH ×2 (10:00→17:00)
[2020-11-11] MEDS: amLODIPine 10 MG TAB PO SCH (10:53)
[2020-11-11] MEDS: HEPARIN 5,000 UNIT/1 ML VIAL SUB-Q SCH ×2 (10:53→23:19)
[2020-11-11] MEDS: CHOLECALCIFEROL (VIT D3) 1000 UNIT (25 mcg) TAB PO SCH (10:54)
[2020-11-11] MEDS: ASCORBIC ACID 500 MG TAB PO SCH ×2 (10:54→23:19)
[2020-11-11] MEDS: ZINC SULFATE 220 MG CAP PO SCH ×2 (10:56→23:19)
[2020-11-11] MEDS: LISINOPRIL 40 MG TAB PO SCH (10:56)
--- NOTE | 2020-11-11 15:26 | Progress Note ---
Assessment and Plan -- Acute respiratory failure Due to COVID-19 pneumonia and underlying morbid obesity Supplemental O2 and inhaler as needed -- Pneumonia due to COVID-19 virus Continue empiric steroid, status post remdesivir, Completed Tocilizumab on 021, Completed ceftriaxone Supplemental O2, ID and pulmonary care on board -- COPD (chronic obstructive pulmonary disease) with exacerbation Continue empiric steroid, inhalers and supplemental O2 -- Hypertension Monitor BP and adjust meds as needed -- Diabetes mellitus, uncontrolled Consistent carb diet, continue SSI and Lantus Adjust insulin dose for better glycemic control -- GERD (gastroesophageal reflux disease) Continue PPI --Morbid obesity Dietary and exercise recommendation as outpatient when clinically more stable and appropriate --Leukocytosis, due to steroid --DVT prophylaxis, Daily clinical course: 10/31/20: Remains on high flow O2, continue to monitor inflammatory markers, pulmonary on board. Guarded prognosis. 11/01/20: Patient remains on 40 L high flow O2. Continue to monitor clinically with supportive care, follow inflammatory markers, blood glucose significantly elevated, will add long-acting insulin. Reduce steroids dose to 40 mg every 8 hours. guarded prognosis. 11/02/20: Patient on 20 L and 60% FiO2 today. Continue to wean off O2 as tolerated. Follow inflammatory markers 11/03/20: Remains on high flow O2-30L today, guarded prognosis, wean off as tolerated. 11/04/20: Guarded prognosis, remains on high flow O2 30 L with 70% FiO2. Continue to follow inflammatory markers, ID and pulmonary critical care following. 11/05/20; Remains on 30L O2, unable to wean off, gurded prognosis. follow clinically. Continue to adjust insulin doses for better glycemic control. 11/06/20: Remains on high flow O2, BG improved, cont to adjust insulin doses. Patient is getting very frustrated and anxious and desperately wants to go home. I explained to her with the nurse in lengthy discussion that she is still requiring high flow O2 and not stable enough to go home. She finally verbalized understanding. 11/07/20; still remains on high flow, unable to wean off, guarded prognosis. cont to follow 11/08/20: Discussed with RT, will try to wean off to nasal cannula O2. Patient remains on high flow O2, Becoming very frustrated and anxious. Explained in details with RN at the bedside. Guarded prognosis. Continue to follow inflammatory markers. 11/09/20: pt on 10L O2 today, continue to wean off, follow inflammatory markers. Patient appears otherwise clinically stable 11/10/20: Patient weaned off to 6 L nasal cannula O2 today. If weaned off below 5 L nasal cannula patient should be able to discharge home. Continue to follow for now. 11/11/20: back on 10L n/c o2 today, cont to monitor, patient wants to go home Subjective Date of service: 11/11/20 Principal diagnosis: COVID-19 PNA Interval history: Patient seen and examined. Medical records and medication list reviewed. No acute event overnight noted by the RN. Patient on 10 L nasal cannula O2 today Discussed plan of care at bedside with patient. Objective - Exam Narrative Exam: Limited physical exam due to COVID-19 pandemic to minimize transmission of the disease and to preserve PPE. Vital reviewed and stable. GENERAL: well-developed morbidly obese -[place] female lying on bed appeared to be in no discomfort. HEENT: Normocephalic. Atraumatic. NECK: Supple. CHEST/LUNGS: breathing on nasal cannula O2 HEART/CARDIOVASCULAR: Heart rate stable on telemetry ABDOMEN: Visibly not distended SKIN: There is no rash NEURO: No focal motor deficit. Follows command. MUSCULOSKELETAL: No joint effusion EXTRIMITY: No swelling, no cyanosis or clubbing. PSYCH: Cooperative. - Constitutional Vitals: Vital Signs - 12hr 11/11/20 11/11/20 11/11/20 04:45 11:16 11:17 Temperature 97.8 F 98.9 F Pulse Rate 95 H 108 H 106 H Respiratory 18 Rate Blood Pressure 142/70 O2 Sat by Pulse 91 93 96 Oximetry 11/11/20 13:10 Temperature Pulse Rate Respiratory Rate Blood Pressure 140/70 O2 Sat by Pulse Oximetry - Labs CBC & Chem 7: 11/10/20 07:13 11/10/20 07:13 Labs: Abnormal lab results 11/10/20 11/10/20 11/11/20 Range/Units 16:09 21:47 07:44 POC Glucose 258 H 281 H 273 H (70-105) mg/dL 11/11/20 Range/Units 12:01 POC Glucose 343 H (70-105) mg/dL HEART Score - HEART Score Troponin: Troponin T < 0.010 ng/mL (0.00-0.029) 10/23/20 17:31
[2020-11-11] MEDS: TIOTROPIUM 18 MCG CAP INHALATION IH SCH (16:14)
[2020-11-11] MEDS: PRAVASTATIN 80 MG TAB PO SCH (23:19)
[2020-11-12] MEDS: methylPREDNISolone Sod Succinate 40 MG/1 ML INJ IV SCH ×2 (06:30→17:46)
[2020-11-12] MEDS: hydrALAZINE 25 MG TAB PO SCH ×3 (06:30→22:27)
[2020-11-12] MEDS: FUROSEMIDE 40 MG/4 ML INJ IV SCH ×2 (06:31→17:41)
[2020-11-12] MEDS: INSULIN LISPRO 100 UNIT/ML SUB-Q SCH ×4 (07:30→22:32)
--- NOTE | 2020-11-12 07:31 | Progress Note ---
Assessment and Plan Assessment and plan: -- Acute respiratory failure Due to COVID-19 pneumonia and underlying morbid obesity Supplemental O2 and inhaler as needed -- Pneumonia due to COVID-19 virus Continue empiric steroid, status post remdesivir, Completed Tocilizumab on 10/29/2020, Completed ceftriaxone Supplemental O2, ID and pulmonary care on board -- COPD (chronic obstructive pulmonary disease) with exacerbation Continue empiric steroid, inhalers and supplemental O2 -- Hypertension Monitor BP and adjust meds as needed -- Diabetes mellitus, uncontrolled Consistent carb diet, continue SSI and Lantus Adjust insulin dose for better glycemic control -- GERD (gastroesophageal reflux disease) Continue PPI --Morbid obesity Dietary and exercise recommendation as outpatient when clinically more stable and appropriate --Leukocytosis, due to steroid --DVT prophylaxis, Daily clinical course: 10/31/20: Remains on high flow O2, continue to monitor inflammatory markers, pulmonary on board. Guarded prognosis. 11/01/20: Patient remains on 40 L high flow O2. Continue to monitor clinically with supportive care, follow inflammatory markers, blood glucose significantly elevated, will add long-acting insulin. Reduce steroids dose to 40 mg every 8 hours. guarded prognosis. 11/02/20: Patient on 20 L and 60% FiO2 today. Continue to wean off O2 as tolerated. Follow inflammatory markers 11/03/20: Remains on high flow O2-30L today, guarded prognosis, wean off as tolerated. 11/04/20: Guarded prognosis, remains on high flow O2 30 L with 70% FiO2. Continue to follow inflammatory markers, ID and pulmonary critical care following. 11/05/20; Remains on 30L O2, unable to wean off, gurded prognosis. follow clinica lly. Continue to adjust insulin doses for better glycemic control. 11/06/20: Remains on high flow O2, BG improved, cont to adjust insulin doses. Patient is getting very frustrated and anxious and desperately wants to go home. I explained to her with the nurse in lengthy discussion that she is still requiring high flow O2 and not stable enough to go home. She finally verbalized understanding. 11/07/20; still remains on high flow, unable to wean off, guarded prognosis. cont to follow 11/08/20: Discussed with RT, will try to wean off to nasal cannula O2. Patient remains on high flow O2, Becoming very frustrated and anxious. Explained in details with RN at the bedside. Guarded prognosis. Continue to follow inflammatory markers. 11/09/20: pt on 10L O2 today, continue to wean off, follow inflammatory markers. Patient appears otherwise clinically stable 11/10/20: Patient weaned off to 6 L nasal cannula O2 today. If weaned off below 5 L nasal cannula patient should be able to discharge home. Continue to follow for now. 11/11/20: back on 10L n/c o2 today 11/12 -Patient is on 10 L of high flow oxygen -Will titrate as tolerated History Interval history: Patient was seen and evaluated this morning Patient was on 10 L of high flow oxygen Patient stated she did not get good care overnight and she says she wants to go home I explained to her her situation, also told her we will spoke with the nursing staff and make correction for that Patient agreed to stay Hospitalist Physical - Physical exam Narrative exam: Not in cardiopulmonary distress. The patient is morbidly obese. Vital signs as documented. Head exam is unremarkable. No scleral icterus . Neck is without jugular venous distension, thyromegaly, or carotid bruits. Lungs decreased air entry . Cardiac exam reveals regular rate and Rhythm. Abdominal exam reveals normal bowel sounds, nontender, no organomegaly. Extremities are nonedematous and both femoral and pedal pulses are normal. PRODUCTION WELDER: Alert and oriented 3. No focal weakness. - Constitutional Vitals: Temp Pulse Resp BP Pulse Ox 98.4 F 101 H 16 141/74 94 11/12/20 03:58 11/12/20 03:58 11/12/20 03:58 11/12/20 03:58 11/12/20 03:58 General appearance: Present: no acute distress, obese HEART Score - HEART Score Troponin: Troponin T < 0.010 ng/mL (0.00-0.029) 10/23/20 17:31 Results - Labs CBC & Chem 7: 11/10/20 07:13 11/10/20 07:13 Labs: Laboratory Last Values WBC 6.6 K/mm3 (4.5-11.0) 11/10/20 07:13 RBC 4.65 M/mm3 (3.65-5.03) 11/10/20 07:13 Hgb 14.7 gm/dl (10.1-14.3) H 11/10/20 07:13 Hct 44.1 % (30.3-42.9) H 11/10/20 07:13 MCV 95 fl (79-97) 11/10/20 07:13 MCH 32 pg (28-32) 11/10/20 07:13 MCHC 33 % (30-34) 11/10/20 07:13 RDW 13.2 % (13.2-15.2) 11/10/20 07:13 Plt Count 106 K/mm3 (140-440) L 11/10/20 07:13 Lymph % (Auto) 5.4 % (13.4-35.0) L 11/10/20 07:13 [place] % (Auto) 5.8 % (0.0-7.3) 11/10/20 07:13 Eos % (Auto) 0.0 % (0.0-4.3) 11/10/20 07:13 Baso % (Auto) 0.3 % (0.0-1.8) 11/10/20 07:13 Lymph # (Auto) 0.4 K/mm3 (1.2-5.4) L 11/10/20 07:13 [place] # (Auto) 0.4 K/mm3 (0.0-0.8) 11/10/20 07:13 Eos # (Auto) 0.0 K/mm3 (0.0-0.4) 11/10/20 07:13 Baso # (Auto) 0.0 K/mm3 (0.0-0.1) 11/10/20 07:13 Seg Neutrophils % 88.5 % (40.0-70.0) H 11/10/20 07:13 Seg Neutrophils # 5.8 K/mm3 (1.8-7.7) 11/10/20 07:13 D-Dimer 229.3 ng/mlDDU (0-234) 11/05/20 15:53 Sodium 142 mmol/L (137-145) 11/10/20 07:13 Potassium 4.5 mmol/L (3.6-5.0) 11/10/20 07:13 Chloride 100.6 mmol/L (98-107) 11/10/20 07:13 Carbon Dioxide 29 mmol/L (22-30) 11/10/20 07:13 Anion Gap 17 mmol/L 11/10/20 07:13 BUN 56 mg/dL (7-17) H 11/10/20 07:13 Creatinine 0.7 mg/dL (0.6-1.2) 11/10/20 07:13 Estimated GFR > 60 ml/min 11/10/20 07:13 BUN/Creatinine Ratio 80 % 11/10/20 07:13 Glucose 261 mg/dL (65-100) H 11/10/20 07:13 POC Glucose 235 mg/dL (70-105) H 11/11/20 21:31 Calcium 9.2 mg/dL (8.4-10.2) 11/10/20 07:13 Magnesium 1.80 mg/dL (1.7-2.3) 10/23/20 20:38 Ferritin 2889.0 ng/mL (10.0-200.0) H 11/05/20 15:53 Total Bilirubin 0.50 mg/dL (0.1-1.2) 10/30/20 07:46 AST 71 units/L (5-40) H 10/30/20 07:46 ALT 164 units/L (7-56) H 10/30/20 07:46 Alkaline Phosphatase 64 units/L (35-129) 10/30/20 07:46 Lactate Dehydrogenase 345 units/L (91-180) H 11/05/20 15:53 Troponin T < 0.010 ng/mL (0.00-0.029) 10/23/20 17:31 C-Reactive Protein 0.10 mg/dL (0.00-1.30) 11/05/20 15:53 NT-Pro-B Natriuret Pep 162.0 pg/mL (0-900) 10/23/20 17:31 Total Protein 7.0 g/dL (6.3-8.2) 10/30/20 07:46 Albumin 3.2 g/dL (3.9-5) L 10/30/20 07:46 Albumin/Globulin Ratio 0.8 % 10/30/20 07:46 Procalcitonin 0.32 ng/mL (<0.15) 10/23/20 20:38 TSH 2.010 mlU/mL (0.270-4.200) 10/23/20 20:38 Free T4 1.17 ng/dL (0.76-1.46) 10/23/20 20:38 Coronavirus (PCR) Positive (Negative) A 10/24/20 08:00 [place]/IV: Voiding Method Incontinent Active Medications - Current Medications Current Medications: Generic Name Dose Route Start Last Admin Trade Name Freq PRN Reason Stop Dose Admin Acetaminophen 650 mg 10/23/20 20:27 11/10/20 21:51 Acetaminophen 325 Mg Tab PO 650 mg Q4H PRN Administration Pain MILD(1-3)/Fever >100.5/KAUFMAN Albuterol 2.5 mg 10/23/20 20:27 Albuterol 2.5 Mg/3 Ml Nebu IH Q4HRT PRN Shortness Of Breath Amlodipine Besylate 10 mg 10/26/20 10:00 11/11/20 10:53 Amlodipine 10 Mg Tab PO 10 mg QDAY GLENROY Administration Ascorbic Acid 500 mg 10/23/20 22:00 11/11/20 23:19 Ascorbic Acid 500 Mg Tab PO 500 mg BID GLENROY Administration Cholecalciferol 1,000 unit 10/24/20 10:00 11/11/20 10:54 Cholecalciferol (Vit D3) 1000 Unit (25 Mcg) Tab PO 1,000 unit QDAY GLENROY Administration Furosemide 40 mg 10/26/20 11:00 11/12/20 06:31 Furosemide 40 Mg/4 Ml Inj IV 40 mg 0600,1800 GLENROY Administration Heparin Sodium (Porcine) 5,000 unit 10/23/20 22:00 11/11/20 23:19 Heparin 5,000 Unit/1 Ml Vial SUB-Q 5,000 unit Q12HR GLENROY Administration Hydralazine HCl 50 mg 10/23/20 22:00 11/12/20 06:30 Hydralazine 25 Mg Tab PO 50 mg Q8HR GLENROY Administration Hydromorphone HCl 0.5 mg 10/23/20 20:27 Hydromorphone 1 Mg/1 Ml Inj IV Q12H PRN Pain , Severe (7-10) Insulin Glargine 12 units 11/11/20 10:00 11/11/20 10:00 Insulin Glargine 100 Units/Ml SUB-Q 12 units QAM GLENROY Administration Insulin Glargine 24 units 11/11/20 18:00 11/11/20 17:00 Insulin Glargine 100 Units/Ml SUB-Q 24 units QPM GLENROY Administration Insulin Human Lispro 0 unit 10/27/20 11:30 11/11/20 23:21 Insulin Lispro 100 Unit/Ml SUB-Q 4 unit ACHS GLENROY Administration Protocol Lisinopril 40 mg 10/24/20 10:00 11/11/20 10:56 Lisinopril 40 Mg Tab PO 40 mg DAILY GLENROY Administration Methylprednisolone Sodium Succinate 40 mg 11/11/20 18:00 11/12/20 06:30 Methylprednisolone Sod Succinate 40 Mg/1 Ml Inj IV 40 mg Q12H GLENROY Administration Ondansetron HCl 4 mg 10/23/20 20:27 Ondansetron 4 Mg/2 Ml Inj IV Q8H PRN Nausea And Vomiting Oxycodone/Acetaminophen 1 tab 10/23/20 20:27 11/10/20 21:51 Oxycodone /Acetaminophen 5-325mg Tab PO 1 tab Q12H PRN Administration Pain, Moderate (4-6) Pravastatin Sodium 80 mg 10/23/20 22:00 11/11/20 23:19 Pravastatin 80 Mg Tab PO 80 mg QHS GLENROY Administration Sodium Chloride 10 ml 10/23/20 22:00 11/11/20 23:20 Sodium Chloride 0.9% 10 Ml Flush Syringe IV 10 ml BID GLENROY Administration Sodium Chloride 10 ml 10/23/20 20:27 Sodium Chloride 0.9% 10 Ml Flush Syringe IV PRN PRN LINE FLUSH Tiotropium [place] 1 puff 10/24/20 10:00 11/11/20 16:14 Tiotropium 18 Mcg Cap Inhalation IH Not Given QDAY GLENROY Zinc Sulfate 220 mg 10/23/20 22:00 11/11/20 23:19 Zinc Sulfate 220 Mg Cap PO 220 mg BID GLENROY Administration Nutrition/Malnutrition Assess - Dietary Evaluation Nutrition/Malnutrition Findings: Nutrition Notes Start: 10/26/20 11:03 Freq: Status: Active Protocol: Document 11/04/20 10:39 TOVA (Rec: 11/04/20 10:43 TOVA [id number]) Nutrition Notes Initial or Follow up Reassessment Current Diagnosis Diabetes,Hypertension,Heart Failure Other Pertinent Diagnosis Covid 19, GERD, pneu Current Diet Cardiac Consistent Carbohydrate diet Labs/Tests POC 307 Pertinent Medications Reveiwed Height 5 ft 6 in Weight 145.5 g [place] Body Weight (kg) 59.09 BMI 0.0 Weight Status Morbidly Obese Subjective/Other Information Pt is eating 90% of meals and 100% of 2 ONS daily. Percent of energy/protein needs met: 100%/100% Burn Absent Trauma Absent Current % PO Good (75-100%) Minimum of two criteria No physical signs of malnutrition #1 Nutrition Diagnosis Inadequate energy intake As Evidenced by Signs and Symptoms pt continues to meet 100% of protein and energy needs Diagnosis Progress(for reassessment Resolved documentation) Is patient on ventilator? No Is Patient Ambulatory and/or Out of Bed No REE-([place], [place]-confined to bed) [phone] Calculation Used for Recommendations 1744 kcal Additional Notes protein needs:59 - 71g (1 - 1. 2g/kgIBW) fluid needs: 1 ml/kcal Nutrition Intervention Change Diet Order: [place] current diet as ordered Add Supplement/Snack (indicate name/kcal Glucerna BID /protein ) Provides kCal: 440 Provides Protein (gm) 20 Goal #1 Meet at least 75% of kcal and protein needs via PO Anticipated Discharge Needs: Cardiac Consistent Carbohydrate diet Revisit per MD consult or patient Sign Off request:
[2020-11-12] MEDS: INSULIN GLARGINE 100 UNITS/ML SUB-Q SCH ×3 (08:58→17:38)
[2020-11-12] MEDS: LISINOPRIL 40 MG TAB PO SCH (11:44)
[2020-11-12] MEDS: ZINC SULFATE 220 MG CAP PO SCH ×2 (11:46→22:32)
[2020-11-12] MEDS: HEPARIN 5,000 UNIT/1 ML VIAL SUB-Q SCH ×2 (11:49→22:19)
[2020-11-12] MEDS: CHOLECALCIFEROL (VIT D3) 1000 UNIT (25 mcg) TAB PO SCH (11:49)
[2020-11-12] MEDS: ASCORBIC ACID 500 MG TAB PO SCH ×2 (11:49→22:19)
[2020-11-12] MEDS: amLODIPine 10 MG TAB PO SCH (11:50)
--- NOTE | 2020-11-12 12:15 | Progress Note ---
Assessment and Plan 69 y/o, obese female with acute respiratory failure secondary to COVID pneumonia. 11/12/20: Will give an additional 40 of IV lasix now in addition to BID dosing. increase steroids back to TID but keep at 40 11/11/20: Wean FiO2. Would like for oxygen requirement to be around 3-4 liters then can switch to PO Prednisone 60 daily for 4 days, then 40 daily for 4 days then 20 daily for 4 days then 10 daily for 4 days then stop. 11/10/20: Continue to wean FiO2 as tolerated. Hopeful can wean to lower numbers safer for discharge. Should start working on discharge planning now. 11/09/20: Continue current level of care. No new recs pulm stout. Continue to wean FiO2 as tolerated. Prognosis is still guarded. 11/06/20: Will continue same recs. Hold on increases in steroids. Prone if possible. Continue lasix. Prognosis is still guarded. 11/05/20: Same recs as below. 11/04/20: no increases in the last 24 hours so will not increase steroids. Continue to encourage proning if able. Continue lasix. Guarded prognosis. 11/03/20: Will monitor closely, but if oxygen requirement continues to increase, will go back up on steroids to at least 80q8. Already on BID lasix. Prognosis remains guarded. 11/02/20: Continue BID lasix. Wean for sats >88%. currently on solumedrol 40q8, continue this dose for now, but if able to wean further then will wean steroids further. prognosis is still guarded. 11/01/20: No new recs for today. 10/31/20: Prone if able and for as long as possible. Wean for sats >88%. Continue high dose steroids. 10/30/20: No lasix. Prognosis remains guarded. 10/29/20: Continue lasix but I/O are not accurate. May need to increase dosing. Wean FiO2 as tolerated. Guarded prognosis. 10/28/20: Continue current care. Monitor renal function and continue BID lasix. Need strict I/O 10/27/20: Continue current plan from below. Guarded prognosis given COVID and obesity. Monitor renal function. 1. Increased steroids to 125 TID 2. Increased lasix to 40 BID 3. Prone as tolerated and for as long as possible 4. Monitor fluid balance 5. BP control 6. Guarded prognosis given COVID and obesity with worsening respiratory failure. Subjective Date of service: 11/12/20 Principal diagnosis: COVID-19 PNA Interval history: oxygen requirement increased back to 10 liters. positive fluid balance. Objective Vital Signs - 12hr 11/12/20 11/12/20 11/12/20 03:58 10:59 11:44 Temperature 98.4 F Pulse Rate 101 H 109 H 102 H Respiratory 16 Rate Blood Pressure 141/74 142/63 O2 Sat by Pulse 94 98 Oximetry Constitutional: alert Eyes: non-icteric ENT: oropharynx moist Ascultation: Bilateral: diminished breath sounds Cardiovascular: regular rate and rhythm Gastrointestinal: normoactive bowel sounds, soft, non-tender CBC and BMP: 11/10/20 07:13 11/10/20 07:13 ABG, PT/INR, D-dimer: PT/INR, D-dimer D-Dimer 229.3 ng/mlDDU (0-234) 11/05/20 15:53 Abnormal lab findings: Abnormal Labs 10/23/20 10/23/20 10/23/20 17:31 20:38 20:38 WBC Hgb Hct MCH MCHC RDW Plt Count Lymph % (Auto) [place] % (Auto) Lymph # (Auto) [place] # (Auto) Seg Neutrophils % Seg Neutrophils # D-Dimer 919.44 H Sodium 136 L Potassium Chloride Carbon Dioxide BUN Glucose 149 H POC Glucose Ferritin AST ALT Lactate Dehydrogenase 606 H C-Reactive Protein 11.50 H Albumin Coronavirus (PCR) 10/23/20 10/24/20 10/24/20 20:38 08:00 08:07 WBC Hgb Hct MCH 33 H MCHC 35 H RDW Plt Count Lymph % (Auto) 9.9 L [place] % (Auto) 7.9 H Lymph # (Auto) 0.6 L [place] # (Auto) Seg Neutrophils % 82.1 H Seg Neutrophils # D-Dimer Sodium Potassium Chloride Carbon Dioxide BUN Glucose POC Glucose Ferritin AST ALT Lactate Dehydrogenase 643 H C-Reactive Protein 11.70 H Albumin Coronavirus (PCR) Positive A 10/24/20 10/25/20 10/26/20 08:07 16:13 21:32 WBC Hgb Hct MCH MCHC RDW Plt Count Lymph % (Auto) [place] % (Auto) Lymph # (Auto) [place] # (Auto) Seg Neutrophils % Seg Neutrophils # D-Dimer Sodium Potassium Chloride Carbon Dioxide BUN Glucose 173 H POC Glucose 180 H 213 H Ferritin AST ALT Lactate Dehydrogenase C-Reactive Protein Albumin Coronavirus (PCR) 10/27/20 10/27/20 10/27/20 07:54 11:56 13:47 WBC Hgb Hct MCH MCHC RDW Plt Count Lymph % (Auto) [place] % (Auto) Lymph # (Auto) [place] # (Auto) Seg Neutrophils % Seg Neutrophils # D-Dimer Sodium Potassium 3.3 L D Chloride Carbon Dioxide BUN 38 H Glucose 262 H POC Glucose 305 H 289 H Ferritin AST 155 H ALT 170 H Lactate Dehydrogenase C-Reactive Protein Albumin 3.4 L Coronavirus (PCR) 10/27/20 10/27/20 10/28/20 15:49 21:36 07:24 WBC Hgb Hct MCH MCHC RDW Plt Count Lymph % (Auto) [place] % (Auto) Lymph # (Auto) [place] # (Auto) Seg Neutrophils % Seg Neutrophils # D-Dimer Sodium Potassium Chloride Carbon Dioxide BUN 41 H Glucose 217 H POC Glucose 228 H 241 H Ferritin AST 116 H ALT 182 H Lactate Dehydrogenase C-Reactive Protein Albumin 3.7 L Coronavirus (PCR) 10/28/20 10/28/20 10/28/20 07:40 16:08 21:21 WBC Hgb Hct MCH MCHC RDW Plt Count Lymph % (Auto) [place] % (Auto) Lymph # (Auto) [place] # (Auto) Seg Neutrophils % Seg Neutrophils # D-Dimer Sodium Potassium Chloride Carbon Dioxide BUN Glucose POC Glucose 207 H 227 H 354 H Ferritin AST ALT Lactate Dehydrogenase C-Reactive Protein Albumin Coronavirus (PCR) 10/29/20 10/29/20 10/29/20 05:12 07:47 12:19 WBC Hgb Hct MCH MCHC RDW Plt Count Lymph % (Auto) [place] % (Auto) Lymph # (Auto) [place] # (Auto) Seg Neutrophils % Seg Neutrophils # D-Dimer Sodium Potassium Chloride Carbon Dioxide BUN 47 H Glucose 247 H POC Glucose 268 H 383 H Ferritin AST 102 H ALT 183 H Lactate Dehydrogenase C-Reactive Protein Albumin 3.1 L Coronavirus (PCR) 10/29/20 10/29/20 10/30/20 16:34 22:07 07:46 WBC Hgb Hct MCH MCHC RDW Plt Count Lymph % (Auto) [place] % (Auto) Lymph # (Auto) [place] # (Auto) Seg Neutrophils % Seg Neutrophils # D-Dimer Sodium Potassium Chloride Carbon Dioxide BUN 50 H Glucose 287 H POC Glucose 324 H 276 H Ferritin AST 71 H ALT 164 H Lactate Dehydrogenase 392 H C-Reactive Protein Albumin 3.2 L Coronavirus (PCR) 10/30/20 10/30/20 10/30/20 07:46 07:46 08:07 WBC Hgb Hct MCH MCHC RDW Plt Count Lymph % (Auto) [place] % (Auto) Lymph # (Auto) [place] # (Auto) Seg Neutrophils % Seg Neutrophils # D-Dimer 504.53 H Sodium Potassium Chloride Carbon Dioxide BUN Glucose POC Glucose 267 H Ferritin 1470.0 H AST ALT Lactate Dehydrogenase C-Reactive Protein Albumin Coronavirus (PCR) 10/30/20 10/30/20 10/30/20 12:39 17:14 21:42 WBC Hgb Hct MCH MCHC RDW Plt Count Lymph % (Auto) [place] % (Auto) Lymph # (Auto) [place] # (Auto) Seg Neutrophils % Seg Neutrophils # D-Dimer Sodium Potassium Chloride Carbon Dioxide BUN Glucose POC Glucose 332 H 301 H 371 H Ferritin AST ALT Lactate Dehydrogenase C-Reactive Protein Albumin Coronavirus (PCR) 10/31/20 10/31/20 10/31/20 07:52 11:42 16:12 WBC Hgb Hct MCH MCHC RDW Plt Count Lymph % (Auto) [place] % (Auto) Lymph # (Auto) [place] # (Auto) Seg Neutrophils % Seg Neutrophils # D-Dimer Sodium Potassium Chloride Carbon Dioxide BUN Glucose POC Glucose 303 H 387 H 343 H Ferritin AST ALT Lactate Dehydrogenase C-Reactive Protein Albumin Coronavirus (PCR) 10/31/20 11/01/20 11/01/20 21:35 07:34 11:22 WBC Hgb Hct MCH MCHC RDW Plt Count Lymph % (Auto) [place] % (Auto) Lymph # (Auto) [place] # (Auto) Seg Neutrophils % Seg Neutrophils # D-Dimer Sodium Potassium Chloride Carbon Dioxide BUN Glucose POC Glucose 359 H 325 H 442 H Ferritin AST ALT Lactate Dehydrogenase C-Reactive Protein Albumin Coronavirus (PCR) 11/01/20 11/01/20 11/02/20 16:30 22:12 04:38 WBC 12.4 H Hgb 14.8 H Hct 44.1 H MCH MCHC RDW 13.0 L Plt Count Lymph % (Auto) 3.3 L [place] % (Auto) 9.3 H Lymph # (Auto) 0.4 L [place] # (Auto) 1.2 H Seg Neutrophils % 87.2 H Seg Neutrophils # 10.9 H D-Dimer Sodium Potassium Chloride Carbon Dioxide BUN Glucose POC Glucose 378 H 395 H Ferritin AST ALT Lactate Dehydrogenase C-Reactive Protein Albumin Coronavirus (PCR) 11/02/20 11/02/20 11/02/20 04:38 07:40 12:09 WBC Hgb Hct MCH MCHC RDW Plt Count Lymph % (Auto) [place] % (Auto) Lymph # (Auto) [place] # (Auto) Seg Neutrophils % Seg Neutrophils # D-Dimer Sodium Potassium Chloride Carbon Dioxide 32 H BUN 48 H Glucose 304 H POC Glucose 280 H 422 H Ferritin AST ALT Lactate Dehydrogenase C-Reactive Protein Albumin Coronavirus (PCR) 11/02/20 11/02/20 11/03/20 16:10 21:30 08:01 WBC Hgb Hct MCH MCHC RDW Plt Count Lymph % (Auto) [place] % (Auto) Lymph # (Auto) [place] # (Auto) Seg Neutrophils % Seg Neutrophils # D-Dimer Sodium Potassium Chloride Carbon Dioxide BUN Glucose POC Glucose 367 H 380 H 336 H Ferritin AST ALT Lactate Dehydrogenase C-Reactive Protein Albumin Coronavirus (PCR) 11/03/20 11/03/20 11/03/20 12:21 15:56 21:17 WBC Hgb Hct MCH MCHC RDW Plt Count Lymph % (Auto) [place] % (Auto) Lymph # (Auto) [place] # (Auto) Seg Neutrophils % Seg Neutrophils # D-Dimer Sodium Potassium Chloride Carbon Dioxide BUN Glucose POC Glucose 352 H 312 H 307 H Ferritin AST ALT Lactate Dehydrogenase C-Reactive Protein Albumin Coronavirus (PCR) 11/04/20 11/04/20 11/04/20 04:28 07:57 11:43 WBC Hgb Hct MCH MCHC RDW Plt Count Lymph % (Auto) [place] % (Auto) Lymph # (Auto) [place] # (Auto) Seg Neutrophils % Seg Neutrophils # D-Dimer Sodium Potassium Chloride 95.6 L Carbon Dioxide 33 H BUN 52 H Glucose 307 H POC Glucose 287 H 321 H Ferritin AST ALT Lactate Dehydrogenase C-Reactive Protein Albumin Coronavirus (PCR) 11/04/20 11/04/20 11/05/20 16:23 22:30 07:49 WBC Hgb Hct MCH MCHC RDW Plt Count Lymph % (Auto) [place] % (Auto) Lymph # (Auto) [place] # (Auto) Seg Neutrophils % Seg Neutrophils # D-Dimer Sodium Potassium Chloride Carbon Dioxide BUN Glucose POC Glucose 345 H 285 H 269 H Ferritin AST ALT Lactate Dehydrogenase C-Reactive Protein Albumin Coronavirus (PCR) 11/05/20 11/05/20 11/05/20 11:43 15:53 15:53 WBC Hgb Hct MCH MCHC RDW Plt Count Lymph % (Auto) [place] % (Auto) Lymph # (Auto) [place] # (Auto) Seg Neutrophils % Seg Neutrophils # D-Dimer Sodium Potassium Chloride Carbon Dioxide BUN Glucose POC Glucose 349 H Ferritin 2889.0 H AST ALT Lactate Dehydrogenase 345 H C-Reactive Protein Albumin Coronavirus (PCR) 11/05/20 11/05/20 11/06/20 16:10 22:22 07:29 WBC Hgb Hct MCH MCHC RDW Plt Count Lymph % (Auto) [place] % (Auto) Lymph # (Auto) [place] # (Auto) Seg Neutrophils % Seg Neutrophils # D-Dimer Sodium Potassium Chloride Carbon Dioxide BUN Glucose POC Glucose 311 H 264 H 216 H Ferritin AST ALT Lactate Dehydrogenase C-Reactive Protein Albumin Coronavirus (PCR) 11/06/20 11/06/20 11/06/20 11:04 16:37 21:58 WBC Hgb Hct MCH MCHC RDW Plt Count Lymph % (Auto) [place] % (Auto) Lymph # (Auto) [place] # (Auto) Seg Neutrophils % Seg Neutrophils # D-Dimer Sodium Potassium Chloride Carbon Dioxide BUN Glucose POC Glucose 363 H 247 H 279 H Ferritin AST ALT Lactate Dehydrogenase C-Reactive Protein Albumin Coronavirus (PCR) 11/07/20 11/07/20 11/07/20 06:08 07:39 09:00 WBC Hgb 16.1 H Hct 48.6 H MCH MCHC RDW Plt Count 122 L Lymph % (Auto) 7.7 L [place] % (Auto) 12.5 H Lymph # (Auto) 0.7 L [place] # (Auto) 1.1 H Seg Neutrophils % 79.6 H Seg Neutrophils # D-Dimer Sodium Potassium Chloride Carbon Dioxide 33 H BUN 62 H Glucose 279 H POC Glucose 194 H Ferritin AST ALT Lactate Dehydrogenase C-Reactive Protein Albumin Coronavirus (PCR) 11/07/20 11/07/20 11/07/20 12:43 17:26 21:54 WBC Hgb Hct MCH MCHC RDW Plt Count Lymph % (Auto) [place] % (Auto) Lymph # (Auto) [place] # (Auto) Seg Neutrophils % Seg Neutrophils # D-Dimer Sodium Potassium Chloride Carbon Dioxide BUN Glucose POC Glucose 338 H 251 H 255 H Ferritin AST ALT Lactate Dehydrogenase C-Reactive Protein Albumin Coronavirus (PCR) 11/08/20 11/08/20 11/08/20 07:42 12:15 21:37 WBC Hgb Hct MCH MCHC RDW Plt Count Lymph % (Auto) [place] % (Auto) Lymph # (Auto) [place] # (Auto) Seg Neutrophils % Seg Neutrophils # D-Dimer Sodium Potassium Chloride Carbon Dioxide BUN Glucose POC Glucose 251 H 320 H 316 H Ferritin AST ALT Lactate Dehydrogenase C-Reactive Protein Albumin Coronavirus (PCR) 11/09/20 11/09/20 11/09/20 07:52 11:22 17:05 WBC Hgb Hct MCH MCHC RDW Plt Count Lymph % (Auto) [place] % (Auto) Lymph # (Auto) [place] # (Auto) Seg Neutrophils % Seg Neutrophils # D-Dimer Sodium Potassium Chloride Carbon Dioxide BUN Glucose POC Glucose 246 H 257 H 223 H Ferritin AST ALT Lactate Dehydrogenase C-Reactive Protein Albumin Coronavirus (PCR) 11/09/20 11/10/20 11/10/20 22:01 07:13 07:13 WBC Hgb 14.7 H Hct 44.1 H MCH MCHC RDW Plt Count 106 L Lymph % (Auto) 5.4 L [place] % (Auto) Lymph # (Auto) 0.4 L [place] # (Auto) Seg Neutrophils % 88.5 H Seg Neutrophils # D-Dimer Sodium Potassium Chloride Carbon Dioxide BUN 56 H Glucose 261 H POC Glucose 241 H Ferritin AST ALT Lactate Dehydrogenase C-Reactive Protein Albumin Coronavirus (PCR) 11/10/20 11/10/20 11/10/20 07:31 12:15 16:09 WBC Hgb Hct MCH MCHC RDW Plt Count Lymph % (Auto) [place] % (Auto) Lymph # (Auto) [place] # (Auto) Seg Neutrophils % Seg Neutrophils # D-Dimer Sodium Potassium Chloride Carbon Dioxide BUN Glucose POC Glucose 234 H 327 H 258 H Ferritin AST ALT Lactate Dehydrogenase C-Reactive Protein Albumin Coronavirus (PCR) 11/10/20 11/11/20 11/11/20 21:47 07:44 12:01 WBC Hgb Hct MCH MCHC RDW Plt Count Lymph % (Auto) [place] % (Auto) Lymph # (Auto) [place] # (Auto) Seg Neutrophils % Seg Neutrophils # D-Dimer Sodium Potassium Chloride Carbon Dioxide BUN Glucose POC Glucose 281 H 273 H 343 H Ferritin AST ALT Lactate Dehydrogenase C-Reactive Protein Albumin Coronavirus (PCR) 11/11/20 11/11/20 11/12/20 17:03 21:31 07:28 WBC Hgb Hct MCH MCHC RDW Plt Count Lymph % (Auto) [place] % (Auto) Lymph # (Auto) [place] # (Auto) Seg Neutrophils % Seg Neutrophils # D-Dimer Sodium Potassium Chloride Carbon Dioxide BUN Glucose POC Glucose 222 H 235 H 200 H Ferritin AST ALT Lactate Dehydrogenase C-Reactive Protein Albumin Coronavirus (PCR) 11/12/20 10:58 WBC Hgb Hct MCH MCHC RDW Plt Count Lymph % (Auto) [place] % (Auto) Lymph # (Auto) [place] # (Auto) Seg Neutrophils % Seg Neutrophils # D-Dimer Sodium Potassium Chloride Carbon Dioxide BUN Glucose POC Glucose 294 H Ferritin AST ALT Lactate Dehydrogenase C-Reactive Protein Albumin Coronavirus (PCR) Allied health notes reviewed: nursing
[2020-11-12] MEDS ORDERED: FUROSEMIDE 40 MG/4 ML INJ IV NR (12:30)
[2020-11-12] MEDS: TIOTROPIUM 18 MCG CAP INHALATION IH SCH (17:41)
[2020-11-12] MEDS: PRAVASTATIN 80 MG TAB PO SCH (22:22)
[2020-11-13] MEDS: FUROSEMIDE 40 MG/4 ML INJ IV SCH ×2 (06:33→17:25)
[2020-11-13] MEDS: methylPREDNISolone Sod Succinate 40 MG/1 ML INJ IV SCH ×4 (06:34→23:27)
[2020-11-13] MEDS: hydrALAZINE 25 MG TAB PO SCH ×3 (06:35→23:27)
[2020-11-13] MEDS: oxyCODONE /ACETAMINOPHEN 5-325MG TAB PO PRN ×2 (06:44→23:27)
--- NOTE | 2020-11-13 07:17 | Progress Note ---
Assessment and Plan Assessment and plan: -- Acute respiratory failure Due to COVID-19 pneumonia and underlying morbid obesity Supplemental O2 and inhaler as needed -- Pneumonia due to COVID-19 virus Continue empiric steroid, status post remdesivir, Completed Tocilizumab on 10/29/2020, Completed ceftriaxone Supplemental O2, ID and pulmonary care on board -- COPD (chronic obstructive pulmonary disease) with exacerbation Continue empiric steroid, inhalers and supplemental O2 -- Hypertension Monitor BP and adjust meds as needed -- Diabetes mellitus, uncontrolled Consistent carb diet, continue SSI and Lantus Adjust insulin dose for better glycemic control -- GERD (gastroesophageal reflux disease) Continue PPI --Morbid obesity Dietary and exercise recommendation as outpatient when clinically more stable and appropriate --Leukocytosis, due to steroid --DVT prophylaxis, Daily clinical course: 10/31/20: Remains on high flow O2, continue to monitor inflammatory markers, pulmonary on board. Guarded prognosis. 11/01/20: Patient remains on 40 L high flow O2. Continue to monitor clinically with supportive care, follow inflammatory markers, blood glucose significantly elevated, will add long-acting insulin. Reduce steroids dose to 40 mg every 8 hours. guarded prognosis. 11/02/20: Patient on 20 L and 60% FiO2 today. Continue to wean off O2 as tolerated. Follow inflammatory markers 11/03/20: Remains on high flow O2-30L today, guarded prognosis, wean off as tolerated. 11/04/20: Guarded prognosis, remains on high flow O2 30 L with 70% FiO2. Continue to follow inflammatory markers, ID and pulmonary critical care following. 11/05/20; Remains on 30L O2, unable to wean off, gurded prognosis. follow clinica lly. Continue to adjust insulin doses for better glycemic control. 11/06/20: Remains on high flow O2, BG improved, cont to adjust insulin doses. Patient is getting very frustrated and anxious and desperately wants to go home. I explained to her with the nurse in lengthy discussion that she is still requiring high flow O2 and not stable enough to go home. She finally verbalized understanding. 11/07/20; still remains on high flow, unable to wean off, guarded prognosis. cont to follow 11/08/20: Discussed with RT, will try to wean off to nasal cannula O2. Patient remains on high flow O2, Becoming very frustrated and anxious. Explained in details with RN at the bedside. Guarded prognosis. Continue to follow inflammatory markers. 11/09/20: pt on 10L O2 today, continue to wean off, follow inflammatory markers. Patient appears otherwise clinically stable 11/10/20: Patient weaned off to 6 L nasal cannula O2 today. If weaned off below 5 L nasal cannula patient should be able to discharge home. Continue to follow for now. 11/11/20: back on 10L n/c o2 today 11/12 -Patient is on 10 L of high flow oxygen -Will titrate as tolerated 11/13 -Patient was on 2 L of high flow oxygen -Titrate down as tolerated -Solu-Medrol increased to 40 mg IV 3 times daily -Blood sugar was uncontrolled and increased morning dose of 70/30 from 12-15, increase the night dose from 24 to 28 units. Monitor blood sugar and adjust as needed. -Continue with Lasix 40 mg IV twice daily -Prognosis is guarded. History Interval history: Patient was seen and evaluated this morning Patient was on 10 L of high flow oxygen Hospitalist Physical - Physical exam Narrative exam: Not in cardiopulmonary distress. The patient is morbidly obese. Vital signs as documented. Head exam is unremarkable. No scleral icterus . Neck is without jugular venous distension, thyromegaly, or carotid bruits. Lungs decreased air entry . Cardiac exam reveals regular rate and Rhythm. Abdominal exam reveals normal bowel sounds, nontender, no organomegaly. Extremities are nonedematous and both femoral and pedal pulses are normal. [employer]: Alert and oriented 3. No focal weakness. - Constitutional Vitals: Temp Pulse Resp BP Pulse Ox 97.8 F 105 H 20 146/75 94 11/13/20 06:13 11/13/20 06:35 11/13/20 06:13 11/13/20 06:35 11/13/20 06:13 General appearance: Present: no acute distress, obese HEART Score - HEART Score Troponin: Troponin T < 0.010 ng/mL (0.00-0.029) 10/23/20 17:31 Results - Labs CBC & Chem 7: 11/10/20 07:13 11/10/20 07:13 Labs: Laboratory Last Values WBC 6.6 K/mm3 (4.5-11.0) 11/10/20 07:13 RBC 4.65 M/mm3 (3.65-5.03) 11/10/20 07:13 Hgb 14.7 gm/dl (10.1-14.3) H 11/10/20 07:13 Hct 44.1 % (30.3-42.9) H 11/10/20 07:13 MCV 95 fl (79-97) 11/10/20 07:13 MCH 32 pg (28-32) 11/10/20 07:13 MCHC 33 % (30-34) 11/10/20 07:13 RDW 13.2 % (13.2-15.2) 11/10/20 07:13 Plt Count 106 K/mm3 (140-440) L 11/10/20 07:13 Lymph % (Auto) 5.4 % (13.4-35.0) L 11/10/20 07:13 [place] % (Auto) 5.8 % (0.0-7.3) 11/10/20 07:13 Eos % (Auto) 0.0 % (0.0-4.3) 11/10/20 07:13 Baso % (Auto) 0.3 % (0.0-1.8) 11/10/20 07:13 Lymph # (Auto) 0.4 K/mm3 (1.2-5.4) L 11/10/20 07:13 [place] # (Auto) 0.4 K/mm3 (0.0-0.8) 11/10/20 07:13 Eos # (Auto) 0.0 K/mm3 (0.0-0.4) 11/10/20 07:13 Baso # (Auto) 0.0 K/mm3 (0.0-0.1) 11/10/20 07:13 Seg Neutrophils % 88.5 % (40.0-70.0) H 11/10/20 07:13 Seg Neutrophils # 5.8 K/mm3 (1.8-7.7) 11/10/20 07:13 D-Dimer 229.3 ng/mlDDU (0-234) 11/05/20 15:53 Sodium 142 mmol/L (137-145) 11/10/20 07:13 Potassium 4.5 mmol/L (3.6-5.0) 11/10/20 07:13 Chloride 100.6 mmol/L (98-107) 11/10/20 07:13 Carbon Dioxide 29 mmol/L (22-30) 11/10/20 07:13 Anion Gap 17 mmol/L 11/10/20 07:13 BUN 56 mg/dL (7-17) H 11/10/20 07:13 Creatinine 0.7 mg/dL (0.6-1.2) 11/10/20 07:13 Estimated GFR > 60 ml/min 11/10/20 07:13 BUN/Creatinine Ratio 80 % 11/10/20 07:13 Glucose 261 mg/dL (65-100) H 11/10/20 07:13 POC Glucose 317 mg/dL (70-105) H 11/12/20 21:08 Calcium 9.2 mg/dL (8.4-10.2) 11/10/20 07:13 Magnesium 1.80 mg/dL (1.7-2.3) 10/23/20 20:38 Ferritin 2889.0 ng/mL (10.0-200.0) H 11/05/20 15:53 Total Bilirubin 0.50 mg/dL (0.1-1.2) 10/30/20 07:46 AST 71 units/L (5-40) H 10/30/20 07:46 ALT 164 units/L (7-56) H 10/30/20 07:46 Alkaline Phosphatase 64 units/L (35-129) 10/30/20 07:46 Lactate Dehydrogenase 345 units/L (91-180) H 11/05/20 15:53 Troponin T < 0.010 ng/mL (0.00-0.029) 10/23/20 17:31 C-Reactive Protein 0.10 mg/dL (0.00-1.30) 11/05/20 15:53 NT-Pro-B Natriuret Pep 162.0 pg/mL (0-900) 10/23/20 17:31 Total Protein 7.0 g/dL (6.3-8.2) 10/30/20 07:46 Albumin 3.2 g/dL (3.9-5) L 10/30/20 07:46 Albumin/Globulin Ratio 0.8 % 10/30/20 07:46 Procalcitonin 0.32 ng/mL (<0.15) 10/23/20 20:38 TSH 2.010 mlU/mL (0.270-4.200) 10/23/20 20:38 Free T4 1.17 ng/dL (0.76-1.46) 10/23/20 20:38 Coronavirus (PCR) Positive (Negative) A 10/24/20 08:00 [place]/IV: Voiding Method External Female Catheter Active Medications - Current Medications Current Medications: Generic Name Dose Route Start Last Admin Trade Name Freq PRN Reason Stop Dose Admin Acetaminophen 650 mg 10/23/20 20:27 11/10/20 21:51 Acetaminophen 325 Mg Tab PO 650 mg Q4H PRN Administration Pain MILD(1-3)/Fever >100.5/KAUFMAN Albuterol 2.5 mg 10/23/20 20:27 Albuterol 2.5 Mg/3 Ml Nebu IH Q4HRT PRN Shortness Of Breath Amlodipine Besylate 10 mg 10/26/20 10:00 11/12/20 11:50 Amlodipine 10 Mg Tab PO 10 mg QDAY GLENROY Administration Ascorbic Acid 500 mg 10/23/20 22:00 11/12/20 22:19 Ascorbic Acid 500 Mg Tab PO 500 mg BID GLENROY Administration Cholecalciferol 1,000 unit 10/24/20 10:00 11/12/20 11:49 Cholecalciferol (Vit D3) 1000 Unit (25 Mcg) Tab PO 1,000 unit QDAY GLENROY Administration Furosemide 40 mg 10/26/20 11:00 11/13/20 06:33 Furosemide 40 Mg/4 Ml Inj IV 40 mg 0600,1800 GLENROY Administration Heparin Sodium (Porcine) 5,000 unit 10/23/20 22:00 11/12/20 22:19 Heparin 5,000 Unit/1 Ml Vial SUB-Q 5,000 unit Q12HR GLENROY Administration Hydralazine HCl 50 mg 10/23/20 22:00 11/13/20 06:35 Hydralazine 25 Mg Tab PO 50 mg Q8HR GLENROY Administration Hydromorphone HCl 0.5 mg 10/23/20 20:27 Hydromorphone 1 Mg/1 Ml Inj IV Q12H PRN Pain , Severe (7-10) Insulin Glargine 15 units 11/13/20 07:12 Insulin Glargine 100 Units/Ml SUB-Q QAM GLENROY Insulin Glargine 28 units 11/13/20 07:12 Insulin Glargine 100 Units/Ml SUB-Q QPM [facility] Insulin Human Lispro 0 unit 10/27/20 11:30 11/12/20 22:32 Insulin Lispro 100 Unit/Ml SUB-Q 8 unit ACHS GLENROY Administration Protocol Lisinopril 40 mg 10/24/20 10:00 11/12/20 11:44 Lisinopril 40 Mg Tab PO 40 mg DAILY GLENROY Administration Methylprednisolone Sodium Succinate 40 mg 11/13/20 08:00 Methylprednisolone Sod Succinate 40 Mg/1 Ml Inj IV TID GLENROY Ondansetron HCl 4 mg 10/23/20 20:27 Ondansetron 4 Mg/2 Ml Inj IV Q8H PRN Nausea And Vomiting Oxycodone/Acetaminophen 1 tab 10/23/20 20:27 11/13/20 06:44 Oxycodone /Acetaminophen 5-325mg Tab PO 1 tab Q12H PRN Administration Pain, Moderate (4-6) Pravastatin Sodium 80 mg 10/23/20 22:00 11/12/20 22:22 Pravastatin 80 Mg Tab PO 80 mg QHS GLENROY Administration Sodium Chloride 10 ml 10/23/20 22:00 11/13/20 00:15 Sodium Chloride 0.9% 10 Ml Flush Syringe IV 10 ml BID GLENROY Administration Sodium Chloride 10 ml 10/23/20 20:27 Sodium Chloride 0.9% 10 Ml Flush Syringe IV PRN PRN LINE FLUSH Tiotropium [place] 1 puff 10/24/20 10:00 11/12/20 17:41 Tiotropium 18 Mcg Cap Inhalation IH Not Given QDAY [facility] Zinc Sulfate 220 mg 10/23/20 22:00 11/12/20 22:32 Zinc Sulfate 220 Mg Cap PO 220 mg BID GLENROY Administration Nutrition/Malnutrition Assess - Dietary Evaluation Nutrition/Malnutrition Findings: Nutrition Notes Start: 10/26/20 11:03 Freq: Status: Active Protocol: Document 11/04/20 10:39 TOVA (Rec: 11/04/20 10:43 TOVA [id number]) Nutrition Notes Initial or Follow up Reassessment Current Diagnosis Diabetes,Hypertension,Heart Failure Other Pertinent Diagnosis Covid 19, GERD, pneu Current Diet Cardiac Consistent Carbohydrate diet Labs/Tests POC 307 Pertinent Medications Reveiwed Height 5 ft 6 in Weight 145.5 g [place] Body Weight (kg) 59.09 BMI 0.0 Weight Status Morbidly Obese Subjective/Other Information Pt is eating 90% of meals and 100% of 2 ONS daily. Percent of energy/protein needs met: 100%/100% Burn Absent Trauma Absent Current % PO Good (75-100%) Minimum of two criteria No physical signs of malnutrition #1 Nutrition Diagnosis Inadequate energy intake As Evidenced by Signs and Symptoms pt continues to meet 100% of protein and energy needs Diagnosis Progress(for reassessment Resolved documentation) Is patient on ventilator? No Is Patient Ambulatory and/or Out of Bed No REE-([facility]-confined to bed) [phone] Calculation Used for Recommendations 1744 kcal Additional Notes protein needs:59 - 71g (1 - 1. 2g/kgIBW) fluid needs: 1 ml/kcal Nutrition Intervention Change Diet Order: [place] current diet as ordered Add Supplement/Snack (indicate name/kcal Glucerna BID /protein ) Provides kCal: 440 Provides Protein (gm) 20 Goal #1 Meet at least 75% of kcal and protein needs via PO Anticipated Discharge Needs: Cardiac Consistent Carbohydrate diet Revisit per MD consult or patient Sign Off request:
[2020-11-13 07:59] LABS: Blood Urea Nitrogen 60 mg/dL (7-17); Calcium 9.1 mg/dL (8.4-10.2); Hemolysis Index 20
[2020-11-13 08:00] LABS: BUN/Creatinine Ratio 86
[2020-11-13] MEDS: INSULIN LISPRO 100 UNIT/ML SUB-Q SCH ×4 (09:15→23:28)
[2020-11-13] MEDS: INSULIN GLARGINE 100 UNITS/ML SUB-Q SCH ×2 (09:15→17:22)
--- NOTE | 2020-11-13 11:42 | Progress Note ---
Assessment and Plan 69 y/o, obese female with acute respiratory failure secondary to COVID pneumonia. 11/13/20: CXR today. Hold on additional lasix until CXR is reviewed. Prone if able. Wean FiO2 for sats >88%. Continue steroids at TID dosing. 11/12/20: Will give an additional 40 of IV lasix now in addition to BID dosing. increase steroids back to TID but keep at 40 11/11/20: Wean FiO2. Would like for oxygen requirement to be around 3-4 liters then can switch to PO Prednisone 60 daily for 4 days, then 40 daily for 4 days then 20 daily for 4 days then 10 daily for 4 days then stop. 11/10/20: Continue to wean FiO2 as tolerated. Hopeful can wean to lower numbers safer for discharge. Should start working on discharge planning now. 11/09/20: Continue current level of care. No new recs pulm stout. Continue to wean FiO2 as tolerated. Prognosis is still guarded. 11/06/20: Will continue same recs. Hold on increases in steroids. Prone if possible. Continue lasix. Prognosis is still guarded. 11/05/20: Same recs as below. 11/04/20: no increases in the last 24 hours so will not increase steroids. Continue to encourage proning if able. Continue lasix. Guarded prognosis. 11/03/20: Will monitor closely, but if oxygen requirement continues to increase, will go back up on steroids to at least 80q8. Already on BID lasix. Prognosis remains guarded. 11/02/20: Continue BID lasix. Wean for sats >88%. currently on solumedrol 40 q8, continue this dose for now, but if able to wean further then will wean steroids further. prognosis is still guarded. 11/01/20: No new recs for today. 10/31/20: Prone if able and for as long as possible. Wean for sats >88%. Continue high dose steroids. 10/30/20: No lasix. Prognosis remains guarded. 10/29/20: Continue lasix but I/O are not accurate. May need to increase dosing. Wean FiO2 as tolerated. Guarded prognosis. 10/28/20: Continue current care. Monitor renal function and continue BID lasix. Need strict I/O 10/27/20: Continue current plan from below. Guarded prognosis given COVID and obesity. Monitor renal function. 1. Increased steroids to 125 TID 2. Increased lasix to 40 BID 3. Prone as tolerated and for as long as possible 4. Monitor fluid balance 5. BP control 6. Guarded prognosis given COVID and obesity with worsening respiratory failure. Subjective Date of service: 11/13/20 Principal diagnosis: COVID-19 PNA Interval history: Still on 10 but sats are better. Tolerated additional dose of lasix yesterday with no issues. Objective Vital Signs - 12hr 11/13/20 11/13/20 11/13/20 06:13 06:35 10:00 Temperature 97.8 F Pulse Rate 105 H 105 H Respiratory 20 Rate Blood Pressure 146/75 146/75 O2 Sat by Pulse 94 94 Oximetry Constitutional: alert Eyes: non-icteric ENT: oropharynx moist Ascultation: Bilateral: diminished breath sounds Cardiovascular: regular rate and rhythm Gastrointestinal: normoactive bowel sounds, soft, non-tender CBC and BMP: 11/10/20 07:13 11/13/20 07:03 ABG, PT/INR, D-dimer: PT/INR, D-dimer D-Dimer 229.3 ng/mlDDU (0-234) 11/05/20 15:53 Abnormal lab findings: Abnormal Labs 10/23/20 10/23/20 10/23/20 17:31 20:38 20:38 WBC Hgb Hct MCH MCHC RDW Plt Count Lymph % (Auto) [place] % (Auto) Lymph # (Auto) [place] # (Auto) Seg Neutrophils % Seg Neutrophils # D-Dimer 919.44 H Sodium 136 L Potassium Chloride Carbon Dioxide BUN Glucose 149 H POC Glucose Ferritin AST ALT Lactate Dehydrogenase 606 H C-Reactive Protein 11.50 H Albumin Coronavirus (PCR) 10/23/20 10/24/20 10/24/20 20:38 08:00 08:07 WBC Hgb Hct MCH 33 H MCHC 35 H RDW Plt Count Lymph % (Auto) 9.9 L [place] % (Auto) 7.9 H Lymph # (Auto) 0.6 L [place] # (Auto) Seg Neutrophils % 82.1 H Seg Neutrophils # D-Dimer Sodium Potassium Chloride Carbon Dioxide BUN Glucose POC Glucose Ferritin AST ALT Lactate Dehydrogenase 643 H C-Reactive Protein 11.70 H Albumin Coronavirus (PCR) Positive A 10/24/20 10/25/20 10/26/20 08:07 16:13 21:32 WBC Hgb Hct MCH MCHC RDW Plt Count Lymph % (Auto) [place] % (Auto) Lymph # (Auto) [place] # (Auto) Seg Neutrophils % Seg Neutrophils # D-Dimer Sodium Potassium Chloride Carbon Dioxide BUN Glucose 173 H POC Glucose 180 H 213 H Ferritin AST ALT Lactate Dehydrogenase C-Reactive Protein Albumin Coronavirus (PCR) 10/27/20 10/27/20 10/27/20 07:54 11:56 13:47 WBC Hgb Hct MCH MCHC RDW Plt Count Lymph % (Auto) [place] % (Auto) Lymph # (Auto) [place] # (Auto) Seg Neutrophils % Seg Neutrophils # D-Dimer Sodium Potassium 3.3 L D Chloride Carbon Dioxide BUN 38 H Glucose 262 H POC Glucose 305 H 289 H Ferritin AST 155 H ALT 170 H Lactate Dehydrogenase C-Reactive Protein Albumin 3.4 L Coronavirus (PCR) 10/27/20 10/27/20 10/28/20 15:49 21:36 07:24 WBC Hgb Hct MCH MCHC RDW Plt Count Lymph % (Auto) [place] % (Auto) Lymph # (Auto) [place] # (Auto) Seg Neutrophils % Seg Neutrophils # D-Dimer Sodium Potassium Chloride Carbon Dioxide BUN 41 H Glucose 217 H POC Glucose 228 H 241 H Ferritin AST 116 H ALT 182 H Lactate Dehydrogenase C-Reactive Protein Albumin 3.7 L Coronavirus (PCR) 10/28/20 10/28/20 10/28/20 07:40 16:08 21:21 WBC Hgb Hct MCH MCHC RDW Plt Count Lymph % (Auto) [place] % (Auto) Lymph # (Auto) [place] # (Auto) Seg Neutrophils % Seg Neutrophils # D-Dimer Sodium Potassium Chloride Carbon Dioxide BUN Glucose POC Glucose 207 H 227 H 354 H Ferritin AST ALT Lactate Dehydrogenase C-Reactive Protein Albumin Coronavirus (PCR) 10/29/20 10/29/20 10/29/20 05:12 07:47 12:19 WBC Hgb Hct MCH MCHC RDW Plt Count Lymph % (Auto) [place] % (Auto) Lymph # (Auto) [place] # (Auto) Seg Neutrophils % Seg Neutrophils # D-Dimer Sodium Potassium Chloride Carbon Dioxide BUN 47 H Glucose 247 H POC Glucose 268 H 383 H Ferritin AST 102 H ALT 183 H Lactate Dehydrogenase C-Reactive Protein Albumin 3.1 L Coronavirus (PCR) 10/29/20 10/29/20 10/30/20 16:34 22:07 07:46 WBC Hgb Hct MCH MCHC RDW Plt Count Lymph % (Auto) [place] % (Auto) Lymph # (Auto) [place] # (Auto) Seg Neutrophils % Seg Neutrophils # D-Dimer Sodium Potassium Chloride Carbon Dioxide BUN 50 H Glucose 287 H POC Glucose 324 H 276 H Ferritin AST 71 H ALT 164 H Lactate Dehydrogenase 392 H C-Reactive Protein Albumin 3.2 L Coronavirus (PCR) 10/30/20 10/30/20 10/30/20 07:46 07:46 08:07 WBC Hgb Hct MCH MCHC RDW Plt Count Lymph % (Auto) [place] % (Auto) Lymph # (Auto) [place] # (Auto) Seg Neutrophils % Seg Neutrophils # D-Dimer 504.53 H Sodium Potassium Chloride Carbon Dioxide BUN Glucose POC Glucose 267 H Ferritin 1470.0 H AST ALT Lactate Dehydrogenase C-Reactive Protein Albumin Coronavirus (PCR) 10/30/20 10/30/20 10/30/20 12:39 17:14 21:42 WBC Hgb Hct MCH MCHC RDW Plt Count Lymph % (Auto) [place] % (Auto) Lymph # (Auto) [place] # (Auto) Seg Neutrophils % Seg Neutrophils # D-Dimer Sodium Potassium Chloride Carbon Dioxide BUN Glucose POC Glucose 332 H 301 H 371 H Ferritin AST ALT Lactate Dehydrogenase C-Reactive Protein Albumin Coronavirus (PCR) 10/31/20 10/31/20 10/31/20 07:52 11:42 16:12 WBC Hgb Hct MCH MCHC RDW Plt Count Lymph % (Auto) [place] % (Auto) Lymph # (Auto) [place] # (Auto) Seg Neutrophils % Seg Neutrophils # D-Dimer Sodium Potassium Chloride Carbon Dioxide BUN Glucose POC Glucose 303 H 387 H 343 H Ferritin AST ALT Lactate Dehydrogenase C-Reactive Protein Albumin Coronavirus (PCR) 10/31/20 11/01/20 11/01/20 21:35 07:34 11:22 WBC Hgb Hct MCH MCHC RDW Plt Count Lymph % (Auto) [place] % (Auto) Lymph # (Auto) [place] # (Auto) Seg Neutrophils % Seg Neutrophils # D-Dimer Sodium Potassium Chloride Carbon Dioxide BUN Glucose POC Glucose 359 H 325 H 442 H Ferritin AST ALT Lactate Dehydrogenase C-Reactive Protein Albumin Coronavirus (PCR) 11/01/20 11/01/20 11/02/20 16:30 22:12 04:38 WBC 12.4 H Hgb 14.8 H Hct 44.1 H MCH MCHC RDW 13.0 L Plt Count Lymph % (Auto) 3.3 L [place] % (Auto) 9.3 H Lymph # (Auto) 0.4 L [place] # (Auto) 1.2 H Seg Neutrophils % 87.2 H Seg Neutrophils # 10.9 H D-Dimer Sodium Potassium Chloride Carbon Dioxide BUN Glucose POC Glucose 378 H 395 H Ferritin AST ALT Lactate Dehydrogenase C-Reactive Protein Albumin Coronavirus (PCR) 11/02/20 11/02/20 11/02/20 04:38 07:40 12:09 WBC Hgb Hct MCH MCHC RDW Plt Count Lymph % (Auto) [place] % (Auto) Lymph # (Auto) [place] # (Auto) Seg Neutrophils % Seg Neutrophils # D-Dimer Sodium Potassium Chloride Carbon Dioxide 32 H BUN 48 H Glucose 304 H POC Glucose 280 H 422 H Ferritin AST ALT Lactate Dehydrogenase C-Reactive Protein Albumin Coronavirus (PCR) 11/02/20 11/02/20 11/03/20 16:10 21:30 08:01 WBC Hgb Hct MCH MCHC RDW Plt Count Lymph % (Auto) [place] % (Auto) Lymph # (Auto) [place] # (Auto) Seg Neutrophils % Seg Neutrophils # D-Dimer Sodium Potassium Chloride Carbon Dioxide BUN Glucose POC Glucose 367 H 380 H 336 H Ferritin AST ALT Lactate Dehydrogenase C-Reactive Protein Albumin Coronavirus (PCR) 11/03/20 11/03/20 11/03/20 12:21 15:56 21:17 WBC Hgb Hct MCH MCHC RDW Plt Count Lymph % (Auto) [place] % (Auto) Lymph # (Auto) [place] # (Auto) Seg Neutrophils % Seg Neutrophils # D-Dimer Sodium Potassium Chloride Carbon Dioxide BUN Glucose POC Glucose 352 H 312 H 307 H Ferritin AST ALT Lactate Dehydrogenase C-Reactive Protein Albumin Coronavirus (PCR) 11/04/20 11/04/20 11/04/20 04:28 07:57 11:43 WBC Hgb Hct MCH MCHC RDW Plt Count Lymph % (Auto) [place] % (Auto) Lymph # (Auto) [place] # (Auto) Seg Neutrophils % Seg Neutrophils # D-Dimer Sodium Potassium Chloride 95.6 L Carbon Dioxide 33 H BUN 52 H Glucose 307 H POC Glucose 287 H 321 H Ferritin AST ALT Lactate Dehydrogenase C-Reactive Protein Albumin Coronavirus (PCR) 11/04/20 11/04/20 11/05/20 16:23 22:30 07:49 WBC Hgb Hct MCH MCHC RDW Plt Count Lymph % (Auto) [place] % (Auto) Lymph # (Auto) [place] # (Auto) Seg Neutrophils % Seg Neutrophils # D-Dimer Sodium Potassium Chloride Carbon Dioxide BUN Glucose POC Glucose 345 H 285 H 269 H Ferritin AST ALT Lactate Dehydrogenase C-Reactive Protein Albumin Coronavirus (PCR) 11/05/20 11/05/20 11/05/20 11:43 15:53 15:53 WBC Hgb Hct MCH MCHC RDW Plt Count Lymph % (Auto) [place] % (Auto) Lymph # (Auto) [place] # (Auto) Seg Neutrophils % Seg Neutrophils # D-Dimer Sodium Potassium Chloride Carbon Dioxide BUN Glucose POC Glucose 349 H Ferritin 2889.0 H AST ALT Lactate Dehydrogenase 345 H C-Reactive Protein Albumin Coronavirus (PCR) 11/05/20 11/05/20 11/06/20 16:10 22:22 07:29 WBC Hgb Hct MCH MCHC RDW Plt Count Lymph % (Auto) [place] % (Auto) Lymph # (Auto) [place] # (Auto) Seg Neutrophils % Seg Neutrophils # D-Dimer Sodium Potassium Chloride Carbon Dioxide BUN Glucose POC Glucose 311 H 264 H 216 H Ferritin AST ALT Lactate Dehydrogenase C-Reactive Protein Albumin Coronavirus (PCR) 11/06/20 11/06/20 11/06/20 11:04 16:37 21:58 WBC Hgb Hct MCH MCHC RDW Plt Count Lymph % (Auto) [place] % (Auto) Lymph # (Auto) [place] # (Auto) Seg Neutrophils % Seg Neutrophils # D-Dimer Sodium Potassium Chloride Carbon Dioxide BUN Glucose POC Glucose 363 H 247 H 279 H Ferritin AST ALT Lactate Dehydrogenase C-Reactive Protein Albumin Coronavirus (PCR) 11/07/20 11/07/20 11/07/20 06:08 07:39 09:00 WBC Hgb 16.1 H Hct 48.6 H MCH MCHC RDW Plt Count 122 L Lymph % (Auto) 7.7 L [place] % (Auto) 12.5 H Lymph # (Auto) 0.7 L [place] # (Auto) 1.1 H Seg Neutrophils % 79.6 H Seg Neutrophils # D-Dimer Sodium Potassium Chloride Carbon Dioxide 33 H BUN 62 H Glucose 279 H POC Glucose 194 H Ferritin AST ALT Lactate Dehydrogenase C-Reactive Protein Albumin Coronavirus (PCR) 11/07/20 11/07/20 11/07/20 12:43 17:26 21:54 WBC Hgb Hct MCH MCHC RDW Plt Count Lymph % (Auto) [place] % (Auto) Lymph # (Auto) [place] # (Auto) Seg Neutrophils % Seg Neutrophils # D-Dimer Sodium Potassium Chloride Carbon Dioxide BUN Glucose POC Glucose 338 H 251 H 255 H Ferritin AST ALT Lactate Dehydrogenase C-Reactive Protein Albumin Coronavirus (PCR) 11/08/20 11/08/20 11/08/20 07:42 12:15 21:37 WBC Hgb Hct MCH MCHC RDW Plt Count Lymph % (Auto) [place] % (Auto) Lymph # (Auto) [place] # (Auto) Seg Neutrophils % Seg Neutrophils # D-Dimer Sodium Potassium Chloride Carbon Dioxide BUN Glucose POC Glucose 251 H 320 H 316 H Ferritin AST ALT Lactate Dehydrogenase C-Reactive Protein Albumin Coronavirus (PCR) 11/09/20 11/09/20 11/09/20 07:52 11:22 17:05 WBC Hgb Hct MCH MCHC RDW Plt Count Lymph % (Auto) [place] % (Auto) Lymph # (Auto) [place] # (Auto) Seg Neutrophils % Seg Neutrophils # D-Dimer Sodium Potassium Chloride Carbon Dioxide BUN Glucose POC Glucose 246 H 257 H 223 H Ferritin AST ALT Lactate Dehydrogenase C-Reactive Protein Albumin Coronavirus (PCR) 11/09/20 11/10/20 11/10/20 22:01 07:13 07:13 WBC Hgb 14.7 H Hct 44.1 H MCH MCHC RDW Plt Count 106 L Lymph % (Auto) 5.4 L [place] % (Auto) Lymph # (Auto) 0.4 L [place] # (Auto) Seg Neutrophils % 88.5 H Seg Neutrophils # D-Dimer Sodium Potassium Chloride Carbon Dioxide BUN 56 H Glucose 261 H POC Glucose 241 H Ferritin AST ALT Lactate Dehydrogenase C-Reactive Protein Albumin Coronavirus (PCR) 11/10/20 11/10/20 11/10/20 07:31 12:15 16:09 WBC Hgb Hct MCH MCHC RDW Plt Count Lymph % (Auto) [place] % (Auto) Lymph # (Auto) [place] # (Auto) Seg Neutrophils % Seg Neutrophils # D-Dimer Sodium Potassium Chloride Carbon Dioxide BUN Glucose POC Glucose 234 H 327 H 258 H Ferritin AST ALT Lactate Dehydrogenase C-Reactive Protein Albumin Coronavirus (PCR) 11/10/20 11/11/20 11/11/20 21:47 07:44 12:01 WBC Hgb Hct MCH MCHC RDW Plt Count Lymph % (Auto) [place] % (Auto) Lymph # (Auto) [place] # (Auto) Seg Neutrophils % Seg Neutrophils # D-Dimer Sodium Potassium Chloride Carbon Dioxide BUN Glucose POC Glucose 281 H 273 H 343 H Ferritin AST ALT Lactate Dehydrogenase C-Reactive Protein Albumin Coronavirus (PCR) 11/11/20 11/11/20 11/12/20 17:03 21:31 07:28 WBC Hgb Hct MCH MCHC RDW Plt Count Lymph % (Auto) [place] % (Auto) Lymph # (Auto) [place] # (Auto) Seg Neutrophils % Seg Neutrophils # D-Dimer Sodium Potassium Chloride Carbon Dioxide BUN Glucose POC Glucose 222 H 235 H 200 H Ferritin AST ALT Lactate Dehydrogenase C-Reactive Protein Albumin Coronavirus (PCR) 11/12/20 11/12/20 11/12/20 10:58 17:18 21:08 WBC Hgb Hct MCH MCHC RDW Plt Count Lymph % (Auto) [place] % (Auto) Lymph # (Auto) [place] # (Auto) Seg Neutrophils % Seg Neutrophils # D-Dimer Sodium Potassium Chloride Carbon Dioxide BUN Glucose POC Glucose 294 H 240 H 317 H Ferritin AST ALT Lactate Dehydrogenase C-Reactive Protein Albumin Coronavirus (PCR) 11/13/20 11/13/20 07:03 08:17 WBC Hgb Hct MCH MCHC RDW Plt Count Lymph % (Auto) [place] % (Auto) Lymph # (Auto) [place] # (Auto) Seg Neutrophils % Seg Neutrophils # D-Dimer Sodium Potassium Chloride Carbon Dioxide BUN 60 H Glucose 228 H POC Glucose 226 H Ferritin AST ALT Lactate Dehydrogenase C-Reactive Protein Albumin Coronavirus (PCR) Allied health notes reviewed: nursing
--- NOTE | 2020-11-13 12:56 | XRay Report ---
CHEST 1 VIEW 11/13/2020 12:00 PM INDICATION / CLINICAL INFORMATION: Increasing oxygen requirement/COVID. COMPARISON: One view of the chest from 11/07/2020. FINDINGS: SUPPORT DEVICES: None. HEART / MEDIASTINUM: Stable. LUNGS / PLEURA: Aeration of the right lung base is slightly improved. There are similar left basilar airspace opacities. Opacities along the upper/mid lungs have increased bilaterally. No significant pl eural effusion. No pneumothorax. ADDITIONAL FINDINGS: No significant additional findings. IMPRESSION: Interval worsening of bilateral pneumonia. Signer Name: Jani Benson MD Signed: 11/13/2020 12:52 PM Workstation Name: [id number]
[2020-11-13] MEDS: CHOLECALCIFEROL (VIT D3) 1000 UNIT (25 mcg) TAB PO SCH (13:53)
[2020-11-13] MEDS: ASCORBIC ACID 500 MG TAB PO SCH ×2 (13:53→23:27)
[2020-11-13] MEDS: HEPARIN 5,000 UNIT/1 ML VIAL SUB-Q SCH ×2 (13:56→23:27)
[2020-11-13] MEDS: ZINC SULFATE 220 MG CAP PO SCH ×2 (13:58→23:27)
[2020-11-13] MEDS: amLODIPine 10 MG TAB PO SCH (14:12)
[2020-11-13] MEDS: LISINOPRIL 40 MG TAB PO SCH (14:14)
[2020-11-13] MEDS: TIOTROPIUM 18 MCG CAP INHALATION IH SCH (17:06)
[2020-11-13] MEDS: PRAVASTATIN 80 MG TAB PO SCH (23:27)
[2020-11-14] MEDS: FUROSEMIDE 40 MG/4 ML INJ IV SCH ×2 (06:19→17:51)
[2020-11-14] MEDS: hydrALAZINE 25 MG TAB PO SCH ×3 (06:19→22:10)
[2020-11-14 06:43] LABS: BUN/Creatinine Ratio 79; Blood Urea Nitrogen 63 mg/dL (7-17); Hemolysis Index 5
[2020-11-14] MEDS: ASCORBIC ACID 500 MG TAB PO SCH ×2 (09:28→22:10)
[2020-11-14] MEDS: ZINC SULFATE 220 MG CAP PO SCH ×2 (09:28→22:10)
[2020-11-14] MEDS: LISINOPRIL 40 MG TAB PO SCH (09:28)
[2020-11-14] MEDS: CHOLECALCIFEROL (VIT D3) 1000 UNIT (25 mcg) TAB PO SCH (09:28)
[2020-11-14] MEDS: HEPARIN 5,000 UNIT/1 ML VIAL SUB-Q SCH ×2 (09:28→22:11)
[2020-11-14] MEDS: INSULIN GLARGINE 100 UNITS/ML SUB-Q SCH ×2 (09:29→17:51)
[2020-11-14] MEDS: methylPREDNISolone Sod Succinate 40 MG/1 ML INJ IV SCH ×3 (09:29→22:08)
[2020-11-14] MEDS: INSULIN LISPRO 100 UNIT/ML SUB-Q SCH ×6 (09:29→22:10)
[2020-11-14] MEDS: amLODIPine 10 MG TAB PO SCH (09:30)
[2020-11-14] MEDS: TIOTROPIUM 18 MCG CAP INHALATION IH SCH (09:32)
--- NOTE | 2020-11-14 10:40 | Progress Note ---
Assessment and Plan Assessment and plan: -- Acute respiratory failure Due to COVID-19 pneumonia and underlying morbid obesity Supplemental O2 and inhaler as needed -- Pneumonia due to COVID-19 virus Continue empiric steroid, status post remdesivir, Completed Tocilizumab on 10/29/2020, Completed ceftriaxone Supplemental O2, ID and pulmonary care on board -- COPD (chronic obstructive pulmonary disease) with exacerbation Continue empiric steroid, inhalers and supplemental O2 -- Hypertension Monitor BP and adjust meds as needed -- Diabetes mellitus, uncontrolled Consistent carb diet, continue SSI and Lantus Adjust insulin dose for better glycemic control -- GERD (gastroesophageal reflux disease) Continue PPI --Morbid obesity Dietary and exercise recommendation as outpatient when clinically more stable and appropriate --Leukocytosis, due to steroid --DVT prophylaxis, Daily clinical course: 10/31/20: Remains on high flow O2, continue to monitor inflammatory markers, pulmonary on board. Guarded prognosis. 11/01/20: Patient remains on 40 L high flow O2. Continue to monitor clinically with supportive care, follow inflammatory markers, blood glucose significantly elevated, will add long-acting insulin. Reduce steroids dose to 40 mg every 8 hours. guarded prognosis. 11/02/20: Patient on 20 L and 60% FiO2 today. Continue to wean off O2 as tolerated. Follow inflammatory markers 11/03/20: Remains on high flow O2-30L today, guarded prognosis, wean off as tolerated. 11/04/20: Guarded prognosis, remains on high flow O2 30 L with 70% FiO2. Continue to follow inflammatory markers, ID and pulmonary critical care following. 11/05/20; Remains on 30L O2, unable to wean off, gurded prognosis. follow clinica lly. Continue to adjust insulin doses for better glycemic control. 11/06/20: Remains on high flow O2, BG improved, cont to adjust insulin doses. Patient is getting very frustrated and anxious and desperately wants to go home. I explained to her with the nurse in lengthy discussion that she is still requiring high flow O2 and not stable enough to go home. She finally verbalized understanding. 11/07/20; still remains on high flow, unable to wean off, guarded prognosis. cont to follow 11/08/20: Discussed with RT, will try to wean off to nasal cannula O2. Patient remains on high flow O2, Becoming very frustrated and anxious. Explained in details with RN at the bedside. Guarded prognosis. Continue to follow inflammatory markers. 11/09/20: pt on 10L O2 today, continue to wean off, follow inflammatory markers. Patient appears otherwise clinically stable 11/10/20: Patient weaned off to 6 L nasal cannula O2 today. If weaned off below 5 L nasal cannula patient should be able to discharge home. Continue to follow for now. 11/11/20: back on 10L n/c o2 today 11/12 -Patient is on 10 L of high flow oxygen -Will titrate as tolerated 11/13 -Patient was on 10 L of high flow oxygen -Titrate down as tolerated -Solu-Medrol increased to 40 mg IV 3 times daily -Blood sugar was uncontrolled and increased morning dose of 70/30 from 12-15, increase the night dose from 24 to 28 units. Monitor blood sugar and adjust as needed. -Continue with Lasix 40 mg IV twice daily -Prognosis is guarded. 11/14 -Patient was on 10 L of high flow oxygen -Patient states she wants to go home; I called her daughter Ms. Emanuel at [phone] and discussed about her mother's management plan and about her mother's decision wants to go home. She said she wants to talk to her mother. She wants her mother to be treated in the hospital. History Interval history: Patient was seen and evaluated this morning Patient was on 10 L of high flow oxygen Patient said she wants to go home Hospitalist Physical - Physical exam Narrative exam: Not in cardiopulmonary distress. The patient is morbidly obese. Vital signs as documented. Head exam is unremarkable. No scleral icterus . Neck is without jugular venous distension, thyromegaly, or carotid bruits. Lungs decreased air entry . Cardiac exam reveals regular rate and Rhythm. Abdominal exam reveals normal bowel sounds, nontender, no organomegaly. Extremities are nonedematous and both femoral and pedal pulses are normal. MANAGER OF PROCUREMENT: Alert and oriented 3. No focal weakness. - Constitutional Vitals: Temp Pulse Resp BP Pulse Ox 97.6 F 91 H 20 120/62 96 11/14/20 04:47 11/14/20 04:47 11/14/20 04:47 11/14/20 04:47 11/14/20 04:47 General appearance: Present: no acute distress, obese HEART Score - HEART Score Troponin: Troponin T < 0.010 ng/mL (0.00-0.029) 10/23/20 17:31 Results - Labs CBC & Chem 7: 11/10/20 07:13 11/14/20 05:01 Labs: Laboratory Last Values WBC 6.6 K/mm3 (4.5-11.0) 11/10/20 07:13 RBC 4.65 M/mm3 (3.65-5.03) 11/10/20 07:13 Hgb 14.7 gm/dl (10.1-14.3) H 11/10/20 07:13 Hct 44.1 % (30.3-42.9) H 11/10/20 07:13 MCV 95 fl (79-97) 11/10/20 07:13 MCH 32 pg (28-32) 11/10/20 07:13 MCHC 33 % (30-34) 11/10/20 07:13 RDW 13.2 % (13.2-15.2) 11/10/20 07:13 Plt Count 106 K/mm3 (140-440) L 11/10/20 07:13 Lymph % (Auto) 5.4 % (13.4-35.0) L 11/10/20 07:13 Williamson % (Auto) 5.8 % (0.0-7.3) 11/10/20 07:13 Eos % (Auto) 0.0 % (0.0-4.3) 11/10/20 07:13 Baso % (Auto) 0.3 % (0.0-1.8) 11/10/20 07:13 Lymph # (Auto) 0.4 K/mm3 (1.2-5.4) L 11/10/20 07:13 Williamson # (Auto) 0.4 K/mm3 (0.0-0.8) 11/10/20 07:13 Eos # (Auto) 0.0 K/mm3 (0.0-0.4) 11/10/20 07:13 Baso # (Auto) 0.0 K/mm3 (0.0-0.1) 11/10/20 07:13 Seg Neutrophils % 88.5 % (40.0-70.0) H 11/10/20 07:13 Seg Neutrophils # 5.8 K/mm3 (1.8-7.7) 11/10/20 07:13 D-Dimer 229.3 ng/mlDDU (0-234) 11/05/20 15:53 Sodium 132 mmol/L (137-145) L D 11/14/20 05:01 Potassium 4.9 mmol/L (3.6-5.0) 11/14/20 05:01 Chloride 94.2 mmol/L (98-107) L 11/14/20 05:01 Carbon Dioxide 28 mmol/L (22-30) 11/14/20 05:01 Anion Gap 15 mmol/L 11/14/20 05:01 BUN 63 mg/dL (7-17) H 11/14/20 05:01 Creatinine 0.8 mg/dL (0.6-1.2) 11/14/20 05:01 Estimated GFR > 60 ml/min 11/14/20 05:01 BUN/Creatinine Ratio 79 % 11/14/20 05:01 Glucose 236 mg/dL (65-100) H 11/14/20 05:01 POC Glucose 240 mg/dL (70-105) H 11/14/20 07:28 Calcium 9.0 mg/dL (8.4-10.2) 11/14/20 05:01 Magnesium 1.80 mg/dL (1.7-2.3) 10/23/20 20:38 Ferritin 2889.0 ng/mL (10.0-200.0) H 11/05/20 15:53 Total Bilirubin 0.50 mg/dL (0.1-1.2) 10/30/20 07:46 AST 71 units/L (5-40) H 10/30/20 07:46 ALT 164 units/L (7-56) H 10/30/20 07:46 Alkaline Phosphatase 64 units/L (35-129) 10/30/20 07:46 Lactate Dehydrogenase 345 units/L (91-180) H 11/05/20 15:53 Troponin T < 0.010 ng/mL (0.00-0.029) 10/23/20 17:31 C-Reactive Protein 0.10 mg/dL (0.00-1.30) 11/05/20 15:53 NT-Pro-B Natriuret Pep 162.0 pg/mL (0-900) 10/23/20 17:31 Total Protein 7.0 g/dL (6.3-8.2) 10/30/20 07:46 Albumin 3.2 g/dL (3.9-5) L 10/30/20 07:46 Albumin/Globulin Ratio 0.8 % 10/30/20 07:46 Procalcitonin 0.32 ng/mL (<0.15) 10/23/20 20:38 TSH 2.010 mlU/mL (0.270-4.200) 10/23/20 20:38 Free T4 1.17 ng/dL (0.76-1.46) 10/23/20 20:38 Coronavirus (PCR) Positive (Negative) A 10/24/20 08:00 [place]/IV: Voiding Method External Female Catheter Active Medications - Current Medications Current Medications: Generic Name Dose Route Start Last Admin Trade Name Freq PRN Reason Stop Dose Admin Acetaminophen 650 mg 10/23/20 20:27 11/10/20 21:51 Acetaminophen 325 Mg Tab PO 650 mg Q4H PRN Administration Pain MILD(1-3)/Fever >100.5/KAUFMAN Albuterol 2.5 mg 10/23/20 20:27 Albuterol 2.5 Mg/3 Ml Nebu IH Q4HRT PRN Shortness Of Breath Amlodipine Besylate 10 mg 10/26/20 10:00 11/14/20 09:30 Amlodipine 10 Mg Tab PO 10 mg QDAY GLENROY Administration Ascorbic Acid 500 mg 10/23/20 22:00 11/14/20 09:28 Ascorbic Acid 500 Mg Tab PO 500 mg BID GLENROY Administration Cholecalciferol 1,000 unit 10/24/20 10:00 11/14/20 09:28 Cholecalciferol (Vit D3) 1000 Unit (25 Mcg) Tab PO 1,000 unit QDAY GLENROY Administration Furosemide 40 mg 10/26/20 11:00 11/14/20 06:19 Furosemide 40 Mg/4 Ml Inj IV 40 mg 0600,1800 GLENROY Administration Heparin Sodium (Porcine) 5,000 unit 10/23/20 22:00 11/14/20 09:28 Heparin 5,000 Unit/1 Ml Vial SUB-Q 5,000 unit Q12HR GLENROY Administration Hydralazine HCl 50 mg 10/23/20 22:00 11/14/20 06:19 Hydralazine 25 Mg Tab PO Not Given Q8HR GLENROY Hydromorphone HCl 0.5 mg 10/23/20 20:27 Hydromorphone 1 Mg/1 Ml Inj IV Q12H PRN Pain , Severe (7-10) Insulin Glargine 15 units 11/13/20 08:00 11/14/20 09:29 Insulin Glargine 100 Units/Ml SUB-Q 15 units QAMDIAB GLENROY Administration Insulin Glargine 28 units 11/13/20 18:00 11/13/20 17:22 Insulin Glargine 100 Units/Ml SUB-Q 28 units QPM GLENROY Administration Insulin Human Lispro 0 unit 10/27/20 11:30 11/14/20 09:29 Insulin Lispro 100 Unit/Ml SUB-Q 4 unit ACHS GLENROY Administration Protocol Lisinopril 40 mg 10/24/20 10:00 11/14/20 09:28 Lisinopril 40 Mg Tab PO 40 mg DAILY GLENROY Administration Methylprednisolone Sodium Succinate 40 mg 11/13/20 08:00 11/14/20 09:29 Methylprednisolone Sod Succinate 40 Mg/1 Ml Inj IV 40 mg TID GLENROY Administration Ondansetron HCl 4 mg 10/23/20 20:27 Ondansetron 4 Mg/2 Ml Inj IV Q8H PRN Nausea And Vomiting Oxycodone/Acetaminophen 1 tab 10/23/20 20:27 11/13/20 23:27 Oxycodone /Acetaminophen 5-325mg Tab PO 1 tab Q12H PRN Administration Pain, Moderate (4-6) Pravastatin Sodium 80 mg 10/23/20 22:00 11/13/20 23:27 Pravastatin 80 Mg Tab PO 80 mg QHS GLENROY Administration Sodium Chloride 10 ml 10/23/20 22:00 11/14/20 09:31 Sodium Chloride 0.9% 10 Ml Flush Syringe IV 10 ml BID GLENROY Administration Sodium Chloride 10 ml 10/23/20 20:27 Sodium Chloride 0.9% 10 Ml Flush Syringe IV PRN PRN LINE FLUSH Tiotropium [place] 1 puff 10/24/20 10:00 11/14/20 09:32 Tiotropium 18 Mcg Cap Inhalation IH Not Given QDAY GLENROY Zinc Sulfate 220 mg 10/23/20 22:00 11/14/20 09:28 Zinc Sulfate 220 Mg Cap PO 220 mg BID GLENROY Administration Nutrition/Malnutrition Assess - Dietary Evaluation Nutrition/Malnutrition Findings: Nutrition Notes Start: 10/26/20 11:03 Freq: Status: Active Protocol: Document 11/04/20 10:39 (Rec: 11/04/20 10:43 [email or web address]) Nutrition Notes Initial or Follow up Reassessment Current Diagnosis Diabetes,Hypertension,Heart Failure Other Pertinent Diagnosis Covid 19, GERD, pneu Current Diet Cardiac Consistent Carbohydrate diet Labs/Tests POC 307 Pertinent Medications Reveiwed Height 5 ft 6 in Weight 145.5 g [place] Body Weight (kg) 59.09 BMI 0.0 Weight Status Morbidly Obese Subjective/Other Information Pt is eating 90% of meals and 100% of 2 ONS daily. Percent of energy/protein needs met: 100%/100% Burn Absent Trauma Absent Current % PO Good (75-100%) Minimum of two criteria No physical signs of malnutrition #1 Nutrition Diagnosis Inadequate energy intake As Evidenced by Signs and Symptoms pt continues to meet 100% of protein and energy needs Diagnosis Progress(for reassessment Resolved documentation) Is patient on ventilator? No Is Patient Ambulatory and/or Out of Bed No REE-([facility]-confined to bed) [phone] Calculation Used for Recommendations 1744 kcal Additional Notes protein needs:59 - 71g (1 - 1. 2g/kgIBW) fluid needs: 1 ml/kcal Nutrition Intervention Change Diet Order: [place] current diet as ordered Add Supplement/Snack (indicate name/kcal Glucerna BID /protein ) Provides kCal: 440 Provides Protein (gm) 20 Goal #1 Meet at least 75% of kcal and protein needs via PO Anticipated Discharge Needs: Cardiac Consistent Carbohydrate diet Revisit per MD consult or patient Sign Off request:
--- NOTE | 2020-11-14 11:31 | Progress Note ---
Assessment and Plan 69 y/o, obese female with acute respiratory failure secondary to COVID pneumonia. 11/14/20: given worsening, will icnrease steroids today to 125 TID. Suggest increasing lasix therapy maybe to TID as well. Repeat CXR likely on Monday. Will order BNP. Prognosis remains guarded. Very bad sign given increase in oxygen requirement. 11/13/20: CXR today. Hold on additional lasix until CXR is reviewed. Prone if able. Wean FiO2 for sats >88%. Continue steroids at TID dosing. 11/12/20: Will give an additional 40 of IV lasix now in addition to BID dosing. increase steroids back to TID but keep at 40 11/11/20: Wean FiO2. Would like for oxygen requirement to be around 3-4 liters then can switch to PO Prednisone 60 daily for 4 days, then 40 daily for 4 days then 20 daily for 4 days then 10 daily for 4 days then stop. 11/10/20: Continue to wean FiO2 as tolerated. Hopeful can wean to lower numbers safer for discharge. Should start working on discharge planning now. 11/09/20: Continue current level of care. No new recs pulm stout. Continue to wean FiO2 as tolerated. Prognosis is still guarded. 11/06/20: Will continue same recs. Hold on increases in steroids. Prone if possible. Continue lasix. Prognosis is still guarded. 11/05/20: Same recs as below. 11/04/20: no increases in the last 24 hours so will not increase steroids. Continue to encourage proning if able. Continue lasix. Guarded prognosis. 11/03/20: Will monitor closely, but if oxygen requirement continues to increase, will go back up on steroids to at least 80q8. Already on BID lasix. Prognosis remains guarded. 11/02/20: Continue BID lasix. Wean for sats >88%. currently on solumedrol 40q8, continue this dose for now, but if able to wean further then will wean steroids further. prognosis is still guarded. 11/01/20: No new recs for today. 10/31/20: Prone if able and for as long as possible. Wean for sats >88%. Continue high dose steroids. 10/30/20: No lasix. Prognosis remains guarded. 10/29/20: Continue lasix but I/O are not accurate. May need to increase dosing. Wean FiO2 as tolerated. Guarded prognosis. 10/28/20: Continue current care. Monitor renal function and continue BID lasix. Need strict I/O 10/27/20: Continue current plan from below. Guarded prognosis given COVID and obesity. Monitor renal function. 1. Increased steroids to 125 TID 2. Increased lasix to 40 BID 3. Prone as tolerated and for as long as possible 4. Monitor fluid balance 5. BP control 6. Guarded prognosis given COVID and obesity with worsening respiratory failure. Subjective Date of service: 11/14/20 Principal diagnosis: COVID-19 PNA Interval history: CXR shows worsening bilateral infiltrates. Pneumonia vs fluid. Not sure. No fever. No white count checked since 11/10. I/O shows overall positive fluid balance. Objective Vital Signs - 12hr 11/14/20 11/14/20 02:54 04:47 Temperature 97.6 F Pulse Rate 91 H Respiratory 20 Rate Blood Pressure 120/62 O2 Sat by Pulse 97 96 Oximetry Constitutional: alert Eyes: non-icteric ENT: oropharynx moist Ascultation: Bilateral: diminished breath sounds Cardiovascular: regular rate and rhythm Gastrointestinal: normoactive bowel sounds, soft, non-tender CBC and BMP: 11/10/20 07:13 11/14/20 05:01 ABG, PT/INR, D-dimer: PT/INR, D-dimer D-Dimer 229.3 ng/mlDDU (0-234) 11/05/20 15:53 Abnormal lab findings: Abnormal Labs 10/23/20 10/23/20 10/23/20 17:31 20:38 20:38 WBC Hgb Hct MCH MCHC RDW Plt Count Lymph % (Auto) [place] % (Auto) Lymph # (Auto) [place] # (Auto) Seg Neutrophils % Seg Neutrophils # D-Dimer 919.44 H Sodium 136 L Potassium Chloride Carbon Dioxide BUN Glucose 149 H POC Glucose Ferritin AST ALT Lactate Dehydrogenase 606 H C-Reactive Protein 11.50 H Albumin Coronavirus (PCR) 10/23/20 10/24/20 10/24/20 20:38 08:00 08:07 WBC Hgb Hct MCH 33 H MCHC 35 H RDW Plt Count Lymph % (Auto) 9.9 L [place] % (Auto) 7.9 H Lymph # (Auto) 0.6 L [place] # (Auto) Seg Neutrophils % 82.1 H Seg Neutrophils # D-Dimer Sodium Potassium Chloride Carbon Dioxide BUN Glucose POC Glucose Ferritin AST ALT Lactate Dehydrogenase 643 H C-Reactive Protein 11.70 H Albumin Coronavirus (PCR) Positive A 10/24/20 10/25/20 10/26/20 08:07 16:13 21:32 WBC Hgb Hct MCH MCHC RDW Plt Count Lymph % (Auto) [place] % (Auto) Lymph # (Auto) [place] # (Auto) Seg Neutrophils % Seg Neutrophils # D-Dimer Sodium Potassium Chloride Carbon Dioxide BUN Glucose 173 H POC Glucose 180 H 213 H Ferritin AST ALT Lactate Dehydrogenase C-Reactive Protein Albumin Coronavirus (PCR) 10/27/20 10/27/20 10/27/20 07:54 11:56 13:47 WBC Hgb Hct MCH MCHC RDW Plt Count Lymph % (Auto) [place] % (Auto) Lymph # (Auto) [place] # (Auto) Seg Neutrophils % Seg Neutrophils # D-Dimer Sodium Potassium 3.3 L D Chloride Carbon Dioxide BUN 38 H Glucose 262 H POC Glucose 305 H 289 H Ferritin AST 155 H ALT 170 H Lactate Dehydrogenase C-Reactive Protein Albumin 3.4 L Coronavirus (PCR) 10/27/20 10/27/20 10/28/20 15:49 21:36 07:24 WBC Hgb Hct MCH MCHC RDW Plt Count Lymph % (Auto) [place] % (Auto) Lymph # (Auto) [place] # (Auto) Seg Neutrophils % Seg Neutrophils # D-Dimer Sodium Potassium Chloride Carbon Dioxide BUN 41 H Glucose 217 H POC Glucose 228 H 241 H Ferritin AST 116 H ALT 182 H Lactate Dehydrogenase C-Reactive Protein Albumin 3.7 L Coronavirus (PCR) 10/28/20 10/28/20 10/28/20 07:40 16:08 21:21 WBC Hgb Hct MCH MCHC RDW Plt Count Lymph % (Auto) [place] % (Auto) Lymph # (Auto) [place] # (Auto) Seg Neutrophils % Seg Neutrophils # D-Dimer Sodium Potassium Chloride Carbon Dioxide BUN Glucose POC Glucose 207 H 227 H 354 H Ferritin AST ALT Lactate Dehydrogenase C-Reactive Protein Albumin Coronavirus (PCR) 10/29/20 10/29/20 10/29/20 05:12 07:47 12:19 WBC Hgb Hct MCH MCHC RDW Plt Count Lymph % (Auto) [place] % (Auto) Lymph # (Auto) [place] # (Auto) Seg Neutrophils % Seg Neutrophils # D-Dimer Sodium Potassium Chloride Carbon Dioxide BUN 47 H Glucose 247 H POC Glucose 268 H 383 H Ferritin AST 102 H ALT 183 H Lactate Dehydrogenase C-Reactive Protein Albumin 3.1 L Coronavirus (PCR) 10/29/20 10/29/20 10/30/20 16:34 22:07 07:46 WBC Hgb Hct MCH MCHC RDW Plt Count Lymph % (Auto) [place] % (Auto) Lymph # (Auto) [place] # (Auto) Seg Neutrophils % Seg Neutrophils # D-Dimer Sodium Potassium Chloride Carbon Dioxide BUN 50 H Glucose 287 H POC Glucose 324 H 276 H Ferritin AST 71 H ALT 164 H Lactate Dehydrogenase 392 H C-Reactive Protein Albumin 3.2 L Coronavirus (PCR) 10/30/20 10/30/20 10/30/20 07:46 07:46 08:07 WBC Hgb Hct MCH MCHC RDW Plt Count Lymph % (Auto) [place] % (Auto) Lymph # (Auto) [place] # (Auto) Seg Neutrophils % Seg Neutrophils # D-Dimer 504.53 H Sodium Potassium Chloride Carbon Dioxide BUN Glucose POC Glucose 267 H Ferritin 1470.0 H AST ALT Lactate Dehydrogenase C-Reactive Protein Albumin Coronavirus (PCR) 10/30/20 10/30/20 10/30/20 12:39 17:14 21:42 WBC Hgb Hct MCH MCHC RDW Plt Count Lymph % (Auto) [place] % (Auto) Lymph # (Auto) [place] # (Auto) Seg Neutrophils % Seg Neutrophils # D-Dimer Sodium Potassium Chloride Carbon Dioxide BUN Glucose POC Glucose 332 H 301 H 371 H Ferritin AST ALT Lactate Dehydrogenase C-Reactive Protein Albumin Coronavirus (PCR) 10/31/20 10/31/20 10/31/20 07:52 11:42 16:12 WBC Hgb Hct MCH MCHC RDW Plt Count Lymph % (Auto) [place] % (Auto) Lymph # (Auto) [place] # (Auto) Seg Neutrophils % Seg Neutrophils # D-Dimer Sodium Potassium Chloride Carbon Dioxide BUN Glucose POC Glucose 303 H 387 H 343 H Ferritin AST ALT Lactate Dehydrogenase C-Reactive Protein Albumin Coronavirus (PCR) 10/31/20 11/01/20 11/01/20 21:35 07:34 11:22 WBC Hgb Hct MCH MCHC RDW Plt Count Lymph % (Auto) [place] % (Auto) Lymph # (Auto) [place] # (Auto) Seg Neutrophils % Seg Neutrophils # D-Dimer Sodium Potassium Chloride Carbon Dioxide BUN Glucose POC Glucose 359 H 325 H 442 H Ferritin AST ALT Lactate Dehydrogenase C-Reactive Protein Albumin Coronavirus (PCR) 11/01/20 11/01/20 11/02/20 16:30 22:12 04:38 WBC 12.4 H Hgb 14.8 H Hct 44.1 H MCH MCHC RDW 13.0 L Plt Count Lymph % (Auto) 3.3 L [place] % (Auto) 9.3 H Lymph # (Auto) 0.4 L [place] # (Auto) 1.2 H Seg Neutrophils % 87.2 H Seg Neutrophils # 10.9 H D-Dimer Sodium Potassium Chloride Carbon Dioxide BUN Glucose POC Glucose 378 H 395 H Ferritin AST ALT Lactate Dehydrogenase C-Reactive Protein Albumin Coronavirus (PCR) 11/02/20 11/02/20 11/02/20 04:38 07:40 12:09 WBC Hgb Hct MCH MCHC RDW Plt Count Lymph % (Auto) [place] % (Auto) Lymph # (Auto) [place] # (Auto) Seg Neutrophils % Seg Neutrophils # D-Dimer Sodium Potassium Chloride Carbon Dioxide 32 H BUN 48 H Glucose 304 H POC Glucose 280 H 422 H Ferritin AST ALT Lactate Dehydrogenase C-Reactive Protein Albumin Coronavirus (PCR) 11/02/20 11/02/20 11/03/20 16:10 21:30 08:01 WBC Hgb Hct MCH MCHC RDW Plt Count Lymph % (Auto) [place] % (Auto) Lymph # (Auto) [place] # (Auto) Seg Neutrophils % Seg Neutrophils # D-Dimer Sodium Potassium Chloride Carbon Dioxide BUN Glucose POC Glucose 367 H 380 H 336 H Ferritin AST ALT Lactate Dehydrogenase C-Reactive Protein Albumin Coronavirus (PCR) 11/03/20 11/03/20 11/03/20 12:21 15:56 21:17 WBC Hgb Hct MCH MCHC RDW Plt Count Lymph % (Auto) [place] % (Auto) Lymph # (Auto) [place] # (Auto) Seg Neutrophils % Seg Neutrophils # D-Dimer Sodium Potassium Chloride Carbon Dioxide BUN Glucose POC Glucose 352 H 312 H 307 H Ferritin AST ALT Lactate Dehydrogenase C-Reactive Protein Albumin Coronavirus (PCR) 11/04/20 11/04/20 11/04/20 04:28 07:57 11:43 WBC Hgb Hct MCH MCHC RDW Plt Count Lymph % (Auto) [place] % (Auto) Lymph # (Auto) [place] # (Auto) Seg Neutrophils % Seg Neutrophils # D-Dimer Sodium Potassium Chloride 95.6 L Carbon Dioxide 33 H BUN 52 H Glucose 307 H POC Glucose 287 H 321 H Ferritin AST ALT Lactate Dehydrogenase C-Reactive Protein Albumin Coronavirus (PCR) 11/04/20 11/04/20 11/05/20 16:23 22:30 07:49 WBC Hgb Hct MCH MCHC RDW Plt Count Lymph % (Auto) [place] % (Auto) Lymph # (Auto) [place] # (Auto) Seg Neutrophils % Seg Neutrophils # D-Dimer Sodium Potassium Chloride Carbon Dioxide BUN Glucose POC Glucose 345 H 285 H 269 H Ferritin AST ALT Lactate Dehydrogenase C-Reactive Protein Albumin Coronavirus (PCR) 11/05/20 11/05/20 11/05/20 11:43 15:53 15:53 WBC Hgb Hct MCH MCHC RDW Plt Count Lymph % (Auto) [place] % (Auto) Lymph # (Auto) [place] # (Auto) Seg Neutrophils % Seg Neutrophils # D-Dimer Sodium Potassium Chloride Carbon Dioxide BUN Glucose POC Glucose 349 H Ferritin 2889.0 H AST ALT Lactate Dehydrogenase 345 H C-Reactive Protein Albumin Coronavirus (PCR) 11/05/20 11/05/20 11/06/20 16:10 22:22 07:29 WBC Hgb Hct MCH MCHC RDW Plt Count Lymph % (Auto) [place] % (Auto) Lymph # (Auto) [place] # (Auto) Seg Neutrophils % Seg Neutrophils # D-Dimer Sodium Potassium Chloride Carbon Dioxide BUN Glucose POC Glucose 311 H 264 H 216 H Ferritin AST ALT Lactate Dehydrogenase C-Reactive Protein Albumin Coronavirus (PCR) 11/06/20 11/06/20 11/06/20 11:04 16:37 21:58 WBC Hgb Hct MCH MCHC RDW Plt Count Lymph % (Auto) [place] % (Auto) Lymph # (Auto) [place] # (Auto) Seg Neutrophils % Seg Neutrophils # D-Dimer Sodium Potassium Chloride Carbon Dioxide BUN Glucose POC Glucose 363 H 247 H 279 H Ferritin AST ALT Lactate Dehydrogenase C-Reactive Protein Albumin Coronavirus (PCR) 11/07/20 11/07/20 11/07/20 06:08 07:39 09:00 WBC Hgb 16.1 H Hct 48.6 H MCH MCHC RDW Plt Count 122 L Lymph % (Auto) 7.7 L [place] % (Auto) 12.5 H Lymph # (Auto) 0.7 L [place] # (Auto) 1.1 H Seg Neutrophils % 79.6 H Seg Neutrophils # D-Dimer Sodium Potassium Chloride Carbon Dioxide 33 H BUN 62 H Glucose 279 H POC Glucose 194 H Ferritin AST ALT Lactate Dehydrogenase C-Reactive Protein Albumin Coronavirus (PCR) 11/07/20 11/07/20 11/07/20 12:43 17:26 21:54 WBC Hgb Hct MCH MCHC RDW Plt Count Lymph % (Auto) [place] % (Auto) Lymph # (Auto) [place] # (Auto) Seg Neutrophils % Seg Neutrophils # D-Dimer Sodium Potassium Chloride Carbon Dioxide BUN Glucose POC Glucose 338 H 251 H 255 H Ferritin AST ALT Lactate Dehydrogenase C-Reactive Protein Albumin Coronavirus (PCR) 11/08/20 11/08/20 11/08/20 07:42 12:15 21:37 WBC Hgb Hct MCH MCHC RDW Plt Count Lymph % (Auto) [place] % (Auto) Lymph # (Auto) [place] # (Auto) Seg Neutrophils % Seg Neutrophils # D-Dimer Sodium Potassium Chloride Carbon Dioxide BUN Glucose POC Glucose 251 H 320 H 316 H Ferritin AST ALT Lactate Dehydrogenase C-Reactive Protein Albumin Coronavirus (PCR) 11/09/20 11/09/20 11/09/20 07:52 11:22 17:05 WBC Hgb Hct MCH MCHC RDW Plt Count Lymph % (Auto) [place] % (Auto) Lymph # (Auto) [place] # (Auto) Seg Neutrophils % Seg Neutrophils # D-Dimer Sodium Potassium Chloride Carbon Dioxide BUN Glucose POC Glucose 246 H 257 H 223 H Ferritin AST ALT Lactate Dehydrogenase C-Reactive Protein Albumin Coronavirus (PCR) 11/09/20 11/10/20 11/10/20 22:01 07:13 07:13 WBC Hgb 14.7 H Hct 44.1 H MCH MCHC RDW Plt Count 106 L Lymph % (Auto) 5.4 L [place] % (Auto) Lymph # (Auto) 0.4 L [place] # (Auto) Seg Neutrophils % 88.5 H Seg Neutrophils # D-Dimer Sodium Potassium Chloride Carbon Dioxide BUN 56 H Glucose 261 H POC Glucose 241 H Ferritin AST ALT Lactate Dehydrogenase C-Reactive Protein Albumin Coronavirus (PCR) 11/10/20 11/10/20 11/10/20 07:31 12:15 16:09 WBC Hgb Hct MCH MCHC RDW Plt Count Lymph % (Auto) [place] % (Auto) Lymph # (Auto) [place] # (Auto) Seg Neutrophils % Seg Neutrophils # D-Dimer Sodium Potassium Chloride Carbon Dioxide BUN Glucose POC Glucose 234 H 327 H 258 H Ferritin AST ALT Lactate Dehydrogenase C-Reactive Protein Albumin Coronavirus (PCR) 11/10/20 11/11/20 11/11/20 21:47 07:44 12:01 WBC Hgb Hct MCH MCHC RDW Plt Count Lymph % (Auto) [place] % (Auto) Lymph # (Auto) [place] # (Auto) Seg Neutrophils % Seg Neutrophils # D-Dimer Sodium Potassium Chloride Carbon Dioxide BUN Glucose POC Glucose 281 H 273 H 343 H Ferritin AST ALT Lactate Dehydrogenase C-Reactive Protein Albumin Coronavirus (PCR) 11/11/20 11/11/20 11/12/20 17:03 21:31 07:28 WBC Hgb Hct MCH MCHC RDW Plt Count Lymph % (Auto) [place] % (Auto) Lymph # (Auto) [place] # (Auto) Seg Neutrophils % Seg Neutrophils # D-Dimer Sodium Potassium Chloride Carbon Dioxide BUN Glucose POC Glucose 222 H 235 H 200 H Ferritin AST ALT Lactate Dehydrogenase C-Reactive Protein Albumin Coronavirus (PCR) 11/12/20 11/12/20 11/12/20 10:58 17:18 21:08 WBC Hgb Hct MCH MCHC RDW Plt Count Lymph % (Auto) [place] % (Auto) Lymph # (Auto) [place] # (Auto) Seg Neutrophils % Seg Neutrophils # D-Dimer Sodium Potassium Chloride Carbon Dioxide BUN Glucose POC Glucose 294 H 240 H 317 H Ferritin AST ALT Lactate Dehydrogenase C-Reactive Protein Albumin Coronavirus (PCR) 11/13/20 11/13/20 11/13/20 07:03 08:17 11:46 WBC Hgb Hct MCH MCHC RDW Plt Count Lymph % (Auto) [place] % (Auto) Lymph # (Auto) [place] # (Auto) Seg Neutrophils % Seg Neutrophils # D-Dimer Sodium Potassium Chloride Carbon Dioxide BUN 60 H Glucose 228 H POC Glucose 226 H 345 H Ferritin AST ALT Lactate Dehydrogenase C-Reactive Protein Albumin Coronavirus (PCR) 11/13/20 11/13/20 11/14/20 16:27 20:58 05:01 WBC Hgb Hct MCH MCHC RDW Plt Count Lymph % (Auto) [place] % (Auto) Lymph # (Auto) [place] # (Auto) Seg Neutrophils % Seg Neutrophils # D-Dimer Sodium 132 L D Potassium Chloride 94.2 L Carbon Dioxide BUN 63 H Glucose 236 H POC Glucose 255 H 256 H Ferritin AST ALT Lactate Dehydrogenase C-Reactive Protein Albumin Coronavirus (PCR) 11/14/20 11/14/20 07:28 11:05 WBC Hgb Hct MCH MCHC RDW Plt Count Lymph % (Auto) [place] % (Auto) Lymph # (Auto) [place] # (Auto) Seg Neutrophils % Seg Neutrophils # D-Dimer Sodium Potassium Chloride Carbon Dioxide BUN Glucose POC Glucose 240 H 232 H Ferritin AST ALT Lactate Dehydrogenase C-Reactive Protein Albumin Coronavirus (PCR) Allied health notes reviewed: nursing
[2020-11-14] MEDS: PRAVASTATIN 80 MG TAB PO SCH (22:10)
[2020-11-14] MEDS: oxyCODONE /ACETAMINOPHEN 5-325MG TAB PO PRN (22:29)
[2020-11-15 06:44] LABS: BUN/Creatinine Ratio 70; Blood Urea Nitrogen 63 mg/dL (7-17); Calcium 8.7 mg/dL (8.4-10.2); Hemolysis Index 4
[2020-11-15] MEDS: hydrALAZINE 25 MG TAB PO SCH ×3 (06:56→22:32)
[2020-11-15] MEDS: FUROSEMIDE 40 MG/4 ML INJ IV SCH ×2 (06:56→18:10)
[2020-11-15] MEDS: INSULIN LISPRO 100 UNIT/ML SUB-Q SCH ×7 (08:24→22:33)
[2020-11-15] MEDS: INSULIN GLARGINE 100 UNITS/ML SUB-Q SCH ×2 (08:25→18:09)
[2020-11-15] MEDS: methylPREDNISolone Sod Succinate 40 MG/1 ML INJ IV SCH ×3 (08:25→20:52)
--- NOTE | 2020-11-15 09:00 | Progress Note ---
Assessment and Plan Assessment and plan: -- Acute respiratory failure Due to COVID-19 pneumonia and underlying morbid obesity Supplemental O2 and inhaler as needed -- Pneumonia due to COVID-19 virus Continue empiric steroid, status post remdesivir, Completed Tocilizumab on 10/29/2020, Completed ceftriaxone Supplemental O2, ID and pulmonary care on board -- COPD (chronic obstructive pulmonary disease) with exacerbation Continue empiric steroid, inhalers and supplemental O2 -- Hypertension Monitor BP and adjust meds as needed -- Diabetes mellitus, uncontrolled Consistent carb diet, continue SSI and Lantus Adjust insulin dose for better glycemic control -- GERD (gastroesophageal reflux disease) Continue PPI --Morbid obesity Dietary and exercise recommendation as outpatient when clinically more stable and appropriate --Leukocytosis, due to steroid --DVT prophylaxis, Daily clinical course: 10/31/20: Remains on high flow O2, continue to monitor inflammatory markers, pulmonary on board. Guarded prognosis. 11/01/20: Patient remains on 40 L high flow O2. Continue to monitor clinically with supportive care, follow inflammatory markers, blood glucose significantly elevated, will add long-acting insulin. Reduce steroids dose to 40 mg every 8 hours. guarded prognosis. 11/02/20: Patient on 20 L and 60% FiO2 today. Continue to wean off O2 as tolerated. Follow inflammatory markers 11/03/20: Remains on high flow O2-30L today, guarded prognosis, wean off as tolerated. 11/04/20: Guarded prognosis, remains on high flow O2 30 L with 70% FiO2. Continue to follow inflammatory markers, ID and pulmonary critical care following. 11/05/20; Remains on 30L O2, unable to wean off, gurded prognosis. follow clinica lly. Continue to adjust insulin doses for better glycemic control. 11/06/20: Remains on high flow O2, BG improved, cont to adjust insulin doses. Patient is getting very frustrated and anxious and desperately wants to go home. I explained to her with the nurse in lengthy discussion that she is still requiring high flow O2 and not stable enough to go home. She finally verbalized understanding. 11/07/20; still remains on high flow, unable to wean off, guarded prognosis. cont to follow 11/08/20: Discussed with RT, will try to wean off to nasal cannula O2. Patient remains on high flow O2, Becoming very frustrated and anxious. Explained in details with RN at the bedside. Guarded prognosis. Continue to follow inflammatory markers. 11/09/20: pt on 10L O2 today, continue to wean off, follow inflammatory markers. Patient appears otherwise clinically stable 11/10/20: Patient weaned off to 6 L nasal cannula O2 today. If weaned off below 5 L nasal cannula patient should be able to discharge home. Continue to follow for now. 11/11/20: back on 10L n/c o2 today 11/12 -Patient is on 10 L of high flow oxygen -Will titrate as tolerated 11/13 -Patient was on 10 L of high flow oxygen -Titrate down as tolerated -Solu-Medrol increased to 40 mg IV 3 times daily -Blood sugar was uncontrolled and increased morning dose of 70/30 from 12-15, increase the night dose from 24 to 28 units. Monitor blood sugar and adjust as needed. -Continue with Lasix 40 mg IV twice daily -Prognosis is guarded. 11/14 -Patient was on 10 L of high flow oxygen -Patient states she wants to go home; I called her daughter Ms. Emanuel at [phone] and discussed about her mother's management plan and about her mother's decision wants to go home. She said she wants to talk to her mother. She wants her mother to be treated in the hospital. 11/15 -Patient was on 4 L of oxygen, wean off oxygen as tolerated -Continue Lasix and steroids -Management plan was discussed with her daughter yesterday -PT evaluation -Blood sugars uncontrolled and I increased lispro to 10 units AC History Interval history: Patient was seen and evaluated this morning Patient was on 4 L of oxygen Patient said she wants to go home Hospitalist Physical - Physical exam Narrative exam: Not in cardiopulmonary distress. The patient is morbidly obese. Vital signs as documented. Head exam is unremarkable. No scleral icterus . Neck is without jugular venous distension, thyromegaly, or carotid bruits. Lungs decreased air entry . Cardiac exam reveals regular rate and Rhythm. Abdominal exam reveals normal bowel sounds, nontender, no organomegaly. Extremities are nonedematous and both femoral and pedal pulses are normal. BODY MAKER: Alert and oriented 3. No focal weakness. - Constitutional Vitals: Temp Pulse Resp BP Pulse Ox 97.7 F 87 18 151/67 91 11/15/20 05:58 11/15/20 05:58 11/15/20 05:58 11/15/20 05:58 11/15/20 05:58 General appearance: Present: no acute distress, obese HEART Score - HEART Score Troponin: Troponin T < 0.010 ng/mL (0.00-0.029) 10/23/20 17:31 Results - Labs CBC & Chem 7: 11/10/20 07:13 11/15/20 04:53 Labs: Laboratory Last Values WBC 6.6 K/mm3 (4.5-11.0) 11/10/20 07:13 RBC 4.65 M/mm3 (3.65-5.03) 11/10/20 07:13 Hgb 14.7 gm/dl (10.1-14.3) H 11/10/20 07:13 Hct 44.1 % (30.3-42.9) H 11/10/20 07:13 MCV 95 fl (79-97) 11/10/20 07:13 MCH 32 pg (28-32) 11/10/20 07:13 MCHC 33 % (30-34) 11/10/20 07:13 RDW 13.2 % (13.2-15.2) 11/10/20 07:13 Plt Count 106 K/mm3 (140-440) L 11/10/20 07:13 Lymph % (Auto) 5.4 % (13.4-35.0) L 11/10/20 07:13 [place] % (Auto) 5.8 % (0.0-7.3) 11/10/20 07:13 Eos % (Auto) 0.0 % (0.0-4.3) 11/10/20 07:13 Baso % (Auto) 0.3 % (0.0-1.8) 11/10/20 07:13 Lymph # (Auto) 0.4 K/mm3 (1.2-5.4) L 11/10/20 07:13 [place] # (Auto) 0.4 K/mm3 (0.0-0.8) 11/10/20 07:13 Eos # (Auto) 0.0 K/mm3 (0.0-0.4) 11/10/20 07:13 Baso # (Auto) 0.0 K/mm3 (0.0-0.1) 11/10/20 07:13 Seg Neutrophils % 88.5 % (40.0-70.0) H 11/10/20 07:13 Seg Neutrophils # 5.8 K/mm3 (1.8-7.7) 11/10/20 07:13 D-Dimer 229.3 ng/mlDDU (0-234) 11/05/20 15:53 Sodium 134 mmol/L (137-145) L 11/15/20 04:53 Potassium 4.6 mmol/L (3.6-5.0) 11/15/20 04:53 Chloride 94.9 mmol/L (98-107) L 11/15/20 04:53 Carbon Dioxide 29 mmol/L (22-30) 11/15/20 04:53 Anion Gap 15 mmol/L 11/15/20 04:53 BUN 63 mg/dL (7-17) H 11/15/20 04:53 Creatinine 0.9 mg/dL (0.6-1.2) 11/15/20 04:53 Estimated GFR > 60 ml/min 11/15/20 04:53 BUN/Creatinine Ratio 70 % 11/15/20 04:53 Glucose 238 mg/dL (65-100) H 11/15/20 04:53 POC Glucose 255 mg/dL (70-105) H 11/15/20 07:51 Calcium 8.7 mg/dL (8.4-10.2) 11/15/20 04:53 Magnesium 1.80 mg/dL (1.7-2.3) 10/23/20 20:38 Ferritin 2889.0 ng/mL (10.0-200.0) H 11/05/20 15:53 Total Bilirubin 0.50 mg/dL (0.1-1.2) 10/30/20 07:46 AST 71 units/L (5-40) H 10/30/20 07:46 ALT 164 units/L (7-56) H 10/30/20 07:46 Alkaline Phosphatase 64 units/L (35-129) 10/30/20 07:46 Lactate Dehydrogenase 345 units/L (91-180) H 11/05/20 15:53 Troponin T < 0.010 ng/mL (0.00-0.029) 10/23/20 17:31 C-Reactive Protein 0.10 mg/dL (0.00-1.30) 11/05/20 15:53 NT-Pro-B Natriuret Pep 178.7 pg/mL (0-900) 11/14/20 04:51 Total Protein 7.0 g/dL (6.3-8.2) 10/30/20 07:46 Albumin 3.2 g/dL (3.9-5) L 10/30/20 07:46 Albumin/Globulin Ratio 0.8 % 10/30/20 07:46 Procalcitonin 0.32 ng/mL (<0.15) 10/23/20 20:38 TSH 2.010 mlU/mL (0.270-4.200) 10/23/20 20:38 Free T4 1.17 ng/dL (0.76-1.46) 10/23/20 20:38 Coronavirus (PCR) Positive (Negative) A 10/24/20 08:00 [place]/IV: Voiding Method External Female Catheter Active Medications - Current Medications Current Medications: Generic Name Dose Route Start Last Admin Trade Name Freq PRN Reason Stop Dose Admin Acetaminophen 650 mg 10/23/20 20:27 11/10/20 21:51 Acetaminophen 325 Mg Tab PO 650 mg Q4H PRN Administration Pain MILD(1-3)/Fever >100.5/KAUFMAN Albuterol 2.5 mg 10/23/20 20:27 Albuterol 2.5 Mg/3 Ml Nebu IH Q4HRT PRN Shortness Of Breath Amlodipine Besylate 10 mg 10/26/20 10:00 11/14/20 09:30 Amlodipine 10 Mg Tab PO 10 mg QDAY GLENROY Administration Ascorbic Acid 500 mg 10/23/20 22:00 11/14/20 22:10 Ascorbic Acid 500 Mg Tab PO 500 mg BID GLENROY Administration Cholecalciferol 1,000 unit 10/24/20 10:00 11/14/20 09:28 Cholecalciferol (Vit D3) 1000 Unit (25 Mcg) Tab PO 1,000 unit QDAY GLENROY Administration Furosemide 40 mg 10/26/20 11:00 11/15/20 06:56 Furosemide 40 Mg/4 Ml Inj IV 40 mg 0600,1800 GLENROY Administration Heparin Sodium (Porcine) 5,000 unit 10/23/20 22:00 11/14/20 22:11 Heparin 5,000 Unit/1 Ml Vial SUB-Q 5,000 unit Q12HR GLENROY Administration Hydralazine HCl 50 mg 10/23/20 22:00 11/15/20 06:56 Hydralazine 25 Mg Tab PO 50 mg Q8HR GLENROY Administration Hydromorphone HCl 0.5 mg 10/23/20 20:27 Hydromorphone 1 Mg/1 Ml Inj IV Q12H PRN Pain , Severe (7-10) Insulin Glargine 15 units 11/13/20 08:00 11/15/20 08:25 Insulin Glargine 100 Units/Ml SUB-Q 15 units QAMDIAB GLENROY Administration Insulin Glargine 28 units 11/13/20 18:00 11/14/20 17:51 Insulin Glargine 100 Units/Ml SUB-Q 28 units QPM GLENROY Administration Insulin Human Lispro 0 unit 10/27/20 11:30 11/15/20 08:24 Insulin Lispro 100 Unit/Ml SUB-Q 5 unit ACHS GLENROY Administration Protocol Insulin Human Lispro 10 unit 11/15/20 08:58 Insulin Lispro 100 Unit/Ml SUB-Q AC GLENROY Lisinopril 40 mg 10/24/20 10:00 11/14/20 09:28 Lisinopril 40 Mg Tab PO 40 mg DAILY GLENROY Administration Methylprednisolone Sodium Succinate 125 mg 11/14/20 11:31 11/15/20 08:25 Methylprednisolone Sod Succinate 40 Mg/1 Ml Inj IV 125 mg TID GLENROY Administration Ondansetron HCl 4 mg 10/23/20 20:27 Ondansetron 4 Mg/2 Ml Inj IV Q8H PRN Nausea And Vomiting Oxycodone/Acetaminophen 1 tab 10/23/20 20:27 11/14/20 22:29 Oxycodone /Acetaminophen 5-325mg Tab PO 1 tab Q12H PRN Administration Pain, Moderate (4-6) Pravastatin Sodium 80 mg 10/23/20 22:00 11/14/20 22:10 Pravastatin 80 Mg Tab PO 80 mg QHS GLENROY Administration Sodium Chloride 10 ml 10/23/20 22:00 11/14/20 22:10 Sodium Chloride 0.9% 10 Ml Flush Syringe IV 10 ml BID GLENROY Administration Sodium Chloride 10 ml 10/23/20 20:27 Sodium Chloride 0.9% 10 Ml Flush Syringe IV PRN PRN LINE FLUSH Tiotropium [place] 1 puff 10/24/20 10:00 11/14/20 09:32 Tiotropium 18 Mcg Cap Inhalation IH Not Given QDAY GLENROY Zinc Sulfate 220 mg 10/23/20 22:00 11/14/20 22:10 Zinc Sulfate 220 Mg Cap PO 220 mg BID GLENROY Administration Nutrition/Malnutrition Assess - Dietary Evaluation Nutrition/Malnutrition Findings: Nutrition Notes Start: 10/26/20 11:03 Freq: Status: Active Protocol: Document 11/04/20 10:39 (Rec: 11/04/20 10:43 [id number]) Nutrition Notes Initial or Follow up Reassessment Current Diagnosis Diabetes,Hypertension,Heart Failure Other Pertinent Diagnosis Covid 19, GERD, pneu Current Diet Cardiac Consistent Carbohydrate diet Labs/Tests POC 307 Pertinent Medications Reveiwed Height 5 ft 6 in Weight 145.5 g [place] Body Weight (kg) 59.09 BMI 0.0 Weight Status Morbidly Obese Subjective/Other Information Pt is eating 90% of meals and 100% of 2 ONS daily. Percent of energy/protein needs met: 100%/100% Burn Absent Trauma Absent Current % PO Good (75-100%) Minimum of two criteria No physical signs of malnutrition #1 Nutrition Diagnosis Inadequate energy intake As Evidenced by Signs and Symptoms pt continues to meet 100% of protein and energy needs Diagnosis Progress(for reassessment Resolved documentation) Is patient on ventilator? No Is Patient Ambulatory and/or Out of Bed No REE-([facility]-confined to bed) [phone] Calculation Used for Recommendations 1744 kcal Additional Notes protein needs:59 - 71g (1 - 1. 2g/kgIBW) fluid needs: 1 ml/kcal Nutrition Intervention Change Diet Order: [place] current diet as ordered Add Supplement/Snack (indicate name/kcal Glucerna BID /protein ) Provides kCal: 440 Provides Protein (gm) 20 Goal #1 Meet at least 75% of kcal and protein needs via PO Anticipated Discharge Needs: Cardiac Consistent Carbohydrate diet Revisit per MD consult or patient Sign Off request:
[2020-11-15] MEDS: ASCORBIC ACID 500 MG TAB PO SCH ×2 (09:47→22:32)
[2020-11-15] MEDS: ZINC SULFATE 220 MG CAP PO SCH ×2 (09:47→22:34)
[2020-11-15] MEDS: amLODIPine 10 MG TAB PO SCH (09:47)
[2020-11-15] MEDS: HEPARIN 5,000 UNIT/1 ML VIAL SUB-Q SCH ×2 (09:47→22:32)
[2020-11-15] MEDS: TIOTROPIUM 18 MCG CAP INHALATION IH SCH (09:48)
[2020-11-15] MEDS: CHOLECALCIFEROL (VIT D3) 1000 UNIT (25 mcg) TAB PO SCH (09:49)
[2020-11-15] MEDS: LISINOPRIL 40 MG TAB PO SCH (09:49)
--- NOTE | 2020-11-15 11:13 | Progress Note ---
Assessment and Plan 69 y/o, obese female with acute respiratory failure secondary to COVID pneumonia. 11/15/20: Doubt steroids worked that quickly. Not sure what happened but glad oxygen requirement has come back down. Continue steroids at current dose and will likely start to wean tomorrow. Continue lasix at current dosing. Prognosis is still guarded. 11/14/20: given worsening, will icnrease steroids today to 125 TID. Suggest increasing lasix therapy maybe to TID as well. Repeat CXR likely on Monday. Will order BNP. Prognosis remains guarded. Very bad sign given increase in oxygen requirement. 11/13/20: CXR today. Hold on additional lasix until CXR is reviewed. Prone if able. Wean FiO2 for sats >88%. Continue steroids at TID dosing. 11/12/20: Will give an additional 40 of IV lasix now in addition to BID dosing. increase steroids back to TID but keep at 40 11/11/20: Wean FiO2. Would like for oxygen requirement to be around 3-4 liters then can switch to PO Prednisone 60 daily for 4 days, then 40 daily for 4 days then 20 daily for 4 days then 10 daily for 4 days then stop. 11/10/20: Continue to wean FiO2 as tolerated. Hopeful can wean to lower numbers safer for discharge. Should start working on discharge planning now. 11/09/20: Continue current level of care. No new recs pulm stout. Continue to wean FiO2 as tolerated. Prognosis is still guarded. 11/06/20: Will continue same recs. Hold on increases in steroids. Prone if possible. Continue lasix. Prognosis is still guarded. 11/05/20: Same recs as below. 11/04/20: no increases in the last 24 hours so will not increase steroids. Continue to encourage proning if able. Continue lasix. Guarded prognosis. 11/03/20: Will monitor closely, but if oxygen requirement continues to increase, will go back up on steroids to at least 80q8. Already on BID lasix. Prognosis remains guarded. 11/02/20: Continue BID lasix. Wean for sats >88%. currently on solumedrol 40q8, continue this dose for now, but if able to wean further then will wean steroids further. prognosis is still guarded. 11/01/20: No new recs for today. 10/31/20: Prone if able and for as long as possible. Wean for sats >88%. Continue high dose steroids. 10/30/20: No lasix. Prognosis remains guarded. 10/29/20: Continue lasix but I/O are not accurate. May need to increase dosing. Wean FiO2 as tolerated. Guarded prognosis. 10/28/20: Continue current care. Monitor renal function and continue BID lasix. Need strict I/O 10/27/20: Continue current plan from below. Guarded prognosis given COVID and obesity. Monitor renal function. 1. Increased steroids to 125 TID 2. Increased lasix to 40 BID 3. Prone as tolerated and for as long as possible 4. Monitor fluid balance 5. BP control 6. Guarded prognosis given COVID and obesity with worsening respiratory failure. Subjective Date of service: 11/15/20 Principal diagnosis: COVID-19 PNA Interval history: Back down to 4 liters now. Good sats. BNP was normal. Objective Vital Signs - 12hr 11/15/20 05:58 Temperature 97.7 F Pulse Rate 87 Respiratory 18 Rate Blood Pressure 151/67 O2 Sat by Pulse 91 Oximetry Constitutional: alert Eyes: non-icteric ENT: oropharynx moist Ascultation: Bilateral: diminished breath sounds Cardiovascular: regular rate and rhythm Gastrointestinal: normoactive bowel sounds, soft, non-tender CBC and BMP: 11/10/20 07:13 11/15/20 04:53 ABG, PT/INR, D-dimer: PT/INR, D-dimer D-Dimer 229.3 ng/mlDDU (0-234) 11/05/20 15:53 Abnormal lab findings: Abnormal Labs 10/23/20 10/23/20 10/23/20 17:31 20:38 20:38 WBC Hgb Hct MCH MCHC RDW Plt Count Lymph % (Auto) Crosby % (Auto) Lymph # (Auto) Crosby # (Auto) Seg Neutrophils % Seg Neutrophils # D-Dimer 919.44 H Sodium 136 L Potassium Chloride Carbon Dioxide BUN Glucose 149 H POC Glucose Ferritin AST ALT Lactate Dehydrogenase 606 H C-Reactive Protein 11.50 H Albumin Coronavirus (PCR) 10/23/20 10/24/20 10/24/20 20:38 08:00 08:07 WBC Hgb Hct MCH 33 H MCHC 35 H RDW Plt Count Lymph % (Auto) 9.9 L Crosby % (Auto) 7.9 H Lymph # (Auto) 0.6 L [place] # (Auto) Seg Neutrophils % 82.1 H Seg Neutrophils # D-Dimer Sodium Potassium Chloride Carbon Dioxide BUN Glucose POC Glucose Ferritin AST ALT Lactate Dehydrogenase 643 H C-Reactive Protein 11.70 H Albumin Coronavirus (PCR) Positive A 10/24/20 10/25/20 10/26/20 08:07 16:13 21:32 WBC Hgb Hct MCH MCHC RDW Plt Count Lymph % (Auto) [place] % (Auto) Lymph # (Auto) Crosby # (Auto) Seg Neutrophils % Seg Neutrophils # D-Dimer Sodium Potassium Chloride Carbon Dioxide BUN Glucose 173 H POC Glucose 180 H 213 H Ferritin AST ALT Lactate Dehydrogenase C-Reactive Protein Albumin Coronavirus (PCR) 10/27/20 10/27/20 10/27/20 07:54 11:56 13:47 WBC Hgb Hct MCH MCHC RDW Plt Count Lymph % (Auto) [place] % (Auto) Lymph # (Auto) Crosby # (Auto) Seg Neutrophils % Seg Neutrophils # D-Dimer Sodium Potassium 3.3 L D Chloride Carbon Dioxide BUN 38 H Glucose 262 H POC Glucose 305 H 289 H Ferritin AST 155 H ALT 170 H Lactate Dehydrogenase C-Reactive Protein Albumin 3.4 L Coronavirus (PCR) 10/27/20 10/27/20 10/28/20 15:49 21:36 07:24 WBC Hgb Hct MCH MCHC RDW Plt Count Lymph % (Auto) Cros[place] % (Auto) Lymph # (Auto) Cros[place] # (Auto) Seg Neutrophils % Seg Neutrophils # D-Dimer Sodium Potassium Chloride Carbon Dioxide BUN 41 H Glucose 217 H POC Glucose 228 H 241 H Ferritin AST 116 H ALT 182 H Lactate Dehydrogenase C-Reactive Protein Albumin 3.7 L Coronavirus (PCR) 10/28/20 10/28/20 10/28/20 07:40 16:08 21:21 WBC Hgb Hct MCH MCHC RDW Plt Count Lymph % (Auto) [place] % (Auto) Lymph # (Auto) [place] # (Auto) Seg Neutrophils % Seg Neutrophils # D-Dimer Sodium Potassium Chloride Carbon Dioxide BUN Glucose POC Glucose 207 H 227 H 354 H Ferritin AST ALT Lactate Dehydrogenase C-Reactive Protein Albumin Coronavirus (PCR) 10/29/20 10/29/2010/29/21 05:12 07:47 12:19 WBC Hgb Hct MCH MCHC RDW Plt Count Lymph % (Auto) [place] % (Auto) Lymph # (Auto) Cros[place] # (Auto) Seg Neutrophils % Seg Neutrophils # D-Dimer Sodium Potassium Chloride Carbon Dioxide BUN 47 H Glucose 247 H POC Glucose 268 H 383 H Ferritin AST 102 H ALT 183 H Lactate Dehydrogenase C-Reactive Protein Albumin 3.1 L Coronavirus (PCR) 10/29/20 10/29/20 10/30/20 16:34 22:07 07:46 WBC Hgb Hct MCH MCHC RDW Plt Count Lymph % (Auto) [place] % (Auto) Lymph # (Auto) [place] # (Auto) Seg Neutrophils % Seg Neutrophils # D-Dimer Sodium Potassium Chloride Carbon Dioxide BUN 50 H Glucose 287 H POC Glucose 324 H 276 H Ferritin AST 71 H ALT 164 H Lactate Dehydrogenase 392 H C-Reactive Protein Albumin 3.2 L Coronavirus (PCR) 10/30/20 10/30/20 10/30/20 07:46 07:46 08:07 WBC Hgb Hct MCH MCHC RDW Plt Count Lymph % (Auto) [place] % (Auto) Lymph # (Auto) [place] # (Auto) Seg Neutrophils % Seg Neutrophils # D-Dimer 504.53 H Sodium Potassium Chloride Carbon Dioxide BUN Glucose POC Glucose 267 H Ferritin 1470.0 H AST ALT Lactate Dehydrogenase C-Reactive Protein Albumin Coronavirus (PCR) 10/30/20 10/30/20 10/30/20 12:39 17:14 21:42 WBC Hgb Hct MCH MCHC RDW Plt Count Lymph % (Auto) [place] % (Auto) Lymph # (Auto) [place] # (Auto) Seg Neutrophils % Seg Neutrophils # D-Dimer Sodium Potassium Chloride Carbon Dioxide BUN Glucose POC Glucose 332 H 301 H 371 H Ferritin AST ALT Lactate Dehydrogenase C-Reactive Protein Albumin Coronavirus (PCR) 10/31/20 10/31/20 10/31/20 07:52 11:42 16:12 WBC Hgb Hct MCH MCHC RDW Plt Count Lymph % (Auto) [place] % (Auto) Lymph # (Auto) [place] # (Auto) Seg Neutrophils % Seg Neutrophils # D-Dimer Sodium Potassium Chloride Carbon Dioxide BUN Glucose POC Glucose 303 H 387 H 343 H Ferritin AST ALT Lactate Dehydrogenase C-Reactive Protein Albumin Coronavirus (PCR) 10/31/20 11/01/20 11/01/20 21:35 07:34 11:22 WBC Hgb Hct MCH MCHC RDW Plt Count Lymph % (Auto) [place] % (Auto) Lymph # (Auto) [place] # (Auto) Seg Neutrophils % Seg Neutrophils # D-Dimer Sodium Potassium Chloride Carbon Dioxide BUN Glucose POC Glucose 359 H 325 H 442 H Ferritin AST ALT Lactate Dehydrogenase C-Reactive Protein Albumin Coronavirus (PCR) 11/01/20 11/01/20 11/02/20 16:30 22:12 04:38 WBC 12.4 H Hgb 14.8 H Hct 44.1 H MCH MCHC RDW 13.0 L Plt Count Lymph % (Auto) 3.3 L Crosby % (Auto) 9.3 H Lymph # (Auto) 0.4 L Cros[place] # (Auto) 1.2 H Seg Neutrophils % 87.2 H Seg Neutrophils # 10.9 H D-Dimer Sodium Potassium Chloride Carbon Dioxide BUN Glucose POC Glucose 378 H 395 H Ferritin AST ALT Lactate Dehydrogenase C-Reactive Protein Albumin Coronavirus (PCR) 11/02/20 11/02/20 11/02/20 04:38 07:40 12:09 WBC Hgb Hct MCH MCHC RDW Plt Count Lymph % (Auto) [place] % (Auto) Lymph # (Auto) [place] # (Auto) Seg Neutrophils % Seg Neutrophils # D-Dimer Sodium Potassium Chloride Carbon Dioxide 32 H BUN 48 H Glucose 304 H POC Glucose 280 H 422 H Ferritin AST ALT Lactate Dehydrogenase C-Reactive Protein Albumin Coronavirus (PCR) 11/02/20 11/02/20 11/03/20 16:10 21:30 08:01 WBC Hgb Hct MCH MCHC RDW Plt Count Lymph % (Auto) [place] % (Auto) Lymph # (Auto) [place] # (Auto) Seg Neutrophils % Seg Neutrophils # D-Dimer Sodium Potassium Chloride Carbon Dioxide BUN Glucose POC Glucose 367 H 380 H 336 H Ferritin AST ALT Lactate Dehydrogenase C-Reactive Protein Albumin Coronavirus (PCR) 11/03/20 11/03/20 11/03/20 12:21 15:56 21:17 WBC Hgb Hct MCH MCHC RDW Plt Count Lymph % (Auto) [place] % (Auto) Lymph # (Auto) [place] # (Auto) Seg Neutrophils % Seg Neutrophils # D-Dimer Sodium Potassium Chloride Carbon Dioxide BUN Glucose POC Glucose 352 H 312 H 307 H Ferritin AST ALT Lactate Dehydrogenase C-Reactive Protein Albumin Coronavirus (PCR) 11/04/20 11/04/20 11/04/20 04:28 07:57 11:43 WBC Hgb Hct MCH MCHC RDW Plt Count Lymph % (Auto) [place] % (Auto) Lymph # (Auto) [place] # (Auto) Seg Neutrophils % Seg Neutrophils # D-Dimer Sodium Potassium Chloride 95.6 L Carbon Dioxide 33 H BUN 52 H Glucose 307 H POC Glucose 287 H 321 H Ferritin AST ALT Lactate Dehydrogenase C-Reactive Protein Albumin Coronavirus (PCR) 11/04/20 11/04/20 11/05/20 16:23 22:30 07:49 WBC Hgb Hct MCH MCHC RDW Plt Count Lymph % (Auto) [place] % (Auto) Lymph # (Auto) [place] # (Auto) Seg Neutrophils % Seg Neutrophils # D-Dimer Sodium Potassium Chloride Carbon Dioxide BUN Glucose POC Glucose 345 H 285 H 269 H Ferritin AST ALT Lactate Dehydrogenase C-Reactive Protein Albumin Coronavirus (PCR) 11/05/20 11/05/20 11/05/20 11:43 15:53 15:53 WBC Hgb Hct MCH MCHC RDW Plt Count Lymph % (Auto) [place] % (Auto) Lymph # (Auto) [place] # (Auto) Seg Neutrophils % Seg Neutrophils # D-Dimer Sodium Potassium Chloride Carbon Dioxide BUN Glucose POC Glucose 349 H Ferritin 2889.0 H AST ALT Lactate Dehydrogenase 345 H C-Reactive Protein Albumin Coronavirus (PCR) 11/05/20 11/05/20 11/06/20 16:10 22:22 07:29 WBC Hgb Hct MCH MCHC RDW Plt Count Lymph % (Auto) [place] % (Auto) Lymph # (Auto) [place] # (Auto) Seg Neutrophils % Seg Neutrophils # D-Dimer Sodium Potassium Chloride Carbon Dioxide BUN Glucose POC Glucose 311 H 264 H 216 H Ferritin AST ALT Lactate Dehydrogenase C-Reactive Protein Albumin Coronavirus (PCR) 11/06/20 11/06/20 11/06/20 11:04 16:37 21:58 WBC Hgb Hct MCH MCHC RDW Plt Count Lymph % (Auto) [place] % (Auto) Lymph # (Auto) [place] # (Auto) Seg Neutrophils % Seg Neutrophils # D-Dimer Sodium Potassium Chloride Carbon Dioxide BUN Glucose POC Glucose 363 H 247 H 279 H Ferritin AST ALT Lactate Dehydrogenase C-Reactive Protein Albumin Coronavirus (PCR) 11/07/20 11/07/20 11/07/20 06:08 07:39 09:00 WBC Hgb 16.1 H Hct 48.6 H MCH MCHC RDW Plt Count 122 L Lymph % (Auto) 7.7 L Crosby % (Auto) 12.5 H Lymph # (Auto) 0.7 L [place] # (Auto) 1.1 H Seg Neutrophils % 79.6 H Seg Neutrophils # D-Dimer Sodium Potassium Chloride Carbon Dioxide 33 H BUN 62 H Glucose 279 H POC Glucose 194 H Ferritin AST ALT Lactate Dehydrogenase C-Reactive Protein Albumin Coronavirus (PCR) 11/07/20 11/07/20 11/07/20 12:43 17:26 21:54 WBC Hgb Hct MCH MCHC RDW Plt Count Lymph % (Auto) [place] % (Auto) Lymph # (Auto) [place] # (Auto) Seg Neutrophils % Seg Neutrophils # D-Dimer Sodium Potassium Chloride Carbon Dioxide BUN Glucose POC Glucose 338 H 251 H 255 H Ferritin AST ALT Lactate Dehydrogenase C-Reactive Protein Albumin Coronavirus (PCR) 11/08/20 11/08/20 11/08/20 07:42 12:15 21:37 WBC Hgb Hct MCH MCHC RDW Plt Count Lymph % (Auto) [place] % (Auto) Lymph # (Auto) [place] # (Auto) Seg Neutrophils % Seg Neutrophils # D-Dimer Sodium Potassium Chloride Carbon Dioxide BUN Glucose POC Glucose 251 H 320 H 316 H Ferritin AST ALT Lactate Dehydrogenase C-Reactive Protein Albumin Coronavirus (PCR) 11/09/20 11/09/20 11/09/20 07:52 11:22 17:05 WBC Hgb Hct MCH MCHC RDW Plt Count Lymph % (Auto) [place] % (Auto) Lymph # (Auto) [place] # (Auto) Seg Neutrophils % Seg Neutrophils # D-Dimer Sodium Potassium Chloride Carbon Dioxide BUN Glucose POC Glucose 246 H 257 H 223 H Ferritin AST ALT Lactate Dehydrogenase C-Reactive Protein Albumin Coronavirus (PCR) 11/09/20 11/10/20 11/10/20 22:01 07:13 07:13 WBC Hgb 14.7 H Hct 44.1 H MCH MCHC RDW Plt Count 106 L Lymph % (Auto) 5.4 L Cros[place] % (Auto) Lymph # (Auto) 0.4 L [place] # (Auto) Seg Neutrophils % 88.5 H Seg Neutrophils # D-Dimer Sodium Potassium Chloride Carbon Dioxide BUN 56 H Glucose 261 H POC Glucose 241 H Ferritin AST ALT Lactate Dehydrogenase C-Reactive Protein Albumin Coronavirus (PCR) 11/10/20 11/10/20 11/10/20 07:31 12:15 16:09 WBC Hgb Hct MCH MCHC RDW Plt Count Lymph % (Auto) [place] % (Auto) Lymph # (Auto) [place] # (Auto) Seg Neutrophils % Seg Neutrophils # D-Dimer Sodium Potassium Chloride Carbon Dioxide BUN Glucose POC Glucose 234 H 327 H 258 H Ferritin AST ALT Lactate Dehydrogenase C-Reactive Protein Albumin Coronavirus (PCR) 11/10/20 11/11/20 11/11/20 21:47 07:44 12:01 WBC Hgb Hct MCH MCHC RDW Plt Count Lymph % (Auto) [place] % (Auto) Lymph # (Auto) [place] # (Auto) Seg Neutrophils % Seg Neutrophils # D-Dimer Sodium Potassium Chloride Carbon Dioxide BUN Glucose POC Glucose 281 H 273 H 343 H Ferritin AST ALT Lactate Dehydrogenase C-Reactive Protein Albumin Coronavirus (PCR) 11/11/20 11/11/20 11/12/20 17:03 21:31 07:28 WBC Hgb Hct MCH MCHC RDW Plt Count Lymph % (Auto) [place] % (Auto) Lymph # (Auto) [place] # (Auto) Seg Neutrophils % Seg Neutrophils # D-Dimer Sodium Potassium Chloride Carbon Dioxide BUN Glucose POC Glucose 222 H 235 H 200 H Ferritin AST ALT Lactate Dehydrogenase C-Reactive Protein Albumin Coronavirus (PCR) 11/12/20 11/12/20 11/12/20 10:58 17:18 21:08 WBC Hgb Hct MCH MCHC RDW Plt Count Lymph % (Auto) [place] % (Auto) Lymph # (Auto) [place] # (Auto) Seg Neutrophils % Seg Neutrophils # D-Dimer Sodium Potassium Chloride Carbon Dioxide BUN Glucose POC Glucose 294 H 240 H 317 H Ferritin AST ALT Lactate Dehydrogenase C-Reactive Protein Albumin Coronavirus (PCR) 11/13/20 11/13/20 11/13/20 07:03 08:17 11:46 WBC Hgb Hct MCH MCHC RDW Plt Count Lymph % (Auto) [place] % (Auto) Lymph # (Auto) [place] # (Auto) Seg Neutrophils % Seg Neutrophils # D-Dimer Sodium Potassium Chloride Carbon Dioxide BUN 60 H Glucose 228 H POC Glucose 226 H 345 H Ferritin AST ALT Lactate Dehydrogenase C-Reactive Protein Albumin Coronavirus (PCR) 11/13/20 11/13/20 11/14/20 16:27 20:58 05:01 WBC Hgb Hct MCH MCHC RDW Plt Count Lymph % (Auto) [place] % (Auto) Lymph # (Auto) [place] # (Auto) Seg Neutrophils % Seg Neutrophils # D-Dimer Sodium 132 L D Potassium Chloride 94.2 L Carbon Dioxide BUN 63 H Glucose 236 H POC Glucose 255 H 256 H Ferritin AST ALT Lactate Dehydrogenase C-Reactive Protein Albumin Coronavirus (PCR) 11/14/20 11/14/20 11/14/20 07:28 11:05 21:22 WBC Hgb Hct MCH MCHC RDW Plt Count Lymph % (Auto) [place] % (Auto) Lymph # (Auto) [place] # (Auto) Seg Neutrophils % Seg Neutrophils # D-Dimer Sodium Potassium Chloride Carbon Dioxide BUN Glucose POC Glucose 240 H 232 H 247 H Ferritin AST ALT Lactate Dehydrogenase C-Reactive Protein Albumin Coronavirus (PCR) 11/15/20 11/15/20 11/15/20 04:53 07:51 10:30 WBC Hgb Hct MCH MCHC RDW Plt Count Lymph % (Auto) [place] % (Auto) Lymph # (Auto) [place] # (Auto) Seg Neutrophils % Seg Neutrophils # D-Dimer Sodium 134 L Potassium Chloride 94.9 L Carbon Dioxide BUN 63 H Glucose 238 H POC Glucose 255 H 299 H Ferritin AST ALT Lactate Dehydrogenase C-Reactive Protein Albumin Coronavirus (PCR) Allied health notes reviewed: nursing
[2020-11-15] MEDS: PRAVASTATIN 80 MG TAB PO SCH (22:32)
[2020-11-16 06:18] LABS: BUN/Creatinine Ratio 78; Blood Urea Nitrogen 62 mg/dL (7-17); Calcium 8.9 mg/dL (8.4-10.2); Hemolysis Index 6
[2020-11-16] MEDS: hydrALAZINE 25 MG TAB PO SCH ×3 (06:21→21:11)
[2020-11-16] MEDS: FUROSEMIDE 40 MG/4 ML INJ IV SCH ×2 (06:21→18:38)
--- NOTE | 2020-11-16 09:24 | Progress Note ---
Assessment and Plan Assessment and plan: -- Acute respiratory failure Due to COVID-19 pneumonia and underlying morbid obesity Supplemental O2 and inhaler as needed -- Pneumonia due to COVID-19 virus Continue empiric steroid, status post remdesivir, Completed Tocilizumab on 10/29/2020, Completed ceftriaxone Supplemental O2, ID and pulmonary care on board -- COPD (chronic obstructive pulmonary disease) with exacerbation Continue empiric steroid, inhalers and supplemental O2 -- Hypertension Monitor BP and adjust meds as needed -- Diabetes mellitus, uncontrolled Consistent carb diet, continue SSI and Lantus Adjust insulin dose for better glycemic control -- GERD (gastroesophageal reflux disease) Continue PPI --Morbid obesity Dietary and exercise recommendation as outpatient when clinically more stable and appropriate --Leukocytosis, due to steroid --DVT prophylaxis, Daily clinical course: 10/31/20: Remains on high flow O2, continue to monitor inflammatory markers, pulmonary on board. Guarded prognosis. 11/01/20: Patient remains on 40 L high flow O2. Continue to monitor clinically with supportive care, follow inflammatory markers, blood glucose significantly elevated, will add long-acting insulin. Reduce steroids dose to 40 mg every 8 hours. guarded prognosis. 11/02/20: Patient on 20 L and 60% FiO2 today. Continue to wean off O2 as tolerated. Follow inflammatory markers 11/03/20: Remains on high flow O2-30L today, guarded prognosis, wean off as tolerated. 11/04/20: Guarded prognosis, remains on high flow O2 30 L with 70% FiO2. Continue to follow inflammatory markers, ID and pulmonary critical care following. 11/05/20; Remains on 30L O2, unable to wean off, gurded prognosis. follow clinically. Continue to adjust insulin doses for better glycemic control. 11/06/20: Remains on high flow O2, BG improved, cont to adjust insulin doses. Patient is getting very frustrated and anxious and desperately wants to go home. I explained to her with the nurse in lengthy discussion that she is still requiring high flow O2 and not stable enough to go home. She finally verbalized understanding. 11/07/20; still remains on high flow, unable to wean off, guarded prognosis. cont to follow 11/08/20: Discussed with RT, will try to wean off to nasal cannula O2. Patient remains on high flow O2, Becoming very frustrated and anxious. Explained in details with RN at the bedside. Guarded prognosis. Continue to follow inflammatory markers. 11/09/20: pt on 10L O2 today, continue to wean off, follow inflammatory markers. Patient appears otherwise clinically stable 11/10/20: Patient weaned off to 6 L nasal cannula O2 today. If weaned off below 5 L nasal cannula patient should be able to discharge home. Continue to follow for now. 11/11/20: back on 10L n/c o2 today 11/12 -Patient is on 10 L of high flow oxygen -Will titrate as tolerated 11/13 -Patient was on 10 L of high flow oxygen -Titrate down as tolerated -Solu-Medrol increased to 40 mg IV 3 times daily -Blood sugar was uncontrolled and increased morning dose of 70/30 from 12-15, increase the night dose from 24 to 28 units. Monitor blood sugar and adjust as needed. -Continue with Lasix 40 mg IV twice daily -Prognosis is guarded. 11/14 -Patient was on 10 L of high flow oxygen -Patient states she wants to go home; I called her daughter Ms. Emanuel at [phone] and discussed about her mother's management plan and about her mother's decision wants to go home. She said she wants to talk to her mother. She wants her mother to be treated in the hospital. 11/15 -Patient was on 4 L of oxygen, wean off oxygen as tolerated -Continue Lasix and steroids -Management plan was discussed with her daughter yesterday -PT evaluation -Blood sugars uncontrolled and I increased lispro to 10 units AC 11/13: Patient continues to show some progress. Will wean oxygen down to 3 L to see if patient will tolerate with home O2 evaluation in a.m. and possible discharge in a.m. Patient is irate about stay extensive counseling provided to the patient she verbalized understanding. Encouraged nursing staff to set patient up. She refuses to prone. Blood sugar still elevated we will continue to monitor this may be secondary to steroid in addition to diabetes mellitus physical therapy evaluation in today for possible discharge tomorrow History Interval history: Patient seen and examined she is very irate this morning states that she wants to go home at some point threatening to leave AGAINST MEDICAL ADVICE but later calmed down. We will wean oxygen down to 3 L. Staff and physical therapy to ambulate the patient today. Hospitalist Physical - Constitutional Vitals: Temp Pulse Resp BP Pulse Ox 98.6 F 89 20 155/40 90 11/16/20 04:57 11/16/20 06:21 11/16/20 04:57 11/16/20 06:21 11/16/20 04:57 General appearance: Present: no acute distress, obese HEART Score - HEART Score Troponin: Troponin T < 0.010 ng/mL (0.00-0.029) 10/23/20 17:31 Results - Labs CBC & Chem 7: 11/10/20 07:13 11/16/20 05:00 Labs: Laboratory Last Values WBC 6.6 K/mm3 (4.5-11.0) 11/10/20 07:13 RBC 4.65 M/mm3 (3.65-5.03) 11/10/20 07:13 Hgb 14.7 gm/dl (10.1-14.3) H 11/10/20 07:13 Hct 44.1 % (30.3-42.9) H 11/10/20 07:13 MCV 95 fl (79-97) 11/10/20 07:13 MCH 32 pg (28-32) 11/10/20 07:13 MCHC 33 % (30-34) 11/10/20 07:13 RDW 13.2 % (13.2-15.2) 11/10/20 07:13 Plt Count 106 K/mm3 (140-440) L 11/10/20 07:13 Lymph % (Auto) 5.4 % (13.4-35.0) L 11/10/20 07:13 [place] % (Auto) 5.8 % (0.0-7.3) 11/10/20 07:13 Eos % (Auto) 0.0 % (0.0-4.3) 11/10/20 07:13 Baso % (Auto) 0.3 % (0.0-1.8) 11/10/20 07:13 Lymph # (Auto) 0.4 K/mm3 (1.2-5.4) L 11/10/20 07:13 [place] # (Auto) 0.4 K/mm3 (0.0-0.8) 11/10/20 07:13 Eos # (Auto) 0.0 K/mm3 (0.0-0.4) 11/10/20 07:13 Baso # (Auto) 0.0 K/mm3 (0.0-0.1) 11/10/20 07:13 Seg Neutrophils % 88.5 % (40.0-70.0) H 11/10/20 07:13 Seg Neutrophils # 5.8 K/mm3 (1.8-7.7) 11/10/20 07:13 D-Dimer 229.3 ng/mlDDU (0-234) 11/05/20 15:53 Sodium 133 mmol/L (137-145) L 11/16/20 05:00 Potassium 4.6 mmol/L (3.6-5.0) 11/16/20 05:00 Chloride 94.8 mmol/L (98-107) L 11/16/20 05:00 Carbon Dioxide 27 mmol/L (22-30) 11/16/20 05:00 Anion Gap 16 mmol/L 11/16/20 05:00 BUN 62 mg/dL (7-17) H 11/16/20 05:00 Creatinine 0.8 mg/dL (0.6-1.2) 11/16/20 05:00 Estimated GFR > 60 ml/min 11/16/20 05:00 BUN/Creatinine Ratio 78 % 11/16/20 05:00 Glucose 222 mg/dL (65-100) H 11/16/20 05:00 POC Glucose 230 mg/dL (70-105) H 11/16/20 07:53 Calcium 8.9 mg/dL (8.4-10.2) 11/16/20 05:00 Magnesium 1.80 mg/dL (1.7-2.3) 10/23/20 20:38 Ferritin 2889.0 ng/mL (10.0-200.0) H 11/05/20 15:53 Total Bilirubin 0.50 mg/dL (0.1-1.2) 10/30/20 07:46 AST 71 units/L (5-40) H 10/30/20 07:46 ALT 164 units/L (7-56) H 10/30/20 07:46 Alkaline Phosphatase 64 units/L (35-129) 10/30/20 07:46 Lactate Dehydrogenase 345 units/L (91-180) H 11/05/20 15:53 Troponin T < 0.010 ng/mL (0.00-0.029) 10/23/20 17:31 C-Reactive Protein 0.10 mg/dL (0.00-1.30) 11/05/20 15:53 NT-Pro-B Natriuret Pep 178.7 pg/mL (0-900) 11/14/20 04:51 Total Protein 7.0 g/dL (6.3-8.2) 10/30/20 07:46 Albumin 3.2 g/dL (3.9-5) L 10/30/20 07:46 Albumin/Globulin Ratio 0.8 % 10/30/20 07:46 Procalcitonin 0.32 ng/mL (<0.15) 10/23/20 20:38 TSH 2.010 mlU/mL (0.270-4.200) 10/23/20 20:38 Free T4 1.17 ng/dL (0.76-1.46) 10/23/20 20:38 Coronavirus (PCR) Positive (Negative) A 10/24/20 08:00 [place]/IV: Voiding Method External Female Catheter Active Medications - Current Medications Current Medications: Generic Name Dose Route Start Last Admin Trade Name Freq PRN Reason Stop Dose Admin Acetaminophen 650 mg 10/23/20 20:27 11/10/20 21:51 Acetaminophen 325 Mg Tab PO 650 mg Q4H PRN Administration Pain MILD(1-3)/Fever >100.5/KAUFMAN Albuterol 2.5 mg 10/23/20 20:27 Albuterol 2.5 Mg/3 Ml Nebu IH Q4HRT PRN Shortness Of Breath Amlodipine Besylate 10 mg 10/26/20 10:00 11/15/20 09:47 Amlodipine 10 Mg Tab PO 10 mg QDAY GLENROY Administration Ascorbic Acid 500 mg 10/23/20 22:00 11/15/20 22:32 Ascorbic Acid 500 Mg Tab PO 500 mg BID GLENROY Administration Cholecalciferol 1,000 unit 10/24/20 10:00 11/15/20 09:49 Cholecalciferol (Vit D3) 1000 Unit (25 Mcg) Tab PO 1,000 unit QDAY GLENROY Administration Furosemide 40 mg 10/26/20 11:00 11/16/20 06:21 Furosemide 40 Mg/4 Ml Inj IV 40 mg 0600,1800 GLENROY Administration Heparin Sodium (Porcine) 5,000 unit 10/23/20 22:00 11/15/20 22:32 Heparin 5,000 Unit/1 Ml Vial SUB-Q 5,000 unit Q12HR GLENROY Administration Hydralazine HCl 50 mg 10/23/20 22:00 11/16/20 06:21 Hydralazine 25 Mg Tab PO 50 mg Q8HR GLENROY Administration Hydromorphone HCl 0.5 mg 10/23/20 20:27 Hydromorphone 1 Mg/1 Ml Inj IV Q12H PRN Pain , Severe (7-10) Insulin Glargine 15 units 11/13/20 08:00 11/15/20 08:25 Insulin Glargine 100 Units/Ml SUB-Q 15 units QAMDIAB GLENROY Administration Insulin Glargine 28 units 11/13/20 18:00 11/15/20 18:09 Insulin Glargine 100 Units/Ml SUB-Q 28 units QPM GLENROY Administration Insulin Human Lispro 0 unit 10/27/20 11:30 11/15/20 22:33 Insulin Lispro 100 Unit/Ml SUB-Q 6 unit ACHS GLENROY Administration Protocol Insulin Human Lispro 10 unit 11/15/20 08:58 11/15/20 18:09 Insulin Lispro 100 Unit/Ml SUB-Q 10 unit AC GLENROY Administration Lisinopril 40 mg 10/24/20 10:00 11/15/20 09:49 Lisinopril 40 Mg Tab PO 40 mg DAILY GLENROY Administration Methylprednisolone Sodium Succinate 125 mg 11/14/20 11:31 11/15/20 20:52 Methylprednisolone Sod Succinate 40 Mg/1 Ml Inj IV 125 mg TID GLENROY Administration Ondansetron HCl 4 mg 10/23/20 20:27 Ondansetron 4 Mg/2 Ml Inj IV Q8H PRN Nausea And Vomiting Oxycodone/Acetaminophen 1 tab 10/23/20 20:27 11/14/20 22:29 Oxycodone /Acetaminophen 5-325mg Tab PO 1 tab Q12H PRN Administration Pain, Moderate (4-6) Pravastatin Sodium 80 mg 10/23/20 22:00 11/15/20 22:32 Pravastatin 80 Mg Tab PO 80 mg QHS GLENROY Administration Sodium Chloride 10 ml 10/23/20 22:00 11/15/20 22:33 Sodium Chloride 0.9% 10 Ml Flush Syringe IV 10 ml BID GLENROY Administration Sodium Chloride 10 ml 10/23/20 20:27 Sodium Chloride 0.9% 10 Ml Flush Syringe IV PRN PRN LINE FLUSH Tiotropium [place] 1 puff 10/24/20 10:00 11/15/20 09:48 Tiotropium 18 Mcg Cap Inhalation IH Not Given QDAY GLENROY Zinc Sulfate 220 mg 10/23/20 22:00 11/15/20 22:34 Zinc Sulfate 220 Mg Cap PO 220 mg BID GLENROY Administration Nutrition/Malnutrition Assess - Dietary Evaluation Nutrition/Malnutrition Findings: Nutrition Notes Start: 10/26/20 11:03 Freq: Status: Active Protocol: Document 11/04/20 10:39 (Rec: 11/04/20 10:43 [id number]) Nutrition Notes Initial or Follow up Reassessment Current Diagnosis Diabetes,Hypertension,Heart Failure Other Pertinent Diagnosis Covid 19, GERD, pneu Current Diet Cardiac Consistent Carbohydrate diet Labs/Tests POC 307 Pertinent Medications Reveiwed Height 5 ft 6 in Weight 145.5 g [place] Body Weight (kg) 59.09 BMI 0.0 Weight Status Morbidly Obese Subjective/Other Information Pt is eating 90% of meals and 100% of 2 ONS daily. Percent of energy/protein needs met: 100%/100% Burn Absent Trauma Absent Current % PO Good (75-100%) Minimum of two criteria No physical signs of malnutrition #1 Nutrition Diagnosis Inadequate energy intake As Evidenced by Signs and Symptoms pt continues to meet 100% of protein and energy needs Diagnosis Progress(for reassessment Resolved documentation) Is patient on ventilator? No Is Patient Ambulatory and/or Out of Bed No REE-([facility]-confined to bed) [phone] Calculation Used for Recommendations 1744 kcal Additional Notes protein needs:59 - 71g (1 - 1. 2g/kgIBW) fluid needs: 1 ml/kcal Nutrition Intervention Change Diet Order: [place] current diet as ordered Add Supplement/Snack (indicate name/kcal Glucerna BID /protein ) Provides kCal: 440 Provides Protein (gm) 20 Goal #1 Meet at least 75% of kcal and protein needs via PO Anticipated Discharge Needs: Cardiac Consistent Carbohydrate diet Revisit per MD consult or patient Sign Off request:
[2020-11-16] MEDS: INSULIN LISPRO 100 UNIT/ML SUB-Q SCH ×7 (09:28→22:29)
[2020-11-16] MEDS: methylPREDNISolone Sod Succinate 40 MG/1 ML INJ IV SCH ×3 (09:29→21:09)
[2020-11-16] MEDS: INSULIN GLARGINE 100 UNITS/ML SUB-Q SCH ×2 (09:29→18:39)
[2020-11-16] MEDS: HEPARIN 5,000 UNIT/1 ML VIAL SUB-Q SCH ×2 (09:30→22:27)
[2020-11-16] MEDS: CHOLECALCIFEROL (VIT D3) 1000 UNIT (25 mcg) TAB PO SCH (09:30)
[2020-11-16] MEDS: ZINC SULFATE 220 MG CAP PO SCH ×2 (09:30→21:11)
[2020-11-16] MEDS: ASCORBIC ACID 500 MG TAB PO SCH ×2 (09:32→21:11)
[2020-11-16] MEDS: amLODIPine 10 MG TAB PO SCH (10:06)
[2020-11-16] MEDS: LISINOPRIL 40 MG TAB PO SCH (10:07)
[2020-11-16] MEDS: TIOTROPIUM 18 MCG CAP INHALATION IH SCH (10:59)
--- NOTE | 2020-11-16 11:58 | Progress Note ---
Assessment and Plan 69 y/o, obese female with acute respiratory failure secondary to COVID pneumonia. 11/16/20: Drop steroids down today. Continue lasix therapy. 11/15/20: Doubt steroids worked that quickly. Not sure what happened but glad oxygen requirement has come back down. Continue steroids at current dose and will likely start to wean tomorrow. Continue lasix at current dosing. Prognosis is still guarded. 11/14/20: given worsening, will icnrease steroids today to 125 TID. Suggest increasing lasix therapy maybe to TID as well. Repeat CXR likely on Monday. Will order BNP. Prognosis remains guarded. Very bad sign given increase in o xygen requirement. 11/13/20: CXR today. Hold on additional lasix until CXR is reviewed. Prone if able. Wean FiO2 for sats >88%. Continue steroids at TID dosing. 11/12/20: Will give an additional 40 of IV lasix now in addition to BID dosing. increase steroids back to TID but keep at 40 11/11/20: Wean FiO2. Would like for oxygen requirement to be around 3-4 liters then can switch to PO Prednisone 60 daily for 4 days, then 40 daily for 4 days then 20 daily for 4 days then 10 daily for 4 days then stop. 11/10/20: Continue to wean FiO2 as tolerated. Hopeful can wean to lower numbers safer for discharge. Should start working on discharge planning now. 11/09/20: Continue current level of care. No new recs pulm stout. Continue to wean FiO2 as tolerated. Prognosis is still guarded. 11/06/20: Will continue same recs. Hold on increases in steroids. Prone if possible. Continue lasix. Prognosis is still guarded. 11/05/20: Same recs as below. 11/04/20: no increases in the last 24 hours so will not increase steroids. Continue to encourage proning if able. Continue lasix. Guarded prognosis. 11/03/20: Will monitor closely, but if oxygen requirement continues to increase, will go back up on steroids to at least 80q8. Already on BID lasix. Prognosis remains guarded. 11/02/20: Continue BID lasix. Wean for sats >88%. currently on solumedrol 40q8, continue this dose for now, but if able to wean further then will wean steroids further. prognosis is still guarded. 11/01/20: No new recs for today. 10/31/20: Prone if able and for as long as possible. Wean for sats >88%. Continue high dose steroids. 10/30/20: No lasix. Prognosis remains guarded. 10/29/20: Continue lasix but I/O are not accurate. May need to increase dosing. Wean FiO2 as tolerated. Guarded prognosis. 10/28/20: Continue current care. Monitor renal function and continue BID lasix. Need strict I/O 10/27/20: Continue current plan from below. Guarded prognosis given COVID and obesity. Monitor renal function. 1. Increased steroids to 125 TID 2. Increased lasix to 40 BID 3. Prone as tolerated and for as long as possible 4. Monitor fluid balance 5. BP control 6. Guarded prognosis given COVID and obesity with worsening respiratory failure. Subjective Date of service: 11/16/20 Principal diagnosis: COVID-19 PNA Interval history: Still on 4 liters with good sats. Objective Vital Signs - 12hr 11/16/20 11/16/20 11/16/20 04:57 06:21 10:04 Temperature 98.6 F 98.7 F Pulse Rate 89 89 65 Pulse Rate [ Anterior Bilateral Throughout] Respiratory 20 18 Rate Respiratory Rate [Anterior Bilateral Throughout] Blood Pressure 155/40 155/40 Blood Pressure 155/50 [Left] O2 Sat by Pulse 90 91 Oximetry 11/16/20 10:59 Temperature Pulse Rate Pulse Rate [ 105 H Anterior Bilateral Throughout] Respiratory Rate Respiratory 18 Rate [Anterior Bilateral Throughout] Blood Pressure Blood Pressure [Left] O2 Sat by Pulse 96 Oximetry Constitutional: alert Eyes: non-icteric ENT: oropharynx moist Ascultation: Bilateral: diminished breath sounds Cardiovascular: regular rate and rhythm Gastrointestinal: normoactive bowel sounds, soft, non-tender CBC and BMP: 11/10/20 07:13 11/16/20 05:00 ABG, PT/INR, D-dimer: PT/INR, D-dimer D-Dimer 229.3 ng/mlDDU (0-234) 11/05/20 15:53 Abnormal lab findings: Abnormal Labs 10/23/20 10/23/20 10/23/20 17:31 20:38 20:38 WBC Hgb Hct MCH MCHC RDW Plt Count Lymph % (Auto) [place] % (Auto) Lymph # (Auto) [place] # (Auto) Seg Neutrophils % Seg Neutrophils # D-Dimer 919.44 H Sodium 136 L Potassium Chloride Carbon Dioxide BUN Glucose 149 H POC Glucose Ferritin AST ALT Lactate Dehydrogenase 606 H C-Reactive Protein 11.50 H Albumin Coronavirus (PCR) 10/23/20 10/24/20 10/24/20 20:38 08:00 08:07 WBC Hgb Hct MCH 33 H MCHC 35 H RDW Plt Count Lymph % (Auto) 9.9 L [place] % (Auto) 7.9 H Lymph # (Auto) 0.6 L [place] # (Auto) Seg Neutrophils % 82.1 H Seg Neutrophils # D-Dimer Sodium Potassium Chloride Carbon Dioxide BUN Glucose POC Glucose Ferritin AST ALT Lactate Dehydrogenase 643 H C-Reactive Protein 11.70 H Albumin Coronavirus (PCR) Positive A 10/24/20 10/25/20 10/26/20 08:07 16:13 21:32 WBC Hgb Hct MCH MCHC RDW Plt Count Lymph % (Auto) [place] % (Auto) Lymph # (Auto) [place] # (Auto) Seg Neutrophils % Seg Neutrophils # D-Dimer Sodium Potassium Chloride Carbon Dioxide BUN Glucose 173 H POC Glucose 180 H 213 H Ferritin AST ALT Lactate Dehydrogenase C-Reactive Protein Albumin Coronavirus (PCR) 10/27/20 10/27/20 10/27/20 07:54 11:56 13:47 WBC Hgb Hct MCH MCHC RDW Plt Count Lymph % (Auto) [place] % (Auto) Lymph # (Auto) [place] # (Auto) Seg Neutrophils % Seg Neutrophils # D-Dimer Sodium Potassium 3.3 L D Chloride Carbon Dioxide BUN 38 H Glucose 262 H POC Glucose 305 H 289 H Ferritin AST 155 H ALT 170 H Lactate Dehydrogenase C-Reactive Protein Albumin 3.4 L Coronavirus (PCR) 10/27/20 10/27/20 10/28/20 15:49 21:36 07:24 WBC Hgb Hct MCH MCHC RDW Plt Count Lymph % (Auto) [place] % (Auto) Lymph # (Auto) [place] # (Auto) Seg Neutrophils % Seg Neutrophils # D-Dimer Sodium Potassium Chloride Carbon Dioxide BUN 41 H Glucose 217 H POC Glucose 228 H 241 H Ferritin AST 116 H ALT 182 H Lactate Dehydrogenase C-Reactive Protein Albumin 3.7 L Coronavirus (PCR) 10/28/20 10/28/20 10/28/20 07:40 16:08 21:21 WBC Hgb Hct MCH MCHC RDW Plt Count Lymph % (Auto) [place] % (Auto) Lymph # (Auto) [place] # (Auto) Seg Neutrophils % Seg Neutrophils # D-Dimer Sodium Potassium Chloride Carbon Dioxide BUN Glucose POC Glucose 207 H 227 H 354 H Ferritin AST ALT Lactate Dehydrogenase C-Reactive Protein Albumin Coronavirus (PCR) 10/29/20 10/29/20 10/29/20 05:12 07:47 12:19 WBC Hgb Hct MCH MCHC RDW Plt Count Lymph % (Auto) [place] % (Auto) Lymph # (Auto) [place] # (Auto) Seg Neutrophils % Seg Neutrophils # D-Dimer Sodium Potassium Chloride Carbon Dioxide BUN 47 H Glucose 247 H POC Glucose 268 H 383 H Ferritin AST 102 H ALT 183 H Lactate Dehydrogenase C-Reactive Protein Albumin 3.1 L Coronavirus (PCR) 10/29/20 10/29/20 10/30/20 16:34 22:07 07:46 WBC Hgb Hct MCH MCHC RDW Plt Count Lymph % (Auto) [place] % (Auto) Lymph # (Auto) [place] # (Auto) Seg Neutrophils % Seg Neutrophils # D-Dimer Sodium Potassium Chloride Carbon Dioxide BUN 50 H Glucose 287 H POC Glucose 324 H 276 H Ferritin AST 71 H ALT 164 H Lactate Dehydrogenase 392 H C-Reactive Protein Albumin 3.2 L Coronavirus (PCR) 10/30/20 10/30/20 10/30/20 07:46 07:46 08:07 WBC Hgb Hct MCH MCHC RDW Plt Count Lymph % (Auto) [place] % (Auto) Lymph # (Auto) [place] # (Auto) Seg Neutrophils % Seg Neutrophils # D-Dimer 504.53 H Sodium Potassium Chloride Carbon Dioxide BUN Glucose POC Glucose 267 H Ferritin 1470.0 H AST ALT Lactate Dehydrogenase C-Reactive Protein Albumin Coronavirus (PCR) 10/30/20 10/30/20 10/30/20 12:39 17:14 21:42 WBC Hgb Hct MCH MCHC RDW Plt Count Lymph % (Auto) [place] % (Auto) Lymph # (Auto) [place] # (Auto) Seg Neutrophils % Seg Neutrophils # D-Dimer Sodium Potassium Chloride Carbon Dioxide BUN Glucose POC Glucose 332 H 301 H 371 H Ferritin AST ALT Lactate Dehydrogenase C-Reactive Protein Albumin Coronavirus (PCR) 10/31/20 10/31/20 10/31/20 07:52 11:42 16:12 WBC Hgb Hct MCH MCHC RDW Plt Count Lymph % (Auto) [place] % (Auto) Lymph # (Auto) [place] # (Auto) Seg Neutrophils % Seg Neutrophils # D-Dimer Sodium Potassium Chloride Carbon Dioxide BUN Glucose POC Glucose 303 H 387 H 343 H Ferritin AST ALT Lactate Dehydrogenase C-Reactive Protein Albumin Coronavirus (PCR) 10/31/20 11/01/20 11/01/20 21:35 07:34 11:22 WBC Hgb Hct MCH MCHC RDW Plt Count Lymph % (Auto) [place] % (Auto) Lymph # (Auto) [place] # (Auto) Seg Neutrophils % Seg Neutrophils # D-Dimer Sodium Potassium Chloride Carbon Dioxide BUN Glucose POC Glucose 359 H 325 H 442 H Ferritin AST ALT Lactate Dehydrogenase C-Reactive Protein Albumin Coronavirus (PCR) 11/01/20 11/01/20 11/02/20 16:30 22:12 04:38 WBC 12.4 H Hgb 14.8 H Hct 44.1 H MCH MCHC RDW 13.0 L Plt Count Lymph % (Auto) 3.3 L [place] % (Auto) 9.3 H Lymph # (Auto) 0.4 L [place] # (Auto) 1.2 H Seg Neutrophils % 87.2 H Seg Neutrophils # 10.9 H D-Dimer Sodium Potassium Chloride Carbon Dioxide BUN Glucose POC Glucose 378 H 395 H Ferritin AST ALT Lactate Dehydrogenase C-Reactive Protein Albumin Coronavirus (PCR) 11/02/20 11/02/20 11/02/20 04:38 07:40 12:09 WBC Hgb Hct MCH MCHC RDW Plt Count Lymph % (Auto) [place] % (Auto) Lymph # (Auto) [place] # (Auto) Seg Neutrophils % Seg Neutrophils # D-Dimer Sodium Potassium Chloride Carbon Dioxide 32 H BUN 48 H Glucose 304 H POC Glucose 280 H 422 H Ferritin AST ALT Lactate Dehydrogenase C-Reactive Protein Albumin Coronavirus (PCR) 11/02/20 11/02/20 11/03/20 16:10 21:30 08:01 WBC Hgb Hct MCH MCHC RDW Plt Count Lymph % (Auto) [place] % (Auto) Lymph # (Auto) [place] # (Auto) Seg Neutrophils % Seg Neutrophils # D-Dimer Sodium Potassium Chloride Carbon Dioxide BUN Glucose POC Glucose 367 H 380 H 336 H Ferritin AST ALT Lactate Dehydrogenase C-Reactive Protein Albumin Coronavirus (PCR) 11/03/20 11/03/20 11/03/20 12:21 15:56 21:17 WBC Hgb Hct MCH MCHC RDW Plt Count Lymph % (Auto) [place] % (Auto) Lymph # (Auto) [place] # (Auto) Seg Neutrophils % Seg Neutrophils # D-Dimer Sodium Potassium Chloride Carbon Dioxide BUN Glucose POC Glucose 352 H 312 H 307 H Ferritin AST ALT Lactate Dehydrogenase C-Reactive Protein Albumin Coronavirus (PCR) 11/04/20 11/04/20 11/04/20 04:28 07:57 11:43 WBC Hgb Hct MCH MCHC RDW Plt Count Lymph % (Auto) [place] % (Auto) Lymph # (Auto) [place] # (Auto) Seg Neutrophils % Seg Neutrophils # D-Dimer Sodium Potassium Chloride 95.6 L Carbon Dioxide 33 H BUN 52 H Glucose 307 H POC Glucose 287 H 321 H Ferritin AST ALT Lactate Dehydrogenase C-Reactive Protein Albumin Coronavirus (PCR) 11/04/20 11/04/20 11/05/20 16:23 22:30 07:49 WBC Hgb Hct MCH MCHC RDW Plt Count Lymph % (Auto) [place] % (Auto) Lymph # (Auto) [place] # (Auto) Seg Neutrophils % Seg Neutrophils # D-Dimer Sodium Potassium Chloride Carbon Dioxide BUN Glucose POC Glucose 345 H 285 H 269 H Ferritin AST ALT Lactate Dehydrogenase C-Reactive Protein Albumin Coronavirus (PCR) 11/05/20 11/05/20 11/05/20 11:43 15:53 15:53 WBC Hgb Hct MCH MCHC RDW Plt Count Lymph % (Auto) [place] % (Auto) Lymph # (Auto) [place] # (Auto) Seg Neutrophils % Seg Neutrophils # D-Dimer Sodium Potassium Chloride Carbon Dioxide BUN Glucose POC Glucose 349 H Ferritin 2889.0 H AST ALT Lactate Dehydrogenase 345 H C-Reactive Protein Albumin Coronavirus (PCR) 11/05/20 11/05/20 11/06/20 16:10 22:22 07:29 WBC Hgb Hct MCH MCHC RDW Plt Count Lymph % (Auto) [place] % (Auto) Lymph # (Auto) [place] # (Auto) Seg Neutrophils % Seg Neutrophils # D-Dimer Sodium Potassium Chloride Carbon Dioxide BUN Glucose POC Glucose 311 H 264 H 216 H Ferritin AST ALT Lactate Dehydrogenase C-Reactive Protein Albumin Coronavirus (PCR) 0911/06/20 11/06/20 11:04 16:37 21:58 WBC Hgb Hct MCH MCHC RDW Plt Count Lymph % (Auto) [place] % (Auto) Lymph # (Auto) [place] # (Auto) Seg Neutrophils % Seg Neutrophils # D-Dimer Sodium Potassium Chloride Carbon Dioxide BUN Glucose POC Glucose 363 H 247 H 279 H Ferritin AST ALT Lactate Dehydrogenase C-Reactive Protein Albumin Coronavirus (PCR) 11/07/20 11/07/20 11/07/20 06:08 07:39 09:00 WBC Hgb 16.1 H Hct 48.6 H MCH MCHC RDW Plt Count 122 L Lymph % (Auto) 7.7 L [place] % (Auto) 12.5 H Lymph # (Auto) 0.7 L [place] # (Auto) 1.1 H Seg Neutrophils % 79.6 H Seg Neutrophils # D-Dimer Sodium Potassium Chloride Carbon Dioxide 33 H BUN 62 H Glucose 279 H POC Glucose 194 H Ferritin AST ALT Lactate Dehydrogenase C-Reactive Protein Albumin Coronavirus (PCR) 11/07/20 11/07/20 11/07/20 12:43 17:26 21:54 WBC Hgb Hct MCH MCHC RDW Plt Count Lymph % (Auto) [place] % (Auto) Lymph # (Auto) [place] # (Auto) Seg Neutrophils % Seg Neutrophils # D-Dimer Sodium Potassium Chloride Carbon Dioxide BUN Glucose POC Glucose 338 H 251 H 255 H Ferritin AST ALT Lactate Dehydrogenase C-Reactive Protein Albumin Coronavirus (PCR) 11/08/20 11/08/20 11/08/20 07:42 12:15 21:37 WBC Hgb Hct MCH MCHC RDW Plt Count Lymph % (Auto) [place] % (Auto) Lymph # (Auto) [place] # (Auto) Seg Neutrophils % Seg Neutrophils # D-Dimer Sodium Potassium Chloride Carbon Dioxide BUN Glucose POC Glucose 251 H 320 H 316 H Ferritin AST ALT Lactate Dehydrogenase C-Reactive Protein Albumin Coronavirus (PCR) 11/09/20 11/09/20 11/09/20 07:52 11:22 17:05 WBC Hgb Hct MCH MCHC RDW Plt Count Lymph % (Auto) [place] % (Auto) Lymph # (Auto) [place] # (Auto) Seg Neutrophils % Seg Neutrophils # D-Dimer Sodium Potassium Chloride Carbon Dioxide BUN Glucose POC Glucose 246 H 257 H 223 H Ferritin AST ALT Lactate Dehydrogenase C-Reactive Protein Albumin Coronavirus (PCR) 11/09/20 11/10/20 11/10/20 22:01 07:13 07:13 WBC Hgb 14.7 H Hct 44.1 H MCH MCHC RDW Plt Count 106 L Lymph % (Auto) 5.4 L [place] % (Auto) Lymph # (Auto) 0.4 L [place] # (Auto) Seg Neutrophils % 88.5 H Seg Neutrophils # D-Dimer Sodium Potassium Chloride Carbon Dioxide BUN 56 H Glucose 261 H POC Glucose 241 H Ferritin AST ALT Lactate Dehydrogenase C-Reactive Protein Albumin Coronavirus (PCR) 11/10/20 11/10/20 11/10/20 07:31 12:15 16:09 WBC Hgb Hct MCH MCHC RDW Plt Count Lymph % (Auto) [place] % (Auto) Lymph # (Auto) [place] # (Auto) Seg Neutrophils % Seg Neutrophils # D-Dimer Sodium Potassium Chloride Carbon Dioxide BUN Glucose POC Glucose 234 H 327 H 258 H Ferritin AST ALT Lactate Dehydrogenase C-Reactive Protein Albumin Coronavirus (PCR) 11/10/20 11/11/20 11/11/20 21:47 07:44 12:01 WBC Hgb Hct MCH MCHC RDW Plt Count Lymph % (Auto) [place] % (Auto) Lymph # (Auto) [place] # (Auto) Seg Neutrophils % Seg Neutrophils # D-Dimer Sodium Potassium Chloride Carbon Dioxide BUN Glucose POC Glucose 281 H 273 H 343 H Ferritin AST ALT Lactate Dehydrogenase C-Reactive Protein Albumin Coronavirus (PCR) 11/11/20 11/11/20 11/12/20 17:03 21:31 07:28 WBC Hgb Hct MCH MCHC RDW Plt Count Lymph % (Auto) [place] % (Auto) Lymph # (Auto) [place] # (Auto) Seg Neutrophils % Seg Neutrophils # D-Dimer Sodium Potassium Chloride Carbon Dioxide BUN Glucose POC Glucose 222 H 235 H 200 H Ferritin AST ALT Lactate Dehydrogenase C-Reactive Protein Albumin Coronavirus (PCR) 11/12/20 11/12/20 11/12/20 10:58 17:18 21:08 WBC Hgb Hct MCH MCHC RDW Plt Count Lymph % (Auto) [place] % (Auto) Lymph # (Auto) [place] # (Auto) Seg Neutrophils % Seg Neutrophils # D-Dimer Sodium Potassium Chloride Carbon Dioxide BUN Glucose POC Glucose 294 H 240 H 317 H Ferritin AST ALT Lactate Dehydrogenase C-Reactive Protein Albumin Coronavirus (PCR) 11/13/20 11/13/20 11/13/20 07:03 08:17 11:46 WBC Hgb Hct MCH MCHC RDW Plt Count Lymph % (Auto) [place] % (Auto) Lymph # (Auto) [place] # (Auto) Seg Neutrophils % Seg Neutrophils # D-Dimer Sodium Potassium Chloride Carbon Dioxide BUN 60 H Glucose 228 H POC Glucose 226 H 345 H Ferritin AST ALT Lactate Dehydrogenase C-Reactive Protein Albumin Coronavirus (PCR) 11/13/20 11/13/20 11/14/20 16:27 20:58 05:01 WBC Hgb Hct MCH MCHC RDW Plt Count Lymph % (Auto) [place] % (Auto) Lymph # (Auto) [place] # (Auto) Seg Neutrophils % Seg Neutrophils # D-Dimer Sodium 132 L D Potassium Chloride 94.2 L Carbon Dioxide BUN 63 H Glucose 236 H POC Glucose 255 H 256 H Ferritin AST ALT Lactate Dehydrogenase C-Reactive Protein Albumin Coronavirus (PCR) 11/14/20 11/14/20 11/14/20 07:28 11:05 21:22 WBC Hgb Hct MCH MCHC RDW Plt Count Lymph % (Auto) [place] % (Auto) Lymph # (Auto) [place] # (Auto) Seg Neutrophils % Seg Neutrophils # D-Dimer Sodium Potassium Chloride Carbon Dioxide BUN Glucose POC Glucose 240 H 232 H 247 H Ferritin AST ALT Lactate Dehydrogenase C-Reactive Protein Albumin Coronavirus (PCR) 11/15/20 11/15/20 11/15/20 04:53 07:51 10:30 WBC Hgb Hct MCH MCHC RDW Plt Count Lymph % (Auto) [place] % (Auto) Lymph # (Auto) [place] # (Auto) Seg Neutrophils % Seg Neutrophils # D-Dimer Sodium 134 L Potassium Chloride 94.9 L Carbon Dioxide BUN 63 H Glucose 238 H POC Glucose 255 H 299 H Ferritin AST ALT Lactate Dehydrogenase C-Reactive Protein Albumin Coronavirus (PCR) 11/15/20 11/15/20 11/16/20 15:52 21:52 05:00 WBC Hgb Hct MCH MCHC RDW Plt Count Lymph % (Auto) [place] % (Auto) Lymph # (Auto) [place] # (Auto) Seg Neutrophils % Seg Neutrophils # D-Dimer Sodium 133 L Potassium Chloride 94.8 L Carbon Dioxide BUN 62 H Glucose 222 H POC Glucose 210 H 281 H Ferritin AST ALT Lactate Dehydrogenase C-Reactive Protein Albumin Coronavirus (PCR) 11/16/20 11/16/20 07:53 11:18 WBC Hgb Hct MCH MCHC RDW Plt Count Lymph % (Auto) [place] % (Auto) Lymph # (Auto) [place] # (Auto) Seg Neutrophils % Seg Neutrophils # D-Dimer Sodium Potassium Chloride Carbon Dioxide BUN Glucose POC Glucose 230 H 262 H Ferritin AST ALT Lactate Dehydrogenase C-Reactive Protein Albumin Coronavirus (PCR) Allied health notes reviewed: nursing
[2020-11-16] MEDS: PRAVASTATIN 80 MG TAB PO SCH (21:11)
[2020-11-17] MEDS: hydrALAZINE 25 MG TAB PO SCH ×3 (05:56→22:43)
[2020-11-17] MEDS: FUROSEMIDE 40 MG/4 ML INJ IV SCH ×2 (05:56→18:34)
--- NOTE | 2020-11-17 06:07 | Event Note ---
Date: 11/17/20 Patient has one episode of bright red blood per rectum with medium size clots. Place patient on n.p.o. now, IV Protonix 40 mg twice daily, gentle hydration with half normal NS at 50 mL's per hour, GI consult pending, holding all anticoagulation
[2020-11-17] MEDS: SODIUM CHLORIDE 0.45% 1000 ML 1,000 ML IV SCH ×2 (06:48→23:57)
[2020-11-17] MEDS: PANTOPRAZOLE 40 MG INJ IV SCH ×2 (06:48→22:44)
--- NOTE | 2020-11-17 09:02 | Progress Note ---
Assessment and Plan 69 y/o, obese female with acute respiratory failure secondary to COVID pneumonia. 11/17/20: Drop steroids down again starting tomorrow afternoon. Continue lasix. continue to wean FiO2 for sats >88%. Follow up GI work up. Hopeful discharge soon. 11/16/20: Drop steroids down today. Continue lasix therapy. 11/15/20: Doubt steroids worked that quickly. Not sure what happened but glad oxygen requirement has come back down. Continue steroids at current dose and will likely start to wean tomorrow. Continue lasix at current dosing. Prognosis is still guarded. 11/14/20: given worsening, will icnrease steroids today to 125 TID. Suggest increasing lasix therapy maybe to TID as well. Repeat CXR likely on Monday. Will order BNP. Prognosis remains guarded. Very bad sign given increase in oxygen requirement. 11/13/20: CXR today. Hold on additional lasix until CXR is reviewed. Prone if able. Wean FiO2 for sats >88%. Continue steroids at TID dosing. 11/12/20: Will give an additional 40 of IV lasix now in addition to BID dosing. increase steroids back to TID but keep at 40 11/11/20: Wean FiO2. Would like for oxygen requirement to be around 3-4 liters then can switch to PO Prednisone 60 daily for 4 days, then 40 daily for 4 days then 20 daily for 4 days then 10 daily for 4 days then stop. 11/10/20: Continue to wean FiO2 as tolerated. Hopeful can wean to lower numbers safer for discharge. Should start working on discharge planning now. 11/09/20: Continue current level of care. No new recs pulm stout. Continue to wean FiO2 as tolerated. Prognosis is still guarded. 11/06/20: Will continue same recs. Hold on increases in steroids. Prone if possible. Continue lasix. Prognosis is still guarded. 11/05/20: Same recs as below. 11/04/20: no increases in the last 24 hours so will not increase steroids. Continue to encourage proning if able. Continue lasix. Guarded prognosis. 11/03/20: Will monitor closely, but if oxygen requirement continues to increase, will go back up on steroids to at least 80q8. Already on BID lasix. Prognosis remains guarded. 11/02/20: Continue BID lasix. Wean for sats >88%. currently on solumedrol 40q8, continue this dose for now, but if able to wean further then will wean steroids further. prognosis is still guarded. 11/01/20: No new recs for today. 10/31/20: Prone if able and for as long as possible. Wean for sats >88%. Continue high dose steroids. 10/30/20: No lasix. Prognosis remains guarded. 10/29/20: Continue lasix but I/O are not accurate. May need to increase dosing. Wean FiO2 as tolerated. Guarded prognosis. 10/28/20: Continue current care. Monitor renal function and continue BID lasix. Need strict I/O 10/27/20: Continue current plan from below. Guarded prognosis given COVID and obesity. Monitor renal function. 1. Increased steroids to 125 TID 2. Increased lasix to 40 BID 3. Prone as tolerated and for as long as possible 4. Monitor fluid balance 5. BP control 6. Guarded prognosis given COVID and obesity with worsening respiratory failure. Subjective Date of service: 11/17/20 Principal diagnosis: COVID-19 PNA Interval history: Episode of BRBP per documentation overnight. Otherwise, pulm status is stable. Objective Vital Signs - 12hr 11/16/20 11/16/20 11/16/20 23:00 23:20 23:22 Temperature 98.3 F Pulse Rate 100 H Respiratory 29 H Rate Blood Pressure 119/43 O2 Sat by Pulse 94 93 Oximetry 11/17/20 05:12 Temperature 97.7 F Pulse Rate 89 Respiratory 20 Rate Blood Pressure 156/44 O2 Sat by Pulse 91 Oximetry Constitutional: alert Eyes: non-icteric ENT: oropharynx moist Ascultation: Bilateral: diminished breath sounds Cardiovascular: regular rate and rhythm Gastrointestinal: normoactive bowel sounds, soft, non-tender CBC and BMP: 11/10/20 07:13 11/16/20 05:00 ABG, PT/INR, D-dimer: PT/INR, D-dimer D-Dimer 229.3 ng/mlDDU (0-234) 11/05/20 15:53 Abnormal lab findings: Abnormal Labs 10/23/20 10/23/20 10/23/20 17:31 20:38 20:38 WBC Hgb Hct MCH MCHC RDW Plt Count Lymph % (Auto) [place] % (Auto) Lymph # (Auto) [place] # (Auto) Seg Neutrophils % Seg Neutrophils # D-Dimer 919.44 H Sodium 136 L Potassium Chloride Carbon Dioxide BUN Glucose 149 H POC Glucose Ferritin AST ALT Lactate Dehydrogenase 606 H C-Reactive Protein 11.50 H Albumin Coronavirus (PCR) 10/23/20 10/24/20 10/24/20 20:38 08:00 08:07 WBC Hgb Hct MCH 33 H MCHC 35 H RDW Plt Count Lymph % (Auto) 9.9 L [place] % (Auto) 7.9 H Lymph # (Auto) 0.6 L [place] # (Auto) Seg Neutrophils % 82.1 H Seg Neutrophils # D-Dimer Sodium Potassium Chloride Carbon Dioxide BUN Glucose POC Glucose Ferritin AST ALT Lactate Dehydrogenase 643 H C-Reactive Protein 11.70 H Albumin Coronavirus (PCR) Positive A 10/24/20 10/25/20 10/26/20 08:07 16:13 21:32 WBC Hgb Hct MCH MCHC RDW Plt Count Lymph % (Auto) [place] % (Auto) Lymph # (Auto) [place] # (Auto) Seg Neutrophils % Seg Neutrophils # D-Dimer Sodium Potassium Chloride Carbon Dioxide BUN Glucose 173 H POC Glucose 180 H 213 H Ferritin AST ALT Lactate Dehydrogenase C-Reactive Protein Albumin Coronavirus (PCR) 10/27/20 10/27/20 10/27/20 07:54 11:56 13:47 WBC Hgb Hct MCH MCHC RDW Plt Count Lymph % (Auto) [place] % (Auto) Lymph # (Auto) [place] # (Auto) Seg Neutrophils % Seg Neutrophils # D-Dimer Sodium Potassium 3.3 L D Chloride Carbon Dioxide BUN 38 H Glucose 262 H POC Glucose 305 H 289 H Ferritin AST 155 H ALT 170 H Lactate Dehydrogenase C-Reactive Protein Albumin 3.4 L Coronavirus (PCR) 10/27/20 10/27/20 10/28/20 15:49 21:36 07:24 WBC Hgb Hct MCH MCHC RDW Plt Count Lymph % (Auto) [place] % (Auto) Lymph # (Auto) [place] # (Auto) Seg Neutrophils % Seg Neutrophils # D-Dimer Sodium Potassium Chloride Carbon Dioxide BUN 41 H Glucose 217 H POC Glucose 228 H 241 H Ferritin AST 116 H ALT 182 H Lactate Dehydrogenase C-Reactive Protein Albumin 3.7 L Coronavirus (PCR) 10/28/20 10/28/20 10/28/20 07:40 16:08 21:21 WBC Hgb Hct MCH MCHC RDW Plt Count Lymph % (Auto) [place] % (Auto) Lymph # (Auto) [place] # (Auto) Seg Neutrophils % Seg Neutrophils # D-Dimer Sodium Potassium Chloride Carbon Dioxide BUN Glucose POC Glucose 207 H 227 H 354 H Ferritin AST ALT Lactate Dehydrogenase C-Reactive Protein Albumin Coronavirus (PCR) 10/29/20 10/29/20 10/29/20 05:12 07:47 12:19 WBC Hgb Hct MCH MCHC RDW Plt Count Lymph % (Auto) [place] % (Auto) Lymph # (Auto) [place] # (Auto) Seg Neutrophils % Seg Neutrophils # D-Dimer Sodium Potassium Chloride Carbon Dioxide BUN 47 H Glucose 247 H POC Glucose 268 H 383 H Ferritin AST 102 H ALT 183 H Lactate Dehydrogenase C-Reactive Protein Albumin 3.1 L Coronavirus (PCR) 10/29/20 10/29/20 10/30/20 16:34 22:07 07:46 WBC Hgb Hct MCH MCHC RDW Plt Count Lymph % (Auto) [place] % (Auto) Lymph # (Auto) [place] # (Auto) Seg Neutrophils % Seg Neutrophils # D-Dimer Sodium Potassium Chloride Carbon Dioxide BUN 50 H Glucose 287 H POC Glucose 324 H 276 H Ferritin AST 71 H ALT 164 H Lactate Dehydrogenase 392 H C-Reactive Protein Albumin 3.2 L Coronavirus (PCR) 10/30/20 10/30/20 10/30/20 07:46 07:46 08:07 WBC Hgb Hct MCH MCHC RDW Plt Count Lymph % (Auto) [place] % (Auto) Lymph # (Auto) [place] # (Auto) Seg Neutrophils % Seg Neutrophils # D-Dimer 504.53 H Sodium Potassium Chloride Carbon Dioxide BUN Glucose POC Glucose 267 H Ferritin 1470.0 H AST ALT Lactate Dehydrogenase C-Reactive Protein Albumin Coronavirus (PCR) 10/30/20 10/30/20 10/30/20 12:39 17:14 21:42 WBC Hgb Hct MCH MCHC RDW Plt Count Lymph % (Auto) [place] % (Auto) Lymph # (Auto) [place] # (Auto) Seg Neutrophils % Seg Neutrophils # D-Dimer Sodium Potassium Chloride Carbon Dioxide BUN Glucose POC Glucose 332 H 301 H 371 H Ferritin AST ALT Lactate Dehydrogenase C-Reactive Protein Albumin Coronavirus (PCR) 10/31/20 10/31/20 10/31/20 07:52 11:42 16:12 WBC Hgb Hct MCH MCHC RDW Plt Count Lymph % (Auto) [place] % (Auto) Lymph # (Auto) [place] # (Auto) Seg Neutrophils % Seg Neutrophils # D-Dimer Sodium Potassium Chloride Carbon Dioxide BUN Glucose POC Glucose 303 H 387 H 343 H Ferritin AST ALT Lactate Dehydrogenase C-Reactive Protein Albumin Coronavirus (PCR) 10/31/20 11/01/20 11/01/20 21:35 07:34 11:22 WBC Hgb Hct MCH MCHC RDW Plt Count Lymph % (Auto) [place] % (Auto) Lymph # (Auto) [place] # (Auto) Seg Neutrophils % Seg Neutrophils # D-Dimer Sodium Potassium Chloride Carbon Dioxide BUN Glucose POC Glucose 359 H 325 H 442 H Ferritin AST ALT Lactate Dehydrogenase C-Reactive Protein Albumin Coronavirus (PCR) 11/01/20 11/01/20 11/02/20 16:30 22:12 04:38 WBC 12.4 H Hgb 14.8 H Hct 44.1 H MCH MCHC RDW 13.0 L Plt Count Lymph % (Auto) 3.3 L [place] % (Auto) 9.3 H Lymph # (Auto) 0.4 L [place] # (Auto) 1.2 H Seg Neutrophils % 87.2 H Seg Neutrophils # 10.9 H D-Dimer Sodium Potassium Chloride Carbon Dioxide BUN Glucose POC Glucose 378 H 395 H Ferritin AST ALT Lactate Dehydrogenase C-Reactive Protein Albumin Coronavirus (PCR) 11/02/20 11/02/20 11/02/20 04:38 07:40 12:09 WBC Hgb Hct MCH MCHC RDW Plt Count Lymph % (Auto) [place] % (Auto) Lymph # (Auto) [place] # (Auto) Seg Neutrophils % Seg Neutrophils # D-Dimer Sodium Potassium Chloride Carbon Dioxide 32 H BUN 48 H Glucose 304 H POC Glucose 280 H 422 H Ferritin AST ALT Lactate Dehydrogenase C-Reactive Protein Albumin Coronavirus (PCR) 11/02/20 11/02/20 11/03/20 16:10 21:30 08:01 WBC Hgb Hct MCH MCHC RDW Plt Count Lymph % (Auto) [place] % (Auto) Lymph # (Auto) [place] # (Auto) Seg Neutrophils % Seg Neutrophils # D-Dimer Sodium Potassium Chloride Carbon Dioxide BUN Glucose POC Glucose 367 H 380 H 336 H Ferritin AST ALT Lactate Dehydrogenase C-Reactive Protein Albumin Coronavirus (PCR) 11/03/20 11/03/20 11/03/20 12:21 15:56 21:17 WBC Hgb Hct MCH MCHC RDW Plt Count Lymph % (Auto) [place] % (Auto) Lymph # (Auto) [place] # (Auto) Seg Neutrophils % Seg Neutrophils # D-Dimer Sodium Potassium Chloride Carbon Dioxide BUN Glucose POC Glucose 352 H 312 H 307 H Ferritin AST ALT Lactate Dehydrogenase C-Reactive Protein Albumin Coronavirus (PCR) 11/04/20 11/04/20 11/04/20 04:28 07:57 11:43 WBC Hgb Hct MCH MCHC RDW Plt Count Lymph % (Auto) [place] % (Auto) Lymph # (Auto) [place] # (Auto) Seg Neutrophils % Seg Neutrophils # D-Dimer Sodium Potassium Chloride 95.6 L Carbon Dioxide 33 H BUN 52 H Glucose 307 H POC Glucose 287 H 321 H Ferritin AST ALT Lactate Dehydrogenase C-Reactive Protein Albumin Coronavirus (PCR) 11/04/20 11/04/20 11/05/20 16:23 22:30 07:49 WBC Hgb Hct MCH MCHC RDW Plt Count Lymph % (Auto) [place] % (Auto) Lymph # (Auto) [place] # (Auto) Seg Neutrophils % Seg Neutrophils # D-Dimer Sodium Potassium Chloride Carbon Dioxide BUN Glucose POC Glucose 345 H 285 H 269 H Ferritin AST ALT Lactate Dehydrogenase C-Reactive Protein Albumin Coronavirus (PCR) 11/05/20 11/05/20 11/05/20 11:43 15:53 15:53 WBC Hgb Hct MCH MCHC RDW Plt Count Lymph % (Auto) [place] % (Auto) Lymph # (Auto) [place] # (Auto) Seg Neutrophils % Seg Neutrophils # D-Dimer Sodium Potassium Chloride Carbon Dioxide BUN Glucose POC Glucose 349 H Ferritin 2889.0 H AST ALT Lactate Dehydrogenase 345 H C-Reactive Protein Albumin Coronavirus (PCR) 11/05/20 11/05/20 11/06/20 16:10 22:22 07:29 WBC Hgb Hct MCH MCHC RDW Plt Count Lymph % (Auto) [place] % (Auto) Lymph # (Auto) [place] # (Auto) Seg Neutrophils % Seg Neutrophils # D-Dimer Sodium Potassium Chloride Carbon Dioxide BUN Glucose POC Glucose 311 H 264 H 216 H Ferritin AST ALT Lactate Dehydrogenase C-Reactive Protein Albumin Coronavirus (PCR) 11/06/20 11/06/20 11/06/20 11:04 16:37 21:58 WBC Hgb Hct MCH MCHC RDW Plt Count Lymph % (Auto) [place] % (Auto) Lymph # (Auto) [place] # (Auto) Seg Neutrophils % Seg Neutrophils # D-Dimer Sodium Potassium Chloride Carbon Dioxide BUN Glucose POC Glucose 363 H 247 H 279 H Ferritin AST ALT Lactate Dehydrogenase C-Reactive Protein Albumin Coronavirus (PCR) 11/07/20 11/07/20 11/07/20 06:08 07:39 09:00 WBC Hgb 16.1 H Hct 48.6 H MCH MCHC RDW Plt Count 122 L Lymph % (Auto) 7.7 L [place] % (Auto) 12.5 H Lymph # (Auto) 0.7 L [place] # (Auto) 1.1 H Seg Neutrophils % 79.6 H Seg Neutrophils # D-Dimer Sodium Potassium Chloride Carbon Dioxide 33 H BUN 62 H Glucose 279 H POC Glucose 194 H Ferritin AST ALT Lactate Dehydrogenase C-Reactive Protein Albumin Coronavirus (PCR) 11/07/20 11/07/20 11/07/20 12:43 17:26 21:54 WBC Hgb Hct MCH MCHC RDW Plt Count Lymph % (Auto) [place] % (Auto) Lymph # (Auto) [place] # (Auto) Seg Neutrophils % Seg Neutrophils # D-Dimer Sodium Potassium Chloride Carbon Dioxide BUN Glucose POC Glucose 338 H 251 H 255 H Ferritin AST ALT Lactate Dehydrogenase C-Reactive Protein Albumin Coronavirus (PCR) 11/08/20 11/08/20 11/08/20 07:42 12:15 21:37 WBC Hgb Hct MCH MCHC RDW Plt Count Lymph % (Auto) [place] % (Auto) Lymph # (Auto) [place] # (Auto) Seg Neutrophils % Seg Neutrophils # D-Dimer Sodium Potassium Chloride Carbon Dioxide BUN Glucose POC Glucose 251 H 320 H 316 H Ferritin AST ALT Lactate Dehydrogenase C-Reactive Protein Albumin Coronavirus (PCR) 11/09/20 11/09/20 11/09/20 07:52 11:22 17:05 WBC Hgb Hct MCH MCHC RDW Plt Count Lymph % (Auto) [place] % (Auto) Lymph # (Auto) [place] # (Auto) Seg Neutrophils % Seg Neutrophils # D-Dimer Sodium Potassium Chloride Carbon Dioxide BUN Glucose POC Glucose 246 H 257 H 223 H Ferritin AST ALT Lactate Dehydrogenase C-Reactive Protein Albumin Coronavirus (PCR) 11/09/20 11/10/20 11/10/20 22:01 07:13 07:13 WBC Hgb 14.7 H Hct 44.1 H MCH MCHC RDW Plt Count 106 L Lymph % (Auto) 5.4 L [place] % (Auto) Lymph # (Auto) 0.4 L [place] # (Auto) Seg Neutrophils % 88.5 H Seg Neutrophils # D-Dimer Sodium Potassium Chloride Carbon Dioxide BUN 56 H Glucose 261 H POC Glucose 241 H Ferritin AST ALT Lactate Dehydrogenase C-Reactive Protein Albumin Coronavirus (PCR) 11/10/20 11/10/20 11/10/20 07:31 12:15 16:09 WBC Hgb Hct MCH MCHC RDW Plt Count Lymph % (Auto) [place] % (Auto) Lymph # (Auto) [place] # (Auto) Seg Neutrophils % Seg Neutrophils # D-Dimer Sodium Potassium Chloride Carbon Dioxide BUN Glucose POC Glucose 234 H 327 H 258 H Ferritin AST ALT Lactate Dehydrogenase C-Reactive Protein Albumin Coronavirus (PCR) 11/10/20 11/11/20 11/11/20 21:47 07:44 12:01 WBC Hgb Hct MCH MCHC RDW Plt Count Lymph % (Auto) [place] % (Auto) Lymph # (Auto) [place] # (Auto) Seg Neutrophils % Seg Neutrophils # D-Dimer Sodium Potassium Chloride Carbon Dioxide BUN Glucose POC Glucose 281 H 273 H 343 H Ferritin AST ALT Lactate Dehydrogenase C-Reactive Protein Albumin Coronavirus (PCR) 11/11/20 11/11/20 11/12/20 17:03 21:31 07:28 WBC Hgb Hct MCH MCHC RDW Plt Count Lymph % (Auto) [place] % (Auto) Lymph # (Auto) [place] # (Auto) Seg Neutrophils % Seg Neutrophils # D-Dimer Sodium Potassium Chloride Carbon Dioxide BUN Glucose POC Glucose 222 H 235 H 200 H Ferritin AST ALT Lactate Dehydrogenase C-Reactive Protein Albumin Coronavirus (PCR) 11/12/20 11/12/20 11/12/20 10:58 17:18 21:08 WBC Hgb Hct MCH MCHC RDW Plt Count Lymph % (Auto) [place] % (Auto) Lymph # (Auto) [place] # (Auto) Seg Neutrophils % Seg Neutrophils # D-Dimer Sodium Potassium Chloride Carbon Dioxide BUN Glucose POC Glucose 294 H 240 H 317 H Ferritin AST ALT Lactate Dehydrogenase C-Reactive Protein Albumin Coronavirus (PCR) 11/13/20 11/13/2021 07:03 08:17 11:46 WBC Hgb Hct MCH MCHC RDW Plt Count Lymph % (Auto) [place] % (Auto) Lymph # (Auto) [place] # (Auto) Seg Neutrophils % Seg Neutrophils # D-Dimer Sodium Potassium Chloride Carbon Dioxide BUN 60 H Glucose 228 H POC Glucose 226 H 345 H Ferritin AST ALT Lactate Dehydrogenase C-Reactive Protein Albumin Coronavirus (PCR) 11/13/20 11/13/20 11/14/20 16:27 20:58 05:01 WBC Hgb Hct MCH MCHC RDW Plt Count Lymph % (Auto) [place] % (Auto) Lymph # (Auto) [place] # (Auto) Seg Neutrophils % Seg Neutrophils # D-Dimer Sodium 132 L D Potassium Chloride 94.2 L Carbon Dioxide BUN 63 H Glucose 236 H POC Glucose 255 H 256 H Ferritin AST ALT Lactate Dehydrogenase C-Reactive Protein Albumin Coronavirus (PCR) 11/14/20 11/14/20 11/14/20 07:28 11:05 21:22 WBC Hgb Hct MCH MCHC RDW Plt Count Lymph % (Auto) [place] % (Auto) Lymph # (Auto) [place] # (Auto) Seg Neutrophils % Seg Neutrophils # D-Dimer Sodium Potassium Chloride Carbon Dioxide BUN Glucose POC Glucose 240 H 232 H 247 H Ferritin AST ALT Lactate Dehydrogenase C-Reactive Protein Albumin Coronavirus (PCR) 11/15/20 11/15/20 11/15/20 04:53 07:51 10:30 WBC Hgb Hct MCH MCHC RDW Plt Count Lymph % (Auto) [place] % (Auto) Lymph # (Auto) [place] # (Auto) Seg Neutrophils % Seg Neutrophils # D-Dimer Sodium 134 L Potassium Chloride 94.9 L Carbon Dioxide BUN 63 H Glucose 238 H POC Glucose 255 H 299 H Ferritin AST ALT Lactate Dehydrogenase C-Reactive Protein Albumin Coronavirus (PCR) 11/15/20 11/15/20 11/16/20 15:52 21:52 05:00 WBC Hgb Hct MCH MCHC RDW Plt Count Lymph % (Auto) [place] % (Auto) Lymph # (Auto) [place] # (Auto) Seg Neutrophils % Seg Neutrophils # D-Dimer Sodium 133 L Potassium Chloride 94.8 L Carbon Dioxide BUN 62 H Glucose 222 H POC Glucose 210 H 281 H Ferritin AST ALT Lactate Dehydrogenase C-Reactive Protein Albumin Coronavirus (PCR) 11/16/20 11/16/20 11/16/20 07:53 11:18 16:47 WBC Hgb Hct MCH MCHC RDW Plt Count Lymph % (Auto) [place] % (Auto) Lymph # (Auto) [place] # (Auto) Seg Neutrophils % Seg Neutrophils # D-Dimer Sodium Potassium Chloride Carbon Dioxide BUN Glucose POC Glucose 230 H 262 H 202 H Ferritin AST ALT Lactate Dehydrogenase C-Reactive Protein Albumin Coronavirus (PCR) 11/16/20 11/17/20 21:24 07:24 WBC Hgb Hct MCH MCHC RDW Plt Count Lymph % (Auto) [place] % (Auto) Lymph # (Auto) [place] # (Auto) Seg Neutrophils % Seg Neutrophils # D-Dimer Sodium Potassium Chloride Carbon Dioxide BUN Glucose POC Glucose 243 H 221 H Ferritin AST ALT Lactate Dehydrogenase C-Reactive Protein Albumin Coronavirus (PCR) Allied health notes reviewed: nursing
[2020-11-17] MEDS: INSULIN GLARGINE 100 UNITS/ML SUB-Q SCH ×2 (10:00→18:42)
[2020-11-17] MEDS: INSULIN LISPRO 100 UNIT/ML SUB-Q SCH ×7 (10:03→23:56)
--- NOTE | 2020-11-17 10:04 | Progress Note ---
Assessment and Plan Assessment and plan: 69 YO Female with HTN, DM, COPD, Obesity Hypoventilation Syndrome presents to ED for evaluation. Patient reports "I am having trouble breathing". Patient states that she has experienced shortness of breath, productive cough with yellowish to greenish sputum, decreased exercise tolerance, fatigue, malaise, dyspnea on exertion, dyspnea at rest over the past 2 weeks with persistent and worsening symptoms over the same timeframe. Patient also acknowledges bilateral lower extremity edema, diminished sense of taste, as well as diminished sense of smell. Patient is not vaccinated against coronavirus. The patient was treated with outpatient oral antibiotic therapy as well as with increased use of br onchodilator therapy without improvement in symptoms. Patient is uncertain of coronavirus exposure. EMS was notified and upon arrival the patient was found to be in distress and subsequently transported to [facility] for further care and evaluation of the aforementioned symptoms. The patient was seen and evaluated in the emergency department. All lab and imaging studies reviewed. The patient was found to have a pulse oximetry of 79% on room air which is consistent with acute hypoxemic respiratory failure. The patient was found to have a respiratory rate in the 40s. The patient was using accessory muscles to breathe. Chest x-ray revealed bilateral pneumonia. Patient also found to have clinical symptoms consistent with CHF decompensation. The patient was admitted to medical floor and initiated on pneumonia protocol, CHF protocol, as well as coronavirus protocol. Patient denies fever, chest pain, palpitations, skin rash, recent ill contacts. Prior admission on 07/26/2016 reviewed. All medication listed at time of admission has been reconciled. Advanced care planning conducted in ED. -- Acute respiratory failure Due to COVID-19 pneumonia and underlying morbid obesity Supplemental O2 and inhaler as needed -- Pneumonia due to COVID-19 virus Continue empiric steroid, status post remdesivir, Completed Tocilizumab on 10/29/2020, Completed ceftriaxone Supplemental O2, ID and pulmonary care on board -- COPD (chronic obstructive pulmonary disease) with exacerbation Continue empiric steroid, inhalers and supplemental O2 -- Hypertension Monitor BP and adjust meds as needed -- Diabetes mellitus, uncontrolled Consistent carb diet, continue SSI and Lantus Adjust insulin dose for better glycemic control -- GERD (gastroesophageal reflux disease) Continue PPI --Morbid obesity Dietary and exercise recommendation as outpatient when clinically more stable and appropriate --Leukocytosis, due to steroid --DVT prophylaxis, Daily clinical course: 10/31/20: Remains on high flow O2, continue to monitor inflammatory markers, pulmonary on board. Guarded prognosis. 11/01/20: Patient remains on 40 L high flow O2. Continue to monitor clinically with supportive care, follow inflammatory markers, blood glucose significantly elevated, will add long-acting insulin. Reduce steroids dose to 40 mg every 8 hours. guarded prognosis. 11/02/20: Patient on 20 L and 60% FiO2 today. Continue to wean off O2 as tolerated. Follow inflammatory markers 11/03/20: Remains on high flow O2-30L today, guarded prognosis, wean off as tolerated. 11/04/20: Guarded prognosis, remains on high flow O2 30 L with 70% FiO2. Continue to follow inflammatory markers, ID and pulmonary critical care following. 11/05/20; Remains on 30L O2, unable to wean off, guarded prognosis. follow clinically. Continue to adjust insulin doses for better glycemic control. 11/06/20: Remains on high flow O2, BG improved, cont to adjust insulin doses. Patient is getting very frustrated and anxious and desperately wants to go home. I explained to her with the nurse in lengthy discussion that she is still requiring high flow O2 and not stable enough to go home. She finally verbalized understanding. 11/07/20; still remains on high flow, unable to wean off, guarded prognosis. cont to follow 11/08/20: Discussed with RT, will try to wean off to nasal cannula O2. Patient remains on high flow O2, Becoming very frustrated and anxious. Explained in details with RN at the bedside. Guarded prognosis. Continue to follow inflammatory markers. 11/09/20: pt on 10L O2 today, continue to wean off, follow inflammatory markers. Patient appears otherwise clinically stable 11/10/20: Patient weaned off to 6 L nasal cannula O2 today. If weaned off below 5 L nasal cannula patient should be able to discharge home. Continue to follow for now. 11/11/20: back on 10L n/c o2 today 11/12 -Patient is on 10 L of high flow oxygen -Will titrate as tolerated 11/13 -Patient was on 10 L of high flow oxygen -Titrate down as tolerated -Solu-Medrol increased to 40 mg IV 3 times daily -Blood sugar was uncontrolled and increased morning dose of 70/30 from 12-15, increase the night dose from 24 to 28 units. Monitor blood sugar and adjust as needed. -Continue with Lasix 40 mg IV twice daily -Prognosis is guarded. 11/14 -Patient was on 10 L of high flow oxygen -Patient states she wants to go home; I called her daughter Ms. Emanuel at [phone] and discussed about her mother's management plan and about her mother's decision wants to go home. She said she wants to talk to her mother. She wants her mother to be treated in the hospital. 11/15 -Patient was on 4 L of oxygen, wean off oxygen as tolerated -Continue Lasix and steroids -Management plan was discussed with her daughter yesterday -PT evaluation -Blood sugars uncontrolled and I increased lispro to 10 units AC 11/16: Patient continues to show some progress. Will wean oxygen down to 3 L to see if patient will tolerate with home O2 evaluation in a.m. and possible discharge in a.m. Patient is irate about stay extensive counseling provided to the patient she verbalized understanding. Encouraged nursing staff to set patient up. She refuses to prone. Blood sugar still elevated we will continue to monitor this may be secondary to steroid in addition to diabetes mellitus physical therapy evaluation in today for possible discharge tomorrow 11/17: Patient showing some clinical improvement, at rest on 2-3Liters she sats 88-92% so will need oxygen. GI evaluating today for possible GI bleed. Monitor H/H. Pulmonary input noted, in direction to steroids. Discussed with patients son about Rehab-SUBACUTE but they believe she will refuse and will begin making arrangement about home discharge with home health if she refuses subacute rehab as recommeded by PT Hospitalist Physical - Constitutional Vitals: Temp Pulse Resp BP Pulse Ox 97.7 F 89 20 156/44 91 11/17/20 05:12 11/17/20 05:12 11/17/20 05:12 11/17/20 05:12 11/17/20 05:12 General appearance: Present: no acute distress, obese HEART Score - HEART Score Troponin: Troponin T < 0.010 ng/mL (0.00-0.029) 10/23/20 17:31 Results - Labs CBC & Chem 7: 11/10/20 07:13 11/16/20 05:00 Labs: Laboratory Last Values WBC 6.6 K/mm3 (4.5-11.0) 11/10/20 07:13 RBC 4.65 M/mm3 (3.65-5.03) 11/10/20 07:13 Hgb 14.7 gm/dl (10.1-14.3) H 11/10/20 07:13 Hct 44.1 % (30.3-42.9) H 11/10/20 07:13 MCV 95 fl (79-97) 11/10/20 07:13 MCH 32 pg (28-32) 11/10/20 07:13 MCHC 33 % (30-34) 11/10/20 07:13 RDW 13.2 % (13.2-15.2) 11/10/20 07:13 Plt Count 106 K/mm3 (140-440) L 11/10/20 07:13 Lymph % (Auto) 5.4 % (13.4-35.0) L 11/10/20 07:13 [place] % (Auto) 5.8 % (0.0-7.3) 11/10/20 07:13 Eos % (Auto) 0.0 % (0.0-4.3) 11/10/20 07:13 Baso % (Auto) 0.3 % (0.0-1.8) 11/10/20 07:13 Lymph # (Auto) 0.4 K/mm3 (1.2-5.4) L 11/10/20 07:13 [place] # (Auto) 0.4 K/mm3 (0.0-0.8) 11/10/20 07:13 Eos # (Auto) 0.0 K/mm3 (0.0-0.4) 11/10/20 07:13 Baso # (Auto) 0.0 K/mm3 (0.0-0.1) 11/10/20 07:13 Seg Neutrophils % 88.5 % (40.0-70.0) H 11/10/20 07:13 Seg Neutrophils # 5.8 K/mm3 (1.8-7.7) 11/10/20 07:13 D-Dimer 229.3 ng/mlDDU (0-234) 11/05/20 15:53 Sodium 133 mmol/L (137-145) L 11/16/20 05:00 Potassium 4.6 mmol/L (3.6-5.0) 11/16/20 05:00 Chloride 94.8 mmol/L (98-107) L 11/16/20 05:00 Carbon Dioxide 27 mmol/L (22-30) 11/16/20 05:00 Anion Gap 16 mmol/L 11/16/20 05:00 BUN 62 mg/dL (7-17) H 11/16/20 05:00 Creatinine 0.8 mg/dL (0.6-1.2) 11/16/20 05:00 Estimated GFR > 60 ml/min 11/16/20 05:00 BUN/Creatinine Ratio 78 % 11/16/20 05:00 Glucose 222 mg/dL (65-100) H 11/16/20 05:00 POC Glucose 221 mg/dL (70-105) H 11/17/20 07:24 Calcium 8.9 mg/dL (8.4-10.2) 11/16/20 05:00 Magnesium 1.80 mg/dL (1.7-2.3) 10/23/20 20:38 Ferritin 2889.0 ng/mL (10.0-200.0) H 11/05/20 15:53 Total Bilirubin 0.50 mg/dL (0.1-1.2) 10/30/20 07:46 AST 71 units/L (5-40) H 10/30/20 07:46 ALT 164 units/L (7-56) H 10/30/20 07:46 Alkaline Phosphatase 64 units/L (35-129) 10/30/20 07:46 Lactate Dehydrogenase 345 units/L (91-180) H 11/05/20 15:53 Troponin T < 0.010 ng/mL (0.00-0.029) 10/23/20 17:31 C-Reactive Protein 0.10 mg/dL (0.00-1.30) 11/05/20 15:53 NT-Pro-B Natriuret Pep 178.7 pg/mL (0-900) 11/14/20 04:51 Total Protein 7.0 g/dL (6.3-8.2) 10/30/20 07:46 Albumin 3.2 g/dL (3.9-5) L 10/30/20 07:46 Albumin/Globulin Ratio 0.8 % 10/30/20 07:46 Procalcitonin 0.32 ng/mL (<0.15) 10/23/20 20:38 TSH 2.010 mlU/mL (0.270-4.200) 10/23/20 20:38 Free T4 1.17 ng/dL (0.76-1.46) 10/23/20 20:38 Coronavirus (PCR) Positive (Negative) A 10/24/20 08:00 [place]/IV: Voiding Method External Female Catheter Active Medications - Current Medications Current Medications: Generic Name Dose Route Start Last Admin Trade Name Freq PRN Reason Stop Dose Admin Acetaminophen 650 mg 10/23/20 20:27 11/10/20 21:51 Acetaminophen 325 Mg Tab PO 650 mg Q4H PRN Administration Pain MILD(1-3)/Fever >100.5/KAUFMAN Albuterol 2.5 mg 10/23/20 20:27 Albuterol 2.5 Mg/3 Ml Nebu IH Q4HRT PRN Shortness Of Breath Amlodipine Besylate 10 mg 10/26/20 10:00 11/16/20 10:06 Amlodipine 10 Mg Tab PO Not Given QDAY GLENROY Ascorbic Acid 500 mg 10/23/20 22:00 11/16/20 21:11 Ascorbic Acid 500 Mg Tab PO 500 mg BID GLENROY Administration Cholecalciferol 1,000 unit 10/24/20 10:00 11/16/20 09:30 Cholecalciferol (Vit D3) 1000 Unit (25 Mcg) Tab PO 1,000 unit QDAY GLENROY Administration Furosemide 40 mg 10/26/20 11:00 11/17/20 05:56 Furosemide 40 Mg/4 Ml Inj IV 40 mg 0600,1800 GLENROY Administration Hydralazine HCl 50 mg 10/23/20 22:00 11/17/20 05:56 Hydralazine 25 Mg Tab PO 50 mg Q8HR GLENROY Administration Hydromorphone HCl 0.5 mg 10/23/20 20:27 Hydromorphone 1 Mg/1 Ml Inj IV Q12H PRN Pain , Severe (7-10) Sodium Chloride 1,000 mls @ 50 mls/hr 11/17/20 07:00 11/17/20 06:48 Nacl 0.45% 1000 Ml IV 50 mls/hr DIRECT GLENROY Administration Insulin Glargine 15 units 11/13/20 08:00 11/16/20 09:29 Insulin Glargine 100 Units/Ml SUB-Q 15 units QAMDIAB GLENROY Administration Insulin Glargine 28 units 11/13/20 18:00 11/16/20 18:39 Insulin Glargine 100 Units/Ml SUB-Q 28 units QPM GLENROY Administration Insulin Human Lispro 0 unit 10/27/20 11:30 11/16/20 22:29 Insulin Lispro 100 Unit/Ml SUB-Q 4 unit ACHS GLENROY Administration Protocol Insulin Human Lispro 10 unit 11/15/20 08:58 11/16/20 18:39 Insulin Lispro 100 Unit/Ml SUB-Q 10 unit AC GLENROY Administration Lisinopril 40 mg 10/24/20 10:00 11/16/20 10:07 Lisinopril 40 Mg Tab PO Not Given DAILY GLENROY Methylprednisolone Sodium Succinate 80 mg 11/16/20 14:00 11/16/20 21:09 Methylprednisolone Sod Succinate 40 Mg/1 Ml Inj IV 80 mg TID GLENROY Administration Ondansetron HCl 4 mg 10/23/20 20:27 Ondansetron 4 Mg/2 Ml Inj IV Q8H PRN Nausea And Vomiting Oxycodone/Acetaminophen 1 tab 10/23/20 20:27 11/14/20 22:29 Oxycodone /Acetaminophen 5-325mg Tab PO 1 tab Q12H PRN Administration Pain, Moderate (4-6) Pantoprazole Sodium 40 mg 11/17/20 06:00 11/17/20 06:48 Pantoprazole 40 Mg Inj IV 40 mg BID GLENROY Administration Polyethylene Glycol/Electrolytes 4,000 ml 11/17/20 16:00 Polyethylene Glycol/Elect Soln 4000 Ml PO 11/18/20 02:00 ONCE@1600 NR Pravastatin Sodium 80 mg 10/23/20 22:00 11/16/20 21:11 Pravastatin 80 Mg Tab PO 80 mg QHS GLENROY Administration Sodium Chloride 10 ml 10/23/20 22:00 11/16/20 21:12 Sodium Chloride 0.9% 10 Ml Flush Syringe IV 10 ml BID GLENROY Administration Sodium Chloride 10 ml 10/23/20 20:27 Sodium Chloride 0.9% 10 Ml Flush Syringe IV PRN PRN LINE FLUSH Tiotropium Cost 1 puff 10/24/20 10:00 11/16/20 10:59 Tiotropium 18 Mcg Cap Inhalation IH 1 puff QDAY GLENROY Administration Zinc Sulfate 220 mg 10/23/20 22:00 11/16/20 21:11 Zinc Sulfate 220 Mg Cap PO 220 mg BID GLENROY Administration Nutrition/Malnutrition Assess - Dietary Evaluation Nutrition/Malnutrition Findings: Nutrition Notes Start: 10/26/20 11 :03 Freq: Status: Active Protocol: Document 11/04/20 10:39 (Rec: 11/04/20 10:43 [id number]) Nutrition Notes Initial or Follow up Reassessment Current Diagnosis Diabetes,Hypertension,Heart Failure Other Pertinent Diagnosis Covid 19, GERD, pneu Current Diet Cardiac Consistent Carbohydrate diet Labs/Tests POC 307 Pertinent Medications Reveiwed Height 5 ft 6 in Weight 145.5 g [place] Body Weight (kg) 59.09 BMI 0.0 Weight Status Morbidly Obese Subjective/Other Information Pt is eating 90% of meals and 100% of 2 ONS daily. Percent of energy/protein needs met: 100%/100% Burn Absent Trauma Absent Current % PO Good (75-100%) Minimum of two criteria No physical signs of malnutrition #1 Nutrition Diagnosis Inadequate energy intake As Evidenced by Signs and Symptoms pt continues to meet 100% of protein and energy needs Diagnosis Progress(for reassessment Resolved documentation) Is patient on ventilator? No Is Patient Ambulatory and/or Out of Bed No REE-([facility]-confined to bed) [phone] Calculation Used for Recommendations 1744 kcal Additional Notes protein needs:59 - 71g (1 - 1. 2g/kgIBW) fluid needs: 1 ml/kcal Nutrition Intervention Change Diet Order: [place] current diet as ordered Add Supplement/Snack (indicate name/kcal Glucerna BID /protein ) Provides kCal: 440 Provides Protein (gm) 20 Goal #1 Meet at least 75% of kcal and protein needs via PO Anticipated Discharge Needs: Cardiac Consistent Carbohydrate diet Revisit per MD consult or patient Sign Off request:
[2020-11-17] MEDS: methylPREDNISolone Sod Succinate 40 MG/1 ML INJ IV SCH ×3 (10:05→20:28)
[2020-11-17] MEDS: ASCORBIC ACID 500 MG TAB PO SCH ×2 (10:06→22:44)
[2020-11-17] MEDS: CHOLECALCIFEROL (VIT D3) 1000 UNIT (25 mcg) TAB PO SCH (10:06)
[2020-11-17] MEDS: ZINC SULFATE 220 MG CAP PO SCH ×2 (10:06→22:43)
[2020-11-17 11:01] LABS: Basophils % (Auto) 0.2 % (0.0-1.8); Hemoglobin 11.7 gm/dl (10.1-14.3); Lymphocytes # (Auto) 0.2 K/mm3 (1.2-5.4); Lymphocytes % (Auto) 3.8 % (13.4-35.0); Mean Corpuscular HGB Conc 34 % (30-34); Mean Corpuscular Volume 93 fl (79-97); Monocytes # (Auto) 0.4 K/mm3 (0.0-0.8); Monocytes % (Auto) 7.7 % (0.0-7.3); Red Blood Count 3.66 M/mm3 (3.65-5.03); Red Cell Distribution Width 12.9 % (13.2-15.2)
[2020-11-17 11:03] LABS: Platelet Count 74 K/mm3 (140-440)
[2020-11-17] MEDS: oxyCODONE /ACETAMINOPHEN 5-325MG TAB PO PRN (11:07)
[2020-11-17] MEDS: amLODIPine 10 MG TAB PO SCH (12:42)
[2020-11-17] MEDS: LISINOPRIL 40 MG TAB PO SCH (12:43)
[2020-11-17] MEDS ORDERED: POLYETHYLENE GLYCOL/ELECT SOLN 4000 ML PO NR (16:00)
--- NOTE | 2020-11-17 16:12 | Gastroenterology Progress Note ---
Subjective Date of service: 11/17/20 Principal diagnosis: COVID PNA, hematochezia Interval history: The patient is a 69 yo female with h/o morbid obesity, Objective - Constitutional Vitals: Temp Pulse Resp BP Pulse Ox 98.3 F 97 H 22 123/58 93 11/17/20 12:07 11/17/20 12:42 11/17/20 12:07 11/17/20 12:42 11/17/20 12:07 - Labs CBC & Chem 7: 11/17/20 10:19 11/16/20 05:00 Labs: Laboratory Results - last 24 hr 11/16/20 11/16/20 11/17/20 16:47 21:24 07:24 WBC RBC Hgb Hct MCV MCH MCHC RDW Plt Count Lymph % (Auto) [place] % (Auto) Eos % (Auto) Baso % (Auto) Lymph # (Auto) [place] # (Auto) Eos # (Auto) Baso # (Auto) Seg Neutrophils % Seg Neutrophils # POC Glucose 202 H 243 H 221 H 11/17/20 11/17/20 10:19 12:05 WBC 5.8 RBC 3.66 Hgb 11.7 Hct 34.0 MCV 93 MCH 32 MCHC 34 RDW 12.9 L Plt Count 74 L Lymph % (Auto) 3.8 L [place] % (Auto) 7.7 H Eos % (Auto) 0.0 Baso % (Auto) 0.2 Lymph # (Auto) 0.2 L [place] # (Auto) 0.4 Eos # (Auto) 0.0 Baso # (Auto) 0.0 Seg Neutrophils % 88.3 H Seg Neutrophils # 5.1 POC Glucose 229 H
--- NOTE | 2020-11-17 16:17 | Gastroenterology Consultation ---
History of Present Illness - Reason for Consult Consult date: 11/17/20 hematochezia Requesting physician: TAMAR STARK - History of Present Illness The patient is a 69 yo aaf with extensive past medical history as below presenting with respiratory failure due to COVID. she has had prolonged hospital course with gradual improvement in respiratory function. she developed new onset hematochezia with clots overnight for which gi is consulted. she had another episode of hematochezia later in the morning. denies abd pain, vital's stable, denies prior gi bleeding. no prior colonoscopy. anticoagulation has been held by primary and repeat labs are pending. Past History Past Medical History: COPD, diabetes, hypertension Past Surgical History: appendectomy, cholecystectomy, hysterectomy. denies: CABG, PTCA Social history: denies: smoking, alcohol abuse Family history: diabetes, hypertension Medications and Allergies Allergies Allergy/AdvReac Type Severity Reaction Status Date / Time No Known Allergies Allergy Verified 10/23/20 19:34 Home Medications Medication Instructions Recorded Confirmed Last Taken Type Lisinopril [Zestril] 40 mg PO DAILY 07/26/16 10/26/20 Unknown History Simvastatin (NF) [Zocor TAB] 40 mg PO QHS 07/26/16 10/26/20 Unknown History Tiotropium [Spiriva] 18 mcg IH QDAY 07/26/16 10/26/20 Unknown History metFORMIN [Glucophage] 500 mg PO QDAY 07/26/16 10/26/20 Unknown History Albuterol Sulfate [Ventolin HFA] 2 puff IH Q4H PRN #1 pump 07/28/16 10/26/20 Unknown Rx Hydralazine HCl [Apresoline TAB] 50 mg PO Q8HR #90 tab 07/28/16 10/26/20 Unknown Rx Prednisone [predniSONE 5 mg (6-Day 5 mg PO .TAPER #1 tab.ds.pk 07/28/16 10/26/20 Unknown Rx Pack, 21 Tabs)] levoFLOXacin [Levaquin] 750 mg PO QDAY #5 tablet 07/28/16 10/26/20 Unknown Rx Active Meds: Active Medications Acetaminophen (Acetaminophen 325 Mg Tab) 650 mg PO Q4H PRN PRN Reason: Pain MILD(1-3)/Fever >100.5/KAUFMAN Last Admin: 11/10/20 21:51 Dose: 650 mg Documented by: Albuterol (Albuterol 2.5 Mg/3 Ml Nebu) 2.5 mg IH Q4HRT PRN PRN Reason: Shortness Of Breath Amlodipine Besylate (Amlodipine 10 Mg Tab) 10 mg PO QDAY [facility] Last Admin: 11/17/20 12:42 Dose: 10 mg Documented by: Ascorbic Acid (Ascorbic Acid 500 Mg Tab) 500 mg PO BID [facility] Last Admin: 11/17/20 10:06 Dose: 500 mg Documented by: Cholecalciferol (Cholecalciferol (Vit D3) 1000 Unit (25 Mcg) Tab) 1,000 unit PO QDAY [facility] Last Admin: 11/17/20 10:06 Dose: 1,000 unit Documented by: Furosemide (Furosemide 40 Mg/4 Ml Inj) 40 mg IV 0600,1800 [facility] Last Admin: 11/17/20 05:56 Dose: 40 mg Documented by: Hydralazine HCl (Hydralazine 25 Mg Tab) 50 mg PO Q8HR [facility] Last Admin: 11/17/20 15:51 Dose: 50 mg Documented by: Hydromorphone HCl (Hydromorphone 1 Mg/1 Ml Inj) 0.5 mg IV Q12H PRN PRN Reason: Pain , Severe (7-10) Sodium Chloride (Nacl 0.45% 1000 Ml) 1,000 mls @ 50 mls/hr IV DIRECT [facility] Last Admin: 11/17/20 06:48 Dose: 50 mls/hr Documented by: Insulin Glargine (Insulin Glargine 100 Units/Ml) 15 units SUB-Q QAMDIAB [facility] Last Admin: 11/17/20 10:00 Dose: 15 units Documented by: Insulin Glargine (Insulin Glargine 100 Units/Ml) 28 units SUB-Q QPM [facility] Last Admin: 11/16/20 18:39 Dose: 28 units Documented by: Insulin Human Lispro (Insulin Lispro 100 Unit/Ml) 0 unit SUB-Q ACHS [facility]; Protocol Last Admin: 11/17/20 12:43 Dose: 4 unit Documented by: Insulin Human Lispro (Insulin Lispro 100 Unit/Ml) 10 unit SUB-Q AC [facility] Last Admin: 11/17/20 12:44 Dose: 10 unit Documented by: Lisinopril (Lisinopril 40 Mg Tab) 40 mg PO DAILY [facility] Last Admin: 11/17/20 12:43 Dose: 40 mg Documented by: Methylprednisolone Sodium Succinate (Methylprednisolone Sod Succinate 40 Mg/1 Ml Inj) 80 mg IV TID [facility] Last Admin: 11/17/20 15:50 Dose: 80 mg Documented by: Ondansetron HCl (Ondansetron 4 Mg/2 Ml Inj) 4 mg IV Q8H PRN PRN Reason: Nausea And Vomiting Oxycodone/Acetaminophen (Oxycodone /Acetaminophen 5-325mg Tab) 1 tab PO Q12H PRN PRN Reason: Pain, Moderate (4-6) Last Admin: 11/17/20 11:07 Dose: 1 tab Documented by: Pantoprazole Sodium (Pantoprazole 40 Mg Inj) 40 mg IV BID [facility] Last Admin: 11/17/20 06:48 Dose: 40 mg Documented by: Polyethylene Glycol/Electrolytes (Polyethylene Glycol/Elect Soln 4000 Ml) 4,000 ml PO ONCE@1600 NR Stop: 11/18/20 02:00 Pravastatin Sodium (Pravastatin 80 Mg Tab) 80 mg PO QHS [facility] Last Admin: 11/16/20 21:11 Dose: 80 mg Documented by: Sodium Chloride (Sodium Chloride 0.9% 10 Ml Flush Syringe) 10 ml IV BID [facility] Last Admin: 11/17/20 10:06 Dose: 10 ml Documented by: Sodium Chloride (Sodium Chloride 0.9% 10 Ml Flush Syringe) 10 ml IV PRN PRN PRN Reason: LINE FLUSH Tiotropium [place] (Tiotropium 18 Mcg Cap Inhalation) 1 puff IH QDAY [facility] Last Admin: 11/16/20 10:59 Dose: 1 puff Documented by: Zinc Sulfate (Zinc Sulfate 220 Mg Cap) 220 mg PO BID [facility] Last Admin: 11/17/20 10:06 Dose: 220 mg Documented by: reviewed/updated patient's home and current medications Review of Systems - Review of Systems All systems: negative (per HPI) Exam - Constitutional Vital Signs: Temp Pulse Resp BP Pulse Ox 98.3 F 97 H 22 123/58 93 11/17/20 12:07 11/17/20 12:42 11/17/20 12:07 11/17/20 12:42 11/17/20 12:07 General appearance: no acute distress, obese - EENT Eyes: PERRL, EOM intact - Respiratory Respiratory effort: normal Respiratory: bilateral: diminished - Cardiovascular Rhythm: regular Heart Sounds: Present: S1 & S2 - Gastrointestinal General gastrointestinal: Present: soft, non-tender - Integumentary Integumentary: Present: clear, warm - Neurologic Neurological: alert and oriented x3 - Psychiatric Psychiatric: appropriate mood/affect - Labs CBC & Chem 7: 11/17/20 10:19 11/16/20 05:00 Lab Results: Laboratory Results - last 24 hr 11/16/20 11/16/20 11/17/20 16:47 21:24 07:24 WBC RBC Hgb Hct MCV MCH MCHC RDW Plt Count Lymph % (Auto) [place] % (Auto) Eos % (Auto) Baso % (Auto) Lymph # (Auto) [place] # (Auto) Eos # (Auto) Baso # (Auto) Seg Neutrophils % Seg Neutrophils # POC Glucose 202 H 243 H 221 H 11/17/20 11/17/20 10:19 12:05 WBC 5.8 RBC 3.66 Hgb 11.7 Hct 34.0 MCV 93 MCH 32 MCHC 34 RDW 12.9 L Plt Count 74 L Lymph % (Auto) 3.8 L [place] % (Auto) 7.7 H Eos % (Auto) 0.0 Baso % (Auto) 0.2 Lymph # (Auto) 0.2 L [place] # (Auto) 0.4 Eos # (Auto) 0.0 Baso # (Auto) 0.0 Seg Neutrophils % 88.3 H Seg Neutrophils # 5.1 POC Glucose 229 H Assessment and Plan 1. Hematochezia - new onset bleeding x 1 day, HD stable, repeat H/H with slight drop in previous levels. AC has been held. discussed with pt, and will plan for colonoscopy tomorrow (no prior procedure) to asses for source of bleeding 2. Respiratory failure due to COVID pneumonia
[2020-11-17 19:55] LABS: INR 1.26 (0.87-1.13)
[2020-11-17] MEDS: PRAVASTATIN 80 MG TAB PO SCH (22:43)
[2020-11-18 06:06] LABS: Hematocrit 32.6 % (30.3-42.9); Hemoglobin 11.2 gm/dl (10.1-14.3); Mean Corpuscular HGB Conc 34 % (30-34); Mean Corpuscular Volume 94 fl (79-97); Red Blood Count 3.48 M/mm3 (3.65-5.03); Red Cell Distribution Width 12.8 % (13.2-15.2)
[2020-11-18 06:09] LABS: Platelet Count 70 K/mm3 (140-440)
[2020-11-18 06:30] LABS: BUN/Creatinine Ratio 57; Blood Urea Nitrogen 51 mg/dL (7-17); Calcium 8.6 mg/dL (8.4-10.2); Hemolysis Index 4
[2020-11-18] MEDS: FUROSEMIDE 40 MG/4 ML INJ IV SCH (06:35)
[2020-11-18] MEDS: hydrALAZINE 25 MG TAB PO SCH ×2 (06:36→13:05)
[2020-11-18] MEDS: oxyCODONE /ACETAMINOPHEN 5-325MG TAB PO PRN (06:54)
[2020-11-18] MEDS ORDERED: WATER FOR IRRIG STERILE 1,000 ML BOTTLE ONE (07:44)
[2020-11-18] MEDS ORDERED: WATER FOR IRRIG STERILE 250 ML BOTTLE IR ONE (07:45)
[2020-11-18] MEDS: INSULIN LISPRO 100 UNIT/ML SUB-Q SCH ×6 (08:42→17:39)
[2020-11-18] MEDS: methylPREDNISolone Sod Succinate 40 MG/1 ML INJ IV SCH ×2 (09:12→13:05)
[2020-11-18] MEDS: PANTOPRAZOLE 40 MG INJ IV SCH (09:13)
[2020-11-18] MEDS: INSULIN GLARGINE 100 UNITS/ML SUB-Q SCH ×2 (09:46→17:39)
[2020-11-18] MEDS: CHOLECALCIFEROL (VIT D3) 1000 UNIT (25 mcg) TAB PO SCH (09:48)
[2020-11-18] MEDS: ASCORBIC ACID 500 MG TAB PO SCH (09:48)
[2020-11-18] MEDS: ZINC SULFATE 220 MG CAP PO SCH (09:49)
[2020-11-18] MEDS: amLODIPine 10 MG TAB PO SCH (09:54)
[2020-11-18] MEDS: LISINOPRIL 40 MG TAB PO SCH (09:55)
--- NOTE | 2020-11-18 10:52 | Discharge Summary ---
Providers - Providers Date of Admission: 10/23/20 20:28 Attending physician: TAMAR STARK MD 10/23/20 20:27 Consult to Physician [CONS] Routine Comment: Consulting Provider: HALEY LOUIS Physician Instructions: Reason For Exam: chf 10/25/20 15:00 Consult to Wound/ET Nurse [CONS] Routine Reason For Exam: wound eval 10/25/20 15:33 Consult to Dietitian/Nutrition [CONS] Routine Physician Instructions: Reason For Exam: Reason for Consult: Poor oral intake 10/25/20 19:31 Consult to Physician [CONS] Routine Comment: Consulting Provider: CHARITY MAYORGA Physician Instructions: Reason For Exam: Covid 19 10/25/20 19:32 Consult to Physician [CONS] Routine Comment: Consulting Provider: POLLY DONALD Physician Instructions: Reason For Exam: covid 19 10/26/20 08:49 Physical Therapy Evaluation and Treat [CONS] Stat Comment: Reason For Exam: eval and treat 10/26/20 08:50 Occupational Therapy Evaluate and Treat [CONS] Stat Comment: Reason For Exam: eval and treat 11/15/20 07:01 Physical Therapy Evaluation and Treat [CONS] Routine Comment: Reason For Exam: WALKING EVALUATION 11/15/20 09:01 Occupational Therapy Evaluate and Treat [CONS] Routine Comment: Reason For Exam: Evaluate and treat 11/17/20 06:02 Consult to Physician [CONS] Routine Comment: Consulting Provider: BHUPENDRA BEYER Physician Instructions: Reason For Exam: gi bleed( bright red blood per rectum) 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: GEO HIDALGO Hospitalization Reason for admission: Shortness of breath Condition: Serious Hospital course: 69 YO Female with HTN, DM, COPD, Obesity Hypoventilation Syndrome presents to ED for evaluation. Patient reports "I am having trouble breathing". Patient states that she has experienced shortness of breath, productive cough with yellowish to greenish sputum, decreased exercise tolerance, fatigue, malaise, dyspnea on exertion, dyspnea at rest over the past 2 weeks with persistent and worsening symptoms over the same timeframe. Patient also acknowledges bilateral lower extremity edema, diminished sense of taste, as well as diminished sense of smell. Patient is not vaccinated against coronavirus. The patient was treated with outpatient oral antibiotic therapy as well as with increased use of bronchodilator therapy without improvement in symptoms. Patient is uncertain of coronavirus exposure. EMS was notified and upon arrival the patient was found to be in distress and subsequently transported to [facility] for further care and evaluation of the aforementioned symptoms. The patient was seen and evaluated in the emergency department. All lab and imaging studies reviewed. The patient was found to have a pulse oximetry of 79% on room air which is consistent with acute hypoxemic respiratory failure. The patient was found to have a respiratory rate in the 40s. The patient was using accessory muscles to breathe. Chest x-ray revealed bilateral pneumonia. Patient also found to have clinical symptoms consistent with CHF decompensation. The patient was admitted to medical floor and initiated on pneumonia protocol, CHF protocol, as well as coronavirus protocol. Patient denies fever, chest pain, palpitations, skin rash, recent ill contacts. Prior admission on 07/26/2016 reviewed. All medication listed at time of admission has been reconciled. Advanced care planning conducted in ED. -- Acute respiratory failure Due to COVID-19 pneumonia and underlying morbid obesity Supplemental O2 and inhaler as needed -- Pneumonia due to COVID-19 virus Continue empiric steroid, status post remdesivir, Completed Tocilizumab on 10/29/2020, Completed ceftriaxone Supplemental O2, ID and pulmonary care on board -- COPD (chronic obstructive pulmonary disease) with exacerbation Continue empiric steroid, inhalers and supplemental O2 -- Hypertension Monitor BP and adjust meds as needed -- Diabetes mellitus, uncontrolled Consistent carb diet, continue SSI and Lantus Adjust insulin dose for better glycemic control -- GERD (gastroesophageal reflux disease) Continue PPI --Morbid obesity Dietary and exercise recommendation as outpatient when clinically more stable and appropriate --Leukocytosis, due to steroid Thrombocytopenia Daily clinical course: 10/31/20: Remains on high flow O2, continue to monitor inflammatory markers, pulmonary on board. Guarded prognosis. 11/01/20: Patient remains on 40 L high flow O2. Continue to monitor clinically with supportive care, follow inflammatory markers, blood glucose significantly elevated, will add long-acting insulin. Reduce steroids dose to 40 mg every 8 hours. guarded prognosis. 11/02/20: Patient on 20 L and 60% FiO2 today. Continue to wean off O2 as tolerated. Follow inflammatory markers 11/03/20: Remains on high flow O2-30L today, guarded prognosis, wean off as tolerated. 11/04/20: Guarded prognosis, remains on high flow O2 30 L with 70% FiO2. Continue to follow inflammatory markers, ID and pulmonary critical care following. 11/05/20; Remains on 30L O2, unable to wean off, guarded prognosis. follow clinically. Continue to adjust insulin doses for better glycemic control. 11/06/20: Remains on high flow O2, BG improved, cont to adjust insulin doses. Patient is getting very frustrated and anxious and desperately wants to go home. I explained to her with the nurse in lengthy discussion that she is still requiring high flow O2 and not stable enough to go home. She finally verbalized understanding. 11/07/20; still remains on high flow, unable to wean off, guarded prognosis. cont to follow 11/08/20: Discussed with RT, will try to wean off to nasal cannula O2. Patient remains on high flow O2, Becoming very frustrated and anxious. Explained in details with RN at the bedside. Guarded prognosis. Continue to follow inflammatory markers. 11/09/20: pt on 10L O2 today, continue to wean off, follow inflammatory markers. Patient appears otherwise clinically stable 11/10/20: Patient weaned off to 6 L nasal cannula O2 today. If weaned off below 5 L nasal cannula patient should be able to discharge home. Continue to follow for now. 11/11/20: back on 10L n/c o2 today 11/12 -Patient is on 10 L of high flow oxygen -Will titrate as tolerated 11/13 -Patient was on 10 L of high flow oxygen -Titrate down as tolerated -Solu-Medrol increased to 40 mg IV 3 times daily -Blood sugar was uncontrolled and increased morning dose of 70/30 from 12-15, increase the night dose from 24 to 28 units. Monitor blood sugar and adjust as needed. -Continue with Lasix 40 mg IV twice daily -Prognosis is guarded. 11/14 -Patient was on 10 L of high flow oxygen -Patient states she wants to go home; I called her daughter Ms. Emanuel at [phone] and discussed about her mother's management plan and about her mother's decision wants to go home. She said she wants to talk to her mother. She wants her mother to be treated in the hospital. 11/15 -Patient was on 4 L of oxygen, wean off oxygen as tolerated -Continue Lasix and steroids -Management plan was discussed with her daughter yesterday -PT evaluation -Blood sugars uncontrolled and I increased lispro to 10 units AC 11/16: Patient continues to show some progress. Will wean oxygen down to 3 L to see if patient will tolerate with home O2 evaluation in a.m. and possible discharge in a.m. Patient is irate about stay extensive counseling provided to the patient she verbalized understanding. Encouraged nursing staff to set patient up. She refuses to prone. Blood sugar still elevated we will continue to monitor this may be secondary to steroid in addition to diabetes mellitus physical therapy evaluation in today for possible discharge tomorrow 11/17: Patient showing some clinical improvement, at rest on 2-3Liters she sats 88-92% so will need oxygen. GI evaluating today for possible GI bleed. Monitor H/H. Pulmonary input noted, in direction to steroids. Discussed with patients son about Rehab-SUBACUTE but they believe she will refuse and will begin making arrangement about home discharge with home health if she refuses subacute rehab as recommended by PT melanotic stool. possible GI bLEED 11/18: Patient this morning was planned to have colonoscopy but per the patient's it appears that this will not happen. While we await final recommendation by the GI. If cleared by GI patient can be discharge. She will continue on oxygen at home. Hgb has remained stable. I have also recommended for the patient to consider getting the vaccination. She was also noted to have thrombocytopenia for which anticoagulation was discontinued and HIT work-up initiated. She will need to follow-up with hematology outpatient for further evaluation and management. Again discussed with family the patient refuses SNF and would like to go home. Case management has arranged for safe home discharge. Disposition: HOME / SELF CARE / HOMELESS Final Discharge Diagnosis (Prints w/discharge instructions): Acute hypoxic respiratory failure secondary to COVID-19 Time spent for discharge: 35 mins Core Measure Documentation - Palliative Care Palliative Care/ Comfort Measures: Not Applicable - Core Measures Any of the following diagnoses?: none Exam - Physical Exam Narrative exam: Still with mild shortness of breath with exertion The patient is morbidly obese. Irritated and confrontational with discussed Vital signs as documented. Head exam is unremarkable. No scleral icterus . Neck is without jugular venous distension, thyromegaly, or carotid bruits. Lungs decreased air entry . Cardiac exam reveals regular rate and Rhythm. Abdominal exam reveals normal bowel sounds, nontender, no organomegaly. Extremities are nonedematous and both femoral and pedal pulses are normal. PATTERN CHECKER: Alert and oriented 3. No focal weakness. - Constitutional Vitals: Temp Pulse Resp BP Pulse Ox 98.6 F 98 H 18 117/48 94 11/18/20 04:19 11/18/20 09:54 11/18/20 08:49 11/18/20 09:54 11/18/20 08:49 Plan Activity: advance as tolerated, fall precautions Diet: low fat Special Instructions: record daily weights, record daily BP diary Plan of Treatment: Follow-up with color card maker to evaluate her thrombocytopenia Follow up with: CHARITY MAYORGA MD [Staff Physician] - 7 Days GEO HIDALGO MD [Primary Care Provider] - 7 Days ASHLIE CAVANAUGH MD [Staff Physician] - 7 Days ELIA XAVIER MD [Staff Physician] - 7 Days Prescriptions: amLODIPine 10 mg PO QDAY #30 tablet Insulin Glargine [Lantus VIAL] 28 units SUB-Q QPM #10 ml Prednisone [predniSONE 10 mg (6-Day Pack, 21 Tabs)] 10 mg PO .TAPER #1 tab.ds.pk Pantoprazole [Protonix TAB] 40 mg PO QDAY #30 tablet Ascorbic Acid [Vitamin C] 500 mg PO BID #60 tablet Cholecalciferol Vit D3 [Vitamin D3 1,000 UNIT TAB] 1,000 unit PO QDAY #30 tablet Zinc Sulfate 220 mg PO BID #30 capsule
--- NOTE | 2020-11-18 12:54 | Progress Note ---
Assessment and Plan 69 y/o, obese female with acute respiratory failure secondary to COVID pneumonia. 11/18/20:j Patient being discharged. No objection on my part. Will need prolonged steroid taper. Qualifies for home O2. 11/17/20: Drop steroids down again starting tomorrow afternoon. Continue lasix. continue to wean FiO2 for sats >88%. Follow up GI work up. Hopeful discharge soon. 11/16/20: Drop steroids down today. Continue lasix therapy. 11/15/20: Doubt steroids worked that quickly. Not sure what happened but glad oxygen requirement has come back down. Continue steroids at current dose and will likely start to wean tomorrow. Continue lasix at current dosing. Prognosis is still guarded. 11/14/20: given worsening, will icnrease steroids today to 125 TID. Suggest increasing lasix therapy maybe to TID as well. Repeat CXR likely on Monday. Will order BNP. Prognosis remains guarded. Very bad sign given increase in oxygen requirement. 11/13/20: CXR today. Hold on additional lasix until CXR is reviewed. Prone if able. Wean FiO2 for sats >88%. Continue steroids at TID dosing. 11/12/20: Will give an additional 40 of IV lasix now in addition to BID dosing. increase steroids back to TID but keep at 40 11/11/20: Wean FiO2. Would like for oxygen requirement to be around 3-4 liters then can switch to PO Prednisone 60 daily for 4 days, then 40 daily for 4 days then 20 daily for 4 days then 10 daily for 4 days then stop. 11/10/20: Continue to wean FiO2 as tolerated. Hopeful can wean to lower numbers safer for discharge. Should start working on discharge planning now. 11/09/20: Continue current level of care. No new recs pulm stout. Continue to wean FiO2 as tolerated. Prognosis is still guarded. 11/06/20: Will continue same recs. Hold on increases in steroids. Prone if possible. Continue lasix. Prognosis is still guarded. 11/05/20: Same recs as below. 11/04/20: no increases in the last 24 hours so will not increase steroids. Continue to encourage proning if able. Continue lasix. Guarded prognosis. 11/03/20: Will monitor closely, but if oxygen requirement continues to increase, will go back up on steroids to at least 80q8. Already on BID lasix. Prognosis remains guarded. 11/02/20: Continue BID lasix. Wean for sats >88%. currently on solumedrol 40q8, continue this dose for now, but if able to wean further then will wean steroids further. prognosis is still guarded. 11/01/20: No new recs for today. 10/31/20: Prone if able and for as long as possible. Wean for sats >88%. C ontinue high dose steroids. 10/30/20: No lasix. Prognosis remains guarded. 10/29/20: Continue lasix but I/O are not accurate. May need to increase dosing. Wean FiO2 as tolerated. Guarded prognosis. 10/28/20: Continue current care. Monitor renal function and continue BID lasix. Need strict I/O 10/27/20: Continue current plan from below. Guarded prognosis given COVID and obesity. Monitor renal function. 1. Increased steroids to 125 TID 2. Increased lasix to 40 BID 3. Prone as tolerated and for as long as possible 4. Monitor fluid balance 5. BP control 6. Guarded prognosis given COVID and obesity with worsening respiratory failure. Subjective Date of service: 11/18/20 Principal diagnosis: COVID-19 PNA Interval history: Patient being discharged today. Objective Vital Signs - 12hr 11/18/20 11/18/20 11/18/20 04:19 08:49 09:54 Temperature 98.6 F Pulse Rate 110 H 98 H Respiratory 18 18 Rate Blood Pressure 133/52 117/48 O2 Sat by Pulse 93 94 Oximetry Constitutional: alert Eyes: non-icteric ENT: oropharynx moist Ascultation: Bilateral: diminished breath sounds Cardiovascular: regular rate and rhythm Gastrointestinal: normoactive bowel sounds, soft, non-tender CBC and BMP: 11/18/20 04:52 11/18/20 04:52 ABG, PT/INR, D-dimer: PT/INR, D-dimer PT 16.4 Sec. (12.2-14.9) H 11/17/20 18:43 INR 1.26 (0.87-1.13) H 11/17/20 18:43 D-Dimer 229.3 ng/mlDDU (0-234) 11/05/20 15:53 Abnormal lab findings: Abnormal Labs 10/23/20 10/23/20 10/23/20 17:31 20:38 20:38 WBC RBC Hgb Hct MCH MCHC RDW Plt Count Lymph % (Auto) [place] % (Auto) Lymph # (Auto) [place] # (Auto) Seg Neutrophils % Seg Neutrophils # PT INR D-Dimer 919.44 H Sodium 136 L Potassium Chloride Carbon Dioxide BUN Glucose 149 H POC Glucose Ferritin AST ALT Lactate Dehydrogenase 606 H C-Reactive Protein 11.50 H Albumin Coronavirus (PCR) 10/23/20 10/24/20 10/24/20 20:38 08:00 08:07 WBC RBC Hgb Hct MCH 33 H MCHC 35 H RDW Plt Count Lymph % (Auto) 9.9 L [place] % (Auto) 7.9 H Lymph # (Auto) 0.6 L [place] # (Auto) Seg Neutrophils % 82.1 H Seg Neutrophils # PT INR D-Dimer Sodium Potassium Chloride Carbon Dioxide BUN Glucose POC Glucose Ferritin AST ALT Lactate Dehydrogenase 643 H C-Reactive Protein 11.70 H Albumin Coronavirus (PCR) Positive A 10/24/20 10/25/20 10/26/20 08:07 16:13 21:32 WBC RBC Hgb Hct MCH MCHC RDW Plt Count Lymph % (Auto) [place] % (Auto) Lymph # (Auto) [place] # (Auto) Seg Neutrophils % Seg Neutrophils # PT INR D-Dimer Sodium Potassium Chloride Carbon Dioxide BUN Glucose 173 H POC Glucose 180 H 213 H Ferritin AST ALT Lactate Dehydrogenase C-Reactive Protein Albumin Coronavirus (PCR) 10/27/20 10/27/20 10/27/20 07:54 11:56 13:47 WBC RBC Hgb Hct MCH MCHC RDW Plt Count Lymph % (Auto) [place] % (Auto) Lymph # (Auto) [place] # (Auto) Seg Neutrophils % Seg Neutrophils # PT INR D-Dimer Sodium Potassium 3.3 L D Chloride Carbon Dioxide BUN 38 H Glucose 262 H POC Glucose 305 H 289 H Ferritin AST 155 H ALT 170 H Lactate Dehydrogenase C-Reactive Protein Albumin 3.4 L Coronavirus (PCR) 10/27/20 10/27/20 10/28/20 15:49 21:36 07:24 WBC RBC Hgb Hct MCH MCHC RDW Plt Count Lymph % (Auto) [place] % (Auto) Lymph # (Auto) [place] # (Auto) Seg Neutrophils % Seg Neutrophils # PT INR D-Dimer Sodium Potassium Chloride Carbon Dioxide BUN 41 H Glucose 217 H POC Glucose 228 H 241 H Ferritin AST 116 H ALT 182 H Lactate Dehydrogenase C-Reactive Protein Albumin 3.7 L Coronavirus (PCR) 10/28/20 10/28/20 10/28/20 07:40 16:08 21:21 WBC RBC Hgb Hct MCH MCHC RDW Plt Count Lymph % (Auto) [place] % (Auto) Lymph # (Auto) [place] # (Auto) Seg Neutrophils % Seg Neutrophils # PT INR D-Dimer Sodium Potassium Chloride Carbon Dioxide BUN Glucose POC Glucose 207 H 227 H 354 H Ferritin AST ALT Lactate Dehydrogenase C-Reactive Protein Albumin Coronavirus (PCR) 10/29/20 10/29/20 10/29/20 05:12 07:47 12:19 WBC RBC Hgb Hct MCH MCHC RDW Plt Count Lymph % (Auto) [place] % (Auto) Lymph # (Auto) [place] # (Auto) Seg Neutrophils % Seg Neutrophils # PT INR D-Dimer Sodium Potassium Chloride Carbon Dioxide BUN 47 H Glucose 247 H POC Glucose 268 H 383 H Ferritin AST 102 H ALT 183 H Lactate Dehydrogenase C-Reactive Protein Albumin 3.1 L Coronavirus (PCR) 10/29/20 10/29/20 10/30/20 16:34 22:07 07:46 WBC RBC Hgb Hct MCH MCHC RDW Plt Count Lymph % (Auto) [place] % (Auto) Lymph # (Auto) [place] # (Auto) Seg Neutrophils % Seg Neutrophils # PT INR D-Dimer Sodium Potassium Chloride Carbon Dioxide BUN 50 H Glucose 287 H POC Glucose 324 H 276 H Ferritin AST 71 H ALT 164 H Lactate Dehydrogenase 392 H C-Reactive Protein Albumin 3.2 L Coronavirus (PCR) 10/30/20 10/30/20 10/30/20 07:46 07:46 08:07 WBC RBC Hgb Hct MCH MCHC RDW Plt Count Lymph % (Auto) [place] % (Auto) Lymph # (Auto) [place] # (Auto) Seg Neutrophils % Seg Neutrophils # PT INR D-Dimer 504.53 H Sodium Potassium Chloride Carbon Dioxide BUN Glucose POC Glucose 267 H Ferritin 1470.0 H AST ALT Lactate Dehydrogenase C-Reactive Protein Albumin Coronavirus (PCR) 10/30/20 10/30/20 10/30/20 12:39 17:14 21:42 WBC RBC Hgb Hct MCH MCHC RDW Plt Count Lymph % (Auto) [place] % (Auto) Lymph # (Auto) [place] # (Auto) Seg Neutrophils % Seg Neutrophils # PT INR D-Dimer Sodium Potassium Chloride Carbon Dioxide BUN Glucose POC Glucose 332 H 301 H 371 H Ferritin AST ALT Lactate Dehydrogenase C-Reactive Protein Albumin Coronavirus (PCR) 10/31/20 10/31/20 10/31/20 07:52 11:42 16:12 WBC RBC Hgb Hct MCH MCHC RDW Plt Count Lymph % (Auto) [place] % (Auto) Lymph # (Auto) [place] # (Auto) Seg Neutrophils % Seg Neutrophils # PT INR D-Dimer Sodium Potassium Chloride Carbon Dioxide BUN Glucose POC Glucose 303 H 387 H 343 H Ferritin AST ALT Lactate Dehydrogenase C-Reactive Protein Albumin Coronavirus (PCR) 10/31/20 11/01/20 11/01/20 21:35 07:34 11:22 WBC RBC Hgb Hct MCH MCHC RDW Plt Count Lymph % (Auto) [place] % (Auto) Lymph # (Auto) [place] # (Auto) Seg Neutrophils % Seg Neutrophils # PT INR D-Dimer Sodium Potassium Chloride Carbon Dioxide BUN Glucose POC Glucose 359 H 325 H 442 H Ferritin AST ALT Lactate Dehydrogenase C-Reactive Protein Albumin Coronavirus (PCR) 11/01/20 11/01/20 11/02/20 16:30 22:12 04:38 WBC 12.4 H RBC Hgb 14.8 H Hct 44.1 H MCH MCHC RDW 13.0 L Plt Count Lymph % (Auto) 3.3 L [place] % (Auto) 9.3 H Lymph # (Auto) 0.4 L [place] # (Auto) 1.2 H Seg Neutrophils % 87.2 H Seg Neutrophils # 10.9 H PT INR D-Dimer Sodium Potassium Chloride Carbon Dioxide BUN Glucose POC Glucose 378 H 395 H Ferritin AST ALT Lactate Dehydrogenase C-Reactive Protein Albumin Coronavirus (PCR) 11/02/20 11/02/20 11/02/20 04:38 07:40 12:09 WBC RBC Hgb Hct MCH MCHC RDW Plt Count Lymph % (Auto) [place] % (Auto) Lymph # (Auto) [place] # (Auto) Seg Neutrophils % Seg Neutrophils # PT INR D-Dimer Sodium Potassium Chloride Carbon Dioxide 32 H BUN 48 H Glucose 304 H POC Glucose 280 H 422 H Ferritin AST ALT Lactate Dehydrogenase C-Reactive Protein Albumin Coronavirus (PCR) 11/02/20 11/02/20 11/03/20 16:10 21:30 08:01 WBC RBC Hgb Hct MCH MCHC RDW Plt Count Lymph % (Auto) [place] % (Auto) Lymph # (Auto) [place] # (Auto) Seg Neutrophils % Seg Neutrophils # PT INR D-Dimer Sodium Potassium Chloride Carbon Dioxide BUN Glucose POC Glucose 367 H 380 H 336 H Ferritin AST ALT Lactate Dehydrogenase C-Reactive Protein Albumin Coronavirus (PCR) 11/03/20 11/03/20 11/03/20 12:21 15:56 21:17 WBC RBC Hgb Hct MCH MCHC RDW Plt Count Lymph % (Auto) [place] % (Auto) Lymph # (Auto) [place] # (Auto) Seg Neutrophils % Seg Neutrophils # PT INR D-Dimer Sodium Potassium Chloride Carbon Dioxide BUN Glucose POC Glucose 352 H 312 H 307 H Ferritin AST ALT Lactate Dehydrogenase C-Reactive Protein Albumin Coronavirus (PCR) 11/04/20 11/04/20 11/04/20 04:28 07:57 11:43 WBC RBC Hgb Hct MCH MCHC RDW Plt Count Lymph % (Auto) [place] % (Auto) Lymph # (Auto) [place] # (Auto) Seg Neutrophils % Seg Neutrophils # PT INR D-Dimer Sodium Potassium Chloride 95.6 L Carbon Dioxide 33 H BUN 52 H Glucose 307 H POC Glucose 287 H 321 H Ferritin AST ALT Lactate Dehydrogenase C-Reactive Protein Albumin Coronavirus (PCR) 11/04/20 11/04/20 11/05/20 16:23 22:30 07:49 WBC RBC Hgb Hct MCH MCHC RDW Plt Count Lymph % (Auto) [place] % (Auto) Lymph # (Auto) [place] # (Auto) Seg Neutrophils % Seg Neutrophils # PT INR D-Dimer Sodium Potassium Chloride Carbon Dioxide BUN Glucose POC Glucose 345 H 285 H 269 H Ferritin AST ALT Lactate Dehydrogenase C-Reactive Protein Albumin Coronavirus (PCR) 11/05/20 11/05/20 11/05/20 11:43 15:53 15:53 WBC RBC Hgb Hct MCH MCHC RDW Plt Count Lymph % (Auto) [place] % (Auto) Lymph # (Auto) [place] # (Auto) Seg Neutrophils % Seg Neutrophils # PT INR D-Dimer Sodium Potassium Chloride Carbon Dioxide BUN Glucose POC Glucose 349 H Ferritin 2889.0 H AST ALT Lactate Dehydrogenase 345 H C-Reactive Protein Albumin Coronavirus (PCR) 11/05/20 11/05/20 11/06/20 16:10 22:22 07:29 WBC RBC Hgb Hct MCH MCHC RDW Plt Count Lymph % (Auto) [place] % (Auto) Lymph # (Auto) [place] # (Auto) Seg Neutrophils % Seg Neutrophils # PT INR D-Dimer Sodium Potassium Chloride Carbon Dioxide BUN Glucose POC Glucose 311 H 264 H 216 H Ferritin AST ALT Lactate Dehydrogenase C-Reactive Protein Albumin Coronavirus (PCR) 11/06/20 11/06/20 11/06/20 11:04 16:37 21:58 WBC RBC Hgb Hct MCH MCHC RDW Plt Count Lymph % (Auto) [place] % (Auto) Lymph # (Auto) [place] # (Auto) Seg Neutrophils % Seg Neutrophils # PT INR D-Dimer Sodium Potassium Chloride Carbon Dioxide BUN Glucose POC Glucose 363 H 247 H 279 H Ferritin AST ALT Lactate Dehydrogenase C-Reactive Protein Albumin Coronavirus (PCR) 11/07/20 11/07/20 11/07/20 06:08 07:39 09:00 WBC RBC Hgb 16.1 H Hct 48.6 H MCH MCHC RDW Plt Count 122 L Lymph % (Auto) 7.7 L [place] % (Auto) 12.5 H Lymph # (Auto) 0.7 L [place] # (Auto) 1.1 H Seg Neutrophils % 79.6 H Seg Neutrophils # PT INR D-Dimer Sodium Potassium Chloride Carbon Dioxide 33 H BUN 62 H Glucose 279 H POC Glucose 194 H Ferritin AST ALT Lactate Dehydrogenase C-Reactive Protein Albumin Coronavirus (PCR) 11/07/20 11/07/20 11/07/20 12:43 17:26 21:54 WBC RBC Hgb Hct MCH MCHC RDW Plt Count Lymph % (Auto) [place] % (Auto) Lymph # (Auto) [place] # (Auto) Seg Neutrophils % Seg Neutrophils # PT INR D-Dimer Sodium Potassium Chloride Carbon Dioxide BUN Glucose POC Glucose 338 H 251 H 255 H Ferritin AST ALT Lactate Dehydrogenase C-Reactive Protein Albumin Coronavirus (PCR) 11/08/20 11/08/20 11/08/20 07:42 12:15 21:37 WBC RBC Hgb Hct MCH MCHC RDW Plt Count Lymph % (Auto) [place] % (Auto) Lymph # (Auto) [place] # (Auto) Seg Neutrophils % Seg Neutrophils # PT INR D-Dimer Sodium Potassium Chloride Carbon Dioxide BUN Glucose POC Glucose 251 H 320 H 316 H Ferritin AST ALT Lactate Dehydrogenase C-Reactive Protein Albumin Coronavirus (PCR) 11/09/20 11/09/20 11/09/20 07:52 11:22 17:05 WBC RBC Hgb Hct MCH MCHC RDW Plt Count Lymph % (Auto) [place] % (Auto) Lymph # (Auto) [place] # (Auto) Seg Neutrophils % Seg Neutrophils # PT INR D-Dimer Sodium Potassium Chloride Carbon Dioxide BUN Glucose POC Glucose 246 H 257 H 223 H Ferritin AST ALT Lactate Dehydrogenase C-Reactive Protein Albumin Coronavirus (PCR) 11/09/20 11/10/20 11/10/20 22:01 07:13 07:13 WBC RBC Hgb 14.7 H Hct 44.1 H MCH MCHC RDW Plt Count 106 L Lymph % (Auto) 5.4 L [place] % (Auto) Lymph # (Auto) 0.4 L [place] # (Auto) Seg Neutrophils % 88.5 H Seg Neutrophils # PT INR D-Dimer Sodium Potassium Chloride Carbon Dioxide BUN 56 H Glucose 261 H POC Glucose 241 H Ferritin AST ALT Lactate Dehydrogenase C-Reactive Protein Albumin Coronavirus (PCR) 11/10/20 11/10/20 11/10/20 07:31 12:15 16:09 WBC RBC Hgb Hct MCH MCHC RDW Plt Count Lymph % (Auto) [place] % (Auto) Lymph # (Auto) [place] # (Auto) Seg Neutrophils % Seg Neutrophils # PT INR D-Dimer Sodium Potassium Chloride Carbon Dioxide BUN Glucose POC Glucose 234 H 327 H 258 H Ferritin AST ALT Lactate Dehydrogenase C-Reactive Protein Albumin Coronavirus (PCR) 11/10/20 11/11/20 11/11/20 21:47 07:44 12:01 WBC RBC Hgb Hct MCH MCHC RDW Plt Count Lymph % (Auto) [place] % (Auto) Lymph # (Auto) [place] # (Auto) Seg Neutrophils % Seg Neutrophils # PT INR D-Dimer Sodium Potassium Chloride Carbon Dioxide BUN Glucose POC Glucose 281 H 273 H 343 H Ferritin AST ALT Lactate Dehydrogenase C-Reactive Protein Albumin Coronavirus (PCR) 11/11/20 11/11/20 11/12/20 17:03 21:31 07:28 WBC RBC Hgb Hct MCH MCHC RDW Plt Count Lymph % (Auto) [place] % (Auto) Lymph # (Auto) [place] # (Auto) Seg Neutrophils % Seg Neutrophils # PT INR D-Dimer Sodium Potassium Chloride Carbon Dioxide BUN Glucose POC Glucose 222 H 235 H 200 H Ferritin AST ALT Lactate Dehydrogenase C-Reactive Protein Albumin Coronavirus (PCR) 11/12/20 11/12/20 11/12/20 10:58 17:18 21:08 WBC RBC Hgb Hct MCH MCHC RDW Plt Count Lymph % (Auto) [place] % (Auto) Lymph # (Auto) [place] # (Auto) Seg Neutrophils % Seg Neutrophils # PT INR D-Dimer Sodium Potassium Chloride Carbon Dioxide BUN Glucose POC Glucose 294 H 240 H 317 H Ferritin AST ALT Lactate Dehydrogenase C-Reactive Protein Albumin Coronavirus (PCR) 11/13/20 11/13/20 11/13/20 07:03 08:17 11:46 WBC RBC Hgb Hct MCH MCHC RDW Plt Count Lymph % (Auto) [place] % (Auto) Lymph # (Auto) [place] # (Auto) Seg Neutrophils % Seg Neutrophils # PT INR D-Dimer Sodium Potassium Chloride Carbon Dioxide BUN 60 H Glucose 228 H POC Glucose 226 H 345 H Ferritin AST ALT Lactate Dehydrogenase C-Reactive Protein Albumin Coronavirus (PCR) 11/13/20 11/13/20 11/14/20 16:27 20:58 05:01 WBC RBC Hgb Hct MCH MCHC RDW Plt Count Lymph % (Auto) [place] % (Auto) Lymph # (Auto) [place] # (Auto) Seg Neutrophils % Seg Neutrophils # PT INR D-Dimer Sodium 132 L D Potassium Chloride 94.2 L Carbon Dioxide BUN 63 H Glucose 236 H POC Glucose 255 H 256 H Ferritin AST ALT Lactate Dehydrogenase C-Reactive Protein Albumin Coronavirus (PCR) 11/14/20 11/14/20 11/14/20 07:28 11:05 21:22 WBC RBC Hgb Hct MCH MCHC RDW Plt Count Lymph % (Auto) [place] % (Auto) Lymph # (Auto) [place] # (Auto) Seg Neutrophils % Seg Neutrophils # PT INR D-Dimer Sodium Potassium Chloride Carbon Dioxide BUN Glucose POC Glucose 240 H 232 H 247 H Ferritin AST ALT Lactate Dehydrogenase C-Reactive Protein Albumin Coronavirus (PCR) 11/15/20 11/15/20 11/15/20 04:53 07:51 10:30 WBC RBC Hgb Hct MCH MCHC RDW Plt Count Lymph % (Auto) [place] % (Auto) Lymph # (Auto) [place] # (Auto) Seg Neutrophils % Seg Neutrophils # PT INR D-Dimer Sodium 134 L Potassium Chloride 94.9 L Carbon Dioxide BUN 63 H Glucose 238 H POC Glucose 255 H 299 H Ferritin AST ALT Lactate Dehydrogenase C-Reactive Protein Albumin Coronavirus (PCR) 11/15/20 11/15/20 11/16/20 15:52 21:52 05:00 WBC RBC Hgb Hct MCH MCHC RDW Plt Count Lymph % (Auto) [place] % (Auto) Lymph # (Auto) [place] # (Auto) Seg Neutrophils % Seg Neutrophils # PT INR D-Dimer Sodium 133 L Potassium Chloride 94.8 L Carbon Dioxide BUN 62 H Glucose 222 H POC Glucose 210 H 281 H Ferritin AST ALT Lactate Dehydrogenase C-Reactive Protein Albumin Coronavirus (PCR) 11/16/20 11/16/20 11/16/20 07:53 11:18 16:47 WBC RBC Hgb Hct MCH MCHC RDW Plt Count Lymph % (Auto) [place] % (Auto) Lymph # (Auto) [place] # (Auto) Seg Neutrophils % Seg Neutrophils # PT INR D-Dimer Sodium Potassium Chloride Carbon Dioxide BUN Glucose POC Glucose 230 H 262 H 202 H Ferritin AST ALT Lactate Dehydrogenase C-Reactive Protein Albumin Coronavirus (PCR) 11/16/20 11/17/20 11/17/20 21:24 07:24 10:19 WBC RBC Hgb Hct MCH MCHC RDW 12.9 L Plt Count 74 L Lymph % (Auto) 3.8 L [place] % (Auto) 7.7 H Lymph # (Auto) 0.2 L [place] # (Auto) Seg Neutrophils % 88.3 H Seg Neutrophils # PT INR D-Dimer Sodium Potassium Chloride Carbon Dioxide BUN Glucose POC Glucose 243 H 221 H Ferritin AST ALT Lactate Dehydrogenase C-Reactive Protein Albumin Coronavirus (PCR) 11/17/20 11/17/20 11/17/20 12:05 18:06 18:43 WBC RBC Hgb Hct MCH MCHC RDW Plt Count Lymph % (Auto) [place] % (Auto) Lymph # (Auto) [place] # (Auto) Seg Neutrophils % Seg Neutrophils # PT 16.4 H INR 1.26 H D-Dimer Sodium Potassium Chloride Carbon Dioxide BUN Glucose POC Glucose 229 H 190 H Ferritin AST ALT Lactate Dehydrogenase C-Reactive Protein Albumin Coronavirus (PCR) 11/17/20 11/18/20 11/18/20 23:54 04:52 04:52 WBC RBC 3.48 L Hgb Hct MCH MCHC RDW 12.8 L Plt Count 70 L Lymph % (Auto) [place] % (Auto) Lymph # (Auto) [place] # (Auto) Seg Neutrophils % Seg Neutrophils # PT INR D-Dimer Sodium Potassium 3.5 L D Chloride 97.9 L Carbon Dioxide BUN 51 H Glucose 153 H POC Glucose 232 H Ferritin AST ALT Lactate Dehydrogenase C-Reactive Protein Albumin Coronavirus (PCR) 11/18/20 11/18/20 07:43 12:21 WBC RBC Hgb Hct MCH MCHC RDW Plt Count Lymph % (Auto) [place] % (Auto) Lymph # (Auto) [place] # (Auto) Seg Neutrophils % Seg Neutrophils # PT INR D-Dimer Sodium Potassium Chloride Carbon Dioxide BUN Glucose POC Glucose 184 H 241 H Ferritin AST ALT Lactate Dehydrogenase C-Reactive Protein Albumin Coronavirus (PCR) Allied health notes reviewed: nursing
[2020-11-18 18:01] VITALS: BP 122/55
--- NOTE | 2020-11-18 18:35 | Gastroenterology Progress Note ---
Assessment and Plan hematochezia - in setting of anticoagulation, now resolved after stopping AC, and H/H has remained stable. colonoscopy not done as pt was unable to complete prep but had brown stools. since bleeding has resolved with stable labs, will manage conservatively from gi stand point. pt should f/u in GI clinic after discharge for outpatient colonoscopy Subjective Date of service: 11/18/20 Principal diagnosis: hematochezia, COVID Interval history: pt unable to complete prep overnight, however no further bleeding with prep and had brown stools Objective - Exam Narrative Exam: Gen: nad abd: soft, nt, nd lungs: ctab - Constitutional Vitals: Temp Pulse Resp BP Pulse Ox 98.0 F 102 H 22 122/55 91 11/18/20 17:28 11/18/20 17:28 11/18/20 17:28 11/18/20 17:28 11/18/20 17:28 - Labs CBC & Chem 7: 11/18/20 04:52 11/18/20 04:52 Labs: Laboratory Results - last 24 hr 11/17/20 11/17/20 11/18/20 18:43 23:54 04:52 WBC 5.2 RBC 3.48 L Hgb 11.2 Hct 32.6 MCV 94 MCH 32 MCHC 34 RDW 12.8 L Plt Count 70 L PT 16.4 H INR 1.26 H Sodium Potassium Chloride Carbon Dioxide Anion Gap BUN Creatinine Estimated GFR BUN/Creatinine Ratio Glucose POC Glucose 232 H Calcium 11/18/20 11/18/20 11/18/20 04:52 07:43 12:21 WBC RBC Hgb Hct MCV MCH MCHC RDW Plt Count PT INR Sodium 140 D Potassium 3.5 L D Chloride 97.9 L Carbon Dioxide 30 Anion Gap 16 BUN 51 H Creatinine 0.9 Estimated GFR > 60 BUN/Creatinine Ratio 57 Glucose 153 H POC Glucose 184 H 241 H Calcium 8.6 11/18/20 17:29 WBC RBC Hgb Hct MCV MCH MCHC RDW Plt Count PT INR Sodium Potassium Chloride Carbon Dioxide Anion Gap BUN Creatinine Estimated GFR BUN/Creatinine Ratio Glucose POC Glucose 229 H Calcium
[2020-11-25 14:18] LABS: Heparin-Induced Platelet Antib Negative (Negative); Unfractionated Heparin Negative (Negative)
== END 2020-11-18 20:22 | disposition home health service (06) | DRG 177 ==
LOC: ED 16:02 → 3A 20:28
PROVIDERS: ADMIT Internal Medicine; ATTEND Internal Medicine
PROC: 5A09357 Assistance with Respiratory Ventilation, Less than 24 Consecutive Hours, Continuous Positive Airway Pressure (ICD-10-PCS; principal; 2020-10-23)
PROC: 5A0955A Assistance with Respiratory Ventilation, Greater than 96 Consecutive Hours, High Flow/Velocity Cannula (ICD-10-PCS; 2020-10-26)
PROC: XW033E5 Introduction of Remdesivir Anti-infective into Peripheral Vein, Percutaneous Approach, New Technology Group 5 (ICD-10-PCS; 2020-10-27)
PROC: XW033H5 Introduction of Tocilizumab into Peripheral Vein, Percutaneous Approach, New Technology Group 5 (ICD-10-PCS; 2020-10-29)
DX: U07.1 COVID-19 (principal); J12.82 Pneumonia due to coronavirus disease 2019; J96.01 Acute respiratory failure with hypoxia; E66.2 Morbid (severe) obesity with alveolar hypoventilation; Z68.43 Body mass index [BMI] 50.0-59.9, adult; J44.1 Chronic obstructive pulmonary disease with (acute) exacerbation; J44.0 Chronic obstructive pulmonary disease with (acute) lower respiratory infection; K21.9 Gastro-esophageal reflux disease without esophagitis; E11.9 Type 2 diabetes mellitus without complications; Z79.899 Other long term (current) drug therapy; Z79.84 Long term (current) use of oral hypoglycemic drugs; Z83.3 Family history of diabetes mellitus; Z82.49 Family history of ischemic heart disease and other diseases of the circulatory system; I11.0 Hypertensive heart disease with heart failure; Z90.49 Acquired absence of other specified parts of digestive tract; Z90.710 Acquired absence of both cervix and uterus; D69.6 Thrombocytopenia, unspecified
CPT/HCPCS: 36415; 71045; 80048; 80053; 82728; 82962; 83615; 83735; 83880; 84145; 84439; 84443; 84484; 85025; 85027; 85379; 85610; 86022; 86140; 93005; 93306; 94640; 94644; 94760; G0378; C9113; J0360; J0696; J1644; J1815; J1940; J2920; J2930; J3262; J7030; J7050; U0003

== ENCOUNTER 2020-11-24 14:43 | Inpatient (IN) | payer MEDICARE ==
--- NOTE | 2020-11-24 15:24 | Event Note ---
Date: 11/24/20 The patient was evaluated in the emergency department for symptoms described in the history of present illness. He/she was evaluated in the context of the global COVID-19 pandemic, which necessitated consideration that the patient might be at risk for infection with the virus that causes COVID-19. Institutional protocols and algorithms that pertain to the evaluation of patients at risk for COVID-19 are in a state of rapid change based on information released by regulatory bodies including the CDC and federal and state organizations. These policies and algorithms were followed during the patient's care in the emergency department. Please note that these policies, procedures and recommendations changed on a rapid basis. Medical screening examination: 69-year-old female with history of COPD, brought to the hospital by EMS with a complaint of GI bleed. Verbal report from EMS. EMS documentation not available at time of chart dictation Obtain appropriate laboratory studies, EKG, place patient on hall monitor, physician to perform detailed history and physical examination, further recommendations pending
[2020-11-24 16:45] LABS: Basophils % (Auto) 0.3 % (0.0-1.8); Eosinophils % (Auto) 0.1 % (0.0-4.3); Hematocrit 29.8 % (30.3-42.9); Hemoglobin 10.1 gm/dl (10.1-14.3); Lymphocytes # (Auto) 0.3 K/mm3 (1.2-5.4); Lymphocytes % (Auto) 7.3 % (13.4-35.0); Mean Corpuscular HGB Conc 34 % (30-34); Mean Corpuscular Volume 95 fl (79-97); Monocytes # (Auto) 0.4 K/mm3 (0.0-0.8); Monocytes % (Auto) 10.1 % (0.0-7.3); Platelet Count 103 K/mm3 (140-440); Red Blood Count 3.13 M/mm3 (3.65-5.03); Red Cell Distribution Width 14.3 % (13.2-15.2)
[2020-11-24 16:56] LABS: Alanine Aminotransferase 249 units/L (7-56); Albumin 3.4 g/dL (3.9-5); Blood Urea Nitrogen 20 mg/dL (7-17); Calcium 8.9 mg/dL (8.4-10.2); Hemolysis Index 3
[2020-11-24 16:59] LABS: INR 1.13 (0.87-1.13)
[2020-11-24 17:00] LABS: Partial Thromboplastin Time 24.8 Sec. (24.2-36.6)
[2020-11-24 17:04] LABS: BUN/Creatinine Ratio 29
--- NOTE | 2020-11-24 17:56 | Emergency Department Report ---
ED GI Bleed HPI - General Chief complaint: GI Bleed Stated complaint: GI BLEED Time Seen by Provider: 11/24/20 15:57 Source: patient, EMS Mode of arrival: Stretcher Limitations: No Limitations - History of Present Illness Initial comments: Patient is a 69-year-old F Irish female who is presenting with GI bleed. Patient had a prolonged hospital stay last month and was discharged approximately 6 days ago from the hospital. Patient was diagnosed with Covid pneumonia. At 1 point patient was on anticoagulation started having a GI bleed however it appeared that the bleeding has stopped before she was discharged. She was to follow-up with GI as an outpatient. Patient's granddaughter went to check on her today and found her in a large pool of bloody loose stool. Patient has no abdominal pain and actually does not feel the stool coming out. Patient denies any further cough congestion fevers or chills nausea or vomiting. - Related Data Home Medications Medication Instructions Recorded Confirmed Last Taken Lisinopril [Zestril] 40 mg PO DAILY 07/26/16 10/26/20 Unknown Simvastatin (NF) [Zocor TAB] 40 mg PO QHS 07/26/16 10/26/20 Unknown Tiotropium [Spiriva] 18 mcg IH QDAY 07/26/16 10/26/20 Unknown metFORMIN [Glucophage] 500 mg PO QDAY 07/26/16 10/26/20 Unknown Previous Rx's Medication Instructions Recorded Last Taken Type Albuterol Sulfate [Ventolin HFA] 2 puff IH Q4H PRN #1 pump 07/28/16 Unknown Rx Hydralazine HCl [Apresoline TAB] 50 mg PO Q8HR #90 tab 07/28/16 Unknown Rx Ascorbic Acid [Vitamin C] 500 mg PO BID #60 tablet 11/18/20 Unknown Rx Cholecalciferol Vit D3 [Vitamin D3 1,000 unit PO QDAY #30 tablet 11/18/20 Unknown Rx 1,000 UNIT TAB] Insulin Glargine [Lantus VIAL] 28 units SUB-Q QPM #10 ml 11/18/20 Unknown Rx Pantoprazole [Protonix TAB] 40 mg PO QDAY #30 tablet 11/18/20 Unknown Rx Prednisone [predniSONE 10 mg 10 mg PO .TAPER #1 tab.ds.pk 11/18/20 Unknown Rx (6-Day Pack, 21 Tabs)] Zinc Sulfate 220 mg PO BID #30 capsule 11/18/20 Unknown Rx amLODIPine 10 mg PO QDAY #30 tablet 11/18/20 Unknown Rx Allergies Allergy/AdvReac Type Severity Reaction Status Date / Time No Known Allergies Allergy Verified 10/23/20 19:34 ED Review of Systems ROS: Stated complaint: GI BLEED Other details as noted in HPI Comment: All other systems reviewed and negative ED Past Medical Hx - Past Medical History Hx Hypertension: Yes Hx Congestive Heart Failure: No Hx Diabetes: No Hx Asthma: No Hx COPD: Yes - Surgical History Hx Cholecystectomy: Yes Hx Appendectomy: Yes Additional Surgical History: hysterectomy - Social History Smoking Status: Never Smoker - Medications Home Medications: Home Medications Medication Instructions Recorded Confirmed Last Taken Type Lisinopril [Zestril] 40 mg PO DAILY 07/26/16 10/26/20 Unknown History Simvastatin (NF) [Zocor TAB] 40 mg PO QHS 07/26/16 10/26/20 Unknown History Tiotropium [Spiriva] 18 mcg IH QDAY 07/26/16 10/26/20 Unknown History metFORMIN [Glucophage] 500 mg PO QDAY 07/26/16 10/26/20 Unknown History Albuterol Sulfate [Ventolin HFA] 2 puff IH Q4H PRN #1 pump 07/28/16 10/26/20 Unknown Rx Hydralazine HCl [Apresoline TAB] 50 mg PO Q8HR #90 tab 07/28/16 10/26/20 Unknown Rx Ascorbic Acid [Vitamin C] 500 mg PO BID #60 tablet 11/18/20 Unknown Rx Cholecalciferol Vit D3 [Vitamin D3 1,000 unit PO QDAY #30 tablet 11/18/20 Unknown Rx 1,000 UNIT TAB] Insulin Glargine [Lantus VIAL] 28 units SUB-Q QPM #10 ml 11/18/20 Unknown Rx Pantoprazole [Protonix TAB] 40 mg PO QDAY #30 tablet 11/18/20 Unknown Rx Prednisone [predniSONE 10 mg 10 mg PO .TAPER #1 tab.ds.pk 11/18/20 Unknown Rx (6-Day Pack, 21 Tabs)] Zinc Sulfate 220 mg PO BID #30 capsule 11/18/20 Unknown Rx amLODIPine 10 mg PO QDAY #30 tablet 11/18/20 Unknown Rx ED Physical Exam - General Limitations: No Limitations General appearance: alert, in no apparent distress - Head Head exam: Present: atraumatic, normocephalic - Eye Eye exam: Present: normal appearance, PERRL, EOMI - ENT ENT exam: Present: mucous membranes moist - Neck Neck exam: Present: normal inspection - Respiratory Respiratory exam: Present: normal lung sounds bilaterally. Absent: respiratory distress, wheezes, rales, rhonchi - Cardiovascular Cardiovascular Exam: Present: regular rate, normal rhythm. Absent: systolic murmur, diastolic murmur, rubs, gallop - GI/Abdominal GI/Abdominal exam: Present: soft, normal bowel sounds. Absent: distended, tenderness, guarding, rebound - Rectal Rectal exam: Present: heme (+) stool, bloody stool - Extremities Exam Extremities exam: Present: normal inspection - Back Exam Back exam: Present: normal inspection - Neurological Exam Neurological exam: Present: alert, oriented X3 - Psychiatric Psychiatric exam: Present: normal affect, normal mood - Skin Skin exam: Present: warm, dry, intact, normal color. Absent: rash ED Course Vital Signs 11/24/20 11/24/20 11/24/20 15:37 15:45 15:57 Temperature 98.6 F Blood Pressure 147/55 O2 Sat by Pulse 94 98 Oximetry ED Medical Decision Making - Lab Data Result diagrams: 11/24/20 16:12 11/24/20 16:12 Lab Results 11/24/20 11/24/20 11/24/20 Range/Units 16:12 16:12 16:12 WBC 3.7 L (4.5-11.0) K/mm3 RBC 3.13 L (3.65-5.03) M/mm3 Hgb 10.1 (10.1-14.3) gm/dl Hct 29.8 L (30.3-42.9) % MCV 95 (79-97) fl MCH 32 (28-32) pg MCHC 34 (30-34) % RDW 14.3 (13.2-15.2) % Plt Count 103 L (140-440) K/mm3 Lymph % (Auto) 7.3 L (13.4-35.0) % [place] % (Auto) 10.1 H (0.0-7.3) % Eos % (Auto) 0.1 (0.0-4.3) % Baso % (Auto) 0.3 (0.0-1.8) % Lymph # (Auto) 0.3 L (1.2-5.4) K/mm3 [place] # (Auto) 0.4 (0.0-0.8) K/mm3 Eos # (Auto) 0.0 (0.0-0.4) K/mm3 Baso # (Auto) 0.0 (0.0-0.1) K/mm3 Seg Neutrophils % 82.2 H (40.0-70.0) % Seg Neutrophils # 3.0 (1.8-7.7) K/mm3 PT 15.0 H (12.2-14.9) Sec. INR 1.13 (0.87-1.13) APTT 24.8 (24.2-36.6) Sec. Sodium 145 (137-145) mmol/L Potassium 4.4 (3.6-5.0) mmol/L Chloride 105.8 (98-107) mmol/L Carbon Dioxide 25 (22-30) mmol/L Anion Gap 19 mmol/L BUN 20 H (7-17) mg/dL Creatinine 0.7 (0.6-1.2) mg/dL Estimated GFR > 60 ml/min BUN/Creatinine Ratio 29 % Glucose 216 H (65-100) mg/dL Calcium 8.9 (8.4-10.2) mg/dL Total Bilirubin 1.80 H (0.1-1.2) mg/dL AST 51 H (5-40) units/L ALT 249 H (7-56) units/L Alkaline Phosphatase 63 (35-129) units/L Total Protein 5.6 L (6.3-8.2) g/dL Albumin 3.4 L (3.9-5) g/dL Albumin/Globulin Ratio 1.5 % Blood Type Antibody Screen 11/24/20 Range/Units 16:20 WBC (4.5-11.0) K/mm3 RBC (3.65-5.03) M/mm3 Hgb (10.1-14.3) gm/dl Hct (30.3-42.9) % MCV (79-97) fl MCH (28-32) pg MCHC (30-34) % RDW (13.2-15.2) % Plt Count (140-440) K/mm3 Lymph % (Auto) (13.4-35.0) % [place] % (Auto) (0.0-7.3) % Eos % (Auto) (0.0-4.3) % Baso % (Auto) (0.0-1.8) % Lymph # (Auto) (1.2-5.4) K/mm3 [place] # (Auto) (0.0-0.8) K/mm3 Eos # (Auto) (0.0-0.4) K/mm3 Baso # (Auto) (0.0-0.1) K/mm3 Seg Neutrophils % (40.0-70.0) % Seg Neutrophils # (1.8-7.7) K/mm3 PT (12.2-14.9) Sec. INR (0.87-1.13) APTT (24.2-36.6) Sec. Sodium (137-145) mmol/L Potassium (3.6-5.0) mmol/L Chloride (98-107) mmol/L Carbon Dioxide (22-30) mmol/L Anion Gap mmol/L BUN (7-17) mg/dL Creatinine (0.6-1.2) mg/dL Estimated GFR ml/min BUN/Creatinine Ratio % Glucose (65-100) mg/dL Calcium (8.4-10.2) mg/dL Total Bilirubin (0.1-1.2) mg/dL AST (5-40) units/L ALT (7-56) units/L Alkaline Phosphatase (35-129) units/L Total Protein (6.3-8.2) g/dL Albumin (3.9-5) g/dL Albumin/Globulin Ratio % Blood Type A POSITIVE Antibody Screen Negative - Medical Decision Making Patient is a 69-year-old F Irish female who is presenting with large GI bleed. Hemoglobin appears stable at this time. Patient slightly tachycardic. Consulted Dr. Gonzalez with GI who suggested the patient get a CT angiogram of the abdomen pelvis. Patient will be admitted to the hospitalist service for further management. Critical care attestation.: If time is entered above; I have spent that time in minutes in the direct care of this critically ill patient, excluding procedure time. ED Disposition Clinical Impression: GI bleed Qualifiers: GI bleed type/associated pathology: anorectal hemorrhage Qualified Code(s): K62.5 - Hemorrhage of anus and rectum Disposition: 09 ADMITTED INPATIENT Is pt being admited?: Yes Does the pt Need Aspirin: No Condition: Stable Time of Disposition: 17:56
[2020-11-24] MEDS ORDERED: MORPHINE 2 MG/1 ML INJ IV ONE (18:37)
[2020-11-24] MEDS: SODIUM CHLORIDE 0.9% 1000 ML 1,000 ML IV SCH (22:03)
[2020-11-24] MEDS ORDERED: ALBUTEROL 8.5 GM MDI INHALATION IH PRN ×2 (22:24→23:00)
[2020-11-24] MEDS ORDERED: ACETAMINOPHEN 650 MG RECT SUPP PR PRN (22:25)
[2020-11-24] MEDS ORDERED: ONDANSETRON 4 MG/2 ML INJ IV PRN (22:25)
[2020-11-24] MEDS ORDERED: HYDROmorphone 1 MG/1 ML INJ IV PRN (22:25)
[2020-11-24] MEDS ORDERED: METOCLOPRAMIDE 10 MG/2 ML INJ IV PRN (22:25)
[2020-11-24] MEDS ORDERED: MORPHINE 2 MG/1 ML INJ IV PRN (22:25)
--- NOTE | 2020-11-24 22:34 | History and Physical Report ---
History of Present Illness Date of examination: 11/24/20 Date of admission: 11/24/20 17:56 Chief complaint: Lower GI bleed since a.m. History of present illness: Patient is a 69-year-old F Haitian female who is presenting with GI bleed. Patient had a prolonged hospital stay last month and was discharged approximately 6 days ago from the hospital. Patient was diagnosed with Covid pneumonia. At 1 point patient was on anticoagulation started having a GI bleed however it appeared that the bleeding has stopped before she was discharged. She was to follow-up with GI as an outpatient. Patient's granddaughter went to check on her today and found her in a large pool of bloody loose stool. Patient has no abdominal pain and actually does not feel the stool coming out. Patient denies any further cough congestion fevers or chills nausea or vomiting. - Past Medical History --Hypertension: Yes --COPD: Yes - Surgical History --Cholecystectomy: Yes --Appendectomy: Yes --Additional Surgical History: hysterectomy - Social History Smoking Status: Never Smoker - Medications Home Medications: Home Medications Medication Instructions Recorded Confirmed Last Taken Type Lisinopril [Zestril] 40 mg PO DAILY 07/26/16 10/26/20 Unknown History Simvastatin (NF) [Zocor TAB] 40 mg PO QHS 07/26/16 10/26/20 Unknown History Tiotropium [Spiriva] 18 mcg IH QDAY 07/26/16 10/26/20 Unknown History metFORMIN [Glucophage] 500 mg PO QDAY 07/26/16 10/26/20 Unknown History Albuterol Sulfate [Ventolin HFA] 2 puff IH Q4H PRN #1 pump 07/28/16 10/26/20 Unknown Rx Hydralazine HCl [Apresoline TAB] 50 mg PO Q8HR #90 tab 07/28/16 10/26/20 Unknown Rx Ascorbic Acid [Vitamin C] 500 mg PO BID #60 tablet 11/18/20 Unknown Rx Cholecalciferol Vit D3 [Vitamin D3 1,000 unit PO QDAY #30 tablet 11/18/20 U nknown Rx 1,000 UNIT TAB] Insulin Glargine [Lantus VIAL] 28 units SUB-Q QPM #10 ml 11/18/20 Unknown Rx Pantoprazole [Protonix TAB] 40 mg PO QDAY #30 tablet 11/18/20 Unknown Rx Prednisone [predniSONE 10 mg 10 mg PO .TAPER #1 tab.ds.pk 11/18/20 Unknown Rx (6-Day Pack, 21 Tabs)] Zinc Sulfate 220 mg PO BID #30 capsule 11/18/20 Unknown Rx amLODIPine 10 mg PO QDAY #30 tablet 11/18/20 Unknown Rx Review of Systems ROS: Stated complaint: GI BLEED Other details as noted in HPI Comment: All other systems reviewed and negative Medications and Allergies Allergies Allergy/AdvReac Type Severity Reaction Status Date / Time No Known Allergies Allergy Verified 11/24/20 19:19 Home Medications Medication Instructions Recorded Confirmed Last Taken Type Lisinopril [Zestril] 40 mg PO DAILY 07/26/16 11/24/20 11/23/20 History Simvastatin (NF) [Zocor TAB] 40 mg PO QHS 07/26/16 11/24/20 11/23/20 History Tiotropium [Spiriva] 18 mcg IH QDAY 07/26/16 11/24/20 11/23/20 History metFORMIN [Glucophage] 500 mg PO QDAY 07/26/16 11/24/20 11/23/20 History Albuterol Sulfate [Ventolin HFA] 2 puff IH Q4H PRN #1 pump 07/28/16 11/24/20 11/23/20 Rx Hydralazine HCl [Apresoline TAB] 50 mg PO Q8HR #90 tab 07/28/16 11/24/20 1 Rx Ascorbic Acid [Vitamin C] 500 mg PO BID #60 tablet 11/18/20 11/24/20 11/23/20 Rx Cholecalciferol Vit D3 [Vitamin D3 1,000 unit PO QDAY #30 tablet 11/18/20 11/24/20 11/23/20 Rx 1,000 UNIT TAB] Insulin Glargine [Lantus VIAL] 28 units SUB-Q QPM #10 ml 11/18/20 11/24/20 11/23/20 Rx Pantoprazole [Protonix TAB] 40 mg PO QDAY #30 tablet 11/18/20 11/24/20 11/23/20 Rx Zinc Sulfate 220 mg PO BID #30 capsule 11/18/20 11/24/20 11/23/20 Rx amLODIPine 10 mg PO QDAY #30 tablet 11/18/20 11/24/20 11/23/20 Rx Active Meds: Active Medications Sodium Chloride (Nacl 0.9% 1000 Ml) 1,000 mls @ 125 mls/hr IV DIRECT GLENROY Last Admin: 11/24/20 22:03 Dose: 125 mls/hr Documented by: Exam - Constitutional Vitals: Temp Pulse Resp BP Pulse Ox 98.6 F 116 H 32 H 122/60 93 11/24/20 15:57 11/24/20 19:01 11/24/20 19:01 11/24/20 19:01 11/24/20 19:01 General appearance: Present: no acute distress, well-nourished - EENT Eyes: Present: PERRL ENT: hearing intact, clear oral mucosa - Neck Neck: Present: supple, normal ROM - Respiratory Respiratory effort: normal Respiratory: bilateral: CTA - Cardiovascular Heart rate: 90 Rhythm: regular Heart Sounds: Present: S1 & S2. Absent: rub, click - Extremities Extremities: no ischemia, pulses intact, pulses symmetrical, No edema Peripheral Pulses: within normal limits - Abdominal General gastrointestinal: Present: soft, non-tender, non-distended, normal bowel sounds Female genitourinary: Present: normal - Rectal Rectal Exam: stool dark (ob positive) - Integumentary Integumentary: Present: clear, warm, dry - Musculoskeletal Musculoskeletal: gait normal, strength equal bilaterally - Psychiatric Psychiatric: appropriate mood/affect, intact judgment & insight - Neurologic Neurologic: CNII-XII intact, moves all extremities Results - Labs CBC & Chem 7: 11/25/20 05:05 11/25/20 05:05 Labs: Laboratory Last Values WBC 3.7 K/mm3 (4.5-11.0) L 11/24/20 16:12 RBC 3.13 M/mm3 (3.65-5.03) L 11/24/20 16:12 Hgb 10.1 gm/dl (10.1-14.3) 11/24/20 16:12 Hct 29.8 % (30.3-42.9) L 11/24/20 16:12 MCV 95 fl (79-97) 11/24/20 16:12 MCH 32 pg (28-32) 11/24/20 16:12 MCHC 34 % (30-34) 11/24/20 16:12 RDW 14.3 % (13.2-15.2) 11/24/20 16:12 Plt Count 103 K/mm3 (140-440) L 11/24/20 16:12 Lymph % (Auto) 7.3 % (13.4-35.0) L 11/24/20 16:12 [place] % (Auto) 10.1 % (0.0-7.3) H 11/24/20 16:12 Eos % (Auto) 0.1 % (0.0-4.3) 11/24/20 16:12 Baso % (Auto) 0.3 % (0.0-1.8) 11/24/20 16:12 Lymph # (Auto) 0.3 K/mm3 (1.2-5.4) L 11/24/20 16:12 [place] # (Auto) 0.4 K/mm3 (0.0-0.8) 11/24/20 16:12 Eos # (Auto) 0.0 K/mm3 (0.0-0.4) 11/24/20 16:12 Baso # (Auto) 0.0 K/mm3 (0.0-0.1) 11/24/20 16:12 Seg Neutrophils % 82.2 % (40.0-70.0) H 11/24/20 16:12 Seg Neutrophils # 3.0 K/mm3 (1.8-7.7) 11/24/20 16:12 PT 15.0 Sec. (12.2-14.9) H 11/24/20 16:12 INR 1.13 (0.87-1.13) 11/24/20 16:12 APTT 24.8 Sec. (24.2-36.6) 11/24/20 16:12 Sodium 145 mmol/L (137-145) 11/24/20 16:12 Potassium 4.4 mmol/L (3.6-5.0) 11/24/20 16:12 Chloride 105.8 mmol/L (98-107) 11/24/20 16:12 Carbon Dioxide 25 mmol/L (22-30) 11/24/20 16:12 Anion Gap 19 mmol/L 11/24/20 16:12 BUN 20 mg/dL (7-17) H 11/24/20 16:12 Creatinine 0.7 mg/dL (0.6-1.2) 11/24/20 16:12 Estimated GFR > 60 ml/min 11/24/20 16:12 BUN/Creatinine Ratio 29 % 11/24/20 16:12 Glucose 216 mg/dL (65-100) H 11/24/20 16:12 POC Glucose 186 mg/dL (70-105) H 11/24/20 18:44 Calcium 8.9 mg/dL (8.4-10.2) 11/24/20 16:12 Total Bilirubin 1.80 mg/dL (0.1-1.2) H 11/24/20 16:12 AST 51 units/L (5-40) H 11/24/20 16:12 ALT 249 units/L (7-56) H 11/24/20 16:12 Alkaline Phosphatase 63 units/L (35-129) 11/24/20 16:12 Total Protein 5.6 g/dL (6.3-8.2) L 11/24/20 16:12 Albumin 3.4 g/dL (3.9-5) L 11/24/20 16:12 Albumin/Globulin Ratio 1.5 % 11/24/20 16:12 Blood Type A POSITIVE 11/24/20 16:20 Antibody Screen Negative 11/24/20 16:20 Short CBC 11/24/20 11/24/20 11/25/20 Range/Units 16:12 23:06 05:05 WBC 3.7 L 3.7 L (4.5-11.0) K/mm3 Hgb 10.1 10.1 9.9 L (10.1-14.3) gm/dl Hct 29.8 L 30.3 30.0 L (30.3-42.9) % Plt Count 103 L 102 L (140-440) K/mm3 BMP 11/24/20 11/25/20 16:12 05:05 Sodium 145 145 Potassium 4.4 4.3 Chloride 105.8 105.6 Carbon Dioxide 25 25 BUN 20 H 20 H Creatinine 0.7 0.7 Glucose 216 H 207 H Calcium 8.9 8.9 Liver Function 11/24/20 11/25/20 Range/Units 16:12 05:05 Total Bilirubin 1.80 H 1.80 H (0.1-1.2) mg/dL AST 51 H 49 H (5-40) units/L ALT 249 H 218 H (7-56) units/L Alkaline Phosphatase 63 67 (35-129) units/L Albumin 3.4 L 3.2 L (3.9-5) g/dL - Imaging and Cardiology CT scan - abdomen: report reviewed (CT abdomen pending) Assessment and Plan Advance Directives: Yes (Full code) VTE prophylaxis?: Mechanical Plan of care discussed with patient/family: Yes - Patient Problems (1) GI bleed Current Visit: Yes Status: Acute Qualifiers: GI bleed type/associated pathology: anorectal hemorrhage Qualified Code(s): K62.5 - Hemorrhage of anus and rectum Plan to address problem: IV Protonix initiated GI consult Possible upper GI bleed Serial hemoglobin and hematocrit Transfuse if necessary (2) HTN (hypertension) Current Visit: Yes Status: Chronic Qualifiers: Hypertension type: primary hypertension Qualified Code(s): I10 - Essential (primary) hypertension Plan to address problem: Hold oral antihypertensives Initiate Catapres TTS 3 patch IV hydralazine every 3 hours as necessary (3) IDDM (insulin dependent diabetes mellitus) Current Visit: Yes Status: Chronic Plan to address problem: Insulin coverage for now Check hemoglobin A1c (4) COPD (chronic obstructive pulmonary disease) Current Visit: Yes Status: Chronic Qualifiers: COPD type: chronic bronchitis Chronic bronchitis type: unspecified Qualified Code(s): J42 - Unspecified chronic bronchitis Plan to address problem: Nebulizer treatments as necessary (5) Transaminitis Current Visit: Yes Status: Acute Plan to address problem: Acute hepatitis profile requested Statin induced transaminitis to be ruled out (6) Malnutrition Current Visit: Yes Status: Chronic Qualifiers: Protein-calorie malnutrition severity: mild Plan to address problem: Dietary supplements once patient is cleared to eat (7) DVT prophylaxis Current Visit: Yes Status: Acute Plan to address problem: On SCDs and GI prophylaxis
[2020-11-24] MEDS ORDERED: hydrALAZINE 20 MG/1 ML INJ IV PRN (22:35)
[2020-11-24] MEDS ORDERED: cloNIDine TTS 0.3 MG/24 HR PATCH TD SCH (23:00)
[2020-11-24 23:36] LABS: Hematocrit 30.3 % (30.3-42.9); Hemoglobin 10.1 gm/dl (10.1-14.3)
[2020-11-25] MEDS: INSULIN LISPRO 100 UNIT/ML SUB-Q SCH ×4 (01:41→18:31)
[2020-11-25] MEDS: PANTOPRAZOLE 80 MG in SODIUM CHLORIDE 0.9% 100 ML IV SCH ×2 (01:41→22:25)
[2020-11-25 05:36] LABS: Hemoglobin 9.9 gm/dl (10.1-14.3); Mean Corpuscular HGB Conc 33 % (30-34); Mean Corpuscular Volume 97 fl (79-97); Platelet Count 102 K/mm3 (140-440); Red Blood Count 3.08 M/mm3 (3.65-5.03); Red Cell Distribution Width 14.5 % (13.2-15.2)
[2020-11-25 06:10] LABS: Alanine Aminotransferase 218 units/L (7-56); Albumin 3.2 g/dL (3.9-5); Blood Urea Nitrogen 20 mg/dL (7-17); Calcium 8.9 mg/dL (8.4-10.2); Hemolysis Index 42
[2020-11-25 06:36] LABS: BUN/Creatinine Ratio 29
[2020-11-25 06:51] LABS: Band Neutrophils # (Manual) 0.1 K/mm3; Platelet Estimate Consistent w Auto; RBC Morphology Normal; Total Cells Counted 100
--- NOTE | 2020-11-25 08:11 | Gastroenterology Consultation ---
History of Present Illness - Reason for Consult Consult date: 11/25/20 GI bleed Requesting physician: ALCIDES ROSADO - History of Present Illness This is a pleasant 69 yo Patient recently seen by our group about 1 week ago for gi bleeding during prolonged hospitalization for covid, didn't require endoscopy/colonoscopy at that juncture. she was on anticoagulation started having a GI bleed however it appeared that the bleeding has stopped before she was discharged. She was to follow-up with GI as an outpatient. Patient's granddaughter went to check on her yesterday and found her in a large pool of bloody loose stool. Patient has no abdominal pain and actually does not feel the stool coming out. When I asked if she's had more bleeding overnight she said "I don't know" Patient was supposed to have CT angio however she only has very small IV in her hand and so could not have it done when she was brought to CT Past Medical History: COPD, diabetes, hypertension Past Surgical History: appendectomy, cholecystectomy, hysterectomy. Social history: denies: smoking, alcohol abuse Family history: diabetes, hypertension Obtained/updated/reviewed patient's current medications Medications and Allergies Allergies Allergy/AdvReac Type Severity Reaction Status Date / Time No Known Allergies Allergy Verified 11/24/20 19:19 Home Medications Medication Instructions Recorded Confirmed Last Taken Type Lisinopril [Zestril] 40 mg PO DAILY 07/26/16 11/24/20 11/23/20 History Simvastatin (NF) [Zocor TAB] 40 mg PO QHS 07/26/16 11/24/20 11/23/20 History Tiotropium [Spiriva] 18 mcg IH QDAY 07/26/16 11/24/20 11/23/20 History metFORMIN [Glucophage] 500 mg PO QDAY 07/26/16 11/24/20 11/23/20 History Albuterol Sulfate [Ventolin HFA] 2 puff IH Q4H PRN #1 pump 07/28/16 11/24/20 11/23/20 Rx Hydralazine HCl [Apresoline TAB] 50 mg PO Q8HR #90 tab 07/28/16 11/24/20 11/23/20 Rx Ascorbic Acid [Vitamin C] 500 mg PO BID #60 tablet 11/18/20 11/24/20 11/23/20 Rx Cholecalciferol Vit D3 [Vitamin D3 1,000 unit PO QDAY #30 tablet 11/18/20 11/24/20 11/23/20 Rx 1,000 UNIT TAB] Insulin Glargine [Lantus VIAL] 28 units SUB-Q QPM #10 ml 11/18/20 11/24/20 Rx Pantoprazole [Protonix TAB] 40 mg PO QDAY #30 tablet 11/18/20 11/24/20 11/23/20 Rx Zinc Sulfate 220 mg PO BID #30 capsule 11/18/20 11/24/20 11/23/20 Rx amLODIPine 10 mg PO QDAY #30 tablet 11/18/20 11/24/20 11/23/20 Rx Active Meds: Active Medications Acetaminophen (Acetaminophen 650 Mg Rect Supp) 650 mg AR Q4H PRN PRN Reason: Pain MILD(1-3)/Fever >100.5/KAUFMAN Albuterol (Albuterol 8.5 Gm Mdi Inhalation) 2 puff IH Q4HRT PRN PRN Reason: Shortness Of Breath Clonidine HCl (Clonidine Tts 0.3 Mg/24 Hr Patch) 0.3 mg TD Tu [facility] Last Admin: 11/25/20 02:15 Dose: 0.3 mg Documented by: Hydralazine HCl (Hydralazine 20 Mg/1 Ml Inj) 10 mg IV Q3H PRN PRN Reason: Blood Pressure Hydromorphone HCl (Hydromorphone 1 Mg/1 Ml Inj) 0.5 mg IV Q3H PRN PRN Reason: Pain , Severe (7-10) Sodium Chloride (Nacl 0.9% 1000 Ml) 1,000 mls @ 125 mls/hr IV DIRECT GLENROY Last Admin: 11/24/20 22:03 Dose: 125 mls/hr Documented by: Pantoprazole Sodium 80 mg/ (Sodium Chloride) 100 mls @ 10 mls/hr IV DIRECT GLENROY Last Admin: 11/25/20 01:41 Dose: 8 mg/hr, 10 mls/hr Documented by: Insulin Human Lispro (Insulin Lispro 100 Unit/Ml) 0 unit SUB-Q Q6HR GLENROY; Protocol Last Admin: 11/25/20 06:03 Dose: Not Given Documented by: Metoclopramide HCl (Metoclopramide 10 Mg/2 Ml Inj) 10 mg IV Q6H PRN PRN Reason: Nausea And Vomiting Morphine Sulfate (Morphine 2 Mg/1 Ml Inj) 2 mg IV Q4H PRN PRN Reason: Pain, Moderate (4-6) Ondansetron HCl (Ondansetron 4 Mg/2 Ml Inj) 4 mg IV Q8H PRN PRN Reason: Nausea And Vomiting Sodium Chloride (Sodium Chloride 0.9% 10 Ml Flush Syringe) 10 ml IV BID GLENROY Sodium Chloride (Sodium Chloride 0.9% 10 Ml Flush Syringe) 10 ml IV PRN PRN PRN Reason: LINE FLUSH Tiotropium [place] (Tiotropium 18 Mcg Cap Inhalation) 1 puff IH QDAY GLENROY Review of Systems - Review of Systems All systems: negative (10 Systems reviewed and negative except as mentioned above in the history of present illness) Exam - Constitutional Vital Signs: Temp Pulse Resp BP Pulse Ox 98.6 F 101 H 17 104/32 98 11/24/20 15:57 11/25/20 06:01 11/25/20 06:01 11/25/20 06:01 11/25/20 06:01 General appearance: other (obese, NAD) - EENT Eyes: EOM intact ENT: hearing intact - Neck Neck: supple - Respiratory Respiratory effort: normal - Cardiovascular Rhythm: other (mildly tachy) - Gastrointestinal General gastrointestinal: Present: soft, non-tender - Integumentary Integumentary: Present: dry - Musculoskeletal Musculoskeletal: normal - Neurologic Neurological: alert and oriented x3 - Psychiatric Psychiatric: appropriate mood/affect - Labs CBC & Chem 7: 11/25/20 05:05 11/25/20 05:05 Lab Results: Laboratory Results - last 24 hr 11/24/20 11/24/20 11/24/20 16:12 16:12 16:12 WBC 3.7 L RBC 3.13 L Hgb 10.1 Hct 29.8 L MCV 95 MCH 32 MCHC 34 RDW 14.3 Plt Count 103 L Lymph % (Auto) 7.3 L [place] % (Auto) 10.1 H Eos % (Auto) 0.1 Baso % (Auto) 0.3 Lymph # (Auto) 0.3 L [place] # (Auto) 0.4 Eos # (Auto) 0.0 Baso # (Auto) 0.0 Add Manual Diff Total Counted Seg Neutrophils % 82.2 H Seg Neuts % (Manual) Band Neutrophils % Lymphocytes % (Manual) Monocytes % (Manual) Nucleated RBC % Seg Neutrophils # 3.0 Seg Neutrophils # Man Band Neutrophils # Lymphocytes # (Manual) Abs React Lymphs (Man) Monocytes # (Manual) Eosinophils # (Manual) Basophils # (Manual) Metamyelocytes # Myelocytes # Promyelocytes # Blast Cells # WBC Morphology Hypersegmented Neuts Hyposegmented Neuts Hypogranular Neuts Smudge Cells Toxic Granulation Toxic Vacuolation Dohle Bodies Pelger-Huet Anomaly Callie Rods Platelet Estimate Clumped Platelets Plt Clumps, EDTA Large Platelets Giant Platelets Platelet Satelliting Plt Morphology Comment RBC Morphology Dimorphic RBCs Polychromasia Hypochromasia Poikilocytosis Anisocytosis Microcytosis Macrocytosis Spherocytes Pappenheimer Bodies Sickle Cells Target Cells Tear Drop Cells Ovalocytes Helmet Cells Weber-[place]el Bodies [place] Rings [place] Cells Bite Cells Crenated Cell Elliptocytes Acanthocytes (Spur) Rouleaux Hemoglobin C Crystals Schistocytes Malaria parasites Sukumar Bodies Hem Pathologist Commnt PT 15.0 H INR 1.13 APTT 24.8 Sodium 145 Potassium 4.4 Chloride 105.8 Carbon Dioxide 25 Anion Gap 19 BUN 20 H Creatinine 0.7 Estimated GFR > 60 BUN/Creatinine Ratio 29 Glucose 216 H POC Glucose Calcium 8.9 Total Bilirubin 1.80 H AST 51 H ALT 249 H Alkaline Phosphatase 63 Total Protein 5.6 L Albumin 3.4 L Albumin/Globulin Ratio 1.5 Blood Type Antibody Screen 11/24/20 11/24/20 11/24/20 16:20 18:44 23:06 WBC RBC Hgb 10.1 Hct 30.3 MCV MCH MCHC RDW Plt Count Lymph % (Auto) [place] % (Auto) Eos % (Auto) Baso % (Auto) Lymph # (Auto) [place] # (Auto) Eos # (Auto) Baso # (Auto) Add Manual Diff Total Counted Seg Neutrophils % Seg Neuts % (Manual) Band Neutrophils % Lymphocytes % (Manual) Monocytes % (Manual) Nucleated RBC % Seg Neutrophils # Seg Neutrophils # Man Band Neutrophils # Lymphocytes # (Manual) Abs React Lymphs (Man) Monocytes # (Manual) Eosinophils # (Manual) Basophils # (Manual) Metamyelocytes # Myelocytes # Promyelocytes # Blast Cells # WBC Morphology Hypersegmented Neuts Hyposegmented Neuts Hypogranular Neuts Smudge Cells Toxic Granulation Toxic Vacuolation Dohle Bodies Pelger-Huet Anomaly Callie Rods Platelet Estimate Clumped Platelets Plt Clumps, EDTA Large Platelets Giant Platelets Platelet Satelliting Plt Morphology Comment RBC Morphology Dimorphic RBCs Polychromasia Hypochromasia Poikilocytosis Anisocytosis Microcytosis Macrocytosis Spherocytes Pappenheimer Bodies Sickle Cells Target Cells Tear Drop Cells Ovalocytes Helmet Cells Weber-[place]el Bodies [place] Rings [place] Cells Bite Cells Crenated Cell Elliptocytes Acanthocytes (Spur) Rouleaux Hemoglobin C Crystals Schistocytes Malaria parasites Sukumar Bodies Hem Pathologist Commnt PT INR APTT Sodium Potassium Chloride Carbon Dioxide Anion Gap BUN Creatinine Estimated GFR BUN/Creatinine Ratio Glucose POC Glucose 186 H Calcium Total Bilirubin AST ALT Alkaline Phosphatase Total Protein Albumin Albumin/Globulin Ratio Blood Type A POSITIVE Antibody Screen Negative 11/25/20 11/25/20 05:05 05:05 WBC 3.7 L RBC 3.08 L Hgb 9.9 L Hct 30.0 L MCV 97 MCH 32 MCHC 33 RDW 14.5 Plt Count 102 L Lymph % (Auto) Not Reportable [place] % (Auto) Not Reportable Eos % (Auto) Not Reportable Baso % (Auto) Not Reportable Lymph # (Auto) Not Reportable [place] # (Auto) Not Reportable Eos # (Auto) Not Reportable Baso # (Auto) Not Reportable Add Manual Diff Complete Total Counted 100 Seg Neutrophils % Seg Neuts % (Manual) 81.0 H Band Neutrophils % 3.0 Lymphocytes % (Manual) 11.0 L Monocytes % (Manual) 5.0 Nucleated RBC % Not Reportable Seg Neutrophils # Not Reportable Seg Neutrophils # Man 3.0 Band Neutrophils # 0.1 Lymphocytes # (Manual) 0.4 L Abs React Lymphs (Man) 0.0 Monocytes # (Manual) 0.2 Eosinophils # (Manual) 0.0 Basophils # (Manual) 0.0 Metamyelocytes # 0.0 Myelocytes # 0.0 Promyelocytes # 0.0 Blast Cells # 0.0 WBC Morphology Not Reportable Hypersegmented Neuts Not Reportable Hyposegmented Neuts Not Reportable Hypogranular Neuts Not Reportable Smudge Cells Not Reportable Toxic Granulation Not Reportable Toxic Vacuolation Not Reportable Dohle Bodies Not Reportable Pelger-Huet Anomaly Not Reportable Callie Rods Not Reportable Platelet Estimate Consistent w auto Clumped Platelets Not Reportable Plt Clumps, EDTA Not Reportable Large Platelets Not Reportable Giant Platelets Not Reportable Platelet Satelliting Not Reportable Plt Morphology Comment Not Reportable RBC Morphology Normal Dimorphic RBCs Not Reportable Polychromasia Not Reportable Hypochromasia Not Reportable Poikilocytosis Not Reportable Anisocytosis Not Reportable Microcytosis Not Reportable Macrocytosis Not Reportable Spherocytes Not Reportable Pappenheimer Bodies Not Reportable Sickle Cells Not Reportable Target Cells Not Reportable Tear Drop Cells Not Reportable Ovalocytes Not Reportable Helmet Cells Not Reportable Weber-Drexel Bodies Not Reportable [place] Rings Not Reportable [place] Cells Not Reportable Bite Cells Not Reportable Crenated Cell Not Reportable Elliptocytes Not Reportable Acanthocytes (Spur) Not Reportable Rouleaux Not Reportable Hemoglobin C Crystals Not Reportable Schistocytes Not Reportable Malaria parasites Not Reportable Sukumar Bodies Not Reportable Hem Pathologist Commnt No PT INR APTT Sodium 145 Potassium 4.3 Chloride 105.6 Carbon Dioxide 25 Anion Gap 19 BUN 20 H Creatinine 0.7 Estimated GFR > 60 BUN/Creatinine Ratio 29 Glucose 207 H POC Glucose Calcium 8.9 Total Bilirubin 1.80 H AST 49 H ALT 218 H Alkaline Phosphatase 67 Total Protein 5.5 L Albumin 3.2 L Albumin/Globulin Ratio 1.4 Blood Type Antibody Screen Assessment and Plan Highest on the differential diagnosis is lower GI source such as diverticular bleed, with hemorrhoid, AVM, polyp, mass, etc in the differential diagnosis as well. CTA will be very helpful in localizing and determining management strategies. I spoke with hospitalist who put in for stat picc line (as patient requires excellent IV access regardless given GI Bleed) and will go ahead with CT as soon as possible I put in an order for go-lytely for patient to start the prep process in case she will need colonoscopy tomorrow for the bleeding Trend Hgb Q8 hours Regarding LFT, agree with acute hep panel, her LFT have been elevated significantly since last admission, with viral hepatitis and DODSON highest on the Ddx - Patient Problems (1) GI bleed Current Visit: Yes Status: Acute Qualifiers: GI bleed type/associated pathology: anorectal hemorrhage Qualified Code(s): K62.5 - Hemorrhage of anus and rectum (2) CHF (congestive heart failure) Current Visit: No Status: Acute Qualifiers: Heart failure type: systolic Heart failure chronicity: acute Qualified Code(s): I50.21 - Acute systolic (congestive) heart failure (3) COPD (chronic obstructive pulmonary disease) Current Visit: No Status: Chronic (4) Morbid obesity with body mass index (BMI) of 50.0 to 59.9 in adult Current Visit: No Status: Chronic (5) Transaminitis Current Visit: Yes Status: Acute
--- NOTE | 2020-11-25 08:39 | Progress Note ---
Assessment and Plan Assessment and plan: -- GI bleeding Current Visit: Yes Status: Acute N.p.o. status IV Protonix , GI evaluated the patient Recommended CTA abdomen Continue supportive care --HTN (hypertension) Current Visit: Yes Status: Chronic Hold oral antihypertensives Initiate Catapres TTS 3 patch IV hydralazine every 3 hours as necessary --IDDM (insulin dependent diabetes mellitus) Current Visit: Yes Status: Chronic Accu-Chek sliding scale insulin coverage Check hemoglobin A1c ADA diet, diabetic education, nutrition education prior to discharge --History of COPD (chronic obstructive pulmonary disease) Current Visit: Yes Status: Chronic Oxygen , titrate O2 sats to more than 90% nebulizer treatments as needed --Transaminitis Current Visit: Yes Status: Acute Acute hepatitis profile requested Statin induced transaminitis to be ruled out --Malnutrition Current Visit: Yes Status: Chronic Dietary supplements once patient is cleared to eat --DVT prophylaxis Current Visit: Yes Status: Acute On SCDs and GI prophylaxis We will closely monitor patient and adjust management as needed Follow GI evaluation and recommendations Will DC n.p.o. status and start clear liquids if GI is not planning any procedures today History Interval history: I seen and examined the patient in ED awaiting bed assignment Patient was admitted with GI bleeding Patient denies active bleeding at the time of my evaluation GI has evaluated the patient and recommended CTA abdomen Vital signs noted Hospitalist Physical - Constitutional Vitals: Temp Pulse Resp BP Pulse Ox 98.6 F 101 H 17 104/32 98 11/24/20 15:57 11/25/20 06:01 11/25/20 06:01 11/25/20 06:01 11/25/20 06:01 General appearance: Present: no acute distress, well-nourished - EENT Eyes: Present: PERRL, EOM intact - Neck Neck: Present: supple, normal ROM - Respiratory Respiratory effort: normal Respiratory: bilateral: diminished, negative: rales, rhonchi, wheezing - Cardiovascular Rhythm: regular Heart Sounds: Present: S1 & S2 - Extremities Extremities: no ischemia, No edema - Abdominal General gastrointestinal: soft, non-tender, non-distended, normal bowel sounds - Integumentary Integumentary: Present: clear, warm - Psychiatric Psychiatric: appropriate mood/affect, cooperative - Neurologic Neurologic: CNII-XII intact, moves all extremities Results - Labs CBC & Chem 7: 11/25/20 05:05 11/25/20 05:05 Labs: Laboratory Last Values WBC 3.7 K/mm3 (4.5-11.0) L 11/25/20 05:05 RBC 3.08 M/mm3 (3.65-5.03) L 11/25/20 05:05 Hgb 9.9 gm/dl (10.1-14.3) L 11/25/20 05:05 Hct 30.0 % (30.3-42.9) L 11/25/20 05:05 MCV 97 fl (79-97) 11/25/20 05:05 MCH 32 pg (28-32) 11/25/20 05:05 MCHC 33 % (30-34) 11/25/20 05:05 RDW 14.5 % (13.2-15.2) 11/25/20 05:05 Plt Count 102 K/mm3 (140-440) L 11/25/20 05:05 Lymph % (Auto) Not Reportable 11/25/20 05:05 [place] % (Auto) Not Reportable 11/25/20 05:05 Eos % (Auto) Not Reportable 11/25/20 05:05 Baso % (Auto) Not Reportable 11/25/20 05:05 Lymph # (Auto) Not Reportable 11/25/20 05:05 [place] # (Auto) Not Reportable 11/25/20 05:05 Eos # (Auto) Not Reportable 11/25/20 05:05 Baso # (Auto) Not Reportable 11/25/20 05:05 Add Manual Diff Complete 11/25/20 05:05 Total Counted 100 11/25/20 05:05 Seg Neutrophils % 82.2 % (40.0-70.0) H 11/24/20 16:12 Seg Neuts % (Manual) 81.0 % (40.0-70.0) H 11/25/20 05:05 Band Neutrophils % 3.0 % 11/25/20 05:05 Lymphocytes % (Manual) 11.0 % (13.4-35.0) L 11/25/20 05:05 Monocytes % (Manual) 5.0 % (0.0-7.3) 11/25/20 05:05 Nucleated RBC % Not Reportable 11/25/20 05:05 Seg Neutrophils # Not Reportable 11/25/20 05:05 Seg Neutrophils # Man 3.0 K/mm3 (1.8-7.7) 11/25/20 05:05 Band Neutrophils # 0.1 K/mm3 11/25/20 05:05 Lymphocytes # (Manual) 0.4 K/mm3 (1.2-5.4) L 11/25/20 05:05 Abs React Lymphs (Man) 0.0 K/mm3 11/25/20 05:05 Monocytes # (Manual) 0.2 K/mm3 (0.0-0.8) 11/25/20 05:05 Eosinophils # (Manual) 0.0 K/mm3 (0.0-0.4) 11/25/20 05:05 Basophils # (Manual) 0.0 K/mm3 (0.0-0.1) 11/25/20 05:05 Metamyelocytes # 0.0 K/mm3 11/25/20 05:05 Myelocytes # 0.0 K/mm3 11/25/20 05:05 Promyelocytes # 0.0 K/mm3 11/25/20 05:05 Blast Cells # 0.0 K/mm3 11/25/20 05:05 WBC Morphology Not Reportable 11/25/20 05:05 Hypersegmented Neuts Not Reportable 11/25/20 05:05 Hyposegmented Neuts Not Reportable 11/25/20 05:05 Hypogranular Neuts Not Reportable 11/25/20 05:05 Smudge Cells Not Reportable 11/25/20 05:05 Toxic Granulation Not Reportable 11/25/20 05:05 Toxic Vacuolation Not Reportable 11/25/20 05:05 Dohle Bodies Not Reportable 11/25/20 05:05 Pelger-Huet Anomaly Not Reportable 11/25/20 05:05 Callie Rods Not Reportable 11/25/20 05:05 Platelet Estimate Consistent w auto 11/25/20 05:05 Clumped Platelets Not Reportable 11/25/20 05:05 Plt Clumps, EDTA Not Reportable 11/25/20 05:05 Large Platelets Not Reportable 11/25/20 05:05 Giant Platelets Not Reportable 11/25/20 05:05 Platelet Satelliting Not Reportable 11/25/20 05:05 Plt Morphology Comment Not Reportable 11/25/20 05:05 RBC Morphology Normal 11/25/20 05:05 Dimorphic RBCs Not Reportable 11/25/20 05:05 Polychromasia Not Reportable 11/25/20 05:05 Hypochromasia Not Reportable 11/25/20 05:05 Poikilocytosis Not Reportable 11/25/20 05:05 Anisocytosis Not Reportable 11/25/20 05:05 Microcytosis Not Reportable 11/25/20 05:05 Macrocytosis Not Reportable 11/25/20 05:05 Spherocytes Not Reportable 11/25/20 05:05 Pappenheimer Bodies Not Reportable 11/25/20 05:05 Sickle Cells Not Reportable 11/25/20 05:05 Target Cells Not Reportable 11/25/20 05:05 Tear Drop Cells Not Reportable 11/25/20 05:05 Ovalocytes Not Reportable 11/25/20 05:05 Helmet Cells Not Reportable 11/25/20 05:05 Weber-Royston Bodies Not Reportable 11/25/20 05:05 [place] Rings Not Reportable 11/25/20 05:05 Esthre Cells Not Reportable 11/25/20 05:05 Bite Cells Not Reportable 11/25/20 05:05 Crenated Cell Not Reportable 11/25/20 05:05 Elliptocytes Not Reportable 11/25/20 05:05 Acanthocytes (Spur) Not Reportable 11/25/20 05:05 Rouleaux Not Reportable 11/25/20 05:05 Hemoglobin C Crystals Not Reportable 11/25/20 05:05 Schistocytes Not Reportable 11/25/20 05:05 Malaria parasites Not Reportable 11/25/20 05:05 Sukumar Bodies Not Reportable 11/25/20 05:05 Hem Pathologist Commnt No 11/25/20 05:05 PT 15.0 Sec. (12.2-14.9) H 11/24/20 16:12 INR 1.13 (0.87-1.13) 11/24/20 16:12 APTT 24.8 Sec. (24.2-36.6) 11/24/20 16:12 Sodium 145 mmol/L (137-145) 11/25/20 05:05 Potassium 4.3 mmol/L (3.6-5.0) 11/25/20 05:05 Chloride 105.6 mmol/L (98-107) 11/25/20 05:05 Carbon Dioxide 25 mmol/L (22-30) 11/25/20 05:05 Anion Gap 19 mmol/L 11/25/20 05:05 BUN 20 mg/dL (7-17) H 11/25/20 05:05 Creatinine 0.7 mg/dL (0.6-1.2) 11/25/20 05:05 Estimated GFR > 60 ml/min 11/25/20 05:05 BUN/Creatinine Ratio 29 % 11/25/20 05:05 Glucose 207 mg/dL (65-100) H 11/25/20 05:05 POC Glucose 186 mg/dL (70-105) H 11/24/20 18:44 Calcium 8.9 mg/dL (8.4-10.2) 11/25/20 05:05 Total Bilirubin 1.80 mg/dL (0.1-1.2) H 11/25/20 05:05 AST 49 units/L (5-40) H 11/25/20 05:05 ALT 218 units/L (7-56) H 11/25/20 05:05 Alkaline Phosphatase 67 units/L (35-129) 11/25/20 05:05 Total Protein 5.5 g/dL (6.3-8.2) L 11/25/20 05:05 Albumin 3.2 g/dL (3.9-5) L 11/25/20 05:05 Albumin/Globulin Ratio 1.4 % 11/25/20 05:05 Blood Type A POSITIVE 11/24/20 16:20 Antibody Screen Negative 11/24/20 16:20 Active Medications - Current Medications Current Medications: Generic Name Dose Route Start Last Admin Trade Name Freq PRN Reason Stop Dose Admin Acetaminophen 650 mg 11/24/20 22:25 Acetaminophen 650 Mg Rect Supp PA Q4H PRN Pain MILD(1-3)/Fever >100.5/KAUFMAN Albuterol 2 puff 11/24/20 23:00 Albuterol 8.5 Gm Mdi Inhalation IH Q4HRT PRN Shortness Of Breath Clonidine HCl 0.3 mg 11/24/20 23:00 11/25/20 02:15 Clonidine Tts 0.3 Mg/24 Hr Patch TD 0.3 mg Tu GLENROY Administration Hydralazine HCl 10 mg 11/24/20 22:35 Hydralazine 20 Mg/1 Ml Inj IV Q3H PRN Blood Pressure Hydromorphone HCl 0.5 mg 11/24/20 22:25 Hydromorphone 1 Mg/1 Ml Inj IV Q3H PRN Pain , Severe (7-10) Sodium Chloride 1,000 mls @ 125 mls/hr 11/24/20 18:00 11/24/20 22:03 Nacl 0.9% 1000 Ml IV 125 mls/hr DIRECT GLENROY Administration Pantoprazole Sodium 80 mg/ 100 mls @ 10 mls/hr 11/24/20 23:00 11/25/20 01:41 Sodium Chloride IV 8 mg/hr DIRECT GLENROY 10 mls/hr Administration 8 MG/HR Insulin Human Lispro 0 unit 11/25/20 00:00 11/25/20 06:03 Insulin Lispro 100 Unit/Ml SUB-Q Not Given Q6HR [facility] Protocol Metoclopramide HCl 10 mg 11/24/20 22:25 Metoclopramide 10 Mg/2 Ml Inj IV Q6H PRN Nausea And Vomiting Morphine Sulfate 2 mg 11/24/20 22:25 Morphine 2 Mg/1 Ml Inj IV Q4H PRN Pain, Moderate (4-6) Ondansetron HCl 4 mg 11/24/20 22:25 Ondansetron 4 Mg/2 Ml Inj IV Q8H PRN Nausea And Vomiting Sodium Chloride 10 ml 11/25/20 10:00 Sodium Chloride 0.9% 10 Ml Flush Syringe IV BID GLENROY Sodium Chloride 10 ml 11/24/20 22:25 Sodium Chloride 0.9% 10 Ml Flush Syringe IV PRN PRN LINE FLUSH Tiotropium [place] 1 puff 11/25/20 10:00 Tiotropium 18 Mcg Cap Inhalation IH QDAY [facility]
[2020-11-25] MEDS: TIOTROPIUM 18 MCG CAP INHALATION IH SCH (13:04)
[2020-11-25 13:20] LABS: Hepatitis C Virus Antibody Non-Reactive (NonReactive)
[2020-11-25] MEDS ORDERED: POLYETHYLENE GLYCOL/ELECT SOLN 4000 ML PO NR (14:00)
[2020-11-25 14:09] LABS: Hepatitis B Surface Antigen Nonreactive (Negative)
--- NOTE | 2020-11-25 14:18 | Cat Scan Report ---
CTA ABDOMEN AND PELVIS WITH IV CONTRAST INDICATION / CLINICAL INFORMATION: active GI bleeding 100 ml omni 350 . TECHNIQUE: Axial CT images were obtained through the abdomen and pelvis after injection of 100 cc Omnipaque 350 IV contrast. 3 plane MIP / 3D reconstructions were produced. All CT scans at this location are perfor med using CT dose reduction for ALARA by means of automated exposure control. COMPARISON: None available. FINDINGS: Aorta: There are a few scattered calcified plaques but no aneurysm, stenosis or dissection. Renal arteries: There are dense calcific plaques at the origin of both renal arteries. The right side appears slightly more affected. No poststenotic dilatation is appreciated. Stenosis is estimated at approximately 50% bilaterally Celiac artery: No significant abnormality. Superior Mesenteric Artery: No significant abnormality. Inferior mesenteric artery: No significant abnormality. Right Iliac Arteries: No significant abnormality.. Left Iliac Arteries: No significant abnormality.. Additional Findings: There is a large amount of fecal matter in the rectal vault. Mild fecal impactio n should be considered. There are also scattered diverticula in the distal colon. A focus of inflamma tion in the sigmoid region is identified which is best demonstrated on images 95-100, series 2 and co yessi images 43-50. This could represent early acute diverticulitis. Diverticular bleed could also be considered although I see no arterial spurt to suggest active bleeding. There are extensive bibasila r infiltrates concerning for Covid. Small pneumomediastinum is also suspected which is partially imag ed. Skeletal Structures: No significant abnormality. IMPRESSION: Unremarkable CTA of the abdomen and pelvis. Diverticulosis of the distal colon. There is a focal area of inflammation in the sigmoid region. This could represent early acute diverticulitis. I suppose a diverticular bleed could be considered altho ugh no arterial support to suggest active GI bleeding is detected at the time of this exam. Fecal impaction in the rectum. Extensive groundglass lung infiltrates at the lung bases suggestive of Covid. Small pneumomediastinum is identified in the lower chest. Consider further evaluation with CT chest. Signer Name: Dion Bass Jr, MD Signed: 11/25/2020 2:13 PM Workstation Name: [id number]
[2020-11-26 00:18] LABS: Hematocrit 29.9 % (30.3-42.9); Hemoglobin 9.9 gm/dl (10.1-14.3)
[2020-11-26] MEDS: INSULIN LISPRO 100 UNIT/ML SUB-Q SCH ×4 (01:53→17:27)
[2020-11-26] MEDS: SODIUM CHLORIDE 0.9% 1000 ML 1,000 ML IV SCH (04:54)
[2020-11-26] MEDS: TIOTROPIUM 18 MCG CAP INHALATION IH SCH ×2 (09:21→14:22)
--- NOTE | 2020-11-26 09:21 | Anesthesia Consultation ---
Anesthesia Consult and Med Hx Date of service: 11/26/20 - Airway Anesthetic Teeth Evaluation: Poor (multiple missing, broken teeth) - Pre-Operative Health Status ASA Pre-Surgery Classification: ASA4 Proposed Anesthetic Plan: MAC - Pulmonary Hx Smoking: No Hx Asthma: No Hx Respiratory Symptoms: Yes (SpO2 94% on NC 3 l/m) COPD: Yes Home Oxygen Therapy: Yes Hx Pneumonia: Yes (recent hospitalization with COVID-19, released on home O2) - Cardiovascular System Hx Hypertension: Yes Hx Pacemaker: No Hx Internal Defibrillator: No - Central Nervous System Hx Back Pain: Yes - Gastrointestinal Hx Gastroesophageal Reflux Disease: Yes - Endocrine Hx End Stage Renal Disease: No Hx Insulin Dependent Diabetes: Yes - Hematic Hx Anemia: Yes - Other Systems Hx Obesity: Yes (morbid obesity BMI 55.8)
--- NOTE | 2020-11-26 09:25 | Anesthesia Day of Surgery ---
Anesthesia Day of Surgery - Day of Surgery Patient Examined: Yes Patient H&P Reviewed: Yes Patient is NPO: Yes
[2020-11-26] MEDS ORDERED: propofoL 200 MG/20 ML VIAL IV ONE (10:22)
--- NOTE | 2020-11-26 10:36 | Electrocardiograph Report ---
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
--- NOTE | 2020-11-26 10:37 | Electrocardiograph Report ---
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
--- NOTE | 2020-11-26 10:43 | Event Note ---
Date: 11/26/20 Patient was sedated for the colonoscopy. However on my digital rectal exam she had extremely large formed stool in her rectum which would preclude the ability to do colonoscopy Will continue to prep today for colonoscopy tomorrow
--- NOTE | 2020-11-26 10:57 | Gastroenterology Progress Note ---
Assessment and Plan pt didn't tolerate prep and declines further prep attempts Hgb stable brown stool on my exam Therefore as pt not actively bleeding, stable hgb, and she declines repeat attempt for colonoscopy we will sign off and she said she will f/u with us as outpatient Regarding LFT, acute hep panel neg, her LFT have been elevated significantly si nce last admission, with DODSON highest on the Ddx, will finish eval as outpatient GI will sign off - Patient Problems (1) GI bleed Current Visit: Yes Status: Acute Qualifiers: GI bleed type/associated pathology: anorectal hemorrhage Qualified Code(s): K62.5 - Hemorrhage of anus and rectum (2) CHF (congestive heart failure) Current Visit: No Status: Acute Qualifiers: Heart failure type: systolic Heart failure chronicity: acute Qualified Code(s): I50.21 - Acute systolic (congestive) heart failure (3) COPD (chronic obstructive pulmonary disease) Current Visit: No Status: Chronic (4) Morbid obesity with body mass index (BMI) of 50.0 to 59.9 in adult Current Visit: No Status: Chronic (5) Transaminitis Current Visit: Yes Status: Acute Subjective Date of service: 11/26/20 Principal diagnosis: gi bleed Interval history: pt didn't finish prep reports buttocks hurting, no bleeding can't do prep Objective - Constitutional Vitals: Temp Pulse Resp BP Pulse Ox 99.8 F H 106 H 18 127/59 97 11/26/20 04:34 11/26/20 04:48 11/26/20 04:48 11/26/20 04:33 11/26/20 04:48 General appearance: no acute distress - EENT Eyes: EOM intact - Respiratory Respiratory effort: normal - Gastrointestinal General gastrointestinal: Present: soft - Labs CBC & Chem 7: 11/26/20 00:05 11/25/20 05:05 Labs: Laboratory Results - last 24 hr 11/25/20 11/25/20 11/26/20 08:13 18:24 00:05 Hgb 9.9 L Hct 29.9 L POC Glucose 179 H Hepatitis A IgM Ab Non-reactive Hep Bs Antigen Nonreactive Hep B Core IgM Ab Non-reactive Hepatitis C Antibody Non-reactive 11/26/20 11/26/20 11/26/20 01:50 06:40 08:16 Hgb Hct POC Glucose 192 H 192 H 180 H Hepatitis A IgM Ab Hep Bs Antigen Hep B Core IgM Ab Hepatitis C Antibody
--- NOTE | 2020-11-26 11:26 | Post Anesthesia Evaluation ---
- Post Anesthesia Evaluation Patient Participated: Yes Airway Patent: Yes Stable Respiratory Function: Yes Nausea/Vomiting: No Temp > 96.8F: Yes Pain Manageable: Yes Adequeate Hydration: Yes Anesthesia Complications: No
--- NOTE | 2020-11-26 13:09 | Progress Note ---
Assessment and Plan Assessment and plan: Patient was scheduled for endoscopy today, however patient did not complete GoLYTELY due to poor colon preparation, colonoscopy was rescheduled for tomorrow. -- GI bleeding Current Visit: Yes Status: Acute No new episodes of bleeding IV Protonix , GI following CTA abdomen; unremarkable, patient did not have any new episodes of GI bleeding GI planning endoscopy tomorrow, placed n.p.o. from midnight, GI recommend GoLYTELY per instructions Plan of care reviewed with the patient's nurse --HTN (hypertension) Current Visit: Yes Status: Chronic Hold oral antihypertensives Initiate Catapres TTS 3 patch IV hydralazine every 3 hours as necessary --IDDM (insulin dependent diabetes mellitus) Current Visit: Yes Status: Chronic Accu-Chek sliding scale insulin coverage Check hemoglobin A1c ADA diet, diabetic education, nutrition education prior to discharge --History of COPD (chronic obstructive pulmonary disease) Current Visit: Yes Status: Chronic Oxygen , titrate O2 sats to more than 90% nebulizer treatments as needed --Transaminitis Current Visit: Yes Status: Acute Acute hepatitis profile requested Statin induced transaminitis to be ruled out --Malnutrition Current Visit: Yes Status: Chronic Dietary supplements once patient is cleared to eat --DVT prophylaxis Current Visit: Yes Status: Acute On SCDs and GI prophylaxis History Interval history: I have seen and examined the patient at the bedside Patient was scheduled for colonoscopy however because of poor preparation it was canceled And rescheduled for tomorrow Patient did not have any new episodes of bleeding Patient says she feels better no new complaints Hospitalist Physical - Constitutional Vitals: Temp Pulse Resp BP Pulse Ox 100 F H 107 H 19 127/59 99 11/26/20 08:48 11/26/20 08:48 11/26/20 08:48 11/26/20 04:33 11/26/20 08:48 General appearance: Present: no acute distress, well-nourished - EENT Eyes: Present: PERRL, EOM intact - Neck Neck: Present: supple, normal ROM - Respiratory Respiratory effort: normal Respiratory: bilateral: diminished, negative: rales, rhonchi, wheezing - Cardiovascular Rhythm: regular Heart Sounds: Present: S1 & S2 - Extremities Extremities: no ischemia, No edema - Abdominal General gastrointestinal: soft, non-tender, non-distended, normal bowel sounds - Integumentary Integumentary: Present: clear, warm - Psychiatric Psychiatric: appropriate mood/affect, cooperative - Neurologic Neurologic: CNII-XII intact, moves all extremities Results - Labs CBC & Chem 7: 11/26/20 00:05 11/25/20 05:05 Labs: Laboratory Last Values WBC 3.7 K/mm3 (4.5-11.0) L 11/25/20 05:05 RBC 3.08 M/mm3 (3.65-5.03) L 11/25/20 05:05 Hgb 9.9 gm/dl (10.1-14.3) L 11/26/20 00:05 Hct 29.9 % (30.3-42.9) L 11/26/20 00:05 MCV 97 fl (79-97) 11/25/20 05:05 MCH 32 pg (28-32) 11/25/20 05:05 MCHC 33 % (30-34) 11/25/20 05:05 RDW 14.5 % (13.2-15.2) 11/25/20 05:05 Plt Count 102 K/mm3 (140-440) L 11/25/20 05:05 Lymph % (Auto) Not Reportable 11/25/20 05:05 Graham % (Auto) Not Reportable 11/25/20 05:05 Eos % (Auto) Not Reportable 11/25/20 05:05 Baso % (Auto) Not Reportable 11/25/20 05:05 Lymph # (Auto) Not Reportable 11/25/20 05:05 Graham # (Auto) Not Reportable 11/25/20 05:05 Eos # (Auto) Not Reportable 11/25/20 05:05 Baso # (Auto) Not Reportable 11/25/20 05:05 Add Manual Diff Complete 11/25/20 05:05 Total Counted 100 11/25/20 05:05 Seg Neutrophils % 82.2 % (40.0-70.0) H 11/24/20 16:12 Seg Neuts % (Manual) 81.0 % (40.0-70.0) H 11/25/20 05:05 Band Neutrophils % 3.0 % 11/25/20 05:05 Lymphocytes % (Manual) 11.0 % (13.4-35.0) L 11/25/20 05:05 Monocytes % (Manual) 5.0 % (0.0-7.3) 11/25/20 05:05 Nucleated RBC % Not Reportable 11/25/20 05:05 Seg Neutrophils # Not Reportable 11/25/20 05:05 Seg Neutrophils # Man 3.0 K/mm3 (1.8-7.7) 11/25/20 05:05 Band Neutrophils # 0.1 K/mm3 11/25/20 05:05 Lymphocytes # (Manual) 0.4 K/mm3 (1.2-5.4) L 11/25/20 05:05 Abs React Lymphs (Man) 0.0 K/mm3 11/25/20 05:05 Monocytes # (Manual) 0.2 K/mm3 (0.0-0.8) 11/25/20 05:05 Eosinophils # (Manual) 0.0 K/mm3 (0.0-0.4) 11/25/20 05:05 Basophils # (Manual) 0.0 K/mm3 (0.0-0.1) 11/25/20 05:05 Metamyelocytes # 0.0 K/mm3 11/25/20 05:05 Myelocytes # 0.0 K/mm3 11/25/20 05:05 Promyelocytes # 0.0 K/mm3 11/25/20 05:05 Blast Cells # 0.0 K/mm3 11/25/20 05:05 WBC Morphology Not Reportable 11/25/20 05:05 Hypersegmented Neuts Not Reportable 11/25/20 05:05 Hyposegmented Neuts Not Reportable 11/25/20 05:05 Hypogranular Neuts Not Reportable 11/25/20 05:05 Smudge Cells Not Reportable 11/25/20 05:05 Toxic Granulation Not Reportable 11/25/20 05:05 Toxic Vacuolation Not Reportable 11/25/20 05:05 Dohle Bodies Not Reportable 11/25/20 05:05 Pelger-Huet Anomaly Not Reportable 11/25/20 05:05 Callie Rods Not Reportable 11/25/20 05:05 Platelet Estimate Consistent w auto 11/25/20 05:05 Clumped Platelets Not Reportable 11/25/20 05:05 Plt Clumps, EDTA Not Reportable 11/25/20 05:05 Large Platelets Not Reportable 11/25/20 05:05 Giant Platelets Not Reportable 11/25/20 05:05 Platelet Satelliting Not Reportable 11/25/20 05:05 Plt Morphology Comment Not Reportable 11/25/20 05:05 RBC Morphology Normal 11/25/20 05:05 Dimorphic RBCs Not Reportable 11/25/20 05:05 Polychromasia Not Reportable 11/25/20 05:05 Hypochromasia Not Reportable 11/25/20 05:05 Poikilocytosis Not Reportable 11/25/20 05:05 Anisocytosis Not Reportable 11/25/20 05:05 Microcytosis Not Reportable 11/25/20 05:05 Macrocytosis Not Reportable 11/25/20 05:05 Spherocytes Not Reportable 11/25/20 05:05 Pappenheimer Bodies Not Reportable 11/25/20 05:05 Sickle Cells Not Reportable 11/25/20 05:05 Target Cells Not Reportable 11/25/20 05:05 Tear Drop Cells Not Reportable 11/25/20 05:05 Ovalocytes Not Reportable 11/25/20 05:05 Helmet Cells Not Reportable 11/25/20 05:05 [place] Bodies Not Reportable 11/25/20 05:05 Donora Rings Not Reportable 11/25/20 05:05 Achille Cells Not Reportable 11/25/20 05:05 Bite Cells Not Reportable 11/25/20 05:05 Crenated Cell Not Reportable 11/25/20 05:05 Elliptocytes Not Reportable 11/25/20 05:05 Acanthocytes (Spur) Not Reportable 11/25/20 05:05 Rouleaux Not Reportable 11/25/20 05:05 Hemoglobin C Crystals Not Reportable 11/25/20 05:05 Schistocytes Not Reportable 11/25/20 05:05 Malaria parasites Not Reportable 11/25/20 05:05 Sukumar Bodies Not Reportable 11/25/20 05:05 Hem Pathologist Commnt No 11/25/20 05:05 PT 15.0 Sec. (12.2-14.9) H 11/24/20 16:12 INR 1.13 (0.87-1.13) 11/24/20 16:12 APTT 24.8 Sec. (24.2-36.6) 11/24/20 16:12 Sodium 145 mmol/L (137-145) 11/25/20 05:05 Potassium 4.3 mmol/L (3.6-5.0) 11/25/20 05:05 Chloride 105.6 mmol/L (98-107) 11/25/20 05:05 Carbon Dioxide 25 mmol/L (22-30) 11/25/20 05:05 Anion Gap 19 mmol/L 11/25/20 05:05 BUN 20 mg/dL (7-17) H 11/25/20 05:05 Creatinine 0.7 mg/dL (0.6-1.2) 11/25/20 05:05 Estimated GFR > 60 ml/min 11/25/20 05:05 BUN/Creatinine Ratio 29 % 11/25/20 05:05 Glucose 207 mg/dL (65-100) H 11/25/20 05:05 POC Glucose 156 mg/dL (70-105) H 11/26/20 12:14 Calcium 8.9 mg/dL (8.4-10.2) 11/25/20 05:05 Total Bilirubin 1.80 mg/dL (0.1-1.2) H 11/25/20 05:05 AST 49 units/L (5-40) H 11/25/20 05:05 ALT 218 units/L (7-56) H 11/25/20 05:05 Alkaline Phosphatase 67 units/L (35-129) 11/25/20 05:05 Total Protein 5.5 g/dL (6.3-8.2) L 11/25/20 05:05 Albumin 3.2 g/dL (3.9-5) L 11/25/20 05:05 Albumin/Globulin Ratio 1.4 % 11/25/20 05:05 Hepatitis A IgM Ab Non-reactive (NonReactive) 11/25/20 08:13 Hep Bs Antigen Nonreactive (Negative) 11/25/20 08:13 Hep B Core IgM Ab Non-reactive (NonReactive) 11/25/20 08:13 Hepatitis C Antibody Non-reactive (NonReactive) 11/25/20 08:13 Blood Type A POSITIVE 11/24/20 16:20 Antibody Screen Negative 11/24/20 16:20 Active Medications - Current Medications Current Medications: Generic Name Dose Route Start Last Admin Trade Name Freq PRN Reason Stop Dose Admin Acetaminophen 650 mg 11/24/20 22:25 Acetaminophen 650 Mg Rect Supp IA Q4H PRN Pain MILD(1-3)/Fever >100.5/KAUFMAN Albuterol 2 puff 11/24/20 23:00 Albuterol 8.5 Gm Mdi Inhalation IH Q4HRT PRN Shortness Of Breath Clonidine HCl 0.3 mg 11/24/20 23:00 11/25/20 02:15 Clonidine Tts 0.3 Mg/24 Hr Patch TD 0.3 mg Tu GLENROY Administration Hydralazine HCl 10 mg 11/24/20 22:35 Hydralazine 20 Mg/1 Ml Inj IV Q3H PRN Blood Pressure Hydromorphone HCl 0.5 mg 11/24/20 22:25 11/25/20 20:42 Hydromorphone 1 Mg/1 Ml Inj IV 0.5 mg Q3H PRN Administration Pain , Severe (7-10) Sodium Chloride 1,000 mls @ 125 mls/hr 11/24/20 18:00 11/26/20 04:54 Nacl 0.9% 1000 Ml IV 125 mls/hr DIRECT GLENROY Administration Pantoprazole Sodium 80 mg/ 100 mls @ 10 mls/hr 11/24/20 23:00 11/25/20 22:25 Sodium Chloride IV 8 mg/hr DIRECT GLENROY 10 mls/hr Administration 8 MG/HR Insulin Human Lispro 0 unit 11/25/20 00:00 11/26/20 06:58 Insulin Lispro 100 Unit/Ml SUB-Q Not Given Q6HR [facility] Protocol Metoclopramide HCl 10 mg 11/24/20 22:25 Metoclopramide 10 Mg/2 Ml Inj IV Q6H PRN Nausea And Vomiting Morphine Sulfate 2 mg 11/24/20 22:25 Morphine 2 Mg/1 Ml Inj IV Q4H PRN Pain, Moderate (4-6) Ondansetron HCl 4 mg 11/24/20 22:25 Ondansetron 4 Mg/2 Ml Inj IV Q8H PRN Nausea And Vomiting Sodium Chloride 10 ml 11/25/20 10:00 11/26/20 09:43 Sodium Chloride 0.9% 10 Ml Flush Syringe IV Not Given BID GLENROY Sodium Chloride 10 ml 11/24/20 22:25 Sodium Chloride 0.9% 10 Ml Flush Syringe IV PRN PRN LINE FLUSH Tiotropium [place] 1 puff 11/25/20 10:00 11/26/20 09:21 Tiotropium 18 Mcg Cap Inhalation IH Not Given QDAY GLENROY
[2020-11-26] MEDS: PANTOPRAZOLE 80 MG in SODIUM CHLORIDE 0.9% 100 ML IV SCH (23:08)
[2020-11-27] MEDS: INSULIN LISPRO 100 UNIT/ML SUB-Q SCH ×5 (00:50→23:02)
[2020-11-27] MEDS: SODIUM CHLORIDE 0.9% 1000 ML 1,000 ML IV SCH (04:30)
--- NOTE | 2020-11-27 10:06 | Discharge Summary ---
Providers - Providers Date of Admission: 11/25/20 14:49 Date of discharge: 11/27/20 Attending physician: EDY YOUSSEF 11/24/20 22:25 Consult to Physician [CONS] Routine Comment: Consulting Provider: HAILEE DUQUE Physician Instructions: Reason For Exam: GI bleed 11/25/20 08:33 Midline [Consult to PICC Line RN] [CONS] Stat Reason For Exam: no IV access/GI bleeding[ PICC/Midline please] Type Line:: Midline 11/26/20 01:15 Consult to Wound/ET Nurse [CONS] Routine Reason For Exam: wound eval 11/26/20 15:41 Occupational Therapy Evaluate and Treat [CONS] Routine Comment: Reason For Exam: Debility Physical Therapy Evaluation and Treat [CONS] Routine Comment: Reason For Exam: Debility 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: TITLE 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 Hospitalization Reason for admission: GI bleeding Condition: Stable Pertinent studies: CT abdomen and pelvis CT abdomen and pelvis Hospital course: 70-year-old morbidly obese female patient with significant past medical history of COPD diabetes mellitus hypertension was admitted through emergency room with GI bleeding off and on patient's H&H was closely monitored which was maintained between 9.9 and 10.1 patient GI bleeding completely resolved was evaluated by GI planning to do colonoscopy however patient did not have a proper preparation with GoLYTELY meanwhile patient's bleeding completely stopped and patient opted to have endoscopy as outpatient upon discharge today patient is comfortable no new complaints vital signs stable, physical examination prior to discharge did not show any new findings cleared by GI patient is hemodynamically and clinically stable at discharge. Patient is morbidly obese with BMI of 55.8, counseling done strongly advised diet modification, exercise as tolerated, and weight reduction when medically stable Patient verbalized understanding, patient also advised outpatient evaluation for bariatric surgical procedure for weight reduction program when medically stable. Patient strongly advised to comply with medications diet and follow-up visits and if he has any new episodes of bleeding advised to go to the nearest emergency room as needed Case management has set up home health patient is hemodynamically and clinically stable at discharge. Discharge diagnosis: -- GI bleeding No new episodes of bleeding IV Protonix , GI following CTA abdomen; unremarkable, patient did not have any new episodes of GI bleeding GI planning endoscopy tomorrow, placed n.p.o. however patient did not take GoLYTELY per instructions GI consult for scheduled endoscopy and as patient is stable recommended to discharge and follow-up as outpatient To consider outpatient endoscopy if needed --HTN (hypertension) Hold oral antihypertensives Initiate Catapres TTS 3 patch IV hydralazine every 3 hours as necessary --IDDM (insulin dependent diabetes mellitus) Accu-Chek sliding scale insulin coverage Check hemoglobin A1c ADA diet, diabetic education, nutrition education prior to discharge --History of COPD (chronic obstructive pulmonary disease) Oxygen , titrate O2 sats to more than 90% nebulizer treatments as needed --Transaminitis Acute hepatitis profile requested Statin induced transaminitis to be ruled out --Malnutrition Dietary supplements once patient is cleared to eat --DVT prophylaxis On SCDs and GI prophylaxis Patient is stable at discharge Disposition: HOME HEALTH CARE SERVICE Final Discharge Diagnosis (Prints w/discharge instructions): GI bleeding. H ypertension. Type 2 diabetes mellitus. History of COPD. Transaminitis. Malnutrition Time spent for discharge: 35 min Core Measure Documentation - Palliative Care Palliative Care/ Comfort Measures: Not Applicable - Core Measures Any of the following diagnoses?: none Exam - Constitutional Vitals: Temp Pulse Resp BP Pulse Ox 99.5 F 102 H 20 134/58 92 11/27/20 04:58 11/27/20 04:58 11/27/20 04:58 11/27/20 04:58 11/27/20 04:58 General appearance: Present: no acute distress, obese (Morbidly obese) - EENT Eyes: Present: PERRL, EOM intact - Neck Neck: Present: supple, normal ROM - Respiratory Respiratory effort: normal Respiratory: bilateral: diminished, negative: rales, rhonchi, wheezing - Cardiovascular Rhythm: regular Heart Sounds: Present: S1 & S2 - Extremities Extremities: no ischemia, No edema - Abdominal General gastrointestinal: Present: deferred, soft, non-tender - Integumentary Integumentary: Present: clear, warm - Musculoskeletal Musculoskeletal: strength equal bilaterally - Psychiatric Psychiatric: appropriate mood/affect - Neurologic Neurologic: moves all extremities Plan Activity: advance as tolerated Diet: diabetic Additional Instructions: Advised to follow with primary care physician in 3 to 5 days, GI in 1 week. If you notice any new episodes of bleeding, contact MD or go to the nearest emergency room as needed. Advised to comply with medications diet and follow-up visits Follow up with: PRIMARY CARE, [Primary Care Provider] - 7 Days HAILEE DUQUE MD [Staff Physician] - 7 Days Forms: Accompanied Note Prescriptions: Pantoprazole [Protonix TAB] 40 mg PO BID #60 tablet
[2020-11-27] MEDS: PANTOPRAZOLE 40 MG INJ IV SCH ×2 (10:15→22:28)
[2020-11-27] MEDS: TIOTROPIUM 18 MCG CAP INHALATION IH SCH (10:29)
[2020-11-27 23:25] VITALS: BP 141/55
== END 2020-11-28 01:20 | disposition home health service (06) | DRG 378 ==
LOC: ED 14:43 → 4A 17:56 → OBSVTOIN 11-25 14:49 → 4A 11-25 20:03 → 3A 11-25 20:53
PROVIDERS: ADMIT Internal Medicine; ATTEND Internal Medicine
PROC: 05H733Z Insertion of Infusion Device into Right Axillary Vein, Percutaneous Approach (ICD-10-PCS; principal; 2020-11-25)
DX: K92.2 Gastrointestinal hemorrhage, unspecified (principal); Z68.43 Body mass index [BMI] 50.0-59.9, adult; E66.2 Morbid (severe) obesity with alveolar hypoventilation; E44.0 Moderate protein-calorie malnutrition; J44.9 Chronic obstructive pulmonary disease, unspecified; E11.9 Type 2 diabetes mellitus without complications; Z86.79 Personal history of other diseases of the circulatory system; Z79.899 Other long term (current) drug therapy; Z79.84 Long term (current) use of oral hypoglycemic drugs; I10 Essential (primary) hypertension; Z90.710 Acquired absence of both cervix and uterus; Z90.49 Acquired absence of other specified parts of digestive tract
CPT/HCPCS: 36415; 74174; 80053; 80074; 82962; 85007; 85014; 85018; 85025; 85610; 85730; 86850; 86900; 86901; 93005; 94760; G0378; C9113; J1170; J1815; J2270; J2704; J7030; Q9967